=== PATIENT | female | born 1965 | race Caucasian/White ===

== ENCOUNTER 2023-06-21 11:31 | Observation (INO) ==
--- NOTE | 2023-06-21 11:38 | Emergency Department Note ---
Impression & Plan Acute cholecystitis, Chest pain, Gallstones, Compression fracture of thoracic vertebra ED Provider Note NAME: GILLES CARSON AGE: 57 SEX: F : 1965 ARRIVES VIA: Ambulance INFORMANT: Patient, EMS ED PROVIDER(S): Alistair Chauhan DO CHIEF COMPLAINT: Chest pain HPI: The patient is a 57-year-old female who presented to the emergency department for an evaluation of chest pain. The patient describes anterior chest pain as well as nausea. She states that the symptoms began earlier today. She was at her primary care physician's office she was evaluated by her family doctor. She was sent to the emergency department by ambulance because of chest pain. The patient states she was treated with aspirin. She was also treated with Zofran for nausea. She states her symptoms are somewhat improved at this time. ROS: See above HPI for pertinent positives & negatives. A total of 10 systems reviewed and were otherwise negative. PAST MEDICAL HISTORY: See Below PAST SURGICAL HISTORY: See Below FAMILY HISTORY: See Below SOCIAL HISTORY: See Below HOME MEDICATIONS: See Below ALLERGIES: See Below VITALS: See Below PHYSICAL EXAMINATION: GENERAL: Patient is awake alert in no acute distress patient is resting comfortably and showing no signs of anxiety EYES: The conjunctivae are clear. The pupils are round and reactive. EARS, NOSE, MOUTH AND THROAT: The nose is without any evidence of any deformity. NECK: The neck is nontender and supple. RESPIRATORY: Normal respiratory effort is noted there is no evidence of wheezing rhonchi or rales CARDIOVASCULAR: Regular rate and rhythm noted there no murmurs rubs or gallops normal S1 normal S2. GASTROINTESTINAL: The abdomen is soft. Abdomen is nontender. MUSCULOSKELETAL/EXTREMITIES: There is no evidence of gross deformity full range of motion is noted in the hips and shoulders. SKIN: There is no obvious evidence of any rash. There are no petechiae, pallor or cyanosis noted. NEUROLOGIC: Patient is awake alert and oriented x3 MEDICAL DECISION MAKING: The patient is a 57-year-old female who presented to the emergency department for an evaluation of chest pain. The patient described lower chest pain and upper abdominal pain. She did not have any specific guarding in the abdomen but did have some upper abdominal tenderness. Patient ultimately was found to have negative troponin x 2. EKG showed no acute ischemic changes but did have some T wave abnormalities. I discussed patient's laboratory and radiographic studies with her. CT of the chest was obtained as well as the abdomen pelvis. The CT of the chest did not show any signs of pulmonary embolism or thoracic aortic pathology. Abdomen did show signs of possible cholecystitis. For this reason ultrasound was obtained which did show some ductal dilatation as well as gallstones. I discussed the case with the on-call heat and frost insulator helper. They recommended that we discussed the case with Dee Dee who recommends an MRCP as well as admission for cholecystitis prior to transfer. [facility] Nursing notes reviewed. Prior medical records reviewed Vital Signs: reviewed and remarkable for elevated blood pressure. Differential diagnosis: Cardiac ischemia, aortic dissection, pulmonary embolism, pneumothorax, pneumonia, pericarditis, myocarditis, esophageal rupture, GERD, cholecystitis, pancreatitis, musculoskeletal, as well as other pathologies. ER treatment provided: See below Diagnostics interpreted by me: ECG: EKG was obtained in the emergency department. My interpretation is sinus bradycardia at 54 bpm. There was no ectopy. Nonspecific T wave abnormalities were noted. Cardiac Monitoring: An order was placed for continuous cardiac monitoring. The monitor shows a rate of 66 bpm with sinus rhythm. Laboratory studies: As stated above and show below. Imaging studies: See below. Radiographic imaging was reviewed by myself Consultation(s): I discussed this case with Dr. Ruffin who is on-call for gastroenterology. I discussed this case with Dr Henry with [facility] triage line I discussed this case with Dr. Piedra who is on for GI at [facility]. They recommended an MRCP prior to transfer. I discussed this case with Kassidy who is on-call for the [facility] hospitalist group. I discussed this case with Dr. Yusuf who is on-call for general surgery. Past Med/Surg History Medical History Crohn disease No pertinent family history Anxiety Surgical History No pertinent past surgical history Social History Smoking Status: Current every day smoker Preferred Language: Brazilian Feels Safe at Home: Yes Allergies Allergies Allergy/AdvReac Type Severity Reaction Status Date / Time No Known Allergies Allergy Unverified 06/21/23 17:04 Home Meds Home Medications Medication Instructions Recorded Confirmed acetaminophen 500 mg tablet 500 mg PO Q6H PRN Pain 06/21/23 06/21/23 albuterol sulfate 90 mcg/actuation 2 puff inhalation Q4H PRN Wheezing 06/21/23 06/21/23 aerosol inhaler cholecalciferol (vitamin D3) 25 50 mcg PO DAILY 06/21/23 06/21/23 mcg (1,000 unit) tablet (Vitamin D3) duloxetine 30 mg capsule,delayed 30 mg PO QAM 06/21/23 06/21/23 release infliximab 100 mg intravenous 100 mg IV UD 06/21/23 06/21/23 solution (Remicade) omega 5-ily-nxq-fish oil 1,000 mg 1 cap PO DAILY 06/21/23 06/21/23 (120 mg-180 mg) capsule (Fish Oil) ondansetron HCl 4 mg tablet 4 mg PO Q6H PRN Nausea And Vomiting 06/21/23 06/21/23 pantoprazole 40 mg tablet,delayed 40 mg PO QAM 06/21/23 06/21/23 release Results & Data (ED) Vital Signs Vital Signs - 24 hr 06/21/23 11:31 06/21/23 11:37 06/21/23 12:00 Temperature 36.9 C Temperature Source Oral Pulse Rate 64 64 60 Pulse Rate from SpO2 Sensor 60 Pulse Rhythm Regular Respiratory Rate 18 18 28 H Respiratory Effort / Characteristics Non-Labored Respiratory Depth Normal Respiratory Pattern Regular Blood Pressure 148/87 H Blood Pressure Mean 107 Pulse Oximetry 98 98 99 Oxygen Delivery Method Room Air Room Air Sepsis Recent Fever Within 48 Hours No Sepsis New/Unexplained Change in Mental Status N/A Sepsis Action Taken by Nursing No Action Required 06/21/23 12:26 06/21/23 13:00 06/21/23 13:36 Temperature Temperature Source Pulse Rate 64 68 69 Pulse Rate from SpO2 Sensor 71 72 Pulse Rhythm Respiratory Rate 21 15 Respiratory Effort / Characteristics Respiratory Depth Respiratory Pattern Blood Pressure 168/99 H Blood Pressure Mean 122 Pulse Oximetry 96 98 Oxygen Delivery Method Sepsis Recent Fever Within 48 Hours Sepsis New/Unexplained Change in Mental Status Sepsis Action Taken by Nursing 06/21/23 14:00 06/21/23 14:30 06/21/23 15:00 Temperature Temperature Source Pulse Rate 65 63 67 Pulse Rate from SpO2 Sensor 70 Pulse Rhythm Respiratory Rate 21 24 17 Respiratory Effort / Characteristics Respiratory Depth Respiratory Pattern Blood Pressure 170/93 H 170/96 H 170/87 H Blood Pressure Mean 118 120 114 Pulse Oximetry 98 Oxygen Delivery Method Sepsis Recent Fever Within 48 Hours Sepsis New/Unexplained Change in Mental Status Sepsis Action Taken by Nursing 06/21/23 17:30 Temperature Temperature Source Pulse Rate 66 Pulse Rate from SpO2 Sensor Pulse Rhythm Respiratory Rate 21 Respiratory Effort / Characteristics Respiratory Depth Respiratory Pattern Blood Pressure 169/90 H Blood Pressure Mean 116 Pulse Oximetry Oxygen Delivery Method Sepsis Recent Fever Within 48 Hours Sepsis New/Unexplained Change in Mental Status Sepsis Action Taken by [facility] Medications Current Medication List: was personally reviewed by me Laboratory Data Attestation: I reviewed the patient's lab results. 06/21/23 11:44 06/21/23 11:44 Lab Results 06/21/23 06/21/23 Range/Units 11:44 14:28 WBC 15.16 H (4.8-10.8) K/ul RBC 4.94 (4.20-5.40) M/uL Hgb 14.3 (12.0-16.0) g/dl Hct 43.8 (37.0-47.0) % MCV 88.7 (80.0-100.0) fL MCH 28.9 (25.0-34.0) pg MCHC 32.6 (32.0-36.0) g/dL RDW Std Deviation 56.0 H (36.4-46.3) fL RDW Coeff of Melzia 17.2 H (11.5-14.5) % Plt Count 253 (130-400) K/uL MPV 10.8 (9.4-12.4) fL Immature Gran % (Auto) 0.5 % Neut % (Auto) 78.5 % Lymph % (Auto) 14.1 % Mccone % (Auto) 5.5 % Eos % (Auto) 0.9 % Baso % (Auto) 0.5 % Neut # (Auto) 11.92 H (1.40-6.50) K/uL Lymph # (Auto) 2.13 (1.20-3.40) K/uL Mccone # (Auto) 0.83 H (0.11-0.59) K/uL Eos # (Auto) 0.13 (0.00-0.50) K/uL Baso # (Auto) 0.07 (0.00-0.20) K/uL Immature Gran # (Auto) 0.08 (0.01-0.20) K/uL PT 10.9 (9.0-12.0) Seconds INR 1.0 (0.9-1.1) APTT 25 (21-31) Seconds PTT Ratio 0.9 Sodium 142 (136-145) mmol/L Potassium 3.9 (3.5-5.1) mmol/L Chloride 107 (98-107) mmol/L Carbon Dioxide 28 (21-32) mmol/L Anion Gap 7 (3-11) BUN 10 (6-23) mg/dl Creatinine 0.57 L (0.6-1.2) mg/dl Est Cr Clr Drug Dosing 84.0 ml/min Est GFR ( Amer) 117.6 ml/min Est GFR (Non-Af Amer) 101.5 ml/min BUN/Creatinine Ratio 17.5 (10-20) Glucose 101 H (70-99(Fasting)) mg/dl Calcium 9.2 (8.6-10.3) mg/dl Total Bilirubin 1.6 H (0.2-1.0) mg/dl AST 105 H (13-39) U/L ALT 26 (7-52) U/L Alkaline Phosphatase 103 (34-104) U/L Troponin I High Sens 5.8 3.0 (0-14) pg/ml Total Protein 6.6 (6.0-8.3) gm/dl Albumin 3.8 (3.4-5.0) gm/dl Globulin 2.8 (2.5-4.0) gm/dl Albumin/Globulin Ratio 1.4 (0.9-2) Lipase 7 L (11-82) U/L Administered Medications Discontinued Medications Piperacillin Sod/Tazobactam Sod (Zosyn) 4.5 gm in 100 mls @ 200 mls/hr IV NOW ONE Stop: 06/21/23 16:31 Last Admin: 06/21/23 17:32 Dose: 200 mls/hr Documented By: ALBINA Ioversol (Optiray 320 125ml) 93 ml IV ONCE ONE Stop: 06/21/23 13:32 Last Admin: 06/21/23 13:33 Dose: 93 ml Documented By: MARITO Imaging Data Attestation: I personally reviewed and interpreted this imaging study as follows: My Impression: CT of the abdomen and pelvis was obtained in the emergency department. My interpretation is no free air or signs of bowel obstruction, final report below. CT of the chest was obtained in the emergency department. My interpretation was no free air or signs of bowel obstruction, final report below. Radiologist's Impression: Chest X-Ray 06/21/23 11:37 XR chest 1V portable CLINICAL HISTORY: Chest pain, nonspecific COMPARISON STUDY: No previous studies for comparison. FINDINGS: Lung volumes are normal. There is a hazy 3.3 cm right lower lung. There is no pneumothorax or pleural effusion. Skin folds project of the right chest. Opacity along the left heart border favors epicardial fat pad. Cardiac size is normal. Mediastinal contours are normal. There is no evidence for pulmonary edema. IMPRESSION: Subtle hazy 3.3 cm right lower lung opacity. This may be artifactual. However, a small focus of developing pneumonia could appear similar. Radiographic follow-up to ensure resolution is recommended. ACT 112: Negative or not required by law. Electronically signed by: Kurt Rodriguez M.D. 06/21/2023 12:25 PM Abdomen/Pelvis CT 06/21/23 13:01 CT angio chest PE protocol, CT abd pelvis IV con only CT DOSE: 591.94 mGy.cm HISTORY: 57 years-old Female with PE. Acute shortness of breath with chest and abdominal pain TECHNIQUE: Multiple CTA images of the chest were obtained after the intravenous administration of 93 ml Optiray. Coronal and sagittal MIPS were obtained from the axial data set and were submitted for review. CT abdomen and pelvis with IV contrast also obtained. All measurements were obtained according to NASCET criteria. A dose lowering technique was utilized adhering to the principles of ALARA. COMPARISON: None. FINDINGS: CTA: Heart normal in size. No pericardial effusion. Atherosclerosis of the aorta without aneurysm or dissection. Unremarkable pulmonary artery. No pulmonary emboli identified. CT CHEST: No thyroid nodule or pathologically enlarged lymph nodes. Calcified subcarinal lymph nodes are present. No pneumothorax, pleural effusion or overt pulmonary edema. Moderate pulmonary emphysema.r there are a few scattered low suspicion groundglass nodular foci at the lung apices measuring up to 4 mm. 7 mm ground glass nodule within the medial segment right middle lobe, image 97. Central airways are patent. Moderate circumferential wall thickening of the distal esophagus with adjacent inflammatory stranding. Unremarkable soft tissues. Demineralized appearance of the bones. Mild paravertebral edema surrounding the T11 and T12 vertebral bodies were there are [id number] compression deformities with retropulsion measuring up to 5 mm. No high-grade central canal stenosis. CT ABDOMEN AND PELVIS: No free air. Unremarkable spleen, and adrenal glands. Distended gallbladder with borderline wall thickening. Intrahepatic and extrahepatic biliary ductal dilation. The common bile duct measures 12 mm. The pancreatic duct measures 5 mm. No obstructing biliary or pancreatic lesion identified. Unremarkable liver. Patency of the hepatic and portal veins. There are a few scattered cysts of the kidneys. No hydronephrosis. Decompressed urinary bladder with wall thickening. Pelvic floor relaxation. Atherosclerosis of the aorta without aneurysm. No small bowel obstruction. Nonspecific circumferential wall thickening of the anal rectal junction. Areas of linear soft tissue thickening noted within the perirenal tissues suggestive of chronic perianal fistulas. No significant acute inflammatory changes or fluid collections. Mild perirectal inflammatory stranding. There is a partial distention within the sigmoid and ascending colon. Moderate colonic fecal retention. Noninflamed appendix. Mild generalized body wall edema. Degenerative changes of the spine, pelvis and hips. IMPRESSION: 1. Pulmonary emphysema without acute intrathoracic abnormality. No pulmonary emboli. 2. No bowel obstruction or pneumoperitoneum. 3. Nonspecific wall thickening of the rectum and anorectal junction should be correlated with colonoscopy. Differential considerations include proctitis versus a mucosal lesion. 4. Chronic appearing perianal fistulas. No abscess. 5. Distended gallbladder with borderline wall thickening. Correlation with ultrasound is needed. 6. Acute to subacute appearing T11 and T12 compression deformities with mild paravertebral edema and retropulsion. 7. Probable distal esophagitis. 8. Additional findings as above. ACT 112: Negative or not required by law. The above report was generated using voice recognition software. It may contain grammatical, syntax or spelling errors. Electronically signed by: Nnamdi Oakley M.D. 06/21/2023 2:25 PM Chest CTA 06/21/23 13:01 CT angio chest PE protocol, CT abd pelvis IV con only CT DOSE: 591.94 mGy.cm HISTORY: 57 years-old Female with PE. Acute shortness of breath with chest and abdominal pain TECHNIQUE: Multiple CTA images of the chest were obtained after the intravenous administration of 93 ml Optiray. Coronal and sagittal MIPS were obtained from the axial data set and were submitted for review. CT abdomen and pelvis with IV contrast also obtained. All measurements were obtained according to NASCET criteria. A dose lowering technique was utilized adhering to the principles of ALARA. COMPARISON: None. FINDINGS: CTA: Heart normal in size. No pericardial effusion. Atherosclerosis of the aorta without aneurysm or dissection. Unremarkable pulmonary artery. No pulmonary emboli identified. CT CHEST: No thyroid nodule or pathologically enlarged lymph nodes. Calcified subcarinal lymph nodes are present. No pneumothorax, pleural effusion or overt pulmonary edema. Moderate pulmonary emphysema.r there are a few scattered low suspicion groundglass nodular foci at the lung apices measuring up to 4 mm. 7 mm ground glass nodule within the medial segment right middle lobe, image 97. Central airways are patent. Moderate circumferential wall thickening of the distal esophagus with adjacent inflammatory stranding. Unremarkable soft tissues. Demineralized appearance of the bones. Mild paravertebral edema surrounding the T11 and T12 vertebral bodies were there are [id number] compression deformities with retropulsion measuring up to 5 mm. No high-grade central canal stenosis. CT ABDOMEN AND PELVIS: No free air. Unremarkable spleen, and adrenal glands. Distended gallbladder with borderline wall thickening. Intrahepatic and extrahepatic biliary ductal dilation. The common bile duct measures 12 mm. The pancreatic duct measures 5 mm. No obstructing biliary or pancreatic lesion identified. Unremarkable liver. Patency of the hepatic and portal veins. There are a few scattered cysts of the kidneys. No hydronephrosis. Decompressed urinary bladder with wall thickening. Pelvic floor relaxation. Atherosclerosis of the aorta without aneurysm. No small bowel obstruction. Nonspecific circumferential wall thickening of the anal rectal junction. Areas of linear soft tissue thickening noted within the perirenal tissues suggestive of chronic perianal fistulas. No significant acute inflammatory changes or fluid collections. Mild perirectal inflammatory stranding. There is a partial distention within the sigmoid and ascending colon. Moderate colonic fecal retention. Noninflamed appendix. Mild generalized body wall edema. Degenerative changes of the spine, pelvis and hips. IMPRESSION: 1. Pulmonary emphysema without acute intrathoracic abnormality. No pulmonary emboli. 2. No bowel obstruction or pneumoperitoneum. 3. Nonspecific wall thickening of the rectum and anorectal junction should be correlated with colonoscopy. Differential considerations include proctitis versus a mucosal lesion. 4. Chronic appearing perianal fistulas. No abscess. 5. Distended gallbladder with borderline wall thickening. Correlation with ultrasound is needed. 6. Acute to subacute appearing T11 and T12 compression deformities with mild paravertebral edema and retropulsion. 7. Probable distal esophagitis. 8. Additional findings as above. ACT 112: Negative or not required by law. The above report was generated using voice recognition software. It may contain grammatical, syntax or spelling errors. Electronically signed by: Nnamdi Oakley M.D. 06/21/2023 2:25 PM Gallbladder Ultrasound 06/21/23 14:40 ULTRASOUND RIGHT UPPER QUADRANT ABDOMEN CLINICAL HISTORY: Right upper quadrant abdominal pain. COMPARISON STUDY: Abdominal CT dated 06/21/2023. TECHNIQUE: Real-time, grayscale, and color flow sonography of the right upper quadrant of the abdomen was performed. Images are reviewed in the transverse and longitudinal planes. FINDINGS: Liver: The liver is normal in size and echotexture. There is mild central intrahepatic biliary ductal dilatation. The main portal vein is patent. Gallbladder: The gallbladder is distended and contains a 1 cm shadowing mobile gallstone. The gallbladder wall is mildly thickened measuring up to 3 mm. Trace pericholecystic fluid is seen. A sonographic Christianson's sign is reportedly absent. The common bile duct measures up to 0.6 cm in diameter. Pancreas: Visualized portions of the pancreatic head and body are normal in appearance. There is mild dilatation of pancreatic duct which measures up to 3 mm. Right kidney: Survey images of the right kidney demonstrate normal size and echotexture. There is no hydronephrosis. A subcentimeter cyst is incidentally noted. Ascites: There is trace perihepatic ascites. Bladder: The bladder is normal as imaged. Both ureteral jets were identified. IMPRESSION: 1. The gallbladder is distended and contains a calcified gallstone. There is also trace pericholecystic fluid. A sonographic Christianson's sign is reportedly absent. Findings are equivocal for acute cholecystitis which is not excluded. Clinical and laboratory correlation will be required. If there is strong clinical concern for acute cholecystitis a nuclear hepatobiliary scan could be considered. 2. There is mild intra and extrahepatic biliary ductal dilatation, as well as mild dilatation of the pancreatic duct. This is unchanged from today's CT scan. 3. Trace perihepatic ascites. ACT 112: Negative or not required by law. Electronically signed by: Ricardo Manriquez M.D. 06/21/2023 3:53 PM Discharge Plan Visit Data Chief Complaint: Chest Pain Stated Complaint: CHEST PRESSURE ED Provider: Alistair Chauhan Discharge Problem: Acute cholecystitis, Chest pain, Gallstones, Compression fracture of thoracic vertebra Patient Disposition: Being Evaluated by Hospitalist Forms Stand Alone [facility] Prescriptions: No Action ondansetron HCl 4 mg tablet 4 mg PO Q6H PRN (Reason: Nausea And Vomiting) acetaminophen [Tylenol Ex Str Rapid Release] 500 mg Tablet 500 mg PO Q6H PRN (Reason: Pain) pantoprazole 40 mg tablet,delayed release (DR/EC) 40 mg PO QAM infliximab [Remicade] 100 mg Recon Soln 100 mg IV UD Rx Instructions: Patient has done 2 of 3 doses then will go to once every 8 weeks albuterol sulfate 90 mcg/actuation HFA aerosol inhaler 2 puff INHALATION Q4H PRN (Reason: Wheezing) duloxetine 30 mg capsule,delayed release(DR/EC) 30 mg PO QAM cholecalciferol (vitamin D3) [Vitamin D3] 25 mcg (1,000 unit) Tablet 50 mcg PO DAILY omega 5-iwm-ave-fish oil [Fish Oil] 1,000 mg (120 mg-180 mg) Capsule 1 cap PO DAILY Referrals Referrals: PCP,NO [Physician] - Discharge Problem: Chest pain Qualifiers: Chest pain type: unspecified Qualified Code(s): R07.9 - Chest pain, unspecified Compression fracture of thoracic vertebra Qualifiers: Encounter type: initial encounter Thoracic vertebra fracture level: T11 Q ualified Code(s): S22.080A - Wedge compression fracture of T11-T12 vertebra, initial encounter for closed fracture
[2023-06-21 12:15] LABS: Basophils # (auto) 0.07 K/uL (0.00-0.20); Basophils % (auto) 0.5 %; Eosinophils # (auto) 0.13 K/uL (0.00-0.50); Eosinophils % (auto) 0.9 %; Hematocrit (blood only) 43.8 % (37.0-47.0); Hemoglobin 14.3 g/dl (12.0-16.0); Immature Granulocytes # (auto) 0.08 K/uL (0.01-0.20); Immature Granulocytes % (auto) 0.5 %; Lymphocytes # (auto) 2.13 K/uL (1.20-3.40); Lymphocytes % (auto) 14.1 %; Mean Corpuscular Hemoglobin 28.9 pg (25.0-34.0); Mean Corpuscular Hgb Conc 32.6 g/dL (32.0-36.0); Mean Corpuscular Volume 88.7 fL (80.0-100.0); Mean Platelet Volume 10.8 fL (9.4-12.4); Monocytes # (auto) 0.83 K/uL (0.11-0.59); Monocytes % (auto) 5.5 %; Neutrophils # (auto) 11.92 K/uL (1.40-6.50); Neutrophils % (auto) 78.5 %; Platelet Count 253 K/uL (130-400); RDW Coefficient of Variation 17.2 % (11.5-14.5); Red Blood Count 4.94 M/uL (4.20-5.40); White Blood Count 15.16 K/ul (4.8-10.8)
--- NOTE | 2023-06-21 12:26 | XRay Report ---
XR chest 1V portable CLINICAL HISTORY: Chest pain, nonspecific COMPARISON STUDY: No previous studies for comparison. FINDINGS: Lung volumes are normal. There is a hazy 3.3 cm right lower lung. There is no pneumothorax or pleural effusion. Skin folds project of the right chest. Opacity along the left heart border favor s epicardial fat pad. Cardiac size is normal. Mediastinal contours are normal. There is no evidence f or pulmonary edema. IMPRESSION: Subtle hazy 3.3 cm right lower lung opacity. This may be artifactual. However, a small focus of developing pneumonia could appear similar. Radiographic follow-up to ensure resolution is re commended. ACT 112: Negative or not required by law. Electronically signed by: Kurt Rodriguez M.D. 06/21/2023 12:25 PM
[2023-06-21 12:28] LABS: Albumin Globulin Ratio 1.4 (0.9-2); Albumin Level 3.8 gm/dl (3.4-5.0); BUN Creatinine Ratio 17.5 (10-20); Bilirubin,Total 1.6 mg/dl (0.2-1.0); Calcium 9.2 mg/dl (8.6-10.3); Est GFR (African American) 117.6 ml/min; Est GFR (Non-African American) 101.5 ml/min; Globulin 2.8 gm/dl (2.5-4.0); Potassium 3.9 mmol/L (3.5-5.1); Total Protein 6.6 gm/dl (6.0-8.3)
[2023-06-21 12:30] LABS: Troponin I High Sensitivity 5.8 pg/ml (0-14)
[2023-06-21 12:41] LABS: Partial Thromboplastin Ratio 0.9; Partial Thromboplastin Time 25 Seconds (21-31); Prothrombin Time 10.9 Seconds (9.0-12.0)
[2023-06-21] MEDS: OPTIRAY 320 125ml IV ONE (13:33)
--- NOTE | 2023-06-21 14:27 | CT Scan Report ---
CT angio chest PE protocol, CT abd pelvis IV con only CT DOSE: 591.94 mGy.cm HISTORY: 57 years-old Female with PE. Acute shortness of breath with chest and abdominal pain TECHNIQUE: Multiple CTA images of the chest were obtained after the intravenous administration of 93 ml Optiray. Coronal and sagittal MIPS were obtained from the axial data set and were submitted for r eview. CT abdomen and pelvis with IV contrast also obtained. All measurements were obtained accordin g to NASCET criteria. A dose lowering technique was utilized adhering to the principles of ALARA. COMPARISON: None. FINDINGS: CTA: Heart normal in size. No pericardial effusion. Atherosclerosis of the aorta without aneurysm or disse ction. Unremarkable pulmonary artery. No pulmonary emboli identified. CT CHEST: No thyroid nodule or pathologically enlarged lymph nodes. Calcified subcarinal lymph nodes are presen t. No pneumothorax, pleural effusion or overt pulmonary edema. Moderate pulmonary emphysema.r there a re a few scattered low suspicion groundglass nodular foci at the lung apices measuring up to 4 mm. 7 mm ground glass nodule within the medial segment right middle lobe, image 97. Central airways are pat ent. Moderate circumferential wall thickening of the distal esophagus with adjacent inflammatory stra nding. Unremarkable soft tissues. Demineralized appearance of the bones. Mild paravertebral edema tiffanie rounding the T11 and T12 vertebral bodies were there are [id number] compression deformities wit h retropulsion measuring up to 5 mm. No high-grade central canal stenosis. CT ABDOMEN AND PELVIS: No free air. Unremarkable spleen, and adrenal glands. Distended gallbladder wi th borderline wall thickening. Intrahepatic and extrahepatic biliary ductal dilation. The common bile duct measures 12 mm. The pancreatic duct measures 5 mm. No obstructing biliary or pancreatic lesion identified. Unremarkable liver. Patency of the hepatic and portal veins. There are a few scattered cysts of the kidneys. No hydronephrosis. Decompressed urinary bladder with wall thickening. Pelvic floor relaxation. Atherosclerosis of the aorta without aneurysm. No small bow el obstruction. Nonspecific circumferential wall thickening of the anal rectal junction. Areas of amy ear soft tissue thickening noted within the perirenal tissues suggestive of chronic perianal fistulas . No significant acute inflammatory changes or fluid collections. Mild perirectal inflammatory strand ing. There is a partial distention within the sigmoid and ascending colon. Moderate colonic fecal ret ention. Noninflamed appendix. Mild generalized body wall edema. Degenerative changes of the spine, pe lvis and hips. IMPRESSION: 1. Pulmonary emphysema without acute intrathoracic abnormality. No pulmonary emboli. 2. No bowel obstruction or pneumoperitoneum. 3. Nonspecific wall thickening of the rectum and anorectal junction should be correlated with colonos copy. Differential considerations include proctitis versus a mucosal lesion. 4. Chronic appearing perianal fistulas. No abscess. 5. Distended gallbladder with borderline wall thickening. Correlation with ultrasound is needed. 6. Acute to subacute appearing T11 and T12 compression deformities with mild paravertebral edema and retropulsion. 7. Probable distal esophagitis. 8. Additional findings as above. ACT 112: Negative or not required by law. The above report was generated using voice recognition software. It may contain grammatical, syntax o r spelling errors. Electronically signed by: Nnamdi Oakley M.D. 06/21/2023 2:25 PM
--- NOTE | 2023-06-21 15:56 | Ultrasound Report ---
ULTRASOUND RIGHT UPPER QUADRANT ABDOMEN CLINICAL HISTORY: Right upper quadrant abdominal pain. COMPARISON STUDY: Abdominal CT dated 06/21/2023. TECHNIQUE: Real-time, grayscale, and color flow sonography of the right upper quadrant of the abdomen was performed. Images are reviewed in the transverse and longitudinal planes. FINDINGS: Liver: The liver is normal in size and echotexture. There is mild central intrahepatic biliary ductal dilatation. The main portal vein is patent. Gallbladder: The gallbladder is distended and contains a 1 cm shadowing mobile gallstone. The gallbla dder wall is mildly thickened measuring up to 3 mm. Trace pericholecystic fluid is seen. A sonographi c Christianson's sign is reportedly absent. The common bile duct measures up to 0.6 cm in diameter. Pancreas: Visualized portions of the pancreatic head and body are normal in appearance. There is mild dilatation of pancreatic duct which measures up to 3 mm. Right kidney: Survey images of the right kidney demonstrate normal size and echotexture. There is no hydronephrosis. A subcentimeter cyst is incidentally noted. Ascites: There is trace perihepatic ascites. Bladder: The bladder is normal as imaged. Both ureteral jets were identified. IMPRESSION: 1. The gallbladder is distended and contains a calcified gallstone. There is also trace pericholecyst ic fluid. A sonographic Christianson's sign is reportedly absent. Findings are equivocal for acute cholecys titis which is not excluded. Clinical and laboratory correlation will be required. If there is strong clinical concern for acute cholecystitis a nuclear hepatobiliary scan could be considered. 2. There is mild intra and extrahepatic biliary ductal dilatation, as well as mild dilatation of the pancreatic duct. This is unchanged from today's CT scan. 3. Trace perihepatic ascites. ACT 112: Negative or not required by law. Electronically signed by: Ricardo Manriquez M.D. 06/21/2023 3:53 PM
[2023-06-21] MEDS: PIPERACILLIN/TAZOBACTAM 4.5 GM/100 ML BAG IV ONE (17:32)
--- NOTE | 2023-06-21 18:00 | History & Physical Report ---
Date of Service June 21, 2023 Assessment & Plan (1) Gallstones: (2) Acute cholecystitis: Plan: -Admit to [facility] with telemetry -GI and general surgery consulted -ER physician reports they have spoke to GI at [facility] and he did not feel that patient needed transfer to their facility at this time, recommended an MRCP which has been ordered, await results -AST 105, ALT 26, total bili 1.6, alk phos 103 -Reviewed gallbladder ultrasound showing 1 large calcified gallstone, as well as CT abdomen pelvis showing gallbladder wall thickening -LR at 80 mL an hour, n.p.o. 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 Bradycardia can also be an adverse effect from remicade and can be monitored throughout admission. -A.m. lipid panel and A1c -Possible that this chest pain is truly related to acute cholecystitis as above, Unlikely acute ACS (4) Crohn disease: Plan: - Recently started remicade about 2 weeks, has gotten 2 injections and has less blood in stool. (5) Tobacco use: Plan: - Cessation encouraged, hold on nicotine patch at this time (6) Compression fracture of thoracic vertebra: Plan: - Appears to be acute versus subacute on CT scan, T11, T12, pt is following with ortho as outpatient routinely, no need for consultation at this time - Pt uses tylenol at home for pain DVT ppx: teds, scds Lines: 1 PIV FEN/GI: NPO for now CODE: DNR/DNI Dispo: From home, likely to remain in the hospital x 1-2 days A total of 77 minutes were spent with greater than 50% of that time face to face with the patient, personally reviewing all current laboratories, imaging studies, past medication reconciliation, outpatient chart review, and discussion with specialists to collaborate care for the patient with attending. Please see attending documentation for corrections and/or additions. History of Present Illness Primary Care Provider: Sari Perkins MD This is a 57-year-old female with PMHx of Crohns disease, hx enteritis, MDD, B12 deficiency anemia, tobacco use, who presented to outpatient sports medicine however did not make it to the visit as she had suspected cardiorespiratory event with acute development of chest pain, was given full dose aspirin, EKG was shown sinus bradycardia as well as T wave depressions in V5 and V6 and therefore was sent via EMS to the hospital here. Pt here underwent testing, EKG was similar compared to outpatient, negative troponin x 2, CT abdomen pelvis was completed showing possible gallbladder wall thickening, known acute to subacute T11-T12 compression deformities, concern for probable distal esophagitis, nonspecific wall thickening of the rectum and anorectal junction concerning for proctitis. T. bili is mildly elevated at 1.6, AST 105, ALT 26, alk phos 102. Gallbladder ultrasound showed that the gallbladder is distended and contains a calcified gallstone, trace. Cholecystic fluid, negative Christianson sign, findings were equivocal for acute cholecystitis. ER had discussion with GI at [facility] which recommended an MRCP, no need for acute transfer to their facility at this time. He will reach out to general surgery. Our team has been asked to admit the patient. Pt arrived for ortho follow up for compression fractures. She states that as she presented to the office she all of a sudden fot chest pain, this was at 10:15 am, and then was rushed here. She states it feels like a squeezing, does not radiate, it lasted all day, states its a 7/10 pain/discomfort and still present. Denies nausea or vomiting. Pt has not eaten or drank anything since early this morning around breakfast, she has had minimal appetite due to her Crohn's disease, and states that it has been like that for a long time, only recently slightly improved since starting Remicade in the last 2 weeks. Last time she moved her bowel was 2 days ago, she has hx of constipation. Reports last colonoscopy was on 05/24/23 at [facility]. She reports seeing less blood in her stools since starting Remicade. Patient also states that she has had increased urinary frequency, today has attempted to go to the bathroom and urinate 10 times but only a little bit comes out, she reports having burning x 1. Remarks that she has had history of colovesicular fistula and frequent UTIs., Not currently on any antibiotics, was on Bactrim about 1 month ago for UTI. Social Hx: Currently smokes 0.5-1 ppd, started at age 13, 43 years. Denies alcohol use, illicit drug, marijuana. Allergies Allergy/AdvReac Type Severity Reaction Status Date / Time No Known Allergies Allergy Unverified 06/21/23 17:04 Home Medications Medication Instructions Recorded Confirmed Type acetaminophen 500 mg tablet 500 mg PO Q6H PRN Pain 06/21/23 06/21/23 History albuterol sulfate 90 mcg/actuation 2 puff inhalation Q4H PRN Wheezing 06/21/23 06/21/23 History aerosol inhaler cholecalciferol (vitamin D3) 25 50 mcg PO DAILY 06/21/23 06/21/23 History mcg (1,000 unit) tablet (Vitamin D3) duloxetine 30 mg capsule,delayed 30 mg PO QAM 06/21/23 06/21/23 History release infliximab 100 mg intravenous 100 mg IV UD 06/21/23 06/21/23 History solution (Remicade) omega 8-tsi-bps-fish oil 1,000 mg 1 cap PO DAILY 06/21/23 06/21/23 History (120 mg-180 mg) capsule (Fish Oil) ondansetron HCl 4 mg tablet 4 mg PO Q6H PRN Nausea And Vomiting 06/21/23 06/21/23 History pantoprazole 40 mg tablet,delayed 40 mg PO QAM 06/21/23 06/21/23 History release Past Med/Surg History Medical History (Updated 06/21/23 @ 18:27 by Nancy Navarro PA-C) Crohn disease No pertinent family history Anxiety Surgical History (Updated 06/21/23 @ 19:11 by Nancy Navarro PA-C) Hx of colonoscopy Hx of hysterectomy Family History (Updated 06/21/23 @ 18:25 by Nancy Navarro PA-C) Grandfather (Maternal) Stroke Grandfather (Paternal) Cancer brain cancer Grandmother (Maternal) Cancer stomach cancer Aunt Cancer breast cancer Other Diabetes Social History Smoking Status: Current every day smoker Preferred Language: Icelandic Feels Safe at Home: Yes Review of Systems Review of Systems: Constitutional: No fever, sweats or chills Eyes: No diplopia, no worsening or blurred vision ENT: normal hearing, no trouble swallowing Respiratory: No cough, sputum, dyspnea at rest or on exertion Cardiovascular: No chest pain, tightness or palpitations Abdomen: As per HPI : History of UTI, increased urinary frequency, dysuria as per HPI no blood or stool visible in urine Musculoskeletal: No joint pain, calf pain, swelling Neurologic: No weakness, numbness/tingling, or balance problems Psychiatric: No anxiety or depression Skin: No rash or itch Physical Exam Physical Exam: General: awake, alert, no apparent distress, thin white female, BMI 19.6 Head: Normocephalic, atraumatic ENT: PERRL, EOMI, no pharyngeal exudate, mucous membranes moist Chest: Clear to auscultation, on room air, no adventitious breath sounds Cardiac: Sinus bradycardia, no murmur, no JVD, normal peripheral pulses, good capillary refill Abdominal: NABS x 4 quadrants, soft, nondistended, nontender to palpation in the RUQ,, no rebound or guarding, negative Christianson sign Extremities: Normal inspection, no peripheral edema or erythema, calfs nontender to palpation Psych: Normal mood and affect Neuro: AAO x 3, strength intact bilaterally and rated 5/5, no motor deficits, speech is clear, no peripheral sensory deficits Results & Data Results & Data Vital Signs (Past 12 Hours) Vital Signs Temp Pulse Resp BP Pulse Ox O2 Del Method 06/21/23 17:30 66 21 169/90 H 06/21/23 15:00 67 17 170/87 H 06/21/23 14:30 63 24 170/96 H 06/21/23 14:00 65 21 170/93 H 98 06/21/23 13:36 69 15 168/99 H 98 06/21/23 13:00 68 21 96 06/21/23 12:26 64 06/21/23 12:00 60 28 H 99 06/21/23 11:37 64 18 98 Room Air 06/21/23 11:31 36.9 C 64 18 148/87 H 98 Room Air Laboratory Results 06/21/23 06/21/23 14:28 11:44 WBC 15.16 H RBC 4.94 Hgb 14.3 Hct 43.8 MCV 88.7 MCH 28.9 MCHC 32.6 RDW Std Deviation 56.0 H RDW Coeff of Meliza 17.2 H Plt Count 253 MPV 10.8 Immature Gran % (Auto) 0.5 Neut % (Auto) 78.5 Lymph % (Auto) 14.1 Berg[place] % (Auto) 5.5 Eos % (Auto) 0.9 Baso % (Auto) 0.5 Neut # (Auto) 11.92 H Lymph # (Auto) 2.13 [place] # (Auto) 0.83 H Eos # (Auto) 0.13 Baso # (Auto) 0.07 Immature Gran # (Auto) 0.08 PT 10.9 INR 1.0 APTT 25 PTT Ratio 0.9 Sodium 142 Potassium 3.9 Chloride 107 Carbon Dioxide 28 Anion Gap 7 BUN 10 Creatinine 0.57 L Est Cr Clr Drug Dosing 84.0 Est GFR ( Amer) 117.6 Est GFR (Non-Af Amer) 101.5 BUN/Creatinine Ratio 17.5 Glucose 101 H Calcium 9.2 Total Bilirubin 1.6 H AST 105 H ALT 26 Alkaline Phosphatase 103 Troponin I High Sens 3.0 5.8 Total Protein 6.6 Albumin 3.8 Globulin 2.8 Albumin/Globulin Ratio 1.4 Lipase 7 L Diagnostic Findings Chest X-Ray 06/21/23 11:37 XR chest 1V portable CLINICAL HISTORY: Chest pain, nonspecific COMPARISON STUDY: No previous studies for comparison. FINDINGS: Lung volumes are normal. There is a hazy 3.3 cm right lower lung. There is no pneumothorax or pleural effusion. Skin folds project of the right chest. Opacity along the left heart border favors epicardial fat pad. Cardiac size is normal. Mediastinal contours are normal. There is no evidence for pulmonary edema. IMPRESSION: Subtle hazy 3.3 cm right lower lung opacity. This may be artifactual. However, a small focus of developing pneumonia could appear similar. Radiographic follow-up to ensure resolution is recommended. ACT 112: Negative or not required by law. Electronically signed by: Kurt Rodriguez M.D. 06/21/2023 12:25 PM Abdomen/Pelvis CT 06/21/23 13:01 CT angio chest PE protocol, CT abd pelvis IV con only CT DOSE: 591.94 mGy.cm HISTORY: 57 years-old Female with PE. Acute shortness of breath with chest and abdominal pain TECHNIQUE: Multiple CTA images of the chest were obtained after the intravenous administration of 93 ml Optiray. Coronal and sagittal MIPS were obtained from the axial data set and were submitted for review. CT abdomen and pelvis with IV contrast also obtained. All measurements were obtained according to NASCET criteria. A dose lowering technique was utilized adhering to the principles of ALARA. COMPARISON: None. FINDINGS: CTA: Heart normal in size. No pericardial effusion. Atherosclerosis of the aorta without aneurysm or dissection. Unremarkable pulmonary artery. No pulmonary emboli identified. CT CHEST: No thyroid nodule or pathologically enlarged lymph nodes. Calcified subcarinal lymph nodes are present. No pneumothorax, pleural effusion or overt pulmonary edema. Moderate pulmonary emphysema.r there are a few scattered low suspicion groundglass nodular foci at the lung apices measuring up to 4 mm. 7 mm ground glass nodule within the medial segment right middle lobe, image 97. Central airways are patent. Moderate circumferential wall thickening of the distal esophagus with adjacent inflammatory stranding. Unremarkable soft tissues. Demineralized appearance of the bones. Mild paravertebral edema surrounding the T11 and T12 vertebral bodies were there are [id number] compression deformities with retropulsion measuring up to 5 mm. No high-grade central canal stenosis. CT ABDOMEN AND PELVIS: No free air. Unremarkable spleen, and adrenal glands. Distended gallbladder with borderline wall thickening. Intrahepatic and extrahepatic biliary ductal dilation. The common bile duct measures 12 mm. The pancreatic duct measures 5 mm. No obstructing biliary or pancreatic lesion identified. Unremarkable liver. Patency of the hepatic and portal veins. There are a few scattered cysts of the kidneys. No hydronephrosis. Decompressed urinary bladder with wall thickening. Pelvic floor relaxation. Atherosclerosis of the aorta without aneurysm. No small bowel obstruction. Nonspecific circumferential wall thickening of the anal rectal junction. Areas of linear soft tissue thickening noted within the perirenal tissues suggestive of chronic perianal fistulas. No significant acute inflammatory changes or fluid collections. Mild perirectal inflammatory stranding. There is a partial distention within the sigmoid and ascending colon. Moderate colonic fecal retention. Noninflamed appendix. Mild generalized body wall edema. Degenerative changes of the spine, pelvis and hips. IMPRESSION: 1. Pulmonary emphysema without acute intrathoracic abnormality. No pulmonary emboli. 2. No bowel obstruction or pneumoperitoneum. 3. Nonspecific wall thickening of the rectum and anorectal junction should be correlated with colonoscopy. Differential considerations include proctitis versus a mucosal lesion. 4. Chronic appearing perianal fistulas. No abscess. 5. Distended gallbladder with borderline wall thickening. Correlation with ultrasound is needed. 6. Acute to subacute appearing T11 and T12 compression deformities with mild paravertebral edema and retropulsion. 7. Probable distal esophagitis. 8. Additional findings as above. ACT 112: Negative or not required by law. The above report was generated using voice recognition software. It may contain grammatical, syntax or spelling errors. Electronically signed by: Nnamdi Oakley M.D. 06/21/2023 2:25 PM Chest CTA 06/21/23 13:01 CT angio chest PE protocol, CT abd pelvis IV con only CT DOSE: 591.94 mGy.cm HISTORY: 57 years-old Female with PE. Acute shortness of breath with chest and abdominal pain TECHNIQUE: Multiple CTA images of the chest were obtained after the intravenous administration of 93 ml Optiray. Coronal and sagittal MIPS were obtained from the axial data set and were submitted for review. CT abdomen and pelvis with IV contrast also obtained. All measurements were obtained according to NASCET criteria. A dose lowering technique was utilized adhering to the principles of ALARA. COMPARISON: None. FINDINGS: CTA: Heart normal in size. No pericardial effusion. Atherosclerosis of the aorta without aneurysm or dissection. Unremarkable pulmonary artery. No pulmonary emboli identified. CT CHEST: No thyroid nodule or pathologically enlarged lymph nodes. Calcified subcarinal lymph nodes are present. No pneumothorax, pleural effusion or overt pulmonary edema. Moderate pulmonary emphysema.r there are a few scattered low suspicion groundglass nodular foci at the lung apices measuring up to 4 mm. 7 mm ground glass nodule within the medial segment right middle lobe, image 97. Central airways are patent. Moderate circumferential wall thickening of the distal esophagus with adjacent inflammatory stranding. Unremarkable soft tissues. Demineralized appearance of the bones. Mild paravertebral edema surrounding the T11 and T12 vertebral bodies were there are [id number] compression deformities with retropulsion measuring up to 5 mm. No high-grade central canal stenosis. CT ABDOMEN AND PELVIS: No free air. Unremarkable spleen, and adrenal glands. Distended gallbladder with borderline wall thickening. Intrahepatic and extrahepatic biliary ductal dilation. The common bile duct measures 12 mm. The pancreatic duct measures 5 mm. No obstructing biliary or pancreatic lesion identified. Unremarkable liver. Patency of the hepatic and portal veins. There are a few scattered cysts of the kidneys. No hydronephrosis. Decompressed urinary bladder with wall thickening. Pelvic floor relaxation. Atherosclerosis of the aorta without aneurysm. No small bowel obstruction. Nonspecific circumferential wall thickening of the anal rectal junction. Areas of linear soft tissue thickening noted within the perirenal tissues suggestive of chronic perianal fistulas. No significant acute inflammatory changes or fluid collections. Mild perirectal inflammatory stranding. There is a partial distention within the sigmoid and ascending colon. Moderate colonic fecal retention. Noninflamed appendix. Mild generalized body wall edema. Degenerative changes of the spine, pelvis and hips. IMPRESSION: 1. Pulmonary emphysema without acute intrathoracic abnormality. No pulmonary emboli. 2. No bowel obstruction or pneumoperitoneum. 3. Nonspecific wall thickening of the rectum and anorectal junction should be correlated with colonoscopy. Differential considerations include proctitis versus a mucosal lesion. 4. Chronic appearing perianal fistulas. No abscess. 5. Distended gallbladder with borderline wall thickening. Correlation with ultrasound is needed. 6. Acute to subacute appearing T11 and T12 compression deformities with mild paravertebral edema and retropulsion. 7. Probable distal esophagitis. 8. Additional findings as above. ACT 112: Negative or not required by law. The above report was generated using voice recognition software. It may contain grammatical, syntax or spelling errors. Electronically signed by: Nnamdi Oakley M.D. 06/21/2023 2:25 PM Gallbladder Ultrasound 06/21/23 14:40 ULTRASOUND RIGHT UPPER QUADRANT ABDOMEN CLINICAL HISTORY: Right upper quadrant abdominal pain. COMPARISON STUDY: Abdominal CT dated 06/21/2023. TECHNIQUE: Real-time, grayscale, and color flow sonography of the right upper quadrant of the abdomen was performed. Images are reviewed in the transverse and longitudinal planes. FINDINGS: Liver: The liver is normal in size and echotexture. There is mild central intrahepatic biliary ductal dilatation. The main portal vein is patent. Gallbladder: The gallbladder is distended and contains a 1 cm shadowing mobile gallstone. The gallbladder wall is mildly thickened measuring up to 3 mm. Trace pericholecystic fluid is seen. A sonographic Christianson's sign is reportedly absent. The common bile duct measures up to 0.6 cm in diameter. Pancreas: Visualized portions of the pancreatic head and body are normal in appearance. There is mild dilatation of pancreatic duct which measures up to 3 mm. Right kidney: Survey images of the right kidney demonstrate normal size and echotexture. There is no hydronephrosis. A subcentimeter cyst is incidentally noted. Ascites: There is trace perihepatic ascites. Bladder: The bladder is normal as imaged. Both ureteral jets were identified. IMPRESSION: 1. The gallbladder is distended and contains a calcified gallstone. There is also trace pericholecystic fluid. A sonographic Christianson's sign is reportedly absent. Findings are equivocal for acute cholecystitis which is not excluded. Clinical and laboratory correlation will be required. If there is strong clinical concern for acute cholecystitis a nuclear hepatobiliary scan could be considered. 2. There is mild intra and extrahepatic biliary ductal dilatation, as well as mild dilatation of the pancreatic duct. This is unchanged from today's CT scan. 3. Trace perihepatic ascites. ACT 112: Negative or not required by law. Electronically signed by: Ricardo Manriquez M.D. 06/21/2023 3:53 PM ECG Additional Comments: 21-JUN-2023 11:38:04 [facility]-EDSTAT ROUTINE RETRIEVAL Sinus bradycardia with sinus arrhythmia Nonspecific T wave abnormality Abnormal ECG No previous ECGs available 25mm/s10mm/[id number] 243CID: 23Unconfirmed Vent. rate 54 BPM NV interval 156 ms QRS duration 84 ms QT/QTc 418/396 ms Code Status & VTE Plan Code Status DNR/DNI-discussed with the patient at bedside Supervising Physician Co-Signing Physician Notes Patient was seen and examined independently at bedside. Chart reviewed. Case discussed with Nancy IGLESIAS and agree with the documentation above. In summary, this is a 57 year old female who presented to the ED with acute onset CP and vomiting earlier today. Workup here showed possible acute cholecystitis. MRCP done, reports awaited. GI and surgery aware. Currently asymptomatic. On exam- General: Lying comfortably in bed, not in distress, on room air HEENT: EOMI, TRACY, MMM Chest: Clear breath sounds bilaterally, no wheezes or crackles CVS: Regular rate and rhythm, normal heart sounds, no murmur Abdomen: Soft, non tender, not distended, normal bowel sounds Neuro: Awake, alert, oriented, conversing well, non focal Extremities: No cyanosis, clubbing or edema Rest as per the note above. (3) Chest pain Chest pain type: unspecified Qualified Code(s): R07.9 - Chest pain, unspec ified (6) Compression fracture of thoracic vertebra Encounter type: initial encounter Thoracic vertebra fracture level: T11 Qualified Code(s): S22.080A - Wedge compression fracture of T11-T12 vertebra, initial encounter for closed fracture
[2023-06-21] MEDS ORDERED: MoRPHine SULFATE 2 MG/ML CARP IV PRN (18:44)
--- NOTE | 2023-06-21 20:44 | Magnetic Resonance Report ---
Exam(s): MRI MRCP EXAM: MR Abdomen Without Intravenous Contrast, MRCP Protocol CLINICAL HISTORY: Reason for exam: abd pain. TECHNIQUE: Multiplanar magnetic resonance images of the abdomen without intravenous contrast using MRCP protocol. Mild breathing motion artifact. COMPARISON: Abdominal ultrasound and CT abdomen pelvis from earlier the same day. FINDINGS: Bile ducts: No stones. No ductal dilation. Gallbladder: At least 1, may be 2 small gallstones. Gallbladder remains moderately distended. Stable mild pericholecystic fluid. Liver: Minimal intrahepatic ductal dilatation, stable. Pancreas: Stable, minimal ductal dilation. Spleen: Unremarkable. No splenomegaly. Adrenals: Unremarkable. No mass. Kidneys and ureters: Small cortical cysts bilaterally, stable. No hydronephrosis. Stomach and bowel: Unremarkable. No obstruction. IMPRESSION: 1. Cholelithiasis without choledocholithiasis, or CBD dilatation. 2. Moderate distended gallbladder, with trace pericholecystic fluid and minimal intrahepatic and pancreatic ductal dilatation, stable. 3. Findings are nonspecific, may be on the basis of stasis or other chronic gallbladder condition. Acute cholecystitis not entirely excluded based on imaging alone, and nuclear medicine hepatobiliary scan may be considered for further evaluation. 4. In addition, ERCP may be necessary, as occult ampullary neoplasm not excluded. Electronically signed by: Dorina Keller M.D. 06/21/23 20:44 PM
[2023-06-21] MEDS ORDERED: ACETAMINOPHEN 325 MG TAB PO PRN (20:58)
[2023-06-21] MEDS ORDERED: ONDANSETRON INJ 2 MG/ML 2 ML VIAL IV PRN (20:58)
[2023-06-21] MEDS: LACTATED RINGER'S 1,000 ML IV SCH (21:47)
--- NOTE | 2023-06-22 00:21 | Surgery Consultation ---
<Statement entered by Gary Yusuf DO - 06/22/23 11:42> From a surgical standpoint, the patient may be discharged home if she tolerates her low fat, no dairy diet this am. D/C on oral antibiotics, continue low fat, no dairy diet and follow up with me in the office next week. Date of Consultation June 22, 2023 Assessment & Plan (1) Gallstones: Patient has been admitted on the hospitalist service. From surgical perspective we recommend the following.: With all the available imaging performed on the patient's abdomen acute cholecystitis has not been definitively ascertained At the time of my exam the patient was completely pain-free Would recommend keeping patient n.p.o. for the present time Maintain IV fluid for hydration Provide analgesics and antiemetics Would recommend repeating LFTs to follow their trend The patient will be evaluated on 06/22/2023 by my attending physician Dr. Garcia and a decision will be made if patient will require cholecystectomy or further imaging such as a HIDA scan should be employed to definitively ascertain for cholecystitis The patient has been placed on antibiotics in form of Zosyn and will be reasonable to continue this. The admitting service has requested a GI consultation for further evaluation as well as the patient does note that the pain she was previously experiencing in her abdomen was similar to what she experiences with Crohn's exacerbations. Concerning the patient's chest pain, the admitting service did not feel that this was acute coronary syndrome and may be related to her underlying abdominal pain and possible cholecystitis Additional recommendations to be forthcoming based on her clinical course as it unfolds and how the patient appears upon reevaluation the morning of 06/22/2023 History of Present Illness Reason for Consultation: Evaluate for cholecystitis Attending Physician: Dom Rondon MD History of Present Illness This is a 57-year-old female who presented to the emergency department secondary to chest pain. The patient was in and out of an outpatient medical facility where they were concerned the patient was having a cardiac event and evaluation in the emergency department was recommended. Patient reported that she had some epigastric/substernal chest pain. In addition, the patient does report some abdominal pain. Concerning her abdominal pain she says that the pain is mainly located in the right lower quadrant of her abdomen. She denies any mitigating or modifying factors or radiation of the pain. She reports that she has a history of Crohn's and notes that the pain in her abdomen is similar to what she usually experiences with her Crohn's. She did have 1-2 bouts of emesis but denies any fevers, shakes, or chills. She denies any change in bowel habits. The patient does note that she has had prior abdominal surgeries in the form of a hysterectomy and tubal ligation. Since arrival to the hospital the patient has had labs and imaging which I independent reviewed. A chest x-ray showed a 3.3 right centimeter lung opacity with the inability to exclude a developing pneumonia. A CT scan of the chest did not show any evidence of pulmonary emboli. The patient did have a CT scan of the abdomen pelvis that showed a distended gallbladder with borderline gallbladder wall thickening. There is no evidence of bowel obstruction. A gallbladder ultrasound showed that patient had a distended gallbladder containing a calcified gallstone and trace pericholecystic fluid. The interpreting radiologist noted these findings were equivocal for cholecystitis. An MRCP was performed that showed cholelithiasis without choledocholithiasis or common bile duct dilatation. Her gallbladder was distended with trace pericholecystic fluid. Acute cholecystitis could not be excluded on this study. Labs included CBC her white blood cell count was elevated 15.1. Hemoglobin and hematocrit along with the platelet count were normal. Her coagulation studies were normal. Chemistry profile showed sodium and potassium were normal. Her BUN and creatinine were nonelevated. She did have elevated LFTs with a total bilirubin of 1.6 and a direct bilirubin of 0.7. Her AST was elevated 105. Her alkaline phosphatase and ALT were both normal. Her lipase was nonelevated. At the time of my interview the patient denied any abdominal pain and she was resting comfortably in bed. Allergies Allergy/AdvReac Type Severity Reaction Status Date / Time No Known Allergies Allergy Unverified 06/21/23 17:04 Home Medications Medication Instructions Recorded Confirmed Type acetaminophen 500 mg tablet 500 mg PO Q6H PRN Pain 06/21/23 06/21/23 History albuterol sulfate 90 mcg/actuation 2 puff inhalation Q4H PRN Wheezing 06/21/23 06/21/23 History aerosol inhaler cholecalciferol (vitamin D3) 25 50 mcg PO DAILY 06/21/23 06/21/23 History mcg (1,000 unit) tablet (Vitamin D3) duloxetine 30 mg capsule,delayed 30 mg PO QAM 06/21/23 06/21/23 History release infliximab 100 mg intravenous 100 mg IV UD 06/21/23 06/21/23 History solution (Remicade) omega 5-jlz-uyu-fish oil 1,000 mg 1 cap PO DAILY 06/21/23 06/21/23 History (120 mg-180 mg) capsule (Fish Oil) ondansetron HCl 4 mg tablet 4 mg PO Q6H PRN Nausea And Vomiting 06/21/23 06/21/23 History pantoprazole 40 mg tablet,delayed 40 mg PO QAM 06/21/23 06/21/23 History release Patient History Medical History Crohn disease No pertinent family history Anxiety Surgical History Hx of colonoscopy Hx of hysterectomy Family History Grandfather (Maternal) Stroke Grandfather (Paternal) Cancer brain cancer Grandmother (Maternal) Cancer stomach cancer Aunt Cancer breast cancer Other Diabetes Social History Smoking Status: Current every day smoker Tobacco Type: Cigarettes Cigarettes Per Day: 10; Do You Dip or Chew Tobacco: No; Hx Alcohol Use: No Hx Substance Use: No Preferred Language: Turkish Housing Quality Standard Inspector Required: No Beliefs That Will Affect Care: None Current Living Situation: Spouse Other Information That Helps Us Care for You: No Feels Safe at Home: Yes Safety Concerns: Feels Safe At This Time Review of Systems Constitutional: no fever and no chills Ear, Nose, Mouth, Throat: no hearing loss Respiratory: no cough and no dyspnea Cardiovascular: + chest pain Gastrointestinal: as per Subjective / HPI Genitourinary: no dysuria Musculoskeletal: no back pain Integumentary: no rash Neurologic: no localized weakness Physical Exam Constitutional: WD/WN, vitals as above Eyes: + anicteric sclerae ENMT: Ears: no hearing impairment and no external ear abnormality Mouth: no oropharynx abnormality Neck: trachea midline Respiratory: normal respiratory effort; no respiratory distress and no labored breathing Cardiovascular: Rate/Rhythm: regular rate and regular rhythm Gastrointestinal (Abdomen): Abdomen is soft and nondistended. At the time of my exam there is no pain with palpation. There is no rebound tenderness or guarding. Patient did have a midline incision extending from the umbilicus to just above the symphysis pubis that was well-healed. There is no pain noted in the right upper quadrant Musculoskeletal: No calf tenderness Skin: no jaundice Neurologic: moves all extremities Psychiatric: A+Ox3, euthymic affect Results & Data Vital Signs (Past 12 Hours) Vital Signs Temp Pulse Pulse Resp BP BP Pulse Ox 06/21/23 23:50 36.8 C 85 18 147/90 H 94 06/21/23 22:00 61 20 149/79 H 95 06/21/23 20:31 65 16 147/88 H 98 06/21/23 18:30 69 13 159/103 H 99 06/21/23 18:00 60 25 H 167/90 H 06/21/23 17:30 66 21 169/90 H 06/21/23 15:00 67 17 170/87 H 06/21/23 14:30 63 24 170/96 H 06/21/23 14:00 65 21 170/93 H 98 06/21/23 13:36 69 15 168/99 H 98 06/21/23 13:00 68 21 96 06/21/23 12:26 64 O2 Del Method 06/21/23 23:50 Room Air 06/21/23 22:00 Room Air 06/21/23 20:31 Room Air 06/21/23 18:30 06/21/23 18:00 06/21/23 17:30 06/21/23 15:00 06/21/23 14:30 06/21/23 14:00 06/21/23 13:36 06/21/23 13:00 06/21/23 12:26 PG Care Time/CCT Total # of Minutes Spent Total Time Spent with Patient: Total time spent is greater than 50% in coordination of care (as documented) at patient's floor/unit and/or counseling patient: Coding Level of Care Code 96035 IN/OBS CONSULT LVL 5,80M Diagnoses Gallstones K80.20
[2023-06-22] MEDS: PIPERACILLIN/TAZOBACTAM 4.5 GM in DEXTROSE 5% MINI-B 100 ML IV SCH (00:45)
[2023-06-22 00:57] LABS: Appearance Urine Clear (Clear); Bacteria Urine Automated Negative (Negative); Bilirubin Urine Negative (Negative); Blood Urine Negative (Negative); Cast Urine Automated 0 /lpf (0-5); Color Urine Yellow; Epithelial Cell Urine Auto >30 /lpf (0-5); Glucose Urine UA Negative (Negative); Ketones Urine Negative (Negative); Leukocyte Esterase Urine Trace (Negative); Nitrite Urine Negative (Negative); Protein Urine Negative (Negative); RBC Urine Automated 0-4 /hpf (0-4); Specific Gravity Urine 1.023 (1.000-1.030); Urobilinogen Urine Negative (Negative)
--- OUTSIDE RECORDS SUMMARY | 2023-06-22 03:35 | External Medical Summary | Summary of Care ---
Author Name Unknown Organization [facility] Address [address] [facility] [address] Phone [phone] Care Team Providers Care Camera Tuning Engineer Name Role Phone Sari Perkins MD Primary Care Provide r Reason for Visit * Reason Comments Medication Administration Encounter Details Date Type Department Care Team (Late st Contact Info) Description 06/13/2023 10:00 AM EDT Nurse Only Ancillary [address] [place] [address] [place], Nurse [address] [place] [address] Medication Administration Allergies Active Allergy Reactions Criticality Noted Date Comments Naproxen 06/26/2000 GI documented as of this encounter (statuses as of 06/13/2023) Medications Medication Sig Dispensed Refills Start Date End Date Status sulfaSALAzine 500 MG Oral Tablet (Azulfidine)Indicatio ns: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) TAKE TWO TABLETS BY MOUTH THREE TIMES DAILY 540 Tablet 2 05/17/2022 Active Vitamin D 50 MCG (1999) Oral Tablet Take 2,000 Units by mouth in the morning. 0 Active DULoxetine HCl 30 MG Oral Capsule Delayed Release Particles (Cymbalta)Indications :Moderate episode of recurrent major depressive disorder (HCC) Take 1 Capsule by mouth in the morning. Do not cut, crush or chew. 30 Capsule 5 12/29/2022 Active Pantoprazole Sodium 40 MG Oral Tablet Delayed Release (Protonix)Indications :Dysphagia, unspecified type Take 1 Tablet by mouth in the morning. 30 minutes before the first meal of the day. Do not crush, split or chew the tablet. 30 Tablet 5 01/09/2023 Active Fish Oil 300 MG Oral Capsule Take by mouth. 0 Active Ondansetron HCl 4 MG Oral Tablet (Zofran) Take 1 Tablet by mouth every 8 hours as needed for Nausea. 30 Tablet 1 05/08/2023 Active Excedrin Tension Headache 500-65 MG Oral Tablet (Acetaminophen-Caffei ne) Take by mouth as needed. 0 Active Hospital, Clinic, or Other Facility Administered Medication Ordered Dose Route Frequency Start Date End Date Status vitamin b-12 (Cyanocobalamin) inj 1,000 mcgIndications:Other vitamin B12 deficiency anemia 1000 mcg IM [id number] 09/25/2022 11/18/2023 Active documented as of this encounter (statuses as of 06/13/2023) Active Problems Problem Noted Date Diagnosed Date Moderate episode of recurrent major depressive d isorder 11/22/2022 Crohn's disease of small intestine with fistula 04/07/2016 Tobacco use disorder 03/31/2008 Family history of ischemic heart disease 009 ADVANCE DIRECTIVE INFORMATION 03/25/2005 Overview: No, Advance Directive brochure offered , patient declined. Regional enteritis B12 DEFIC ANEMIA NEC Generalized osteoarthritis of multiple sites Edentulous documented as of this encounter (statuses as of 06/13/2023) Resolved Problems Problem Noted Date Diagnosed Date Resolved Date Major depressive disorder, r ecurrent episode, moderate 12/22/2020 05/17/2022 documented as of this encounter (statuses as of 06/13/2023) Immunizations Name Administration Dates Next Due Hepatitis B, 20+ yrs 06/13/2023,05/15/2023 TDAP (age 11 and older)(Adacel) 01/30/2009 documented as of this encounter Social History Tobacco Use Types Packs/Day Years Used Date Smoking Tobacco: Every Day Cigarettes 0.5 33 Smokeless Tobacco: Never Comments:age 14 Alcohol Use Standard Drinks/Week Comments No 0 (1 standard drink = 0.6 oz pur e alcohol) PHQ-2 Answer Date Recorded PHQ Adult Total Score 17 10/24/2022 Sex and Gender Information Value Date Recorded Sex Assigned at Not on file Gender Identity Not on file Sexual Orientation Not on file Job Start Date Occupation Industry Not on file Not on file Not on file documented as of this encounter Plan of Treatment Upcoming Encounters Date Type Department Care Team (Late st Contact Info) Description 06/14/2023 8:45 AM EDT Hem/Onc Treatment [facility]emat[facility] [phone] Ca, Chair 2 Hem Onc [address] [place] [address] 06/21/2023 10:30 AM EDT Office Visit Orthopaedics [address] [phone] Toan Rivera MD [address] [place] [address] 06/21/2023 11:00 AM EDT Nurse Only Ancillary [address] [place] [address] [place], Nurse [address] [place] [address] 07/10/2023 10:30 AM EDT Office Visit Gastroenterology, [facility] [address] [place] [address] Jennifer Cleaning CRNP [address] [place] [address] 07/12/2023 9:00 AM EDT Hem/Onc Treatment Hematology/Oncology Treatment, [address] [place] [phone] Ca, Chair 3 Hem Onc [facility] [address] [place] [address] [place] [address] 08/08/2023 11:00 AM EDT Office Visit General Surgery, [facility] [address] [place] [address] Peg Johnson MD [address] [facility] [place] [address] 09/04/2023 10:30 AM EDT Imaging Radiology, [facility] [address] [facility] [place] [address] 10/03/2023 5:40 PM EDT Office Visit Family Medicine [address] [place] [phone] Sari Perkins MD [address] [place] [address] [place] [address] 11/13/2023 8:00 AM EDT Nurse Only Ancillary [address] [place] [address] [place], Nurse [address] [place] [address] Health Maintenance Due Date Last Done Comments COVID-19 Vaccine (#1) 12/17/1968 Pneumococcal Vaccine: Pediatrics (0 to 5 Years) and At-Risk Patients (6 to 64 Years) (1 of 2 - PCV) 12/17/1969 HIV Screening 12/17/1978 Zoster Vaccines (1 of 2) 12/17/1982 Cologuard 12/17/2008 Fecal Occult Blood Test 12/17/2008 Sigmoidoscopy 12/17/2008 DTaP,Tdap,and Td Vaccines (2 - Td or Tdap) 01/30/2019 01/30/2009 Depression, Most Recent Score >= 10 (will fire each visit until score < 10) 10/25/2022 10/24/2022 Influenza Vaccine (FLU shot) (#1) 2022 Hepatitis B (3 of 3 - 19+ 3-dose series) 11/13/2023 06/13/2023, 05/15/2023 Mammogram 06/11/2024 06/12/2023, 05/29/2023 Lipid Panel 05/03/2026 05/03/2021, 08/0 03/2016, 10/30/2013, Additional history exists Colonoscopy 05/23/2033 05/24/2023, 05/24/2023 Colorectal Cancer Screening 05/23/2033 GARDASIL-HPV IMMUNIZATION SERIES Aged Out No longer eligible based on patient's age to complete this topic MENINGOCOCCAL (MENACTRA/MENVEO) Aged Out No longer eligible based on patient's age to complete this topic documented as of this encounter Medical Devices Not on filedocumented as of this encounter Visit Diagnoses Diagnosis Need for hepatitis B vaccination- Primary Need for prophylactic vaccination and inoculation against viral hepatitis documented in this encounter Care Teams Camera Tuning Engineer Relationship Specialty Start Date End Date Sari Perkins MD [address] [place] [address] [place] [address] PCP - General Family Medicine 04/05/23 documented as of this encounter
--- OUTSIDE RECORDS SUMMARY | 2023-06-22 03:35 | External Medical Summary | Summary of Care ---
Author Name Unknown Organization [facility] Address [address] [place] [address] Phone [phone] Care Team Providers Care Pickers Material Handlers Name Role Phone Sari Perkins MD Primary Care Provide r Reason for Visit * Reason Onset Date Comments Test Results 05/23/2023 Encounter Details Date Type Department Care Team (Late st Contact Info) Description 05/23/2023 Telephone Orthopaedics [facility] [address] [place] [address] Toan Rivera MD [address] [place] [address] Test Results Allergies Active Allergy Reactions Criticality Noted Date Comments Naproxen 06/26/2000 GI documented as of this encounter (statuses as of 05/24/2023) Medications Medication Sig Dispensed Refills Start Date End Date Status sulfaSALAzine 500 MG Oral Tablet (Azulfidine)Indic ations: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 0 Suspended DULoxetine HCl 30 MG Oral Capsule Delayed Release Particles (Cymbalta)Indicat ions:Moderate episode of recurrent major depressive disorder (HCC) Take 1 Capsule by mouth in the morning. Do not cut, crush or chew. 30 Capsule 5 12/29/2022 Suspended Additional Information Pantoprazole Sodium 40 MG Oral Tablet Delayed Release (Protonix)Indicat ions:Dysphagia, unspecified type Take 1 Tablet by mouth in the morning. 30 minutes before the first meal of the day. Do not crush, split or chew the tablet. 30 Tablet 5 01/09/2023 Suspended Additional Information Fish Oil 300 MG Oral Capsule Take by mouth. 0 Suspende d Ondansetron HCl 4 MG Oral Tablet (Zofran) Take 1 Tablet by mouth every 8 hours as needed for Nausea. 30 Tablet 1 05/08/2023 Suspended Additional Information Excedrin Tension Headache 500-65 MG Oral Tablet (Acetaminophen-Ca ffeine) Take by mouth as needed. 0 Suspended Hospital, Clinic, or Other Facility Administered Medication Ordered Dose Route Frequency Start Date End Date Status vitamin b-12 (Cyanocobalamin) inj 1,000 mcgIndications:Other vitamin B12 deficiency anemia 1000 mcg IM [id number] 09/25/2022 11/18/2023 Active documented as of this encounter (statuses as of 05/24/2023) Active Problems Problem Noted Date Diagnosed Date [...] as of this encounter (statuses as of 05/24/2023) Resolved Problems Problem Noted Date Diagnosed Date Resolved Date Major depressive disorder, r ecurrent episode, moderate 12/22/2020 05/17/2022 documented as of this encounter (statuses as of 05/24/2023) Immunizations Name Administration Dates Next Due Hepatitis B, 20+ yrs 05/15/2023 TDAP (age 11 and older)(Adacel) 01/30/2009 documented [...] on file documented as of this encounter Miscellaneous Notes * Telephone Encounter - Tigist Ramirez MED ASSIST - 05/24/2023 9:56 AM EST Called and left message with patients mom Sindy, (on HIPAA), she states patient is currently getting and endoscopy done and for us to call her back later this afternoon * Telephone Encounter - Tigist Ramirez MED ASSIST - 05/23/2023 10:44 AM EST Called and left message for patient to return call. * Telephone Encounter - Tigist Ramirez MED ASSIST - 05/23/2023 10:44 AM EST ----- Message from Toan Rivera MD sent at 05/23/2023 10:32 AM EST ----- Please let patient know that vitamin-D returned to the level of 26 which is in the insufficient deficient range I recommend she take 5000 IU daily for least the next 8 weeks. We can discuss this in further detail at her follow-up visit ----- Message ----- From: Talia Aleman Automated Processing Sent: 05/23/2023 4:19 AM EST To: Toan Rivera MD documented in this encounter Plan of Treatment Upcoming Encounters Date Type Department Care Team (Late st Contact Info) Description 05/31/2023 8:45 AM EDT Hem/Onc Treatment Hematology/Oncology Treatment, [facility] [address] [place] [phone] Ca, Chair 9 Hem Onc [address] [place] [address] 06/13/2023 10:00 AM EDT Nurse Only Ancillary [address] [place] [address] [place], Nurse [address] [place] [address] 06/21/2023 10:30 AM EDT Office Visit Orthopaedics [address] [phone] Toan Rivera MD [address] [place] [address] 07/10/2023 10:30 AM EDT Office Visit Gastroenterology, [facility] [address] [place] [address] Jennifer Cleaning CRNP [address] [place] [address] 08/08/2023 11:00 AM EDT Office Visit General Surgery, [facility] [address] [place] [address] Peg Johnson MD [address] [place] [address] 09/04/2023 10:30 AM EDT Imaging Radiology, [address] [place] [address] 10/03/2023 5:40 PM EDT Office Visit Family Medicine [address] [phone] Sari Perkins MD [address] [place] [address] [place] [address] Scheduled Procedures Name Priority Associated Diagnoses Date/Ti me COLONOSCOPY FLEXIBLE PROXIMAL DIAGNOSTIC Crohn's disease without complication, unspecified gastrointestinal tract location (HCC) 05/24/2023 10:30 AM EST Health Maintenance Due Date Last Done Comments COVID-19 Vaccine (#1) 12/17/1968 Pneumococcal Vaccine: Pediatrics (0 to 5 Years) and At-Risk Patients (6 to 64 Years) (1 of 2 - PCV) 12/17/1969 HIV Screening 12/17/1978 Zoster Vaccines (1 of 2) 12/17/1982 Mammogram 2003 Cologuard 12/17/2008 Colonoscopy 12/17/2008 Colorectal Cancer Screening 12/17/2008 Fecal Occult Blood Test 12/17/2008 Sigmoidoscopy 12/17/2008 DTaP,Tdap,and Td Vaccines (2 - Td or Tdap) 01/30/2019 01/30/2009 Depression, Most Recent Score >= 10 (will fire each visit until score < 10) 10/25/2022 10/24/2022 Influenza Vaccine (FLU shot) (#1) 2022 Hepatitis B (2 of 3 - 19+ 3-dose series) 06/12/2023 05/15/2023 Lipid Panel 05/03/2026 05/03/2021, 08/0 03/2016, 10/30/2013, Additional history exists GARDASIL-HPV IMMUNIZATION SERIES Aged Out No longer eligible based on patient's age to complete this topic MENINGOCOCCAL (MENACTRA/MENVEO) Aged Out No longer eligible based on patient's age to complete this topic documented as of this encounter Medical Devices Not on filedocumented as of this encounter Care Teams Pickers Material Handlers Relationship Specialty Start Date End Date Sari Perkins MD [address] [place] [address] [place] [address] PCP - General Family Medicine 04/05/23 documented as of this encounter
--- OUTSIDE RECORDS SUMMARY | 2023-06-22 03:35 | External Medical Summary | Summary of Care ---
Author Name Unknown Organization [facility] Address [address] [place] [address] Phone [phone] Care Team Providers Care Pouncer Name Role Phone Sari Perkins MD Primary Care Provide r Reason for Visit * Reason Onset Date Comments Order Request 05/28/2023 Encounter Details Date Type Department Care Team (Late st Contact Info) Description 05/25/2023 Telephone Family [address] [phone] Sari Perkins MD [address] [place] [address] [place] [address] Order Request Allergies Active Allergy Reactions Criticality Noted Date Comments Naproxen 06/26/2000 GI documented as of this encounter (statuses as of 05/28/2023) Medications Medication Sig Dispensed Refills Start Date End Date Status sulfaSALAzine 500 MG Oral Tablet (Azulfidine)Indicatio ns: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) TAKE TWO TABLETS BY MOUTH THREE TIMES DAILY 540 Tablet 2 05/17/2022 Active Vitamin D 50 MCG (1999 UT) Oral [...] vitamin B12 deficiency anemia 1000 mcg IM [id number] 09/25/2022 11/18/2023 Active documented as of this encounter (statuses as of 05/28/2023) Active Problems Problem Noted Date Diagnosed Date [...] as of this encounter (statuses as of 05/28/2023) Resolved Problems Problem Noted Date Diagnosed Date Resolved Date Major depressive disorder, r ecurrent episode, moderate 12/22/2020 05/17/2022 documented as of this encounter (statuses as of 05/28/2023) Immunizations Name Administration Dates Next Due Hepatitis [...] encounter Miscellaneous Notes * Telephone Encounter - Rosalba Resendiz OSA - 05/28/2023 8:25 AM EDT Mamm scheduled, pt aware. * Telephone Encounter - Radha Hannah OSA - 05/28/2023 7:26 AM EDT Pt calling to check on order Pt having pain left breast ? Correct order Pt can be reached at [phone] * Telephone Encounter - Beatriz Gunn LPN - 05/25/2023 3:58 PM EST Mammogram order signed Please help patient schedule Last apt with ton on 05/15/2023 Nest apt with PCP on 10/03/2023 * Telephone Encounter - Jomar Martinez OSA - 05/25/2023 8:44 AM EST An order was requested for this patient. Name of Requesting Provider: Patient Order Requested: Mammogram Diagnosis/Reason for Request: Patient wants to get mammogram If order request is for Mammogram: Is the patient having any breast symptoms? Yes, sharp pain in left breast Is there a chance of ? No Has the patient had any breast problems in the past? No What location AND department does the patient wish to have their order completed at? [facility] Fax Number, if applicable: N/A If the caller is not a current patient, please advise the patient to call their current PCP to havethe order's prior to being seen in our office. The patient was informed that our providers would not order anything (medication, labs, etc.) prior to being seen. documented in this encounter Plan of Treatment Upcoming Encounters Date Type Department Care Team (Late st Contact Info) Description 05/29/2023 10:15 AM EDT Imaging Radiology [address] [place] [address] 05/31/2023 8:45 AM EDT Hem/Onc Treatment Hematology/Oncology Treatment, [address] [phone] Ca, Chair 9 Hem [address] [address] 06/13/2023 10:00 AM EDT Nurse Only Ancillary [address] [place] [address] [place], Nurse [address] [place] [address] 06/21/2023 10:30 AM EDT Office Visit Orthopaedics [address] [place] [phone] Toan Rivera MD [address] [place] [address] 07/10/2023 10:30 AM EDT Office Visit Gastroenterology, [facility] [address] [place] [address] Jennifer Cleaning CRNP [address] [place] [address] 08/08/2023 11:00 AM EDT Office Visit General Surgery, [facility] [address] [place] [address] [facility] [address] [facility] [address] 09/04/2023 10:30 AM EDT [place]iology, [address] [place] [address] 10/03/2023 5:40 PM EDT Office Visit [address] [place] [phone] Sari Perkins MD [address] [place] [address] [place] [address] Scheduled Orders Name Type Priority Associated Diagnoses Orde r Schedule MAMMOGRAM SCREENING BEN BILATERAL Medical Imaging Routine Encounter for screening mammogram for breast cancer Expected: 05/25/2023, Expires: 06/24/2024 Health Maintenance Due Date Last Done Comments COVID-19 Vaccine (#1) 12/17/1968 Pneumococcal Vaccine: Pediatrics (0 to 5 Years) and At-Risk Patients (6 to 64 Years) (1 of 2 - PCV) 12/17/1969 HIV Screening 12/17/1978 Zoster Vaccines (1 of 2) 12/17/1982 Mammogram 2003 Cologuard 12/17/2008 Fecal Occult Blood Test 12/17/2008 [...] as of this encounter Visit Diagnoses Diagnosis Encounter for screening mammogram for breast cancer- Primary documented in this encounter Care Teams Pouncer Relationship Specialty Start Date End Date Sari Perkins MD [address] [place] [address] [place] [address] PCP - General Family Medicine 04/05/23 documented as of this encounter
--- OUTSIDE RECORDS SUMMARY | 2023-06-22 03:35 | External Medical Summary | Summary of Care ---
Author Name Unknown Organization [facility] Address [address] [facility] [address] Phone [phone] Care Team Providers Care Liquefied Natural Gas Operator Name Role Phone Sari Perkins MD Primary Care Provide r Reason for Visit * Auth/Cert Specialty Diagnoses / Procedures Referred By Tyesha akbar Referred To Contact Diagnoses Crohn's disease without complication, unspecified gastrointestinal tract location (HCC) Crohn's disease without complication, unspecified gastrointestinal tract location (HCC) [K50.90] Procedures COLONOSCOPY, DIAGNOSTIC (RECTUM) COLONOSCOPY FLEXIBLE PROXIMAL DIAGNOSTIC Referral ID Status Reason Start Date Expiration Date Visits Re quested Visits Authorized [id number] Encounter Details Date Type Department Care Team (Latest Contact Info) Description 05/24/2023 9:43 AM EST - 05/24/2023 11:23 AM EST Hospital Encounter ENDO [facility], Endoscopy Room [facility] [address] [facility] [place] [phone] Kathleen Jaramillo MD [address] [place] [address] [place] [phone] Colonoscopy Discharge Disposition: Home - Self Care Allergies Active Allergy Reactions Criticality Noted Date Comments Naproxen 06/26/2000 GI documented as of this encounter (statuses as of 05/24/2023) Medications Medication Sig Dispensed Refills Start Date End Date Status sulfaSALAzine 500 MG Oral Tablet (Azulfidine)Indica tions: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 0 Active DULoxetine HCl 30 MG Oral Capsule Delayed Release Particles (Cymbalta)Indicati ons:Moderate episode of recurrent major depressive disorder (HCC) Take 1 Capsule by mouth in the morning. Do not cut, crush or chew. 30 Capsule 5 12/29/2022 Active Pantoprazole Sodium 40 MG Oral Tablet Delayed Release (Protonix)Indicati ons:Dysphagia, unspecified type Take 1 Tablet by mouth [...] Excedrin Tension Headache 500-65 MG Oral Tablet (Acetaminophen-Caf feine) Take by mouth as needed. 0 Active predniSONE 20 MG Oral Tablet (Deltasone)Indicat ions:Lower abdominal pain,Crohn's disease of small intestine with other complication (HCC) 2 tablets daily for 5 days then 1 tablet daily 15 Tablet 0 04/18/2023 05/15/2023 Discontinued (Medication List Clean Up) documented as of this encounter (statuses as [...] on file documented as of this encounter Last Filed Vital Signs Vital Sign Reading Time Taken Comments Blood Pressure 135/82 05/24/2023 10:51 AM EST Pulse 80 05/24/2023 10:51 AM EST Temperature 36.2 C (97.1 F) 05/24/2023 10:[address] Respiratory Rate 20 05/24/2023 10:51 AM EST Oxygen Saturation 94% 05/24/2023 10:51 AM EST Inhaled Oxygen Concentration - - Weight 49.9 kg (110 lb) 05/10/2023 9:43 AM EST Height 160 cm (5' 3") 05/10/2023 9:43 AM EST Body Mass Index 19.49 05/10/2023 9:43 AM EST documented in this encounter H&P Notes * Kathleen Jaramillo MD - 05/24/2023 10:23 AM EST Endoscopy Pre-Procedure Assessment Name: Vickie Mata Date: 05/24/2023 Time: 10:23 AM Procedure(s): Colonoscopy; with Indication(s) of evaluation and management of IBD Endoscopy Pre-Procedure Assessment: Prior to the procedure, the patient is identified. The patient's history, medications and allergieshave been reviewed. The patient is competent. The risks and benefits of the proposed procedure and the planned sedation have been discussed with the patient. All questions have been answered and informed consent for the procedure has been obtained. Prior to Admission medications Medication Sig Last Dose Discont. Excedrin Tension Headache 500-65 MG Oral Tablet (Acetaminophen-Caffeine) Take by mouth as needed. 05/23/2023 Fish Oil 300 MG Oral Capsule Take by mouth. Past Week Ondansetron HCl 4 MG Oral Tablet (Zofran) Take 1 Tablet by mouth every 8 hours as needed for Nausea. 05/24/2023 Pantoprazole Sodium 40 MG Oral Tablet Delayed Release (Protonix) Take 1 Tablet by mouth in the morning. 30 minutes before the first meal of the day. Do not crush, split or chew the tablet. 05/24/2023 Vitamin D 50 MCG (2000 UT) Oral Tablet Take 2,000 Units by mouth in the morning. Past Week sulfaSALAzine 500 MG Oral Tablet (Azulfidine) TAKE TWO TABLETS BY MOUTH THREE TIMES DAILY 05/23/2023 Sulfamethoxazole-Trimethoprim 800-160 MG Oral Tablet (Bactrim DS) Take 1 Tablet by mouth in the morning and 1 Tablet before bedtime. Do all this for 7 days. Until gone. Baclofen 20 MG Oral Tablet Take 1 Tablet by mouth in the morning and 1 Tablet at noon and 1 Tablet before bedtime. Do all this for 10 days. DULoxetine HCl 30 MG Oral Capsule Delayed Release Particles (Cymbalta) Take 1 Capsule by mouth in the morning. Do not cut, crush or chew. Not Taking Review of patient's allergies indicates: Allergen Reactions Naproxen GI Ht 1.6 m (5' 3") | Wt 49.9 kg (110 lb) | BMI 19.49 kg/m | BSA 1.49 m Physical Exam: Mental Status Examination: alert and oriented. Resp: normal CV: normal rate ASA Grade: II - A patient with severe systemic disease. Abdomen: soft slightly distended This patient has undergone a preprocedural evaluation. A determination has been made to proceed with the planned procedure under [facility] procedural guidelines and the CMS Non-Emergent, Elective Medical Services and Treatment Recommendations (published on 06-24-19). The community and hospital prevalence of COVID-19 has been discussed as well as this patient's specific risks associated with SARS-CoV-19 infection. Based upon the clinical acuity and patient-specific care considerations, this procedure is deemed a Tier III - Procedures at little or no risk for clinical deterioration (example - cosmetic). After reviewing the risks and benefits, the patient is deemed in satisfactory condition to undergo the procedure. The anesthesia plan is to use general anesthesia. 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 Unable to locate last colonoscopy report. Referring MD: Jennifer Cleaning NP Medicines: See the Anesthesia note for documentation of the administered medications Complications: No immediate complications. Procedure: Pre-Anesthesia Assessment: - Patient identification and proposed procedure were verified prior to the procedure by the physician, the nurse and the anesthesiologist. The procedure was verified in the pre-procedure area. - Prior to the procedure, a History and Physical was performed, and patient medications, allergies and sensitivities were reviewed. The patient's tolerance of previous anesthesia was reviewed. - The risks and benefits of the procedure and the sedation options and risks were discussed with the patient. All questions were answered and informed consent was obtained. - The medication list for this patient has been reviewed prior to the procedure and has been determined that the patient may proceed with the planned study. Any medication changes made as a result of the findings of this procedure have been discussed with the patient and/or jewelry sales representative at the time of discharge from the department. - After I obtained informed consent, the scope was passed under direct vision. All instruments were visually inspected immediately before and after removal from the patient to ensure they are fully intact. Throughout the procedure, the patient's blood pressure, pulse, and oxygen saturations were monitored continuously. The Colonoscope was introduced through the anus with the intention of advancing to the cecum. The scope was advanced to the sigmoid colon before the procedure was aborted. Medications were given. The colonoscopy was performed with difficulty due to poor endoscopic visualization. The quality of the bowel preparation was inadequate. Findings & Specimens: The examined colon appeared normal. A large amount of stool was found in the sigmoid and rectum, precluding visualization and further advancement of the colonoscope. Impression: - Preparation of the colon was inadequate. - The examined colon appeared normal. - Stool in the sigmoid colon and rectum. Recommendation: - Repeat colonoscopy - consider a 2 day prep prior to next colonoscopy. Kathleen Jaramillo MD 05/24/2023 10:35:50 AM This report has been signed electronically. documented in this encounter Nursing Notes * Hayde Adams RN - 05/24/2023 11:20 AM EST Pt escorted to the vehicle by PACU staff. Ambulates well. All discharge instructions discussed and paper copy of discharge information and procedure report given to her to take home with her. * Hayde Adams RN - 05/24/2023 10:51 AM EST Pt sitting upright, sipping dann jocelyn. O2 mask has been removed for several minutes and pt's O2 sats have remained in the high 90's. Dr. Jaramillo was in to visit pt and discussed her procedure with her. She was unable to complete the colonoscopy d/t presence of large amount of stool. Pt will have to perform a two day prep in the future. Message sent to the GI schedulers to call her to set up a future colonoscopy. Communicated this information to the pt and she is agreeable to having a repeat scope soon. * Hayde Adams RN - 05/24/2023 10:38 AM EST Received pt into PACU II, room 2 via stretcher from the ENDO procedure room s/p colonoscopy. VSS. Resting soundly on her left side with O2 mask on at 6L/min, resps easy and unlabored. IV fluids infusing to her right AC without issue. * Jarred Wade, DMITRI - 05/24/2023 10:33 AM EST See anesthesia record for medication administered during procedure. Jarred Wade RN Pre cleaning of scope at the bedside started by weld technician. Pt had very poor prep, procedure aborted, pt tolerated well. documented in this encounter Plan of Treatment Upcoming Encounters Date Type Department Care Team (Late st Contact Info) Description 05/31/2023 8:45 AM EDT Hem/Onc Treatment Hematology/Oncology Treatment, [address] [place] [phone] [place], Chair 9 Hem [address] [address] 06/13/2023 10:00 AM EDT Nurse Only Ancillary [address] [place] [address] [place], Nurse [address] [place] [address] 06/21/2023 10:30 AM EDT Office Visit Orthopaedics [address] [place] [phone] Toan Rivera MD [address] [address] 07/10/2023 10:30 AM EDT Office Visit Gastroenterology, [facility] [address] [address] Jennifer Cleaning CRNP [address] [place] [address] 08/08/2023 11:00 AM EDT Office Visit General Surgery, [facility] [address] [place] [address] Peg Johnson MD [address] [place] [address] 09/04/2023 10:30 AM EDT Imaging Radiology, [address] [place] [address] 10/03/2023 5:40 PM EDT Office Visit Family Medicine [address] [phone] Sari Perkins MD [address] [place] [address] [place] [address] Scheduled Procedures Name Priority Associated Diagnoses Date/Ti me COLONOSCOPY FLEXIBLE PROXIMAL DIAGNOSTIC Crohn's disease without complication, unspecified gastrointestinal tract location (HCC) 05/24/2023 10:26 AM EST Health Maintenance Due Date Last [...] 03/2016, 10/30/2013, Additional history exists Colonoscopy 05/23/2033 05/24/2023 Colorectal Cancer Screening 05/23/2033 GARDASIL-HPV IMMUNIZATION SERIES Aged Out No longer eligible based on patient's age to complete this topic MENINGOCOCCAL (MENACTRA/MENVEO) Aged Out No longer eligible based on patient's age to complete this topic documented as of this encounter Medical Devices Not on filedocumented as of this encounter Procedures Procedure Name Priority Date/Time Associated Diagnosis Comments COLONOSCOPY 05/24/2023 10:20 AM EST documented in this encounter Results * COLONOSCOPY (05/24/2023 10:20 AM EST) 05/24/2023 10:2 0 AM EST Narrative Procedure Note Jennifer Cleaning CRNP - 05/24/2023 10:20 AM EST [facility] Patient Name: Vickie Mata Procedure Date: 05/24/2023 10:20 AMMRN: [id number] Date of : 1965 Admit Type: Outpatient Note Status:Draft Date of : 1965 Admit Type: Outpatient Age: 57 Room: [facility] 2 Gender: Female 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 Unable to locatelast colonoscopy report. Referring MD: Jennifer Cleaning NP Medicines: See the Anesthesia note for documentation of theadministered medications Complications: No immediate complications. Procedure: Pre-Anesthesia Assessment: - Patient identification and proposed procedurewere verified prior to the procedure by the physician, the nurse and theanesthesiologist. The procedure was verified in the pre-procedure area. - Prior to the procedure, a History and Physicalwas performed, and patient medications, allergies and sensitivities werereviewed. The patient's tolerance of previous anesthesia was reviewed. - The risks and benefits of the procedure and thesedation options and risks were discussed with the patient. All questions wereanswered and informed consent was obtained. - The medication list for this patient has beenreviewed prior to the procedure and has been determined that the patient may proceed with the plannedstudy. Any medication changes made as a result of the findings of this procedure have beendiscussed with the patient and/or jewelry sales representative [facility] - After I obtained informed consent, the scope waspassed under direct vision. All instruments were visually inspected immediatelybefore and after removal from the patient to ensure they are fully intact. Throughout the procedure, the patient's bloodpressure, pulse, and oxygen saturations were monitored continuously. The Colonoscope wasintroduced through the anus with the intention of advancing to the cecum. The scope wasadvanced to the sigmoid colon before the procedure was aborted. Medications weregiven. The colonoscopy was performed with difficulty due to poor endoscopicvisualization. The quality of the bowel preparation was inadequate. Findings & Specimens: The examined colon appeared normal. A large amount of stool was found in the sigmoid and rectum,precluding visualization and further advancement of the colonoscope. Impression: - Preparation of the colon was inadequate. - The examined colon appeared normal. - Stool in the sigmoid colon and rectum. Recommendation: - Repeat colonoscopy - consider a 2 day prep priorto next colonoscopy. Kathleen Jaramillo MD 05/24/2023 10:35:50 AM This report has been signed electronically. Jennifer Romero Hermila ALLOCATION ANALYST GASTRO LOWER documented in this encounter Administered Medications Inactive Administered Medications - up to 3 most recent administrations Medication Order MAR Action Action Date Dose Rate Site isolyte-S pH 7.4 infusion Intravenous, Plasma-LYTE 148, isolyte-S, and isolyte-S pH 7.4 are considered equivalent - including for MAR barcode scanning., CONTINUOUS, Starting on Silvia 05/24/23 at 1030, Until Silvia 05/24/23 at 1530, Pre-Op Continue from Pre-Op 05/24/2023 10:26 AM EST 100 mL/hr New Bag 05/24/2023 10:05 AM EST 1,000 mL 100 mL/hr documented in this encounter Active and Recently Administered Medications Times are shown in EST. Continuous Medication Order 05/22/2023 05/23/2023 05/24/2023 isolyte-S pH 7.4 infusion Intravenous, Plasma-LYTE 148, isolyte-S, and isolyte-S pH 7.4 are considered equivalent - including for MAR barcode scanning., CONTINUOUS, Starting on Silvia 05/24/23 at 1030, Until Silvia 05/24/23 at 1530, Pre-Op 1005 (New Bag - Prov ider: Kim Villegas RN)1026 (Continue from Pre-Op - Provider: Jose Hollins CRNA)1033 (Anes Intra-Op Fluid - Provider: Jose Hollins CRNA) documented in this encounter Care Teams Liquefied Natural Gas Operator Relationship Specialty Start Date End Date Sari Perkins MD [address] [place] [address] [place] [address] PCP - General Family Medicine 04/05/23 documented as of this encounter
--- OUTSIDE RECORDS SUMMARY | 2023-06-22 03:35 | External Medical Summary | Summary of Care ---
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 AVSOLA, 10 MG Jennifer Cleaning CRNP [address] [place] [address] Anc Hem/Onc [address] [address] Referral ID Status Reason Start Date Expiration Date V isits Requested Visits Authorized [id number] Authorized 05/16/2023 06/14/2023 99 99 Encounter Details Date Type Department Care Team (Latest Contact Info) Description 06/14/2023 8:45 AM EDT Hem/Onc Treatment Hematology/Oncology Treatment, [address] [address] Ca, Chair 2 Hem Onc [address] [place] [address] 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)* Allergies Active Allergy Reactions Criticality Noted Date Comments Naproxen 06/26/2000 GI documented as of this encounter (statuses as of 06/14/2023) Medications Medication Sig Dispensed Refills Start Date [...] vitamin B12 deficiency anemia 1000 mcg IM [id number] 09/25/2022 11/18/2023 Active documented as of this encounter (statuses as of 06/14/2023) Active Problems Problem Noted Date Diagnosed Date [...] as of this encounter (statuses as of 06/14/2023) Resolved Problems Problem Noted Date Diagnosed Date Resolved Date Major depressive disorder, r ecurrent episode, moderate 12/22/2020 05/17/2022 documented as of this encounter (statuses as of 06/14/2023) Immunizations Name Administration Dates Next Due Hepatitis [...] Sign Reading Time Taken Comments Blood Pressure 143/82 06/14/2023 8:58 AM EDT Pulse 78 06/14/2023 8:58 AM EDT Temperature 36.4 C (97.6 F) 06/14/2023 8:58 AM ED T Respiratory Rate 16 06/14/2023 8:58 AM EDT Oxygen Saturation 97% 06/14/2023 8:58 AM EDT Inhaled Oxygen Concentration - - Weight - - Height - - Body Mass Index - - documented in this encounter Nursing Notes * Miroslava Mckee RN - 06/14/2023 12:37 PM EDT Goals: Patient will remain free from injury. Possible barriers to meeting goals: ambulating with IV pole Stability of the patient: Moderately stable - low risk of patient condition declining or worsening Summary regarding today's goals: Met: pt remained free of harm today Patient tolerated treatment well without any acute issues or problems. Patient left facility in stable condition and denied any further needs. * Miroslava Mckee RN - 06/14/2023 8:58 AM EDT Chair 9. IV inserted. Patient here for Avsola, feeling well, no issues or complaints a this time. Safety and Risk for Injury Patient will remain free from injury. Ensure appropriate safety devices are available. Provide and maintain safe environment. documented in this encounter Plan of Treatment Upcoming Encounters Date Type Department Care Team (Late st Contact Info) Description 06/21/2023 10:30 AM EDT Office Visit Orthopaedics [address] [place] [phone] Toan Rivera MD [address] [place] [address] 06/21/2023 11:00 AM EDT Nurse Only Ancillary [address] [place] [address] [place], Nurse [address] [place] [address] 07/10/2023 10:30 AM EDT Office Visit Gastroenterology, [facility] [address] [place] [address] Jennifer Cleaning CRNP [address] [address] 07/12/2023 9:00 AM EDT Hem/Onc Treatment Hematology/Oncology Treatment, [place] [address] [place] [address] Ca, Chair 3 Hem Onc Scenery [address] [place] [address] 08/08/2023 11:00 AM EDT Office Visit General Surgery, [facility] [address] [place] [address] Peg Gamino MD [address] [place] [address] 09/04/2023 10:30 AM EDT Imaging Radiology, [address] [place] [address] 10/03/2023 5:40 PM EDT Office Visit Family Medicine [address] [place] [phone] Sari Perkins MD [address] [place] [address] [place] [address] 11/13/2023 8:00 AM EDT Nurse Only Ancillary [address] [place] [address] [place], Nurse [address] [place] [address] Health Maintenance Due Date Last Done Comments [...] as of this encounter Visit Diagnoses Diagnosis 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 4 hours after initial dose. diphenhydrAMINE (Benadryl) cap 25 mg 25 mg, Oral, ONCE PRN Other, Fever/Chills, Starting on Sun06/14/23 at 0858, Until Sun06/15/23 at 0857, For 24 hours, 4 hours after initial dose. diphenhydrAMINE (Benadryl) inj 50 mg 50 mg, IV Push, ONCE PRN Other, Hypersensitivity Reaction, Starting on Sun06/14/23 at 0858, Until Sun06/15/23 at 0857, For 24 hours EPINEPHrine 1 MG/ML inj 0.3 mg 0.3 mg, Intramuscular, ONCE PRN Other, Hypersensitivity Reaction or Anaphylaxis, Starting on Sun06/14/23 at 0858, Until Sun06/15/23 at 0857, For 24 hours hEParin 100 UNIT/ML Lock Flush inj 500 Units 500 Units (5 mL), IV Lock, PRN Other, IV Flush, Starting on Sun06/14/23 at 0858, Until Sun06/15/23 at 0857, For 24 hours, Do not flush if lock, PICC, or central line not in place; IV infusing or unable to flush. Hydrocortisone Sod Suc (PF) (Solu-Cortef) inj 100 mg 100 mg, IV Push, ONCE PRN Other, Hypersensitivity Reaction, Starting on Sun06/14/23 at 0858, Until Sun06/15/23 at 0857, For 24 hours NSS infusion 500 mL, Intravenous, at 50 mL/hr, CONTINUOUS, Starting on Sun06/14/23 at 1000, Until Sun06/14/23 at 1959 Start Infusion 06/14/2023 9:07 AM EDT 500 mL 50 mL/hr oxygen GAS Inhalation, OXYGEN, First dose on Sun06/14/23 at 0930, Until Discontinued, Device/Managed by: Low Flow Device, Goal SPO2 (%): 91-95, Starting Device: Nasal Cannula, Initial Flow Rate (LPM): 2, Lowest Support: Nasal Cannula: Flow 0-6 LPM. Titrate up/down by 1 LPM., Higher Support: Non-Rebreather (NRB) Mask: Minimum of 10 LPM. Titrate to maintain bag inflation., Titration Interval: Q2 minutes and as needed., Notify Provider: For sudden DECREASE in resting SPO2 to less than 85% and when escalating delivery device., Wean patient off Oxygen when the oxygen saturation is greater than or equal to 93% sodium chloride 0.9 % flush central line 10 mL 10 mL, IV Push, PRN Other, IV Flush, Starting on Sun06/14/23 at 0858, Until Sun06/15/23 at 0857, For 24 hours, Do not flush if lock, PICC, or central line not in place; IV infusing or unable to flush. Inactive Administered Medications - up to 3 most recent administrations Medication Order MAR Action Action Date Dose Rate Site Acetaminophen (Tylenol) tab 650 mg 650 mg, Oral, ONCE, On Sun06/14/23 at 1000, For 1 dose, Maximum of 4 grams (4000 mg) per day. Given 06/14/2023 9:07 AM EDT 650 mg diphenhydrAMINE (Benadryl) cap 25 mg 25 mg, Oral, ONCE, On Silvia 06/14/23 at 1000, For 1 dose Given 06/14/2023 9:06 AM EDT 25 mg inFLIXimab-axxq (Avsola) 250 mg in NSS 250 mL 250 mg (rounded from 249.5 mg = 5 mg/kg 49.9 kg Treatment plan Recorded weight), IV Piggyback, Administer over 120 Minutes, MUST BE INFUSED THROUGH A 0.22 MICRON FILTER Recommended Infusion Rates: Start at 10 mL/hr x 15 minutes VTBI = 2.5 mL Then 20 mL/hr x 15 minutes VTBI = 5 mL Then 40 mL/hr x 15 minutes VTBI = 10 mL Then 80 mL/hr x 15 minutes VTBI = 20 mL Then 150 mL/hr x 30 minutes VTBI = 75 mL Then 250 mL/hr for the remainder of infusion if tolerated VTBI = remaining volume, ONCE, 1 dose, On Silvia 06/14/23 at 1030 Rate Change 06/14/2023 11:05 AM EDT 250 mL/hr Rate Change 06/14/2023 10:35 AM EDT 150 mL/hr Rate Change 06/14/2023 10:20 AM EDT 80 mL/hr documented in this encounter Care Teams Portable Trackman Relationship Specialty Start Date End Date Sari Perkins MD [address] [place] [address] [place] [address] PCP - General Family Medicine 04/05/23 documented as of this encounter
--- OUTSIDE RECORDS SUMMARY | 2023-06-22 03:35 | External Medical Summary | Summary of Care ---
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)* Allergies Active Allergy Reactions Criticality Noted Date Comments Naproxen 06/26/2000 GI documented as of this encounter (statuses as of 05/31/2023) Medications Medication Sig Dispensed Refills Start Date [...] vitamin B12 deficiency anemia 1000 mcg IM [id number] 09/25/2022 11/18/2023 Active documented as of this encounter (statuses as of 05/31/2023) Active Problems Problem Noted Date Diagnosed Date [...] as of this encounter (statuses as of 05/31/2023) Resolved Problems Problem Noted Date Diagnosed Date Resolved Date Major depressive disorder, r ecurrent episode, moderate 12/22/2020 05/17/2022 documented as of this encounter (statuses as of 05/31/2023) Immunizations Name Administration Dates Next Due Hepatitis [...] Sign Reading Time Taken Comments Blood Pressure 120/80 05/31/2023 10:40 AM EDT Pulse 73 05/31/2023 10:40 AM EDT Temperature 36.6 C (97.9 F) 05/31/2023 10:40 AM E DT Respiratory Rate 16 05/31/2023 10:40 AM EDT Oxygen Saturation 94% 05/31/2023 10:40 AM EDT Inhaled Oxygen Concentration - - Weight 49.5 kg (109 lb 3.2 oz) 05/31/2023 9:17 A M EDT Height - - Body Mass Index 19.34 05/10/2023 9:43 AM EST documented in this encounter Nursing Notes * Wander Mitchell RN - 05/31/2023 12:36 PM EDT Pt infusion completed. Pt denies any symptoms during her treatment and tolerated it well. Pt IV site removed with catheter tip intact. Pt ambulated from treatment room in stable condition. * Wander Mitchell RN - 05/31/2023 9:18 AM EDT Chair 7. IV inserted into LAC without issues. Pt denies any symptoms. Advised patient regarding medication, potential side effects, etc. Pt verbalized understanding. Fluids infusing per orders. Safety and Risk for Injury Patient will remain free from injury. Ensure appropriate safety devices are available. Provide and maintain safe environment. documented in this encounter Plan of Treatment Upcoming Encounters Date Type Department Care Team (Late st Contact Info) Description 06/13/2023 10:00 AM EDT Nurse Only Ancillary [address] [place] [address] [place], Nurse [address] [place] [address] 06/14/2023 8:45 AM EDT Hem/Onc Treatment Hematology/[address]cology [address] [phone] [place], Chair 2 Hem Onc [address] [place] [address] 06/21/2023 10:30 AM EDT Office [address]edics [address] [phone] Toan Rivera MD [address] [place] [address] 07/10/2023 10:30 AM EDT Office Visit Gastroenterology, [facility] [address] [address] Jennifer Cleaning CRNP [address] [place] [address] 07/12/2023 9:00 AM EDT Hem/Onc Treatment Hematology/[address]cology [address], [address] [phone] Ca, Chair 3 Hem Onc Scenery [address] [place] [address] 08/08/2023 11:00 AM EDT Office Visit General Surgery, [facility] [address] [place] [address] Peg Johnson MD [address] [place], [place] [id number] 09/04/2023 10:30 AM EDT Imaging Radiology, [facility] [address] [facility] [place] [address] 10/03/2023 5:40 PM EDT Office Visit Family Medicine [address] [phone] Sari Perkins MD [address] [place] [address] [place] [address] Health Maintenance Due Date Last Done Comments [...] 3 - 19+ 3-dose series) 06/12/2023 05/15/2023 Mammogram 05/28/2024 05/29/2023 Lipid Panel 05/03/2026 05/03/2021, 08/0 03/2016, [...] ONCE PRN Other, or Chills, Starting on Sun05/31/23 at 0915, Until Sun06/01/23 at 0914, For 24 hours, Maximum of 4 grams (4000 mg) per day. 4 hours after initial dose. diphenhydrAMINE (Benadryl) cap 25 mg 25 mg, Oral, ONCE PRN Other, Fever/Chills, Starting on Sun05/31/23 at 0915, Until Sun06/01/23 at 0914, For 24 hours, 4 hours after initial dose. diphenhydrAMINE (Benadryl) inj 50 mg 50 mg, IV Push, ONCE PRN Other, Hypersensitivity Reaction, Starting on Sun05/31/23 at 0915, Until Sun06/01/23 at 0914, For 24 hours EPINEPHrine 1 MG/ML inj 0.3 mg 0.3 mg, Intramuscular, ONCE PRN Other, Hypersensitivity Reaction or Anaphylaxis, Starting on Sun05/31/23 at 0915, Until Sun06/01/23 at 0914, For 24 hours hEParin 100 UNIT/ML Lock Flush inj 500 Units 500 Units (5 mL), IV Lock, PRN Other, IV Flush, Starting on Sun05/31/23 at 0915, Until Sun06/01/23 at 0914, For 24 hours, Do not flush if lock, PICC, or central line not in place; IV infusing or unable to flush. Hydrocortisone Sod Suc (PF) (Solu-Cortef) inj 100 mg 100 mg, IV Push, ONCE PRN Other, Hypersensitivity Reaction, Starting on Sun05/31/23 at 0915, Until Sun06/01/23 at 0914, For 24 hours NSS infusion 500 mL, Intravenous, at 50 mL/hr, CONTINUOUS, Starting on Sun05/31/23 at 1030, Until Sun05/31/23 at 2028 Start Infusion 05/31/2023 9:22 AM EDT 500 mL 50 mL/hr oxygen GAS Inhalation, OXYGEN, First dose on Sun05/31/23 at 1000, Until Discontinued, Device/Managed by: Low Flow Device, [...] Push, PRN Other, IV Flush, Starting on Sun05/31/23 at 0915, Until Sun06/01/23 at 0914, For 24 hours, Do not flush if lock, PICC, or central line not in place; IV infusing or unable to flush. Inactive Administered Medications - up to 3 most recent administrations Medication Order MAR Action Action Date Dose Rate Site Acetaminophen (Tylenol) tab 650 mg 650 mg, Oral, ONCE, On Sun05/31/23 at 1030, For 1 dose, Maximum of 4 grams (4000 mg) per day. Given 05/31/2023 9:23 AM EDT 650 mg diphenhydrAMINE (Benadryl) cap 25 mg 25 mg, Oral, ONCE, On Silvia 05/31/23 at 1030, For 1 dose Given 05/31/2023 9:22 AM EDT 25 mg inFLIXimab-axxq (Avsola) 250 [...] remaining volume, ONCE, 1 dose, On Silvia 05/31/23 at 1100 Rate Change 05/31/2023 11:12 AM EDT 250 mL/hr Rate Change 05/31/2023 10:42 AM EDT 150 mL/hr Rate Change 05/31/2023 10:27 AM EDT 80 mL/hr documented in this encounter Care Teams Crocodile Farmer Relationship Specialty Start Date End Date Sari Perkins MD [address] [place] [address] [place] [address] PCP - General Family Medicine 04/05/23 documented as of this encounter
--- OUTSIDE RECORDS SUMMARY | 2023-06-22 03:35 | External Medical Summary | Summary of Care ---
Author Name Unknown Organization [facility] Address [address] [place] [facility] [place] [address] Phone [phone] Care Team Providers Care Car Cooper Name Role Phone Sari Perkins MD Primary Care Provide r Reason for Visit * Reason Onset Date Comments Order Request 05/28/2023 Encounter Details Date Type Department Care Team (Late st Contact Info) Description 05/25/2023 Telephone Family [address] [phone] Sari Perkins MD [address] [place] [address] [place] [address] Order Request Allergies Active Allergy Reactions Criticality [...] vitamin B12 deficiency anemia 1000 mcg IM [id number] 09/25/2022 11/18/2023 Active documented as of this [...] Correct order Pt can be reached at [phone] * Telephone Encounter - Beatriz Gunn LPN [...] wish to have their order completed at? [facility] [place] Fax Number, if applicable: N/A If the [...] Description 05/29/2023 10:15 AM EDT Imaging Radiology [address] [place] [address] 05/31/2023 8:45 AM EDT Hem/Onc Treatment Hematology/Oncology Treatment, [address] [phone] Ca, Chair 9 Hem Onc [address] [address] 06/13/2023 10:00 AM EDT Nurse Only Ancillary [address] [place] [address] [place], Nurse [address] [place] [address] 06/21/2023 10:30 AM EDT Office Visit Orthopaedics [address] [place] [phone] Toan Rivera MD [address] [place] [address] 07/10/2023 10:30 AM EDT Office Visit Gastroenterology, [facility] [address] [place] [address] Jennifer Cleaning CRNP [address] [place] [address] 08/08/2023 11:00 AM EDT Office Visit General Surgery, [facility] [address] [place] [address] Peg Johnson MD [address] [facility] [address] 09/04/2023 10:30 AM EDT Imaging Radiology, [address] [place] [address] 10/03/2023 5:40 PM EDT Office Visit [address] [place] [phone] Sari Perkins MD [address] [place] [address] [place] [address] Scheduled Orders Name Type Priority Associated Diagnoses [...] Primary documented in this encounter Care Teams Car Cooper Relationship Specialty Start Date End Date Sari Perkins MD [address] [place] [address] [place] [address] PCP - General Family Medicine 04/05/23 documented as of this encounter
--- OUTSIDE RECORDS SUMMARY | 2023-06-22 03:35 | External Medical Summary | Summary of Care ---
Author Name Unknown Organization [facility] Address [address] [place] [address] Phone [phone] Care Team Providers Care Manager Support Name Role Phone Sari Perkins MD Primary Care Provide r Encounter Details Date Type Department Care Team (Late st Contact Info) Description 05/28/2023 Orders Only Outcomes Research Department [address] [place] [address] Minal Castellanos CHRA [employer] Other*[id number] Allergies Active Allergy Reactions Criticality Noted Date [...] vitamin B12 deficiency anemia 1000 mcg IM [id number] 09/25/2022 11/18/2023 Active documented as of this [...] 8:45 AM EDT Hem/Onc Treatment Hematology/Oncology Treatment, [place] [address] [place] [phone] [place], Chair 9 Hem Onc Scenery [address] [place] [address] 06/13/2023 10:00 AM EDT Nurse Only Ancillary [address] [place] [address] [place], Nurse [address] [place] [address] 06/21/2023 10:30 AM EDT Office Visit [address]opaedics [address] [place] [phone] Toan Rivera MD [address] [place] [address] 07/10/2023 10:30 AM EDT Office Visit Gastroenterology, [facility] [address] [place] [address] Jennifer Cleaning CRNP [address] [place] [address] 08/08/2023 11:00 AM EDT Office Visit General Surgery, [facility] [address] [place] [address] Peg Johnson MD [address] [facility] [id number] 09/04/2023 10:30 AM EDT Imaging Radiology, [address] [place] [address] 10/03/2023 5:40 PM EDT Office Visit Family Medicine [address] [place] [phone] Sari Perkins MD [address] [place] [address] [place] [address] Scheduled Orders Name Type Priority Associated Diagnoses Orde r Schedule MYCODE SUBSEQUENT ADULT Lab Routine [employer] Other*[id number] Every 6 Months for 2 Occurrences starting 05/28/2023 until 06/16/2024 Health Maintenance Due Date Last Done Comments [...] as of this encounter Visit Diagnoses Diagnosis [employer] Other*[id number] documented in this encounter Care Teams Manager Support Relationship Specialty Start Date End Date Sari Perkins MD [address] [place] [address] [place] [address] PCP - General Family Medicine 04/05/23 documented as of this encounter
--- OUTSIDE RECORDS SUMMARY | 2023-06-22 03:35 | External Medical Summary | Summary of Care ---
Author Name Unknown Organization [facility] Address [address] [facility] [address] Phone [phone] Care Team Providers Care Babbitter Name Role Phone Sari Perkins MD Primary Care Provide r Encounter Details Date Type Department Care Team (Late st Contact Info) Description 05/24/2023 Orders Only Gastroenterology, [facility] [address] [place] [address] Jennifer Cleaning CRNP [address] [place] [address] Allergies Active Allergy Reactions Criticality Noted Date Comments Naproxen 06/26/2000 GI documented as of this encounter (statuses as of 05/24/2023) Medications Medication Sig Dispensed Refills Start Date End Date Status sulfaSALAzine 500 MG Oral Tablet (Azulfidine)Indic ations: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) TAKE TWO TABLETS BY MOUTH THREE TIMES DAILY 540 Tablet 2 05/17/2022 Suspended Additional Information Vitamin D 50 MCG (1999) Oral Tablet [...] Take by mouth as needed. 0 Suspended documented as of this encounter (statuses as [...] 8:45 AM EDT Hem/Onc Treatment Hematology/Oncology Treatment, [place] [address] [facility] [phone] [place], Chair 9 Hem Onc Scenery [address] [place] [address] 06/13/2023 10:00 AM EDT Nurse Only Ancillary [address] [place] [address] [place], Nurse [address] [place] [address] 06/21/2023 10:30 AM EDT Office Visit Orthopaedics [address] [place] [phone] Toan Rivera MD [address] [place] [address] 07/10/2023 10:30 AM EDT Office Visit Gastroenterology, [facility] [address] [place] [address] Jennifer Cleaning CRNP [address] [place] [address] 08/08/2023 11:00 AM EDT Office Visit General Surgery, [facility] [address] [place] [address] Peg Johnson MD [address] [facility] [place] [id number] 09/04/2023 10:30 AM EDT Imaging Radiology, [address] [place] [address] 10/03/2023 5:40 PM EDT Office Visit Family Medicine [address] [place] [phone] Sari Perkins MD [address] [place] [address] [place] [address] Scheduled Procedures Name Priority Associated Diagnoses Date/Ti [...] filedocumented as of this encounter Care Teams Babbitter Relationship Specialty Start Date End Date Sari Perkins MD [address] [place] [address] [place] [address] PCP - General Family Medicine 04/05/23 documented as of this encounter
--- OUTSIDE RECORDS SUMMARY | 2023-06-22 03:35 | External Medical Summary | Summary of Care ---
Author Name Unknown Organization [facility] Address [address] [place] [address] Phone [phone] Care Team Providers Care Lead Pressman [employer] Name Role Phone Sari Perkins MD Primary Care Provide r Reason for Visit * Reason Onset Date Comments Test Results 05/31/2023 Encounter Details Date Type Department Care Team (Late st Contact Info) Description 05/31/2023 Telephone Family [address] [phone] Sari Perkins MD [address] [place] [address] [place] [address] Test Results Allergies Active Allergy Reactions Criticality [...] vitamin B12 deficiency anemia 1000 mcg IM [id number] 09/25/2022 11/18/2023 Active documented as of this [...] encounter Miscellaneous Notes * Telephone Encounter - Sari Perkins MD - 05/31/2023 1:29 PM EDT Called the pt - but left a message with pt's mother Need further imaging of the breast for better visualization therefore repeat scans were ordered documented in this encounter Plan of Treatment Upcoming Encounters Date Type Department Care Team (Late st Contact Info) Description 06/13/2023 10:00 AM EDT Nurse Only Ancillary [address] [place] [address] [place], Nurse [address] [place] [address] 06/14/2023 8:45 AM EDT Hem/Onc Treatment Hematology/Oncology [address] [phone] [place], Chair 2 Hem Onc [address] [address] 06/21/2023 10:30 AM EDT Office Visit Orthopaedics [address] [place] [phone] Toan iRvera MD [address] [place] [address] 07/10/2023 10:30 AM EDT Office Visit Gastroenterology, [facility] [address] [place] [address] Jennifer Cleaning CRNP [address] [place] [address] 07/12/2023 9:00 AM EDT Hem/Onc Treatment Hematology/Oncology Treatment, [place] [address] [place] [phone] [place], Chair 3 Hem Onc Scenery [address] [place] [address] 08/08/2023 11:00 AM EDT Office Visit General Surgery, [facility] [address] [facility] [place] [address] Peg Johnson MD [address] [place] [address] 09/04/2023 10:30 AM EDT Imaging Radiology, [facility] [address] [facility] [place] [address] 10/03/2023 5:40 PM EDT Office Visit Family Medicine [address] [phone] Sari Perkins MD [address] [place] [address] [place] [address] Health Maintenance Due Date Last Done Comments [...] filedocumented as of this encounter Care Teams Lead Pressman [employer] Relationship Specialty Start Date End Date Sari Perkins MD [address] [place] [address] [place] [address] PCP - General Family Medicine 04/05/23 documented as of this encounter
--- OUTSIDE RECORDS SUMMARY | 2023-06-22 03:36 | External Medical Summary ---
Author Name Unknown Address Unknown Organization K01:LAB[facility]ATORY [facility] [place] [address] [place] [address] Laboratory Report Ordering Provider Test Date Status SUDHA DOUGHERTY 05/22/2023 11:37:37 Final Observation Date Value Abnormality Reference (Units ) Status MYCODE SPECIMEN-SST 05/22/2023 11:37:37 Freezing of extracted DNA, whole blood and/or serum. Final Performing Location LABORATORY C - [address] [place] [address]
--- OUTSIDE RECORDS SUMMARY | 2023-06-22 03:36 | External Medical Summary ---
Author Name Unknown Address Unknown Organization K01:[facility] - [address] [place] [address] Laboratory Report Ordering Provider Test Date Status SUDHA DOUGHERTY 05/22/2023 11:37:37 Final Observation Date Value Abnormality Reference (Units ) Status MYCODE SPECIMEN-LAV 05/22/2023 11:37:37 Freezing of extracted DNA, whole blood and/or serum. Final Performing Location LABORATORY C - [address] [place] [address]
--- OUTSIDE RECORDS SUMMARY | 2023-06-22 03:36 | External Medical Summary ---
Author Name Unknown Address Unknown Organization K01:[facility] [place] [address] [place] [address] Laboratory Report Ordering Provider Test Date Status KRISTIAN OTERO 05/22/2023 11:37:37 Final Deficient: <20 ng/mL
Ins ufficient: 20-29 ng/mL
Recommended/Optimum:30-50 ng/mL

Vitamin D intoxication is rare. If suspicious of Vitamin D toxicity, evaluation of serum Calcium and PTH is recommended. Observation Date Value Abnormality Reference (Units ) Status 25-OH Vitamin D total 05/22/2023 11:37:37 26 >19 (ng/mL) Final Performing Location LABORATORY C - [address] [place] [address]
--- OUTSIDE RECORDS SUMMARY | 2023-06-22 03:36 | External Medical Summary | Summary of Care ---
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)* Allergies Active Allergy Reactions Criticality Noted Date Comments Naproxen 06/26/2000 GI documented as of this encounter (statuses as of 05/18/2023) Medications Medication Sig Dispensed Refills Start Date [...] vitamin B12 deficiency anemia 1000 mcg IM [id number] 09/25/2022 11/18/2023 Active documented as of this encounter (statuses as of 05/18/2023) Active Problems Problem Noted Date Diagnosed Date [...] as of this encounter (statuses as of 05/18/2023) Resolved Problems Problem Noted Date Diagnosed Date Resolved Date Major depressive disorder, r ecurrent episode, moderate 12/22/2020 05/17/2022 documented as of this encounter (statuses as of 05/18/2023) Immunizations Name Administration Dates Next Due Hepatitis [...] on file documented as of this encounter Progress Notes * David Taylor, [facility] - 05/18/2023 2:20 PM EST After connecting to the patient via telephone, the patient was identified by name and date of . Patient was then informed that this was a telephone call only visit. The patient agreed to participate. Visit Disposition: Routine follow-up Total call duration was 20 minutes. Gastroenterology Clinical Pharmacy Service: Medication Management Gastroenterology Provider: Jennifer Cleaning Date of next clinic appointment: 07/10/23 ASSESSMENT Disease Type: Autoimmune, Crohn's disease (CD) MTM Inflammatory Bowel Disease Management Treatment overview: Current medication: Infliximab (Remicade, Inflectra, Renflexis, Avsola) Initiation - 5mg/kg IV at weeks 0, 2, and 6, then every 8 weeks This medication is considered an anti-TNF drug, which means that it targets a specific protein in the body called tumor necrosis factor (TNF) that causes inflammation in the intestines. It is an infusion that lasts approximately 2 to 4 hours. During the infusion (less than 24 hours after the infusion) some patients experience a reaction, which can include fever, chest pain, heart palpitations, sweating, nausea, flushing, itching, changes in blood pressure, and difficulty breathing. A reaction can also occur after the infusion (24 hours to 14 days after infusion) as well. Symptoms may include muscle or joint aches, itching, rash, fever, and fatigue. It may take up to 12 weeks after starting t his medication to see an improvement in symptoms however, a more immediate response can be seen. This medication has Black Box warnings for an increased risk of serious infections (such as TB, invasive fungal infections and other infections caused by opportunistic pathogens) and on rare occasions, certain types of cancer, including lymphoma. The patient is aware to let their provider know about other medical conditions that they may have, if they are or planning to become , and any other medications (including ieis-hfq-elgzdng medications or alternative therapies) they may be taking. The patient was instructed to take the medication as directed. The patient was counseled on the importance of continuing to take their medication to prevent flares and not alter the amount of the medication or how frequently they take it, unless otherwise instructed by their provider. Routine lab monitoring may be required. The patient was encouraged to contact their provider if they experience any side effects or their symptoms worsen. Summary: Infliximab is approved. Medication education completed with patient. David Taylor RP Clinical Pharmacist, Gastroenterology documented in this encounter Plan of Treatment Upcoming Encounters Date Type Department Care Team (Latest Contact Info) Description 05/24/2023 10:30 AM EST Hospital Encounter ENDO OSSC, Endoscopy Room [facility] [address] [place] [phone] Kathleen Jaramillo MD [address] [place] [address] 05/24/2023 10:30 AM EST - 05/24/2023 11:00 AM EST Surgery ENDO OSSC, Endoscopy Room [facility] [address] [place] [phone] Kathleen Jaramillo MD [address] [place] [address] COLONOSCOPY FLEXIBLE PROXIMAL DIAGNOSTIC 06/13/2023 10:00 AM EDT Nurse Only Ancillary [address] [place] [address] [place], Nurse [address] [place] [address] 06/21/2023 10:30 AM EDT Office Visit Orthopaedics [address] [place] [phone] Toan Rivera MD [address] [place] [address] 07/10/2023 10:30 AM EDT Office Visit Gastroenterology, [facility] [place] [address] Jennifer Cleaning CRNP [facility] [place] [address] 08/08/2023 11:00 AM EDT Office Visit General Surgery, [facility] [address] [facility] [place] [address] Peg Johnson MD [address] [place] [address] 09/04/2023 10:30 AM EDT Imaging Radiology, [address] [place] [address] 10/03/2023 5:40 PM EDT Office Visit Family Medicine [address] [place] [address] Sari Perkins MD [address] [place] [address] [place] [address] Scheduled Procedures Name Priority Associated Diagnoses Date/Ti [...] (HCC)- 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
--- OUTSIDE RECORDS SUMMARY | 2023-06-22 03:36 | External Medical Summary ---
Author Name Unknown Address Unknown Organization K01:LABORATORY [facility] – [place] - [address] [place] [address] Laboratory Report Ordering Provider Test Date Status SUDHA DOUGHERTY 05/22/2023 11:37:37 Final Observation Date Value Abnormality Reference (Units ) Status MYCODE SPECIMEN-SST 05/22/2023 11:37:37 Freezing of extracted DNA, whole blood and/or serum. Final Performing Location LABORATORY C - [address] [place] [address]
--- OUTSIDE RECORDS SUMMARY | 2023-06-22 03:36 | External Medical Summary | Summary of Care ---
Author Name Unknown Organization [facility] Address [address] [facility] [place] [address] Phone [phone] Care Team Providers Care Domestic Housekeeper Name Role Phone Sari Perkins MD Primary Care Provide r Reason for Visit * Reason Onset Date Comments Pre Cert/Prior Auth 05/16/2023 Encounter Details Date Type Department Care Team (Late st Contact Info) Description 05/16/2023 Telephone Gastroenterology, [facility] [address] [place] [address] Jennifer Cleaning CRNP [address] [place] [address] Pre Cert/Prior Auth Allergies Active Allergy Reactions Criticality Noted Date Comments Naproxen 06/26/2000 GI documented as of this encounter (statuses as of 05/21/2023) Medications Medication Sig Dispensed Refills Start Date [...] vitamin B12 deficiency anemia 1000 mcg IM [id number] 09/25/2022 11/18/2023 Active documented as of this encounter (statuses as of 05/21/2023) Active Problems Problem Noted Date Diagnosed Date [...] as of this encounter (statuses as of 05/21/2023) Resolved Problems Problem Noted Date Diagnosed Date Resolved Date Major depressive disorder, r ecurrent episode, moderate 12/22/2020 05/17/2022 documented as of this encounter (statuses as of 05/21/2023) Immunizations Name Administration Dates Next Due Hepatitis [...] encounter Miscellaneous Notes * Telephone Encounter - Mary Lou Garland, MED ASSIST - 05/21/2023 8:50 AM EST Called and spoke to patient and she is scheduled for avsola for 05/31/23. * Telephone Encounter - Nafisa Oswald RN - 05/21/2023 7:49 AM EST Scheduling: please call patient to schedule 4 hour appt "avsola" (Jennifer Cleaning). Thanks! * Telephone Encounter - Cherry Taylor [facility] - 05/18/2023 2:25 PM EST Spoke with patient. [facility] nurses - may patient please be scheduled? Patient requests both home and cell phones be contacted when calling. Thank you! * Telephone Encounter - Cherry Taylor [facility] - 05/18/2023 1:46 PM EST Second message left. I also attempted to contact patient's cell but there was no answer and no voicemail set up. Cherry Taylor mehnaz Clinical Pharmacist, Gastroenterology 05/18/2023,1:46 PM * Telephone Encounter - Cherry Taylor [facility] - 05/17/2023 12:02 PM EST Patient is okay to proceed with the infliximab infusions from an authorization perspective. I attempted to contact patient to complete med education. No answer, left message to return call to clinic at earliest convenience. Cherry Taylor RPh Clinical Pharmacist, Gastroenterology 05/17/2023,12:03 PM * Telephone Encounter - Nafisa Oswald RN - 05/16/2023 3:58 PM EST [place] plan built and routed for signature. Waiting for auth. * Addendum Note - Cherry Taylor RPh - 05/16/2023 2:08 PM ESTAddended by: CHERRY TAYLOR on: 05/16/2023 02:08 PM Modules accepted: Orders * Telephone Encounter - Cherry Taylor RPh - 05/16/2023 1:59 PM EST Gastro Pre-Cert Request Specialty Medication: Yes. Medication/Disease State Information: Medication: Infliximab (Remicade, Inflectra, Renflexis, Avsola) Initiation - 5mg/kg IV at weeks 0, 2, and 6, then every 8 weeks Diagnosis (including ICD-10): Crohn's disease K50.90. Specialty medication - route to [id number]. Referral to pharmacist for: co-management. Office Information: Prescriber: Jennifer Cleaning Last office visit: 05/08/23 Additional information: Patient has been receiving sulfasalazine and has been taking prednisone daily per her PCP in the past Patient has a history of draining fistula Required Screening Information: Vaccination(s): Plan in place for CDC/ACIP vaccination guidelines using Health Maintenance Topics, Best Practice Alerts, and Anticipatory Management Reports within EHR TB Testing: Quantiferon Negative Hepatitis B Screenings: Hep B Panel Negative No active, severe, and/or uncontrolled infection * Telephone Encounter - Jennifer Cleaning CRNP - 05/16/2023 1:53 PM EST Pt w Crohn's disease, perianal fistula. She is currently on Sulfasalazine. Plan to switch her med to Infliximab 5mg/kg. I had discussed w pt risks vs benefits of this medication, dose, route of administration. TB quant gold negative. Not immune to hepatitis-B, she received 1st out of 3 vaccine in the series. Colonoscopy scheduled 05/24/2023 Pls obtain prior auth for this med and schedule infusions once approved (pt prefers / daysfor transportation reasons) JOSE Cedeno documented in this encounter Plan of Treatment Upcoming Encounters Date Type Department Care Team (Latest Contact Info) Description 05/24/2023 10:30 AM EST Hospital Encounter ENDO OSS[facility], Endoscopy Room [facility] [place] [phone] Kathleen Jaramillo MD [address] [place] [address] 05/24/2023 10:30 AM EST - 05/24/2023 11:00 AM EST Surgery ENDO [facility], Endoscopy Room [facility] [place] [phone] Kathleen Jaramillo MD [address] [place] [address] COLONOSCOPY FLEXIBLE PROXIMAL DIAGNOSTIC 05/31/2023 8:45 AM EDT Hem/Onc Treatment Hematology/Oncology Treatment, [place] [address] [place] [address] Ca, Chair 9 Hem Onc Scenery [address] [place] [address] 06/13/2023 10:00 AM EDT Nurse Only Ancillary [address] [place] [address] [place] Nurse [address] [place] [address] 06/21/2023 10:30 AM EDT Office Visit Orthopaedics [address] [phone] Toan Rivera MD [facility] [place] [address] 07/10/2023 10:30 AM EDT Office Visit Gastroenterology, [facility] [place] [address] Jennifer Cleaning CRNP [address] [facility] [place] [address] 08/08/2023 11:00 AM EDT Office Visit General Surgery, [facility] 132 [place] [address] Peg Johnson MD [address] [place] [address] 09/04/2023 10:30 AM EDT Imaging Radiology, [address] [place] [address] 10/03/2023 5:40 PM EDT Office Visit Family Medicine [address] [phone] Sari Perkins MD [address] [place] [address] [place] [address] Scheduled Procedures Name Priority Associated Diagnoses Date/Ti [...] series) 06/12/2023 05/15/2023 Lipid Panel 05/03/2026 05/03/2021, 08/03/2016, 10/30/2013, Additional history exists GARDASIL-HPV IMMUNIZATION SERIES [...] (HCC) documented in this encounter Care Teams Domestic Housekeeper Relationship Specialty Start Date End Date Sari Perkins MD [address] [place] [address] [place] [phone] PCP - General Family Medicine 04/05/23 documented as of this encounter
--- OUTSIDE RECORDS SUMMARY | 2023-06-22 03:36 | External Medical Summary | Summary of Care ---
Author Name Unknown Organization [facility] Address [address] [facility] [place] [address] Phone [phone] Care Team Providers Care Sales Planning Coordinator Name Role Phone Sari Perkins MD Primary Care Provide r Reason for Visit * Reason Onset Date Comments Pre Cert/Prior Auth 05/16/2023 Encounter Details Date Type Department Care Team (Late st Contact Info) Description 05/16/2023 Telephone Gastroenterology, [facility] [address] [place] [address] Jennifer Cleaning CRNP [address] [place] [address] Pre Cert/Prior Auth Allergies Active Allergy Reactions [...] vitamin B12 deficiency anemia 1000 mcg IM [id number] 09/25/2022 11/18/2023 Active documented as of this [...] encounter Miscellaneous Notes * Telephone Encounter - Cherry Taylor [facility] - 05/18/2023 1:46 PM EST Second message left. I also attempted to contact patient's cell but there was no answer and no voicemail set up. Cherry Taylor [facility] Clinical Pharmacist, Gastroenterology 05/18/2023,1:46 PM * Telephone Encounter - Cherry Taylor [facility] - 05/17/2023 12:02 PM EST Patient is okay to proceed with the infliximab infusions from an authorization perspective. I attempted to contact patient to complete med education. No answer, left message to return call to clinic at earliest convenience. Cherry Taylor mehnaz Clinical Pharmacist, Gastroenterology 05/17/2023,12:03 PM * Telephone Encounter - Nafisa Oswald RN - 05/16/2023 3:58 PM EST [place] plan built and routed for signature. Waiting for auth. * Addendum Note - Cherry Taylor [facility] - 05/16/2023 2:08 PM ESTAddended by: CHERRY TYALOR on: 05/16/2023 02:08 PM Modules accepted: Orders * Telephone Encounter - Cherry Taylor [facility] - 05/16/2023 1:59 PM EST Gastro Pre-Cert Request Specialty Medication: Yes. Medication/Disease State Information: Medication: Infliximab (Remicade, Inflectra, Renflexis, Avsola) Initiation - 5mg/kg IV at weeks 0, 2, and 6, then every 8 weeks Diagnosis (including ICD-10): Crohn's disease K50.90. Specialty medication - route to [id number]. Referral to pharmacist for: co-management. Office Information: [...] EST Hospital Encounter ENDO OSS[facility], Endoscopy Room [facility] 132 [facility] [place] [phone] Kathleen Jaramillo MD [address] [place] [address] 05/24/2023 10:30 AM EST - 05/24/2023 11:00 AM EST Surgery ENDO [facility], Endoscopy Room [facility] [address] [place] [phone] Kathleen Jaramillo MD [address] [place], [place] [address] [address] COLONOSCOPY FLEXIBLE PROXIMAL DIAGNOSTIC 06/13/2023 10:00 AM EDT Nurse Only Ancillary [address] [place] [address] [place], Nurse [address] [place] [address] 06/21/2023 10:30 AM EDT Office Visit Orthopaedics [address] [phone] Toan Rivera MD [address] [place] [address] 07/10/2023 10:30 AM EDT Office Visit Gastroenterology, [facility] [address] [place] [address] Jennifer Cleaning CRNP [address] [place] [address] 08/08/2023 11:00 AM EDT Office Visit General Surgery, [facility] [address] [place] [address] Peg Johnson MD [address] [facility] [place] [address] 09/04/2023 10:30 AM EDT Imaging Radiology, [address] [place] [address] 10/03/2023 5:40 PM EDT Office Visit Family Medicine [address] [place] [address] Sari Perkins MD [address] [place] [address] [place] [address] Scheduled Procedures Name Priority Associated Diagnoses Date/Ti [...] (HCC) documented in this encounter Care Teams Sales Planning Coordinator Relationship Specialty Start Date End Date Sari Perkins MD [address] [place] [address] [place] [address] PCP - General Family Medicine 04/05/23 documented as of this encounter
--- OUTSIDE RECORDS SUMMARY | 2023-06-22 03:36 | External Medical Summary | Summary of Care ---
Author Name Unknown Organization [facility] Address [address] [facility] [place] [address] Phone [phone] Care Team Providers Care Teacher Name Role Phone Sari Perkins MD Primary Care Provide r Reason for Visit * Reason Onset Date Comments Pre Cert/Prior Auth 05/16/2023 Encounter Details Date Type Department Care Team (Late st Contact Info) Description 05/16/2023 Telephone Gastroenterology, [facility] [address] [place] [address] Jennifer Cleaning CRNP [address] [place] [address] Pre Cert/Prior Auth Allergies Active Allergy Reactions [...] vitamin B12 deficiency anemia 1000 mcg IM [id number] 09/25/2022 11/18/2023 Active documented as of this [...] Notes * Telephone Encounter - Cherry Taylor [facility] - 05/18/2023 2:25 PM EST Spoke with patient. [facility] nurses - may patient please be scheduled? Patient requests both home and cell phones be contacted when calling. Thank you! * Telephone Encounter - Cherry Taylor [facility] - 05/18/2023 1:46 PM EST Second message left. I also attempted to contact patient's cell but there was no answer and no voicemail set up. Cherry Taylor [facility] Clinical Pharmacist, Gastroenterology 05/18/2023,1:46 PM * Telephone Encounter - Cherry Taylor [facility] - 05/17/2023 12:02 PM EST Patient is okay to proceed with the infliximab infusions from an authorization perspective. I attempted to contact patient to complete med education. No answer, left message to return call to clinic at earliest convenience. Cherry Taylor [facility] Clinical Pharmacist, Gastroenterology 05/17/2023,12:03 PM * Telephone Encounter - Nafisa Oswald RN - 05/16/2023 3:58 PM EST [place] plan built and routed for signature. Waiting for auth. * Addendum Note - Cherry Taylor [facility] - 05/16/2023 2:08 PM ESTAddended by: CHERRY TAYLOR on: 05/16/2023 02:08 PM Modules accepted: Orders * Telephone Encounter - Cherry Taylor [facility] - 05/16/2023 1:59 PM EST Gastro Pre-Cert Request Specialty Medication: Yes. Medication/Disease State Information: Medication: Infliximab (Remicade, Inflectra, Renflexis, Avsola) Initiation - 5mg/kg IV at weeks 0, 2, and 6, then every 8 weeks Diagnosis (including ICD-10): Crohn's disease K50.90. Specialty medication - route to [id number]. Referral to pharmacist for: co-management. Office Information: [...] and schedule infusions once approved (pt prefers /Th daysfor transportation reasons) JOSE Cedeno documented in this encounter Plan of Treatment Upcoming Encounters Date Type Department Care Team (Latest Contact Info) Description 05/24/2023 10:30 AM EST Hospital Encounter ENDO [facility], Endoscopy Room [facility] [address] [place] [phone] Kathleen Jaramillo MD [address] [place] [address] 05/24/2023 10:30 AM EST - 05/24/2023 11:00 AM EST Surgery ENDO [facility], Endoscopy Room [facility] [address] [place] [phone] Kathleen Jaramillo MD [address] [place] [address] COLONOSCOPY FLEXIBLE PROXIMAL DIAGNOSTIC 06/13/2023 10:00 AM EDT Nurse Only Ancillary [address] [place] [address] [place], Nurse [address] [place] [address] 06/21/2023 10:30 AM EDT Office Visit Orthopaedics [address] [place] [phone] Toan Rivera MD [address] [place] [address] 07/10/2023 10:30 AM EDT Office Visit Gastroenterology, [facility] [address] [place] [address] Jennifer Cleaning CRNP [address] [place] [address] 08/08/2023 11:00 AM EDT Office Visit General Surgery, [facility] [address] [place] [address] Peg Johnson MD [address] [place] [address] 09/04/2023 10:30 AM EDT Imaging Radiology, [address] [place] [address] 10/03/2023 5:40 PM EDT Office Visit Family Medicine [address] [place] [phone] Sari Perkins MD [address] [place] [address] [place] [address] Scheduled Procedures Name Priority Associated Diagnoses Date/Ti [...] (HCC) documented in this encounter Care Teams Teacher Relationship Specialty Start Date End Date Sari Perkins MD [address] [place] [address] [place] [address] PCP - General Family Medicine 04/05/23 documented as of this encounter
--- OUTSIDE RECORDS SUMMARY | 2023-06-22 03:36 | External Medical Summary | Summary of Care ---
Author Name Unknown Organization [facility] Address [address] [facility] [place] [address] Phone [phone] Care Team Providers Care Host And Hostess Name Role Phone Sari Perkins MD Primary Care Provide r Reason for Visit * Reason Onset Date Comments Pre Cert/Prior Auth 05/16/2023 Encounter Details Date Type Department Care Team (Late st Contact Info) Description 05/16/2023 Telephone Gastroenterology, [facility] [address] [place] [address] Jennifer Cleaning CRNP [address] [place] [address] Pre Cert/Prior Auth Allergies Active Allergy Reactions [...] vitamin B12 deficiency anemia 1000 mcg IM [id number] 09/25/2022 11/18/2023 Active documented as of this [...] encounter Miscellaneous Notes * Telephone Encounter - Nafisa Oswald RN - 05/21/2023 7:49 AM EST Scheduling: please call patient to schedule 4 hour appt "[email or web address]" (Jennifer Cleaning). Thanks! * Telephone Encounter - Cherry Taylor [facility] - 05/18/2023 2:25 PM EST Spoke with patient. [facility] nurses - may patient please be scheduled? Patient requests both home and cell phones be contacted when calling. Thank you! * Telephone Encounter - Cherry Taylor [facility] - 05/18/2023 1:46 PM EST Second message left. I also attempted to contact patient's cell but there was no answer and no voicemail set up. Cherry Taylor [facility] Clinical Pharmacist, Gastroenterology 05/18/2023,1:46 PM * Telephone Encounter - Cherry Taylor [facility] - 05/17/2023 12:02 PM EST Patient is okay to proceed with the infliximab infusions from an authorization perspective. I attempted to contact patient to complete med education. No answer, left message to return call to clinic at earliest convenience. Cherry Taylor [facility] Clinical Pharmacist, Gastroenterology 05/17/2023,12:03 PM * Telephone Encounter - Naifsa Oswald RN - 05/16/2023 3:58 PM EST [place] plan built and routed for signature. Waiting for auth. * Addendum Note - Cherry Taylor [facility] - 05/16/2023 2:08 PM ESTAddended by: CHERRY TAYLOR on: 05/16/2023 02:08 PM Modules accepted: Orders * Telephone Encounter - Cherry Taylor [facility] - 05/16/2023 1:59 PM EST Gastro Pre-Cert Request Specialty Medication: Yes. Medication/Disease State Information: Medication: Infliximab (Remicade, Inflectra, Renflexis, Avsola) Initiation - 5mg/kg IV at weeks 0, 2, and 6, then every 8 weeks Diagnosis (including ICD-10): Crohn's disease K50.90. Specialty medication - route to [id number]. Referral to pharmacist for: co-management. Office Information: [...] 05/24/2023 10:30 AM EST Hospital Encounter ENDO O[facility], Endoscopy Room [facility] [address] [place] [phone] Kathleen Jaramillo MD [address] [place] [address] 05/24/2023 10:30 AM EST - 05/24/2023 11:00 AM EST Surgery ENDO [facility], Endoscopy Room [facility] [address] [place] [phone] Kathleen Jaramillo MD [address] [place] [address] COLONOSCOPY FLEXIBLE PROXIMAL DIAGNOSTIC 06/13/2023 10:00 AM EDT Nurse Only Ancillary [address] [place] [address] [place], Nurse [address] [place] [address] 06/21/2023 10:30 AM EDT Office Visit Orthopaedics [address] [place] [phone] Toan Rivera MD [address] [place] [address] 07/10/2023 10:30 AM EDT Office Visit Gastroenterology, [facility] [address] [place] [address] Jennifer Cleaning CRNP [address] [place] [address] 08/08/2023 11:00 AM EDT Office Visit General Surgery, [facility] [address] [place] [address] Peg Johnson MD [address] [place] [address] 09/04/2023 10:30 AM EDT Imaging Radiology, [facility] [address] [place] [address] 10/03/2023 5:40 PM EDT Office Visit Family Medicine [address] [phone] Sari Perkins MD [address] [place] [address] [place] [address] Scheduled Procedures Name Priority Associated Diagnoses Date/Ti [...] (HCC) documented in this encounter Care Teams Host And Hostess Relationship Specialty Start Date End Date Sari Perkins MD [address] [place] [address] [place] [id number] PCP - General Family Medicine 04/05/23 documented as of this encounter
--- OUTSIDE RECORDS SUMMARY | 2023-06-22 03:36 | External Medical Summary | Summary of Care ---
Author Name Unknown Organization [facility] Address [address] [facility] [place] [address] Phone [phone] Care Team Providers Care Athletic Agent Name Role Phone Sari Perkins MD Primary Care Provide r Encounter Details Date Type Department Care Team (Late st Contact Info) Description 05/17/2023 Orders Only Gastroenterology [address] [place] [address] Jennifer Cleaning CRNP [address] [place] [address] Allergies Active Allergy Reactions Criticality Noted Date Comments Naproxen 06/26/2000 GI documented as of this encounter (statuses as of 05/17/2023) Medications Medication Sig Dispensed Refills Start Date [...] vitamin B12 deficiency anemia 1000 mcg IM [id number] 09/25/2022 11/18/2023 Active documented as of this encounter (statuses as of 05/17/2023) Active Problems Problem Noted Date Diagnosed Date [...] as of this encounter (statuses as of 05/17/2023) Resolved Problems Problem Noted Date Diagnosed Date Resolved Date Major depressive disorder, r ecurrent episode, moderate 12/22/2020 05/17/2022 documented as of this encounter (statuses as of 05/17/2023) Immunizations Name Administration Dates Next Due Hepatitis [...] Encounter ENDO [facility], Endoscopy Room [facility] [address] [place] [phone] Kathleen Jaramillo MD [address] [place] [address] 05/24/2023 10:30 AM EST - 05/24/2023 11:00 AM EST Surgery ENDO [facility], Endoscopy Room [facility] [address] [place] [phone] Kathleen Jaramillo MD [address] [place] [address] COLONOSCOPY FLEXIBLE PROXIMAL DIAGNOSTIC 06/13/2023 10:00 AM EDT Nurse Only Ancillary [address] [place] [address] [place], Nurse [address] [place] [address] 06/21/2023 10:30 AM EDT Office Visit [address]opaedics [address] [place] [phone] Toan Rivera MD [address] [place] [address] 07/10/2023 10:30 AM EDT Office Visit Gastroenterology, [facility] [address] [place] [address] Jennifer Cleaning CRNP [address] [address] 08/08/2023 11:00 AM EDT Office Visit General Surgery, [facility] [address] [place] [address] Peg [place] MD [address] [facility] [place] [phone] 09/04/2023 10:30 AM EDT Imaging Radiology, [facility] [address] [facility] [place] [address] 10/03/2023 5:40 PM EDT Office Visit Family Medicine [address] [phone] Sari Perkins MD [address] [place] [address] [place] [address] Scheduled Procedures Name Priority Associated Diagnoses Date/Ti [...] filedocumented as of this encounter Care Teams Athletic Agent Relationship Specialty Start Date End Date aSri Perkins MD [address] [place] [address] [place] [phone] PCP - General Family Medicine 04/05/23 documented as of this encounter
--- OUTSIDE RECORDS SUMMARY | 2023-06-22 03:36 | External Medical Summary | Summary of Care ---
Author Name Unknown Organization [facility] Address [address] [facility] [place] [address] Phone [phone] Care Team Providers Care Crisis Intervention Counselor Name Role Phone Sari Perkins MD Primary Care Provide r Reason for Visit * Reason Onset Date Comments Pre Cert/Prior Auth 05/16/2023 Encounter Details Date Type Department Care Team (Late st Contact Info) Description 05/16/2023 Telephone Gastroenterology, [facility] [address] [place] [address] Jennifer Cleaning CRNP [address] [place] [address] Pre Cert/Prior Auth Allergies Active Allergy Reactions [...] vitamin B12 deficiency anemia 1000 mcg IM [id number] 09/25/2022 11/18/2023 Active documented as of this [...] Notes * Telephone Encounter - Cherry Taylor [facility] - 05/18/2023 2:25 PM EST Spoke with patient. [facility] nurses - may patient please be scheduled? Patient requests both home and cell phones be contacted when calling. Thank you! * Telephone Encounter - Cherry Taylor [facility] - 05/18/2023 1:46 PM EST Second message left. I also attempted to contact patient's cell but there was no answer and no voicemail set up. Cherry Taylor [facility] Clinical Pharmacist, Gastroenterology 05/18/2023,1:46 PM * Telephone Encounter - Cherry Taylor [facility] - 05/17/2023 12:02 PM EST Patient is okay to proceed with the infliximab infusions from an authorization perspective. I attempted to contact patient to complete med education. No answer, left message to return call to clinic at earliest convenience. Cherry Taylor [facility] Clinical Pharmacist, Gastroenterology 05/17/2023,12:03 PM * Telephone Encounter - Nafisa Oswald RN - 05/16/2023 3:58 PM EST [place] plan built and routed for signature. Waiting for auth. * Addendum Note - Cherry Taylor [facility] - 05/16/2023 2:08 PM ESTAddended by: CHERRY TAYLOR on: 05/16/2023 02:08 PM Modules accepted: Orders * Telephone Encounter - Cherry Taylor [facility] - 05/16/2023 1:59 PM EST Gastro Pre-Cert Request Specialty Medication: Yes. Medication/Disease State Information: Medication: Infliximab (Remicade, Inflectra, Renflexis, Avsola) Initiation - 5mg/kg IV at weeks 0, 2, and 6, then every 8 weeks Diagnosis (including ICD-10): Crohn's disease K50.90. Specialty medication - route to [id number]. Referral to pharmacist for: co-management. Office Information: [...] Room [facility] [address] [place] [phone] Kathleen Jaramillo MD [address] [place] [address] 05/24/2023 10:30 AM EST - 05/24/2023 11:00 AM EST Surgery ENDO [facility], Endoscopy Room [facility] [address] [place] [phone] Kathleen Jaramillo MD [address] [place] [address] COLONOSCOPY FLEXIBLE PROXIMAL DIAGNOSTIC 06/13/2023 10:00 AM EDT Nurse Only Ancillary [address] [place] [address] [place], Nurse [address] [place] [address] 06/21/2023 10:30 AM EDT Office Visit Orthopaedics [address] [place] [phone] Toan Rivera MD [address] [place] [address] 07/10/2023 10:30 AM EDT Office Visit Gastroenterology, [facility] [address] [place] [address] Jennifer Cleaning CRNP [address] [place] [address] 08/08/2023 11:00 AM EDT Office Visit General Surgery, [facility] [address] [place] [address] Peg Johnson MD [address] [place] [address] 09/04/2023 10:30 AM EDT Imaging Radiology, [address] [place] [address] 10/03/2023 5:40 PM EDT Office Visit Family Medicine [address] [place] [phone] Sari Perkins MD [address] [place] [address] [place] [address] Scheduled Procedures Name Priority Associated Diagnoses Date/Ti [...] (HCC) documented in this encounter Care Teams Crisis Intervention Counselor Relationship Specialty Start Date End Date Sari Perkins MD [address] [place] [address] [place] [address] PCP - General Family Medicine 04/05/23 documented as of this encounter
--- OUTSIDE RECORDS SUMMARY | 2023-06-22 03:36 | External Medical Summary | Summary of Care ---
Author Name Unknown Organization [facility] Address [address] [facility] [address] Phone [phone] Care Team Providers Care Industrial Sales Representative Name Role Phone Sari Perkins MD Primary Care Provide r Reason for Visit * Reason Onset Date Comments Test Results 05/23/2023 Encounter Details Date Type Department Care Team (Late st Contact Info) Description 05/23/2023 Telephone Orthopaedics [facility] [address] [place] [address] Toan Rivera MD [address] [place] [address] Test Results Allergies Active Allergy Reactions Criticality Noted Date Comments Naproxen 06/26/2000 GI documented as of this encounter (statuses as of 05/23/2023) Medications Medication Sig Dispensed Refills Start Date [...] vitamin B12 deficiency anemia 1000 mcg IM [id number] 09/25/2022 11/18/2023 Active documented as of this encounter (statuses as of 05/23/2023) Active Problems Problem Noted Date Diagnosed Date [...] as of this encounter (statuses as of 05/23/2023) Resolved Problems Problem Noted Date Diagnosed Date Resolved Date Major depressive disorder, r ecurrent episode, moderate 12/22/2020 05/17/2022 documented as of this encounter (statuses as of 05/23/2023) Immunizations Name Administration Dates Next Due Hepatitis [...] ENDO [facility], Endoscopy Room [facility] [address] [place] [phone] Kathleen Jaramillo MD [address] [place] [address] 05/24/2023 10:30 AM EST - 05/24/2023 11:00 AM EST Surgery ENDO [facility], Endoscopy Room [facility] [address] [place] [phone] Kathleen Jaramillo MD [address] [place] [address] COLONOSCOPY FLEXIBLE PROXIMAL DIAGNOSTIC 05/31/2023 8:45 AM EDT Hem/Onc Treatment Hematology/Oncology Treatment, [place] [address] [place] [address] [place], Chair [address] [place] [address] 06/13/2023 10:00 AM EDT Nurse Only Ancillary [address] [place] [address] [place], Nurse [address] [place] [address] 06/21/2023 10:30 AM EDT Office Visit Orthopaedics [address] [phone] Toan Rivera MD [address] [facility] [address] 07/10/2023 10:30 AM EDT Office Visit Gastroenterology, [facility] [place] [address] Jennifer Cleaning CRNP [address] [facility] [place] [address] 08/08/2023 11:00 AM EDT Office Visit General Surgery, [facility] [place] [address] Peg Johnson MD [address] [place] [address] 09/04/2023 10:30 AM EDT Imaging Radiology, [address] [place] [address] 10/03/2023 5:40 PM EDT Office Visit Family Medicine [address] [phone] Sari Perkins MD [address] [place] [address] [place] [address] Scheduled Procedures Name Priority Associated Diagnoses Date/Ti [...] filedocumented as of this encounter Care Teams Industrial Sales Representative Relationship Specialty Start Date End Date Sari Perkins MD [address] [place] [address] [place] [address] PCP - General Family Medicine 04/05/23 documented as of this encounter
--- OUTSIDE RECORDS SUMMARY | 2023-06-22 03:36 | External Medical Summary | Summary of Care ---
Author Name Unknown Organization [facility] Address [address] [facility] [place] [address] Phone [phone] Care Team Providers Care Night Filler Name Role Phone Sari Perkins MD Primary Care Provide r Reason for Visit * Reason Onset Date Comments Pre Cert/Prior Auth 05/16/2023 Encounter Details Date Type Department Care Team (Late st Contact Info) Description 05/16/2023 Telephone Gastroenterology, [facility] [address] [place] [address] Jennifer Cleaning CRNP [address] [place] [address] Pre Cert/Prior Auth Allergies Active Allergy Reactions [...] vitamin B12 deficiency anemia 1000 mcg IM [id number] 09/25/2022 11/18/2023 Active documented as of this [...] Notes * Telephone Encounter - Cherry Taylor RPh - 05/17/2023 12:02 PM EST Patient is okay to proceed with the infliximab infusions from an authorization perspective. I attempted to contact patient to complete med education. No answer, left message to return call to clinic at earliest convenience. Cherry Taylor RPh Clinical Pharmacist, Gastroenterology 05/17/2023,12:03 PM * Telephone Encounter - Nafisa Oswald RN - 05/16/2023 3:58 PM EST [place] plan built and routed for signature. Waiting [...] disease K50.90. Specialty medication - route to [id number]. Referral to pharmacist for: co-management. Office Information: [...] EST Hospital Encounter ENDO [facility], Endoscopy Room [facility] [address] [place] [phone] Kathleen Jaramillo MD [address] [place] [address] 05/24/2023 10:30 AM EST - 05/24/2023 11:00 AM EST Surgery ENDO OSS, Endoscopy Room [facility] [address] [place] [phone] Kathleen Jaramillo MD [address] [place] [address] COLONOSCOPY FLEXIBLE PROXIMAL DIAGNOSTIC 06/13/2023 10:00 AM EDT Nurse Only Ancillary [address] [place] [address] [place], Nurse [address] [place] [address] 06/21/2023 10:30 AM EDT Office Visit Orthopaedics [address] [phone] Toan Rivera MD [address] [facility] [place] [address] 07/10/2023 10:30 AM EDT Office Visit Gastroenterology, [facility] [place] [address] Jennifer Cleaning CRNP [address] [place] [address] 08/08/2023 11:00 AM EDT Office Visit General Surgery, [facility] [address] [facility] [place] [address] Peg Johnson MD [address] [place] [address] 09/04/2023 10:30 AM EDT Imaging Radiology, [address] [place] [address] 10/03/2023 5:40 PM EDT Office Visit Family Medicine [address] [place] [phone] Sari Perkins MD [address] [place] [address] [place] [address] Scheduled Procedures Name Priority Associated Diagnoses Date/Ti [...] (HCC) documented in this encounter Care Teams Night Filler Relationship Specialty Start Date End Date Sari Perkins MD [address] [place] [address] [place] [address] PCP - General Family Medicine 04/05/23 documented as of this encounter
--- OUTSIDE RECORDS SUMMARY | 2023-06-22 03:36 | External Medical Summary | Summary of Care ---
Author Name Unknown Organization [facility] Address [address] [facility] [address] Phone [phone] Care Team Providers Care Hydraulic Barker Operator Name Role Phone Sari Perkins MD Primary Care Provide r Reason for Visit * Reason Comments Outpatient Testing Encounter Details Date Type Department Care Team (Late st Contact Info) Description 05/22/2023 12:00 PM EST Laboratory Laboratory [address] [place] [phone] [place] [address] [employer] Other*[id number]; Chronic thoracic spine pain; Sacral insufficiency fracture, initial encounter Allergies Active Allergy Reactions Criticality Noted Date Comments Naproxen 06/26/2000 GI documented as of this encounter (statuses as of 05/22/2023) Medications Medication Sig Dispensed Refills Start Date [...] vitamin B12 deficiency anemia 1000 mcg IM [id number] 09/25/2022 11/18/2023 Active documented as of this encounter (statuses as of 05/22/2023) Active Problems Problem Noted Date Diagnosed Date [...] as of this encounter (statuses as of 05/22/2023) Resolved Problems Problem Noted Date Diagnosed Date Resolved Date Major depressive disorder, r ecurrent episode, moderate 12/22/2020 05/17/2022 documented as of this encounter (statuses as of 05/22/2023) Immunizations Name Administration Dates Next Due Hepatitis [...] Room O[facility] [address] [place] [phone] Kathleen Jaramillo MD [address] [place] [address] 05/24/2023 10:30 AM EST - 05/24/2023 11:00 AM EST Surgery ENDO [facility], Endoscopy Room [facility] [address] [place] [phone] Kathleen Jaramillo MD [address] [place] [address] COLONOSCOPY FLEXIBLE PROXIMAL DIAGNOSTIC 05/31/2023 8:45 AM EDT Hem/Onc Treatment Hematology/Oncology Treatment, [address] [place] [phone] Ca, Chair 9 Hem Onc Scenery [address] [facility] [address] 06/13/2023 10:00 AM EDT Nurse Only Ancillary [address] [place] [address] [place], Nurse [address] [place] [address] 06/21/2023 10:30 AM EDT Office Visit Orthopaedics [address] [place] [phone] Toan Rivera MD [address] [place] [address] 07/10/2023 10:30 AM EDT Office Visit Gastroenterology, [facility] [address] [facility] [place] [address] Jennifer Cleaning CRNP [address] [place] [address] 08/08/2023 11:00 AM EDT Office Visit General Surgery, [facility] 132 [facility] [place] [address] Peg Johnson MD [address] [place] [address] 09/04/2023 10:30 AM EDT Imaging Radiology, [address] [place] [address] 10/03/2023 5:40 PM EDT Office Visit Family Medicine [address] [place] [address] Sari Perkins MD [address] [place] [address] [place] [address] Pending Results Name Type Priority Associated Diagnoses Date /Time MYCODE INITIAL ADULT Lab Routine [employer] Other*[id number] 05/22/2023 11:37 AM EST 25-HYDROXY VITAMIN D Lab Routine Chronic thoracic spine pain Sacral insufficiency fracture, initial encounter 05/22/2023 11:37 AM EST MYCODE INITIAL ADULT-PINK Lab Routine [employer] Other*[id number] 05/22/2023 11:37 AM EST MYCODE SST1 Lab Routine [employer] Other*[id number] 05/22/2023 11:37 AM EST MYCODE SST2 Lab Routine [employer] Other*[id number] 05/22/2023 11:37 AM EST Scheduled Procedures Name Priority Associated Diagnoses Date/Ti [...] this encounter Visit Diagnoses Diagnosis [employer] Other*[id number] Chronic thoracic spine pain Pain in thoracic spine Sacral insufficiency fracture, initial encounter Crohn's disease without complication, unspecified gastrointestinal tract location (HCC) documented in this encounter Care Teams Hydraulic Barker Operator Relationship Specialty Start Date End Date Sari Perkins MD [address] [place] [address] [place] [address] PCP - General Family Medicine 04/05/23 documented as of this encounter
--- OUTSIDE RECORDS SUMMARY | 2023-06-22 03:37 | External Medical Summary | Summary of Care ---
Author Name Unknown Organization [facility] Address [address] [facility] [place] [address] Phone [phone] Care Team Providers Care Jelly Filter Tender Name Role Phone Sari Perkins MD Primary Care Provide r Reason for Visit * Reason Onset Date Comments Test Results 05/14/2023 Encounter Details Date Type Department Care Team (Late st Contact Info) Description 05/14/2023 Telephone Gastroenterology, [facility] [address] [place] [address] Jennifer Cleaning CRNP [address] [place] [address] Test Results Allergies Active Allergy Reactions Criticality Noted Date Comments Naproxen 06/26/2000 GI documented as of this encounter (statuses as of 05/15/2023) Medications Medication Sig Dispensed Refills Start Date [...] 04/18/2023 05/15/2023 Discontinued (Medication List Clean Up) Hospital, Clinic, or Other Facility Administered Medication Ordered Dose Route Frequency Start Date End Date Status vitamin b-12 (Cyanocobalamin) inj 1,000 mcgIndications:Other vitamin B12 deficiency anemia 1000 mcg IM [id number] 09/25/2022 11/18/2023 Active documented as of this encounter (statuses as of 05/15/2023) Active Problems Problem Noted Date Diagnosed Date [...] as of this encounter (statuses as of 05/15/2023) Resolved Problems Problem Noted Date Diagnosed Date Resolved Date Major depressive disorder, r ecurrent episode, moderate 12/22/2020 05/17/2022 documented as of this encounter (statuses as of 05/15/2023) Immunizations Name Administration Dates Next Due Hepatitis [...] encounter Miscellaneous Notes * Telephone Encounter - Selina Garland RN - 05/15/2023 9:16 AM EST I spoke with Richelle Hernandez RN. Pt is with PCP today and is aware of her results. Had her first injection today. * Telephone Encounter - Bárbara Turk LPN - 05/14/2023 4:30 PM EST ----- Message from JOSE Pompa sent at 05/14/2023 1:13 PM EST ----- Pls inform pt that TB quant gold negative. No acute/chronic Hep B. She is not immune to Hep B, recommend starting vaccination series JOSE Cedeno documented in this encounter Plan of Treatment Upcoming Encounters Date Type Department Care Team (Latest Contact Info) Description 05/24/2023 10:30 AM EST Hospital Encounter ENDO [facility], Endoscopy Room [facility] [address] [place] [phone] Kathleen Jaramillo MD [address] [place] [address] 05/24/2023 10:30 AM EST - 05/24/2023 11:00 AM EST Surgery ENDO [facility], Endoscopy Room [facility] [address] [place] [phone] Kathleen Jaramillo MD [address] [place] [address] [place] [address] COLONOSCOPY FLEXIBLE PROXIMAL DIAGNOSTIC 06/21/2023 10:30 AM EDT Office Visit Orthopaedics [address] [phone] Toan Rivera MD [address] [place] [address] 07/10/2023 10:30 AM EDT Office Visit Gastroenterology, [facility] [address] [place] [address] Jennifer Cleaning CRNP [address] [place] [address] 08/08/2023 11:00 AM EDT Office Visit General Surgery, [facility] [place] [address] Peg Johnson MD [address] [place] [address] 10/03/2023 5:40 PM EDT Office Visit Family Medicine [address] [phone] Sari Perkins MD [address] [place] [address] [place] [address] Scheduled Procedures Name Priority Associated Diagnoses Date/Ti [...] series) 06/12/2023 05/15/2023 Lipid Panel 05/03/2026 05/03/2021, 0803/2016, 10/30/2013, Additional history exists GARDASIL-HPV IMMUNIZATION SERIES Aged Out No longer eligible based on patient's age to complete this topic MENINGOCOCCAL (MENACTRA/MENVEO) Aged Out No longer eligible based on patient's age to complete this topic documented as of this encounter Medical Devices Not on filedocumented as of this encounter Care Teams Jelly Filter Tender Relationship Specialty Start Date End Date Sari Perkins MD [address] [place] [address] [place] [phone] PCP - General Family Medicine 04/05/23 documented as of this encounter
--- OUTSIDE RECORDS SUMMARY | 2023-06-22 03:37 | External Medical Summary | Summary of Care ---
Author Name Unknown Organization [facility] Address [address] [facility] [address] Phone [phone] Care Team Providers Care Component Design Engineer Name Role Phone Sari Perkins MD Primary Care Provide r Reason for Visit * Reason Comments Re-Check Encounter Details Date Type Department Care Team (Late st Contact Info) Description 05/15/2023 9:00 AM EST Office Visit Family Medicine [address] [phone] Amalia Baca PA-C [address] [place] [address] [place] [address] Compression fracture of thoracic vertebra, unspecified thoracic vertebral level, initial encounter (HCC)*; Need for hepatitis B vaccination Allergies Active Allergy Reactions Criticality Noted Date [...] vitamin B12 deficiency anemia 1000 mcg IM [id number] 09/25/2022 11/18/2023 Active documented as of this [...] Sign Reading Time Taken Comments Blood Pressure 106/70 05/15/2023 9:09 AM EST Pulse 100 05/15/2023 9:09 AM EST Temperature 36.2 C (97.1 F) 05/15/2023 9:09 AM ES T Respiratory Rate 16 05/15/2023 9:09 AM EST Oxygen Saturation - - Inhaled Oxygen Concentration - - Weight 49.9 kg (110 lb) 05/15/2023 9:09 AM EST Height - - Body Mass Index 19.49 05/10/2023 9:43 AM EST documented in this encounter Progress Notes * Amalia Baca PA-C - 05/15/2023 9:12 AM EST Nursing Notes: Nicki Medina LPN 05/15/23 0911 Sign at exiting of workspace Dr. Rivera wanted her to be seen here to be seen here to discuss getting a bone density test. Problems with appetite. Discuss smoking Pt here today to discuss dexa scan. Pt does have compression fractures at thoracic spine. She saw ortho and they rec dexa scan. Pt doesn't have much of an appetite. She thinks it is due to her crohns being active and flaring up. Will discuss with GI at next appt. She does drink ensure. She also wants to quit smoking. She will try the patches. Review of patient's allergies indicates: Allergen Reactions Naproxen GI Current Outpatient Medications Medication Sig Dispense Refill sulfaSALAzine 500 MG Oral Tablet (Azulfidine) TAKE TWO TABLETS BY MOUTH THREE TIMES DAILY 540 Tablet 2 Vitamin D 50 MCG (2000 UT) Oral Tablet Take 2,000 Units by mouth in the morning. DULoxetine HCl 30 MG Oral Capsule Delayed Release Particles (Cymbalta) Take 1 Capsule by mouth in the morning. Do not cut, crush or chew. 30 Capsule 5 Pantoprazole Sodium 40 MG Oral Tablet Delayed Release (Protonix) Take 1 Tablet by mouth in the morning. 30 minutes before the first meal of the day. Do not crush, split or chew the tablet. 30 Tablet 5 Fish Oil 300 MG Oral Capsule Take by mouth. Ondansetron HCl 4 MG Oral Tablet (Zofran) Take 1 Tablet by mouth every 8 hours as needed for Nausea. 30 Tablet 1 Excedrin Tension Headache 500-65 MG Oral Tablet (Acetaminophen-Caffeine) Take by mouth as needed. Current Facility-Administered Medications Medication Dose Route Frequency Provider Last Rate Last Admin vitamin b-12 (Cyanocobalamin) inj 1,000 mcg 1,000 mcg Intramuscular Q12 Weeks Michael Oleary MD1,000 mcg at 03/29/23 1036 Past Medical History: Diagnosis Date 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) 04/07/2016 Edentulous Encounter for hepatitis C screening test for low risk patient 10/17/2016 negative Family history of ischemic heart disease Generalized osteoarthritis of multiple sites Major depressive disorder, recurrent episode, moderate (HCC) 12/22/2020 Other vitamin B12 deficiency anemia Regional enteritis (HCC) 14 years old crohns Tobacco use disorder Social History Socioeconomic History Marital status: Spouse name: Not on file Number of children: Not on file Years of education: Not on file Highest education level: Not on file Occupational History Not on file Tobacco Use Smoking status: Every Day Current packs/day: 0.50 Average packs/day: 0.5 packs/day for 33.0 years (16.5 ttl pk-yrs) Types: Cigarettes Smokeless tobacco: Never Tobacco comments: age 14 Substance and Sexual Activity Alcohol use: No Drug use: No Sexual activity: Yes Partners: Male Comment: hysterectomy Other Topics Concern Not on file Social History Narrative Not on file Social Determinants of Health Financial Resource Strain: Not on file Food Insecurity: Not on file Transportation Needs: Not on file Physical Activity: Not on file Stress: Not on file Social Connections: Not on file Intimate Partner Violence: Not on file Housing Stability: Not on file O:Blood pressure 106/70, pulse 100, temperature 36.2 C (97.1 F), temperature source Tympanic, resp. rate 16, weight 49.9 kg (110 lb). GENERAL: alert, healthy, and no distress A:Compression fracture of thoracic vertebra, unspecified thoracic vertebral level, initial encounter (HCC) (Primary) - DEXA SCAN/BONE MINERAL AXIAL Need for hepatitis B vaccination - HEP B VACCINE, 20+ YRS (3-DOSE) Will schedule dexa. Any questions/problems, please call. If anything changes, worsens, develops newsx, please call [facility]. Follow Up: Return if symptoms worsen or fail to improve. Amalia Baca PA-C documented in this encounter Nursing Notes * Nicki Medina LPN - 05/15/2023 9:[address] Rivera wanted her to be seen here to be seen here to discuss getting a bone density test. Problems with appetite. Discuss smoking documented in this encounter Plan of Treatment Upcoming Encounters Date Type Department Care Team (Latest Contact Info) Description 05/24/2023 10:30 AM EST Hospital Encounter ENDO [facility], Endoscopy Room [facility] 132 [facility] [place] [phone] Kathleen Jaramillo MD [address] [place] [address] 05/24/2023 10:30 AM EST - 05/24/2023 11:00 AM EST Surgery ENDO [facility], Endoscopy Room [facility] [address] [place] [phone] Kathleen Jaramillo MD [address] [place] [address] COLONOSCOPY FLEXIBLE PROXIMAL DIAGNOSTIC 06/13/2023 10:00 AM EDT Nurse Only Ancillary [address] [place] [address] Raymundo Nurse [address] [place] [address] 06/21/2023 10:30 AM EDT Office Visit Orthopaedics [address] [phone] Toan Rivera MD [address] [facility] [place] [address] 07/10/2023 10:30 AM EDT Office Visit Gastroenterology, [facility] 132 [facility] [place] [address] Jennifer Cleaning CRNP [address] [place] [address] 08/08/2023 11:00 AM EDT Office Visit General Surgery, [facility] 132 [facility] [place] [address] Peg Johnson MD [address] [place] [address] 09/04/2023 10:30 AM EDT Imaging Radiology, [address] [place] [address] 10/03/2023 5:40 PM EDT Office Visit Family Medicine [address] [phone] Sari Perkins MD [address] [place] [address] [place] [address] Scheduled Orders Name Type Priority Associated Diagnoses Orde r Schedule DEXA SCAN/BONE MINERAL AXIAL Medical Imaging Routine Compression fracture of thoracic vertebra, unspecified thoracic vertebral level, initial encounter (HCC) Ordered: 05/15/2023 Scheduled Procedures Name Priority Associated Diagnoses Date/Ti [...] as of this encounter Visit Diagnoses Diagnosis Compression fracture of thoracic vertebra, unspecified thoracic vertebral level, initial encounter (HCC)- Primary Need for hepatitis B vaccination Need for prophylactic vaccination and inoculation against viral hepatitis Crohn's disease without complication, unspecified gastrointestinal tract location (HCC) documented in this encounter Care Teams Component Design Engineer Relationship Specialty Start Date End Date Sari Perkins MD [address] [place] [address] [place] [address] PCP - General Family Medicine 04/05/23 documented as of this encounter
--- OUTSIDE RECORDS SUMMARY | 2023-06-22 03:37 | External Medical Summary | Summary of Care ---
Author Name Unknown Organization [facility] Address [address] [facility] [address] Phone [phone] Care Team Providers Care Director Of Litigation Name Role Phone Sari Perkins MD Primary Care Provide r Encounter Details Date Type Department Care Team (Late st Contact Info) Description 05/16/2023 Orders Only Hematology/Oncology Treatment, [place] [address] [place] [phone] Jennifer Cleaning CRNP [address] [facility] [address] Allergies Active Allergy Reactions Criticality Noted Date Comments Naproxen 06/26/2000 GI documented as of this encounter (statuses as of 05/16/2023) Medications Medication Sig Dispensed Refills Start Date [...] vitamin B12 deficiency anemia 1000 mcg IM [id number] 09/25/2022 11/18/2023 Active documented as of this encounter (statuses as of 05/16/2023) Active Problems Problem Noted Date Diagnosed Date [...] as of this encounter (statuses as of 05/16/2023) Resolved Problems Problem Noted Date Diagnosed Date Resolved Date Major depressive disorder, r ecurrent episode, moderate 12/22/2020 05/17/2022 documented as of this encounter (statuses as of 05/16/2023) Immunizations Name Administration Dates Next Due Hepatitis [...] Endoscopy Room [facility] [address] [place] [phone] Kathleen Jaramillo MD [address] [place] [address] 05/24/2023 10:30 AM EST - 05/24/2023 11:00 AM EST Surgery ENDO [facility], Endoscopy Room [facility] [address] [place] [phone] Kathleen Jaramillo MD [address] [place] [address] COLONOSCOPY FLEXIBLE PROXIMAL DIAGNOSTIC 06/13/2023 10:00 AM EDT Nurse Only Ancillary [address] [place] [address] [place], Nurse [address] [place] [address] 06/21/2023 10:30 AM EDT Office Visit [address]edics [address] [place] [phone] Toan Rivera MD [address] [place] [address] 07/10/2023 10:30 AM EDT Office Visit Gastroenterology, [facility] [address] [place] [address] Jennifer Cleaning CRNP [address] [address] 08/08/2023 11:00 AM EDT Office Visit General Surgery, [facility] [address] [place] [address] Peg Johnson MD [address] [facility] [place] [id number] 09/04/2023 10:30 AM EDT Imaging Radiology, [facility] [address] [facility] [place] [address] 10/03/2023 5:40 PM EDT Office Visit Family Medicine [address] [phone] Sari Perkins MD [address] [place] [address] [place] [address] Scheduled Procedures Name Priority Associated Diagnoses Date/Ti [...] filedocumented as of this encounter Care Teams Director Of Litigation Relationship Specialty Start Date End Date Sari Perkins MD [address] [place] [address] [place] [phone] PCP - General Family Medicine 04/05/23 documented as of this encounter
--- OUTSIDE RECORDS SUMMARY | 2023-06-22 03:37 | External Medical Summary | Summary of Care ---
Author Name Unknown Organization [facility] Address [address] [facility] [address] Phone [phone] Care Team Providers Care Bradley Linebacker Crewmember Name Role Phone Sari Perkins MD Primary Care Provide r Encounter Details Date Type Department Care Team (Late st Contact Info) Description 05/14/2023 Orders Only Family Medicine [address] [place] [phone] Sari Perkins MD [address] [place] [address] [place] [address] Allergies Active Allergy Reactions Criticality Noted Date Comments Naproxen 06/26/2000 GI documented as of this encounter (statuses as of 05/14/2023) Medications Medication Sig Dispensed Refills Start Date End Date Status sulfaSALAzine 500 MG Oral Tablet (Azulfidine)Indicat ions: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) TAKE TWO TABLETS BY MOUTH THREE TIMES DAILY 540 Tablet 2 05/17/2022 Active Vitamin D 50 MCG (1999 [place]) Oral Tablet Take 2,000 Units by mouth in the morning. 0 Active DULoxetine HCl 30 MG Oral Capsule Delayed Release Particles (Cymbalta)Indicatio ns:Moderate episode of recurrent major depressive disorder (HCC) Take 1 Capsule by mouth in the morning. Do not cut, crush or chew. 30 Capsule 5 12/29/2022 Active Additional Information Patient not taking.Reported on 04/18/2023 Pantoprazole Sodium 40 MG Oral Tablet Delayed Release (Protonix)Indicatio ns:Dysphagia, unspecified type Take 1 Tablet by mouth in the morning. 30 minutes before the first meal of the day. Do not crush, split or chew the tablet. 30 Tablet 5 01/09/2023 Active predniSONE 20 MG Oral Tablet (Deltasone)Indicati ons:Lower abdominal pain,Crohn's disease of small intestine with other complication (HCC) 2 tablets daily for 5 days then 1 tablet daily 15 Tablet 0 04/18/2023 Active Fish Oil 300 MG Oral Capsule Take by mouth. 0 Active Ondansetron HCl 4 MG Oral Tablet (Zofran) Take 1 Tablet by mouth every 8 hours as needed for Nausea. 30 Tablet 1 05/08/2023 Active Excedrin Tension Headache 500-65 MG Oral Tablet (Acetaminophen-Caff eine) Take by mouth as needed. 0 Active Hospital, Clinic, or Other Facility Administered Medication Ordered Dose Route Frequency Start Date End Date Status vitamin b-12 (Cyanocobalamin) inj 1,000 mcgIndications:Other vitamin B12 deficiency anemia 1000 mcg IM [id number] 09/25/2022 11/18/2023 Active documented as of this encounter (statuses as of 05/14/2023) Active Problems Problem Noted Date Diagnosed Date [...] as of this encounter (statuses as of 05/14/2023) Resolved Problems Problem Noted Date Diagnosed Date Resolved Date Major depressive disorder, r ecurrent episode, moderate 12/22/2020 05/17/2022 documented as of this encounter (statuses as of 05/14/2023) Immunizations Name Administration Dates Next Due TDAP (age 11 and older)(Adacel) 01/30/2009 documented [...] Department Care Team (Latest Contact Info) Description 05/15/2023 9:00 AM EST Office Visit Family Medicine [address] [phone] Amalia Baca PA-C [address] [place] [address] [place] [address] 05/24/2023 10:30 AM EST Hospital Encounter ENDO [facility], Endoscopy Room [facility] [place] [phone] Kathleen Jaramillo MD [address] [place] [address] 05/24/2023 10:30 AM EST - 05/24/2023 11:00 AM EST Surgery ENDO [facility], Endoscopy Room [facility] [address] [place] [phone] Kathleen Jaramillo MD [address] [place] [address] COLONOSCOPY FLEXIBLE PROXIMAL DIAGNOSTIC 06/21/2023 10:30 AM EDT Office Visit Orthopaedics [address] [phone] Toan Rivera MD [address] [place] [address] 07/10/2023 10:30 AM EDT Office Visit Gastroenterology, [facility] [address] [place] [address] Jennifer Cleaning CRNP [address] [place] [address] 08/08/2023 11:00 AM EDT Office Visit General Surgery, [facility] [address] [place] [address] Peg Johnson MD [address] [place] [address] 10/03/2023 5:40 PM EDT Office Visit Family Medicine [address] [place] [phone] Sari Perkins MD [address] [place] [address] [place] [address] Scheduled Procedures Name Priority Associated Diagnoses Date/Ti me COLONOSCOPY FLEXIBLE PROXIMAL DIAGNOSTIC Crohn's disease without complication, unspecified gastrointestinal tract location (HCC) 05/24/2023 10:30 AM EST Health Maintenance Due Date Last Done Comments COVID-19 Vaccine (#1) 12/17/1968 Pneumococcal Vaccine: Pediatrics (0 to 5 Years) and At-Risk Patients (6 to 64 Years) (1 of 2 - PCV) 12/17/1969 HIV Screening 12/17/1978 Hepatitis B (1 of 3 - 19+ 3-dose series) 12/17/1982 Zoster Vaccines (1 of 2) 12/17/1982 Mammogram 2003 Cologuard 12/17/2008 Colonoscopy 12/17/2008 Colorectal Cancer Screening 12/17/2008 Fecal Occult Blood Test 12/17/2008 Sigmoidoscopy 12/17/2008 DTaP,Tdap,and Td Vaccines (2 - Td or Tdap) 01/30/2019 01/30/2009 Depression, Most Recent Score >= 10 (will fire each visit until score < 10) 10/25/2022 10/24/2022 Influenza Vaccine (FLU shot) (#1) 2022 Lipid Panel 05/03/2026 05/03/2021, 08/0 03/2016, 10/30/2013, Additional history exists GARDASIL-HPV IMMUNIZATION SERIES Aged Out No longer eligible based on patient's age to complete this topic MENINGOCOCCAL (MENACTRA/MENVEO) Aged Out No longer eligible based on patient's age to complete this topic documented as of this encounter Medical Devices Not on filedocumented as of this encounter Procedures Procedure Name Priority Date/Time Associated Diagnosis Comments XR CHEST 2 VIEWS Routine 05/11/2023 documented in this encounter Results * XR CHEST 2 VIEWS (05/11/2023) Anatomical Region Laterality Modality Chest Other 05/11/2023 History Per Patient RADIOLOGY (RAD GENER AL) documented in this encounter Care Teams Bradley Linebacker Crewmember Relationship Specialty Start Date End Date Sari Perkins MD [address] [place] [address] [place] [phone] PCP - General Family Medicine 04/05/23 documented as of this encounter
--- OUTSIDE RECORDS SUMMARY | 2023-06-22 03:37 | External Medical Summary | Summary of Care ---
Author Name Unknown Organization [facility] Address [address] [facility] [place] [address] Phone [phone] Care Team Providers Care Deputy Sheriff Court Services Name Role Phone Sari Perkins MD Primary Care Provide r Reason for Visit * Reason Onset Date Comments Test Results Lab 05/14/2023 Encounter Details Date Type Department Care Team (Late st Contact Info) Description 05/14/2023 Telephone Gastroenterology, [facility] [address] [place] [address] Jennifer Cleaning CRNP [address] [place] [address] Test Results Lab Allergies Active Allergy Reactions Criticality Noted Date [...] vitamin B12 deficiency anemia 1000 mcg IM [id number] 09/25/2022 11/18/2023 Active documented as of this [...] 05/15/2023) Immunizations Name Administration Dates Next Due TDAP [...] encounter Miscellaneous Notes * Telephone Encounter - Jennifer Cleaning CRNP - 05/15/2023 9:47 AM EST Will call her to discuss TNF med options JOSE Cedeno * Telephone Encounter - Alexia Preciado RN - 05/14/2023 2:07 PM EST Pt notified of results. Sees PCP tomorrow will discuss Hep B vaccine. Asking if you know what medication you will be starting her on. * Telephone Encounter - Alexia Preciado RN - 05/14/2023 2:03 PM EST ----- Message from JOSE Pompa sent at 05/14/2023 1:13 PM EST ----- Pls inform pt that TB quant gold negative. No acute/chronic Hep B. She is not immune to Hep B, recommend starting vaccination series Jennifer Giacomo JOSE Cleaning documented in this encounter Plan of Treatment Upcoming Encounters Date Type Department Care Team (Latest Contact Info) Description 05/24/2023 10:30 AM EST Hospital Encounter ENDO [facility], Endoscopy Room [facility] [address] [place] [address] Kathleen Jaramillo MD [address] [place] [address] 05/24/2023 10:30 AM EST - 05/24/2023 11:00 AM EST Surgery ENDO [facility], Endoscopy Room [facility] [address] [place] [phone] Kathleen Jaramillo MD [address] [place] [address] [place] [id number] COLONOSCOPY FLEXIBLE PROXIMAL DIAGNOSTIC 06/13/2023 10:00 AM EDT Nurse Only Ancillary [address] [place] [address] [place], Nurse [address] [place] [address] 06/21/2023 10:30 AM EDT Office Visit Orthopaedics [address] [place] [phone] Toan Rivera MD 132 [facility] [place] [address] 07/10/2023 10:30 AM EDT Office Visit Gastroenterology, [facility] [place] [address] Jennifer Cleaning CRNP 132 [facility] [place] [address] 08/08/2023 11:00 AM EDT Office Visit General Surgery, [facility] [place] [address] Peg [facility] MD [facility] [address] [facility] [address] 09/04/2023 10:30 AM EDT [place], [address] [place] [address] 10/03/2023 5:40 PM EDT Office Visit Family Medicine [address] [place] [phone] Sari Perkins MD [address] [place] [address] [place] [address] Scheduled Procedures Name Priority Associated Diagnoses Date/Ti [...] filedocumented as of this encounter Care Teams Deputy Sheriff Court Services Relationship Specialty Start Date End Date Sari Perkins MD [address] [place] [address] [place] [address] PCP - General Family Medicine 04/05/23 documented as of this encounter
--- OUTSIDE RECORDS SUMMARY | 2023-06-22 03:37 | External Medical Summary | Summary of Care ---
Author Name Unknown Organization [facility] Address [address] [facility] [place] [address] Phone [phone] Care Team Providers Care Project Manager Retail Name Role Phone Sari Perkins MD Primary Care Provide r Reason for Visit * Reason Onset Date Comments Pre Cert/Prior Auth 05/16/2023 Encounter Details Date Type Department Care Team (Late st Contact Info) Description 05/16/2023 Telephone Gastroenterology, [facility] [address] [place] [address] Jennifer Cleaning CRNP [address] [place] [address] Pre Cert/Prior Auth Allergies Active Allergy Reactions [...] vitamin B12 deficiency anemia 1000 mcg IM [id number] 09/25/2022 11/18/2023 Active documented as of this [...] Oswald RN - 05/16/2023 3:58 PM EST [place] plan built and routed for signature. Waiting [...] disease K50.90. Specialty medication - route to [id number]. Referral to pharmacist for: co-management. Office Information: [...] 05/24/2023 10:30 AM EST Hospital Encounter ENDO [facility], Endoscopy Room [facility] [address] [place] [phone] Kathleen Jaramillo MD [address] [place] [address] 05/24/2023 10:30 AM EST - 05/24/2023 11:00 AM EST Surgery ENDO [facility], Endoscopy Room [facility] [address] [place] [phone] Kathleen Jaramillo MD [address] [employer] [place] [address] COLONOSCOPY FLEXIBLE PROXIMAL DIAGNOSTIC 06/13/2023 10:00 AM EDT Nurse Only Ancillary [address] [place] [address] [place], Nurse [address] [place] [address] 06/21/2023 10:30 AM EDT Office Visit Orthopaedics [address] [place] [phone] Toan Rivera MD 132 [place] [address] 07/10/2023 10:30 AM EDT Office Visit Gastroenterology, [facility] [address] [address] Jennifer Cleaning CRNP 132 [facility] [place] [address] 08/08/2023 11:00 AM EDT Office Visit General Surgery, [facility] [place] [address] Peg Johnson MD [address] [place] [address] 09/04/2023 10:30 AM EDT Imaging Radiology, [address] [place] [address] 10/03/2023 5:40 PM EDT Office Visit Family Medicine [address] [phone] Sari Perkins MD [address] [place] [address] [place] [address] Scheduled Procedures Name Priority Associated Diagnoses Date/Ti [...] (HCC) documented in this encounter Care Teams Project Manager Retail Relationship Specialty Start Date End Date Sari Perkins MD [address] [place] [address] [place] [address] PCP - General Family Medicine 04/05/23 documented as of this encounter
--- OUTSIDE RECORDS SUMMARY | 2023-06-22 03:37 | External Medical Summary | Summary of Care ---
Author Name Unknown Organization [facility] Address [address] [facility] [place] [address] Phone [phone] Care Team Providers Care Lead Sql Developer Name Role Phone Sari Perkins MD Primary Care Provide r Reason for Visit * Reason Onset Date Comments Pre Cert/Prior Auth 05/16/2023 Encounter Details Date Type Department Care Team (Late st Contact Info) Description 05/16/2023 Telephone Gastroenterology, [facility] [address] [place] [address] Jennifer Cleaning CRNP [address] [place] [address] Pre Cert/Prior Auth Allergies Active Allergy Reactions [...] vitamin B12 deficiency anemia 1000 mcg IM [id number] 09/25/2022 11/18/2023 Active documented as of this [...] as of this encounter Miscellaneous Notes * Addendum Note - Cherry Taylor [facility] - 05/16/2023 2:08 PM ESTAddended by: CHERRY TAYLOR on: 05/16/2023 02:08 PM Modules accepted: Orders * Telephone Encounter - Cherry Taylor [facility] - 05/16/2023 1:59 PM EST Gastro Pre-Cert Request Specialty Medication: Yes. Medication/Disease State Information: Medication: Infliximab (Remicade, Inflectra, Renflexis, Avsola) Initiation - 5mg/kg IV at weeks 0, 2, and 6, then every 8 weeks Diagnosis (including ICD-10): Crohn's disease K50.90. Specialty medication - route to [id number]. Referral to pharmacist for: co-management. Office Information: [...] Room [facility] [address] [place] [phone] Kathleen Jaramillo MD [address] [place] [id number] 05/24/2023 10:30 AM EST - 05/24/2023 11:00 AM EST Surgery ENDO [facility], Endoscopy Room [facility] [place] [phone] Kathleen Jaramillo MD [address] [place] [address] COLONOSCOPY FLEXIBLE PROXIMAL DIAGNOSTIC 06/13/2023 10:00 AM EDT Nurse Only Ancillary [address] [place] [address] [place], Nurse [address] [place] [address] 06/21/2023 10:30 AM EDT Office Visit Orthopaedics [address] [place] [phone] Toan Rivera MD [address] [place] [address] 07/10/2023 10:30 AM EDT Office Visit Gastroenterology, [facility] [address] [place] [address] Jennifer Cleaning CRNP [address] [place] [address] 08/08/2023 11:00 AM EDT Office Visit General Surgery, [facility] [address] [place] [address] Peg Johnson MD [address] [place] [address] 09/04/2023 10:30 AM EDT Imaging [place]iology, [address] [place] [address] 10/03/2023 5:40 PM EDT Office Visit Family Medicine [address] [phone] Sari Perkins MD [address] [place] [address] [place] [address] Scheduled Procedures Name Priority Associated Diagnoses Date/Ti [...] (HCC) documented in this encounter Care Teams Lead Sql Developer Relationship Specialty Start Date End Date Sari Perkins MD [address] [place] [address] [place] [address] PCP - General Family Medicine 04/05/23 documented as of this encounter
--- OUTSIDE RECORDS SUMMARY | 2023-06-22 03:37 | External Medical Summary | Summary of Care ---
Author Name Unknown Organization [facility] Address [address] [facility] [place] [address] Phone [phone] Care Team Providers Care Industrial Seamstress Name Role Phone Sari Perkins MD Primary Care Provide r Reason for Visit * Reason Onset Date Comments Pre Cert/Prior Auth 05/16/2023 Encounter Details Date Type Department Care Team (Late st Contact Info) Description 05/16/2023 Telephone Gastroenterology, [facility] [address] [place] [address] Jennifer Cleaning CRNP [address] [place] [address] Pre Cert/Prior Auth Allergies Active Allergy Reactions [...] vitamin B12 deficiency anemia 1000 mcg IM [id number] 09/25/2022 11/18/2023 Active documented as of this [...] Notes * Addendum Note - Cherry Taylor [facility] - 05/16/2023 2:08 PM ESTAddended by: CHERRY TAYLOR on: 05/16/2023 02:08 PM Modules accepted: Orders * Telephone Encounter - Cherry Taylor [facility] - 05/16/2023 1:59 PM EST Gastro Pre-Cert Request Specialty Medication: Yes. Medication/Disease State Information: Medication: Infliximab (Remicade, Inflectra, Renflexis, Avsola) Initiation - 5mg/kg IV at weeks 0, 2, and 6, then every 8 weeks Diagnosis (including ICD-10): Crohn's disease K50.90. Specialty medication - route to [id number]. Referral to pharmacist for: co-management. Office Information: [...] Room [facility] [address] [place] [phone] Kathleen Jaramillo MD [address] [place] [id number] 05/24/2023 10:30 AM EST - 05/24/2023 11:00 AM EST Surgery ENDO [facility], Endoscopy Room [facility] [place] [phone] Kathleen Jaramillo MD [address] [place] [address] COLONOSCOPY FLEXIBLE PROXIMAL DIAGNOSTIC 06/13/2023 10:00 AM EDT Nurse Only Ancillary [address] [place] [address] [place], Nurse [address] [place] [address] 06/21/2023 10:30 AM EDT Office Visit Orthopaedics [address] [place] [phone] Toan Rivera MD [address] [place] [address] 07/10/2023 10:30 AM EDT Office Visit Gastroenterology, [facility] [address] [place] [address] Jennifer Cleaning CRNP [address] [place] [address] 08/08/2023 11:00 AM EDT Office Visit General Surgery, [facility] [address] [place] [address] Peg Johnson MD [address] [place] [address] 09/04/2023 10:30 AM EDT Imaging Radiology, [address] [place] [address] 10/03/2023 5:40 PM EDT Office Visit Family Medicine [address] [phone] Sari Perkins MD [address] [place] [address] [place] [address] Scheduled Procedures Name Priority Associated Diagnoses Date/Ti [...] (HCC) documented in this encounter Care Teams Industrial Seamstress Relationship Specialty Start Date End Date Sari Perkins MD [address] [place] [address] [place] [address] PCP - General Family Medicine 04/05/23 documented as of this encounter
--- OUTSIDE RECORDS SUMMARY | 2023-06-22 03:37 | External Medical Summary | Summary of Care ---
Author Name Unknown Organization [facility] Address [address] [facility] [address] Phone [phone] Care Team Providers Care Curtain Drier Name Role Phone Sari Perkins MD Primary Care Provide r Encounter Details Date Type Department Care Team (Late st Contact Info) Description 05/11/2023 Result Scan Unspecified Department <No scans attached> Allergies Active Allergy Reactions Criticality Noted Date [...] vitamin B12 deficiency anemia 1000 mcg IM [id number] 09/25/2022 11/18/2023 Active documented as of this [...] 9:00 AM EST Office Visit Family Medicine [address] [phone] Amalia Baca PA-C [address] [place] [address] [place] [address] 05/24/2023 10:30 AM EST Hospital Encounter ENDO [facility], Endoscopy Room [facility] [address] [place] [phone] Kathleen Jaramillo MD [address] [place] [address] 05/24/2023 10:30 AM EST - 05/24/2023 11:00 AM EST Surgery ENDO [facility], Endoscopy Room [facility] [address] [place] [phone] Kathleen Jaramillo MD [address] [place] [address] COLONOSCOPY FLEXIBLE PROXIMAL DIAGNOSTIC 06/21/2023 10:30 AM EDT Office Visit Orthopaedics [address] [place] [phone] Toan Rivera MD [address] [place] [address] 07/10/2023 10:30 AM EDT Office Visit Gastroenterology, [facility] [address] [place] [address] Jennifer Cleaning CRNP [address] [place] [address] 08/08/2023 11:00 AM EDT Office Visit General Surgery, [facility] [address] [place] [place] [address] Peg Johnson MD [address] [facility] [place] [id number] 10/03/2023 5:40 PM EDT Office Visit Family Medicine [address] [place] [address] Sari Perkins MD [address] [place] [address] [place] [address] Scheduled Procedures Name Priority Associated Diagnoses Date/Ti [...] shot) (#1) 2022 Lipid Panel 05/03/2026 05/03/2021, 0803/2016, 10/30/2013, Additional history exists GARDASIL-HPV IMMUNIZATION SERIES Aged Out No longer eligible based on patient's age to complete this topic MENINGOCOCCAL (MENACTRA/MENVEO) Aged Out No longer eligible based on patient's age to complete this topic documented as of this encounter Medical Devices Not on filedocumented as of this encounter Procedures Procedure Name Priority Date/Time Associated Diagnosis Comments EKG SCANNED RESULT 05/11/2023 documented in this encounter Results * EKG SCANNED RESULT (05/11/2023) 05/11/2023 No Physician Data Unknown EKG documented in this encounter Care Teams Curtain Drier Relationship Specialty Start Date End Date Sari Perkins MD [address] [place] [address] [place] [address] PCP - General Family Medicine 04/05/23 documented as of this encounter
--- OUTSIDE RECORDS SUMMARY | 2023-06-22 03:37 | External Medical Summary | Summary of Care ---
Author Name Unknown Organization [facility] Address [address] [facility] [address] Phone [phone] Care Team Providers Care Terminal Gauger Name Role Phone Sari Perkins MD Primary Care Provide r Encounter Details Date Type Department Care Team (Late st Contact Info) Description 05/14/2023 Orders Only Family Medicine [address] [place] [phone] Sari Perkins MD [address] [place] [address] [place] [address] Allergies Active Allergy Reactions Criticality [...] vitamin B12 deficiency anemia 1000 mcg IM [id number] 09/25/2022 11/18/2023 Active documented as of this [...] 9:00 AM EST Office Visit Family Medicine [address] [phone] Amalia Baca PA-C [address] [place] [address] [place] [address] 05/24/2023 10:30 AM EST Hospital Encounter [facility], [facility] [place] [phone] Kathleen Jaramillo MD [address] [place] [address] 05/24/2023 10:30 AM EST - 05/24/2023 11:00 AM EST Surgery ENDO [facility], [facility] [address] [place] [phone] Kathleen Jaramillo MD [address] [place] [address] COLONOSCOPY FLEXIBLE PROXIMAL DIAGNOSTIC 06/21/2023 10:30 AM EDT Office Visit Orthopaedics [address] [phone] Toan Rivera MD [address] [place] [address] 07/10/2023 10:30 AM EDT Office Visit Gastroenterology, [facility] [address] [place] [address] Jennifer Cleaning CRNP [address] [place] [address] 08/08/2023 11:00 AM EDT Office Visit General Surgery, [facility] [address] [place] [address] Peg Johnson MD [address] [place] [address] 10/03/2023 5:40 PM EDT Office Visit Family Medicine [address] [place] [phone] Sari Perkins MD [address] [place] [address] [place] [address] Scheduled Procedures Name Priority Associated Diagnoses Date/Ti [...] Procedure Name Priority Date/Time Associated Diagnosis Comments OUTSIDE LAB-CORONAVIRUS (COVID-19) Routine 05/11/2023 documented in this encounter Results * OUTSIDE LAB-CORONAVIRUS (COVID-19) (05/11/2023) [id number] DE LAB NOT DETECTED NOT DETECTED OUTSIDE LAB (SEE SCANNED REPORT) 05/11/2023 History Per Patient LABORATORY OUTSIDE LAB (SEE SCANNED REPORT) documented in this encounter Care Teams Terminal Gauger Relationship Specialty Start Date End Date Sari Perkins MD [address] [place] [address] [place] [address] PCP - General Family Medicine 04/05/23 documented as of this encounter
--- OUTSIDE RECORDS SUMMARY | 2023-06-22 03:37 | External Medical Summary | Summary of Care ---
Author Name Unknown Organization [facility] Address [address] [facility] [place] [address] Phone [phone] Care Team Providers Care Bottle Gauger Name Role Phone Sari Perkins MD Primary Care Provide r Reason for Visit * Reason Onset Date Comments Pre Cert/Prior Auth 05/16/2023 Encounter Details Date Type Department Care Team (Late st Contact Info) Description 05/16/2023 Telephone Gastroenterology, [facility] [address] [place] [address] Jennifer Cleaning CRNP [address] [place] [address] Pre Cert/Prior Auth Allergies Active Allergy Reactions [...] vitamin B12 deficiency anemia 1000 mcg IM [id number] 09/25/2022 11/18/2023 Active documented as of this [...] Oswald RN - 05/16/2023 3:58 PM EST [place] plan built and routed for signature. Waiting [...] disease K50.90. Specialty medication - route to [id number]. Referral to pharmacist for: co-management. Office Information: [...] approved (pt prefers / daysfor transportation reasons) OJSE Cedeno documented in this encounter Plan of Treatment Upcoming Encounters Date Type Department Care Team (Latest Contact Info) Description 05/24/2023 10:30 AM EST Hospital Encounter ENDO [facility], Endoscopy Room [facility] [address] [place] [phone] Kathleen Jaramillo MD [address] [place] [address] 05/24/2023 10:30 AM EST - 05/24/2023 11:00 AM EST Surgery ENDO [facility], Endoscopy Room [facility] [address] [place] [phone] Kathleen Jaramillo MD [address] [place] [address] COLONOSCOPY FLEXIBLE PROXIMAL DIAGNOSTIC 06/13/2023 10:00 AM EDT Nurse Only Ancillary [address] [place] [address] [place], Nurse [address] [place] [address] 06/21/2023 10:30 AM EDT Office Visit Orthopaedics [address] [place] [phone] Toan Rivera MD [address] [place] [address] 07/10/2023 10:30 AM EDT Office Visit Gastroenterology, [facility] [address] [address] Jennifer Cleaning CRNP [address] [facility] [place] [address] 08/08/2023 11:00 AM EDT Office Visit General Surgery, [facility] [address] [facility] [place] [address] Peg Johnson MD [address] [place] [address] 09/04/2023 10:30 AM EDT Imaging Radiology, [address] [place] [address] 10/03/2023 5:40 PM EDT Office Visit Family Medicine [address] [phone] Sari Perkins MD [address] [place] [address] [place] [address] Scheduled Procedures Name Priority Associated Diagnoses Date/Ti [...] (HCC) documented in this encounter Care Teams Bottle Gauger Relationship Specialty Start Date End Date Sari Perkins MD [address] [place] [address] [place] [address] PCP - General Family Medicine 04/05/23 documented as of this encounter
--- OUTSIDE RECORDS SUMMARY | 2023-06-22 03:37 | External Medical Summary | Summary of Care ---
Author Name Unknown Organization [facility] Address [address] [facility] [place] [address] Phone [phone] Care Team Providers Care Integration Architect Name Role Phone Sari Perkins MD Primary Care Provide r Reason for Visit * Reason Onset Date Comments Test Results 05/14/2023 Encounter Details Date Type Department Care Team (Late st Contact Info) Description 05/14/2023 Telephone Gastroenterology, [facility] [address] [place] [address] Jennifer Cleaning CRNP [address] [place] [address] Test Results Allergies Active Allergy Reactions Criticality [...] vitamin B12 deficiency anemia 1000 mcg IM [id number] 09/25/2022 11/18/2023 Active documented as of this [...] encounter Miscellaneous Notes * Telephone Encounter - Bárbara Turk LPN [...] 9:00 AM EST Office Visit Family Medicine [address] [place] [phone] Amalia Baca PA-C [address] [place] [address] [place] [address] 05/24/2023 10:30 AM EST Hospital Encounter ENDO [facility], Endoscopy Room [facility] 132 [facility] [place] [phone] Kathleen Jaramillo MD [address] [place] [id number] 05/24/2023 10:30 AM EST - 05/24/2023 11:00 AM EST Surgery ENDO [facility], [facility] [place] [phone] Kathleen Jaramillo MD [address] [place] [address] COLONOSCOPY FLEXIBLE PROXIMAL DIAGNOSTIC 06/21/2023 10:30 AM EDT Office Visit Orthopaedics [address] [phone] Toan Rivera MD 132 [place] [address] 07/10/2023 10:30 AM EDT Office Visit Gastroenterology, [facility] 132 [place] [address] Jennifer Cleaning CRNP 132 [place] [address] 08/08/2023 11:00 AM EDT Office Visit General Surgery, [facility] [address] [place] [address] Peg Johnson MD [address] [place] [address] 10/03/2023 5:40 PM EDT Office Visit Family Medicine [address] [phone] Sari Perkins MD [address] [place] [address] [place] [address] Scheduled Procedures Name Priority Associated Diagnoses Date/Ti [...] filedocumented as of this encounter Care Teams Integration Architect Relationship Specialty Start Date End Date Sari Perkins MD [address] [place] [address] [place] [address] PCP - General Family Medicine 04/05/23 documented as of this encounter
--- OUTSIDE RECORDS SUMMARY | 2023-06-22 03:38 | External Medical Summary | Summary of Care ---
Author Name Unknown Organization [facility] Address [address] [facility] [address] Phone [phone] Care Team Providers Care Patroller Name Role Phone Sari Perkins MD Primary Care Provide r Reason for Visit * Reason Comments Re-Check Hx of crohn's diseas e Dr Johnson told her crohn's was active , having pain and loss of appetite and nausea Encounter Details Date Type Department Care Team (Latest Contact Info) Description 05/08/2023 2:00 PM EST Office Visit Gastroenterology, [facility] [address] [place] [address] Jennifer Cleaning CRNP [address] [place] [address] Crohn's disease with fistula, unspecified gastrointestinal tract location (HCC)* Allergies Active Allergy Reactions Criticality Noted Date Comments Naproxen 06/26/2000 GI documented as of this encounter (statuses as of 05/08/2023) Medications Medication Sig Dispensed Refills Start Date [...] for Nausea. 30 Tablet 1 05/08/2023 Active Hospital, Clinic, or Other Facility Administered Medication Ordered Dose Route Frequency Start Date End Date Status vitamin b-12 (Cyanocobalamin) inj 1,000 mcgIndications:Other vitamin B12 deficiency anemia 1000 mcg IM [id number] 09/25/2022 11/18/2023 Active documented as of this encounter (statuses as of 05/08/2023) Active Problems Problem Noted Date Diagnosed Date [...] as of this encounter (statuses as of 05/08/2023) Resolved Problems Problem Noted Date Diagnosed Date Resolved Date Major depressive disorder, r ecurrent episode, moderate 12/22/2020 05/17/2022 documented as of this encounter (statuses as of 05/08/2023) Immunizations Name Administration Dates Next Due TDAP [...] Sign Reading Time Taken Comments Blood Pressure 122/60 05/08/2023 2:16 PM EST Pulse 94 05/08/2023 2:16 PM EST Temperature 36.1 C (97 F) 05/08/2023 2:16 PM EST Respiratory Rate 20 05/08/2023 2:16 PM EST Oxygen Saturation 97% 05/08/2023 2:16 PM EST Inhaled Oxygen Concentration - - Weight 49.9 kg (110 lb) 05/08/2023 2:16 PM EST Height 160 cm (5' 3") 05/08/2023 2:16 PM EST Body Mass Index 19.49 05/08/2023 2:16 PM EST documented in this encounter Progress Notes * Jennifer Cleaning CRNP - 05/08/2023 1:54 PM EST DATE OF SERVICE: 05/08/23 REFERRING PHYSICIAN: Sari Perkins MD CC: Crohn's disease w fistula, dysphagia HPI: 05/08/23: Pt c/o nausea, poor PO intake. + lower abd cramping. Bowels move once weekly which is hernorm. Denies any rectal bleeding or rectal pain. Off steroids since last month and is taking Sulfasalazine 1g TID. 01/03/2023 : Vickie Mata is a 57 year old female, referred by Sari Perkins MD for management of Crohn's disease and dysphagia. She is somewhat of a poor historian. States that she started having rectal bleeding when she was a teenager and was diagnosed with Crohn's disease. Also found to have draining fistula near her rectum that needed surgical intervention in the past but is still present. She declined rectal exam today in clinic. She had been on sulfasalazine 1 g 3 timesa day and previously prednisone 40 mg daily since she was diagnosed with Crohn's disease. She is currently down to prednisone 5 mg daily, continued to have refills from PCP. Last colonoscopies were over 10 years ago. We do not have records. Currently she struggles with constipation, bowel movementsabout once a week. However every other day when she cleans rectum or wipes she noticed bright red blood. She has discomfort on her lower abdomen area especially when she palpates around it. No nauseaor vomiting. Regarding her dysphagia she states that she was having heartburn issues and since started on pantoprazole this has resolved along with her dysphagia. IBD Summary: - Onset of symptoms: Rectal bleeding - Date of diagnosis: When she was a teenager - Disease Location: Unsure ; ? Anorectal fistula - IBD surgical hx: None - 5-ASA used: Sulfasalazine 1g TID - Immune modulators used: None - TPMT level: Unknown - TNF used: None - Smoking status: Current smoker - Last PPD: Unknown - Hep B status: Unknown - DEXA scan: Unknown MRE 01/2023: 1. No active small bowel inflammation identified. 2. Study is not tailored for the evaluation of anal fistula, though there appears to be a left-sided perianal fistula. A dedicated MRI of the pelvis may be performed for better evaluation (anal fistula protocol). 3. Mild rectal wall thickening. Correlate with colonoscopy. 4. Nonspecific increased signal and enhancement in the left sacrum, adjacent to the SI joint. If a follow-up MRI pelvis is performed, recommend attention on this study. Otherwise CT of the bony pelvis may be considered. MRI pelvis 04/19/2023: Complex perianal transsphincteric fistulas. Three extend to the gluteal folds and 1 is blind ending in the right ischioanal fat with associated small collection 6 x 14 mm. Deformity of the sphincter may be due to chronic scarring. Diffuse abnormal wall thickening and mucosal hyperenhancing involving the rectum, in this setting suggesting active inflammatory bowel disease/Crohn's disease. Past Medical History: Diagnosis Date 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) 04/07/2016 [facility] Encounter for hepatitis C screening test for low risk patient 10/17/2016 negative Family history of ischemic heart disease Generalized osteoarthritis of multiple sites Major depressive disorder, recurrent episode, moderate (HCC) 12/22/2020 Other vitamin B12 deficiency anemia Regional enteritis (HCC) 14 years old crohns Tobacco use disorder Family History Problem Relation Age of Onset Other (ibs) Mother Hypertension Father Heart Disorder Grandmother (Maternal) Heart Disorder Grandfather (Maternal) Stroke Grandmother (Paternal) Cancer Grandfather (Paternal) brain Gastro-intestinal disorder Son ulcerative colitis Cancer Aunt (Unspecified) ? colon Past Surgical History: Procedure Laterality Date MRI HIP LEFT W CONTRAST 03/17/2023 Bilateral sacral ala insufficiency fractures, left greater than right. 2. Mild bilateral hip and sacroiliac osteoarthritis. TOTAL HYSTERECTOMY 03/19/1992 fibroid,pt unsure if she has ovaries Social History Tobacco Use Smoking status: Every Day Current packs/day: 0.50 Average packs/day: 0.5 packs/day for 33.0 years (16.5 ttl pk-yrs) Types: Cigarettes Smokeless tobacco: Never Tobacco comments: age 14 Substance Use Topics Alcohol use: No Drug use: No Review of patient's allergies indicates: Allergen Reactions [...] morning. Do not cut, crush or chew. (Patient not taking: Reported on 04/18/2023) 30 Capsule 5 Pantoprazole Sodium 40 MG Oral Tablet Delayed Release (Protonix) Take 1 Tablet by mouth in the morning. 30 minutes before the first meal of the day. Do not crush, split or chew the tablet. 30 Tablet 5 predniSONE 20 MG Oral Tablet (Deltasone) 2 tablets daily for 5 days then 1 tablet daily 15 Tablet 0 Current Facility-Administered Medications Medication Dose Route Frequency Provider Last Rate Last Admin vitamin b-12 (Cyanocobalamin) inj 1,000 mcg 1,000 mcg Intramuscular Q12 Weeks Mihcael Oleary MD1,000 mcg at 03/29/23 1036 REVIEW OF SYSTEMS: See HPI above; All other findings negative. EXAM: Filed Vitals: 05/08/23 1416 BP: 122/60 Pulse: 94 Resp: 20 Temp: 36.1 C (97 F) TempSrc: Tympanic SpO2: 97% Weight: 49.9 kg (110 lb) Height: 1.6 m (5' 3") GENERAL: Well developed and well nourished in no acute distress. SKIN: No rashes, ulcers, jaundice or spider angiomata. HEENT: Normocephalic, sclera clear. NECK: Supple, trachea midline, no JVD. LUNGS: Clear to auscultation bilaterally, no respiratory distress or accessory muscles used. HEART: Regular rate & rhythm, no murmurs and no gallops. ABDOMEN: Normal bowel sounds, soft and nontender, no masses or hepatosplenomegaly. EXTREMITIES: No palmar erythema, no ankle edema, no skin discoloration, no clubbing, no cyanosis. NEURO: No lateralizing findings. Sensory/Motor grossly normal. ASSESSMENT AND PLAN: Vickie Mata is a 57 year old female w Crohn's disease and perianal fistula. She had been on Sulfasalazine 1g TID and Prednisone 40mg since dx'd in her teenage years. Sheis off Prednisone now on Sulfasalazine 1g TID. Will likely escalate med therapy to TNF/biologic - Schedule colonoscopy - Check TB quant gold, Hep B serologies - Continue Sulfasalazine 1g TID for now. - Pantoprazole 40mg daily prn GERD symptoms - Advised to quit smoking - Vit D, B12 supplements. - Pt reports she has upcoming appt with Primary Care team to discuss DEXA scan test - F/U Colorectal Surgery 08/08/2023 I spent a total of 30 minutes on the date of service in review of patient's record, and previously obtained information in person and appropriate medical visit, discussion and education of plan, withpatient and/or caregiver, placing orders for tests/referral/procedures as medically necessary and documentation of pertinent clinical information in patient's medical records for their visit today. RETURN TO CLINIC: 2 months or sooner Gonzalez Dominguez [facility] Gastroenterology, [facility] documented in this encounter Nursing Notes * Ying Hernandez RN - 05/08/2023 2:14 PM EST Patient identified by full name and date of chief complaint stomach pain nausea, crohn's documented in this encounter Plan of Treatment Upcoming Encounters Date Type Department Care Team (Latest Contact Info) Description 05/15/2023 9:00 AM EST Office Visit Family Medicine [address] [phone] Amalia Baca PA-C [address] [place] [address] [place] [address] 05/24/2023 10:30 AM EST Hospital Encounter ENDO [facility], Endoscopy Room [facility] [address] [place] [phone] Kathleen Jaramillo MD [address] [place] [id number] 05/24/2023 10:30 AM EST - 05/24/2023 11:00 AM EST Surgery ENDO [facility], Endoscopy Room [facility] [address] [place] [phone] Kathleen Jaramillo MD [address] [place] [address] COLONOSCOPY FLEXIBLE PROXIMAL DIAGNOSTIC 06/21/2023 10:30 AM EDT Office Visit Orthopaedics [address] [phone] Toan Rivera MD [address] [place] [address] 07/10/2023 10:30 AM EDT Office Visit Gastroenterology, [facility] [address] [place] [address] Jennifer Cleaning CRNP [address] [place] [address] 08/08/2023 11:00 AM EDT Office Visit General Surgery, [facility] [address] [place] [address] Peg Johnson MD [address] [place] [address] 10/03/2023 5:40 PM EDT Office Visit [address] [place] [phone] Sari Perkins MD [address] [place] [address] [place] [address] Scheduled Orders Name Type Priority Associated Diagnoses Orde r Schedule QUANTIFERON TB GOLD PLUS Lab Routine Crohn's disease with fistula, unspecified gastrointestinal tract location (HCC) Expected: 05/08/2023, Expires: 05/08/2024 HEPATITIS B SURFACE ANTIBODY Lab Routine Crohn's disease with fistula, unspecified gastrointestinal tract location (HCC) Expected: 05/08/2023, Expires: 05/08/2024 HEPATITIS B CORE ANTIBODIES IGG AND IGM Lab Routine Crohn's disease with fistula, unspecified gastrointestinal tract location (HCC) Expected: 05/08/2023, Expires: 05/08/2024 HEPATITIS B SURFACE ANTIGEN Lab Routine Crohn's disease with fistula, unspecified gastrointestinal tract location (HCC) Expected: 05/08/2023, Expires: 05/08/2024 Scheduled Procedures Name Priority Associated Diagnoses Date/Ti [...] this encounter Visit Diagnoses Diagnosis Crohn's disease with fistula, unspecified gastrointestinal tract location (HCC)- Primary Crohn's disease without complication, unspecified gastrointestinal tract location (HCC) documented in this encounter Care Teams Patroller Relationship Specialty Start Date End Date Sari Perkins MD [address] [place] [address] [place] [phone] PCP - General Family Medicine 04/05/23 documented as of this encounter
--- OUTSIDE RECORDS SUMMARY | 2023-06-22 03:38 | External Medical Summary | Summary of Care ---
Author Name Unknown Organization [facility] Address [address] [facility] [place] [address] Phone [phone] Care Team Providers Care Compliance Engineer Products Name Role Phone Sari Perkins MD Primary Care Provide r Encounter Details Date Type Department Care Team (Late st Contact Info) Description 04/28/2023 Orders Only PATIENT PORTAL DO NOT DELETE THIS DEPT USED BY [place] [address] Allergies Active Allergy Reactions Criticality Noted Date Comments Naproxen 06/26/2000 GI documented as of this encounter (statuses as of 04/28/2023) Medications Medication Sig Dispensed Refills Start Date [...] tablet daily 15 Tablet 0 04/18/2023 Active Hospital, Clinic, or Other Facility Administered Medication Ordered Dose Route Frequency Start Date End Date Status vitamin b-12 (Cyanocobalamin) inj 1,000 mcgIndications:Other vitamin B12 deficiency anemia 1000 mcg IM [id number] 09/25/2022 11/18/2023 Active documented as of this encounter (statuses as of 04/28/2023) Active Problems Problem Noted Date Diagnosed Date [...] as of this encounter (statuses as of 04/28/2023) Resolved Problems Problem Noted Date Diagnosed Date Resolved Date Major depressive disorder, r ecurrent episode, moderate 12/22/2020 05/17/2022 documented as of this encounter (statuses as of 04/28/2023) Immunizations Name Administration Dates Next Due TDAP [...] 9:00 AM EST Office Visit Family Medicine [address] [phone] Amalia Baca PA-C [address] [place] [address] [place] [address] 06/19/2023 10:30 AM EDT Office Visit Gastroenterology, [facility] [address] [place] [address] Jennifer Cleaning CRNP [address] [place] [address] 06/21/2023 10:30 AM EDT Office Visit Orthopaedics [address] [phone] Toan Rivera MD [address] [place] [address] 08/08/2023 11:00 AM EDT Office Visit General Surgery, [facility] [address] [place] [address] Peg Johnson MD [address] [place] [address] 09/13/2023 9:30 AM EDT Hospital Encounter ENDO [facility], Endoscopy Room [facility] [address] [place] [phone] Jo-Ann Palacios MD [address] [place] [address] 09/13/2023 9:30 AM EDT - 09/13/2023 10:00 AM EDT Surgery ENDO [facility], Endoscopy Room [facility] [address] [place] [phone] Jo-Ann Palacios MD [address] [place] [address] COLONOSCOPY FLEXIBLE PROXIMAL DIAGNOSTIC 10/03/2023 5:40 PM EDT Office Visit Family Medicine [address] [place] [phone] Sari Perkins MD [address] [place] [address] [place] [address] Scheduled Procedures Name Priority Associated Diagnoses Date/Ti me COLONOSCOPY FLEXIBLE PROXIMAL DIAGNOSTIC Crohn's disease without complication, unspecified gastrointestinal tract location (HCC) 09/13/2023 9:30 AM EDT Health Maintenance Due Date Last Done Comments Hepatitis B (1 of 3 - 3-dose series) 1965 COVID-19 Vaccine (#1) 12/17/1968 Pneumococcal Vaccine: Pediatrics (0 to 5 Years) and At-Risk Patients (6 to 64 Years) (1 - PCV) 12/17/1969 HIV Screening 12/17/1978 Zoster [...] filedocumented as of this encounter Care Teams Compliance Engineer Products Relationship Specialty Start Date End Date aSri Perkins MD [address] [place] [address] [place] [address] PCP - General Family Medicine 04/05/23 documented as of this encounter
--- OUTSIDE RECORDS SUMMARY | 2023-06-22 03:38 | External Medical Summary ---
Author Name Unknown Address Unknown Organization : Laboratory Report Ordering Provider Test Date Status SEAN GAMBOA 05/08/2023 15:20:03 Final Observation Date Value Abnormality Reference (Units ) Status Mycobacterium tuberculosis stimulated gamma interferon [Interpretation] in Blood Qualitative 05/08/2023 15:20:03 NEGATIVE NEGATIVE Final Negative test result. M. tub erculosis complex
infection unlikely. Gamma interferon background [Units/volume] in Blood by Immunoassay 05/08/2023 15:20:03 0.08 (IU/mL) Final Mitogen stimulated gamma int erferon [Units/volume] corrected for background in Blood 05/08/2023 15:20:03 6.93 (IU/mL) Final Mycobacterium tuberculosis s timulated gamma interferon release by CD4+ T-cells [Units/volume] corrected for background in Blood 05/08/2023 15:20:03 0.02 (IU/mL) Final Mycobacterium tuberculosis s timulated gamma interferon release by CD4+ and CD8+ T-cells [Units/volume] corrected for background in Blood 05/08/2023 15:20:03 0.02 (IU/mL) Final The Nil tube value reflects the background interferon
gamma immune response of the patient's blood sample.
This value has been subtracted from the patient's
displayed TB and Mitogen results.
Lower than expected results with the Mitogen tube
prevent false-negative Quantiferon readings by detect-
ing a patient with a potential immune suppressive
condition and/or suboptimal pre-analytical specimen
handling.
The TB1 Antigen tube is coated with the M.
tuberculosis-specific antigens designed to elicit
responses from TB antigen primed CD4+ helper
T-lymphocytes.
The TB2 Antigen tube is coated with the M.
tuberculosis-specific antigens designed to elicit
responses from TB antigen primed CD4+ helper and CD8+
cytotoxic T-lymphocytes.
For additional information, please refer to
http://education.ELERTS.Appstarter/faq/AOW250
(This link is being provided for information/
educational purposes only.)

Test Performed at:
[facility]
[address] [facility]
[place] [address]
Wander Garnica M.D., Ph.D.,Director of Laboratories Performing Location
--- OUTSIDE RECORDS SUMMARY | 2023-06-22 03:38 | External Medical Summary | Summary of Care ---
Author Name Unknown Organization [facility] [address] [facility] [address] Phone [phone] Care Team Providers Care Computer Hardware Engineer Name Role Phone Sari Perkins MD Primary Care Provide r Reason for Visit * Reason Comments Outpatient Testing Encounter Details Date Type Department Care Team (Latest Contact Info) Description 05/08/2023 2:50 PM EST Laboratory Laboratory, [facility] [address] [facility] [place] [phone] [facility] [address] [place] [address] Crohn's disease with fistula, unspecified gastrointestinal tract location (HCC) Allergies Active Allergy Reactions Criticality Noted Date [...] vitamin B12 deficiency anemia 1000 mcg IM [id number] 09/25/2022 11/18/2023 Active documented as of this [...] 9:00 AM EST Office Visit Family Medicine [address] [place] [address] Amalia Baca PA-C [address] [place] [address] [place] [address] 05/24/2023 10:30 AM EST Hospital Encounter ENDO [facility], Endoscopy Room [facility] 132 [facility] [place] [phone] Kathleen Jaramillo MD [address] [place] [address] 05/24/2023 10:30 AM EST - 05/24/2023 11:00 AM EST Surgery ENDO OSS, Endoscopy Room [facility] [address] [place] [phone] Kathleen Jaramillo MD [address] [place] [address] COLONOSCOPY FLEXIBLE PROXIMAL DIAGNOSTIC 06/21/2023 10:30 AM EDT Office Visit Orthopaedics [address] [place] [phone] Toan Rivera MD [address] [place] [address] 07/10/2023 10:30 AM EDT Office Visit Gastroenterology, [facility] [address] [place] [address] Jennifer Cleaning CRNP [address] [place] [address] 08/08/2023 11:00 AM EDT Office Visit General Surgery, [facility] [address] [place] [address] Peg Johnson MD [address] [place] [address] 10/03/2023 5:40 PM EDT Office Visit Family Medicine [address] [place] [phone] Sari Perkins MD [address] [place] [address] [place] [address] Pending Results Name Type Priority Associated Diagnoses Date /Time QUANTIFERON TB GOLD PLUS Lab Routine Crohn's disease with fistula, unspecified gastrointestinal tract location (HCC) 05/08/2023 3:20 PM EST HEPATITIS B SURFACE ANTIBODY Lab Routine Crohn's disease with fistula, unspecified gastrointestinal tract location (HCC) 05/08/2023 3:20 PM EST HEPATITIS B CORE ANTIBODIES IGG AND IGM Lab Routine Crohn's disease with fistula, unspecified gastrointestinal tract location (HCC) 05/08/2023 3:20 PM EST HEPATITIS B SURFACE ANTIGEN Lab Routine Crohn's disease with fistula, unspecified gastrointestinal tract location (HCC) 05/08/2023 3:20 PM EST Scheduled Procedures Name Priority Associated Diagnoses Date/Ti vt COLONOSCOPY FLEXIBLE PROXIMAL DIAGNOSTIC Crohn's disease without [...] with fistula, unspecified gastrointestinal tract location (HCC) Crohn's disease without complication, unspecified gastrointestinal tract location (HCC) documented in this encounter Care Teams Computer Hardware Engineer Relationship Specialty Start Date End Date Sari Perkins MD [address] [place] [address] [place] [phone] PCP - General Family Medicine 04/05/23 documented as of this encounter
--- OUTSIDE RECORDS SUMMARY | 2023-06-22 03:38 | External Medical Summary | Summary of Care ---
Author Name Unknown Organization [facility] Address [address] [facility] [place] [address] Phone [phone] Care Team Providers Care Cardiac Nurse Specialist Name Role Phone Sari Perkins MD Primary Care Provide r Encounter Details Date Type Department Care Team (Late st Contact Info) Description 04/14/2023 Result Scan Unspecified Department <No scans attached> Allergies Active Allergy Reactions Criticality Noted Date Comments Naproxen 06/26/2000 GI documented as of this encounter (statuses as of 04/16/2023) Medications Medication Sig Dispensed Refills Start Date [...] the tablet. 30 Tablet 5 01/09/2023 Active Dextromethorphan-gu aiFENesin 10-100 MG/5ML Oral Liquid (Robitussin DM)Indications:Manju l URI Take 5 mL by mouth every 4 hours as needed for Cough. 120 mL 5 03/13/2023 Active Additional Information Patient not taking.Reported on 03/23/2023 Hospital, Clinic, or Other Facility Administered Medication Ordered Dose Route Frequency Start Date End Date Status vitamin b-12 (Cyanocobalamin) inj 1,000 mcgIndications:Other vitamin B12 deficiency anemia 1000 mcg IM [id number] 09/25/2022 11/18/2023 Active documented as of this encounter (statuses as of 04/16/2023) Active Problems Problem Noted Date Diagnosed Date [...] as of this encounter (statuses as of 04/16/2023) Resolved Problems Problem Noted Date Diagnosed Date Resolved Date Major depressive disorder, r ecurrent episode, moderate 12/22/2020 05/17/2022 documented as of this encounter (statuses as of 04/16/2023) Immunizations Name Administration Dates Next Due TDAP [...] Department Care Team (Latest Contact Info) Description 04/19/2023 12:30 PM EST Telemedicine Orthopaedics [address] [phone] Toan Rivera MD [address] [place] [address] 04/19/2023 3:00 PM EST Imaging Radiology [address] [place] [address] 05/11/2023 10:45 AM EST Hospital Encounter ENDO OSS, Endoscopy Room [facility] [address] [place] [phone] Elly Rosas DO [address] [place] [address] 05/11/2023 10:45 AM EST - 05/11/2023 11:15 AM EST Surgery ENDO OSS, Endoscopy Room [facility] [address] [place] [phone] Elly Rosas DO [address] [place] [address] COLONOSCOPY FLEXIBLE PROXIMAL DIAGNOSTIC 06/19/2023 10:30 AM EDT Office Visit Gastroenterology, [facility] [address] [place] [address] Jennifer Cleaning CRNP [address] [place] [address] 08/08/2023 11:00 AM EDT Office Visit General Surgery, [facility] [address] [place] [address] Peg Johnson MD [address] [facility] [place] [address] 10/03/2023 5:40 PM EDT Office Visit Family Medicine [address] [phone] Sari Perkins MD [address] [place] [address] [place] [address] Scheduled Procedures Name Priority Associated Diagnoses Date/Ti me COLONOSCOPY FLEXIBLE PROXIMAL DIAGNOSTIC Crohn's disease without complication, unspecified gastrointestinal tract location (HCC) 05/11/2023 10:45 AM EST Health Maintenance Due Date Last [...] Date/Time Associated Diagnosis Comments EKG SCANNED RESULT 04/14/2023 RADIOLOGY SCANNED RESULT 04/14/2023 documented in this encounter Results * RADIOLOGY SCANNED RESULT (04/14/2023) 04/14/2023 No Physician Data Unknown DIAGNOSTIC RAD IOLOGY SERVICES * EKG SCANNED RESULT (04/14/2023) 04/14/2023 No Physician Data Unknown EKG documented in this encounter Care Teams Cardiac Nurse Specialist Relationship Specialty Start Date End Date Sari Perkins MD [address] [place] [address] [place] [address] PCP - General Family Medicine 04/05/23 documented as of this encounter
--- OUTSIDE RECORDS SUMMARY | 2023-06-22 03:38 | External Medical Summary ---
Author Name Unknown Address Unknown Organization K01:[facility] [address] [place] [address] Laboratory Report Ordering Provider Test Date Status BETINA GAMBOAHON 05/08/2023 15:20:03 Final Observation Date Value Abnormality Reference (Units ) Status Hepatitis B virus core Ab [Presence] in Serum 05/08/2023 15:20:03 Negative Negative Final Performing Location [facility] - [address] [place] [address]
--- OUTSIDE RECORDS SUMMARY | 2023-06-22 03:38 | External Medical Summary | Summary of Care ---
Author Name Unknown Organization [facility] Address [address] [place] [address] Phone [phone] Care Team Providers Care Cmm Technician Name Role Phone Sari Perkins MD Primary Care Provide r Encounter Details Date Type Department Care Team (Latest Contact Info) Description 04/14/2023 8:30 AM EST - 04/14/2023 11:59 PM [facility] Hospital Encounter Radiology Film File [address] [place] [address] Discharge Disposition: Home - Self Care Allergies Active Allergy Reactions Criticality Noted Date Comments Naproxen 06/26/2000 GI documented as of this encounter (statuses as of 04/20/2023) Medications Medication Sig Dispensed Refills Start Date [...] the tablet. 30 Tablet 5 01/09/2023 Active Hospital, Clinic, or Other Facility Administered Medication Ordered Dose Route Frequency Start Date End Date Status vitamin b-12 (Cyanocobalamin) inj 1,000 mcgIndications:Other vitamin B12 deficiency anemia 1000 mcg IM [id number] 09/25/2022 11/18/2023 Active documented as of this encounter (statuses as of 04/20/2023) Active Problems Problem Noted Date Diagnosed Date [...] as of this encounter (statuses as of 04/20/2023) Resolved Problems Problem Noted Date Diagnosed Date Resolved Date Major depressive disorder, r ecurrent episode, moderate 12/22/2020 05/17/2022 documented as of this encounter (statuses as of 04/20/2023) Immunizations Name Administration Dates Next Due TDAP [...] Department Care Team (Latest Contact Info) Description 04/26/2023 12:30 PM EST Office Visit Orthopaedics [address] [phone] Toan Rivera MD [address] [place] [address] 06/19/2023 10:30 AM EDT Office Visit Gastroenterology, [facility] [address] [place] [address] Jennifer Cleaning CRNP [address] [place] [address] 08/08/2023 11:00 AM EDT Office Visit General Surgery, [facility] [address] [place] [address] Peg Johnson MD [address] [place] [address] 09/13/2023 9:30 AM EDT Hospital Encounter ENDO [facility], Endoscopy Room [facility] [address] [place] [phone] Jo-Ann Palacios MD [address] [place] [address] 09/13/2023 9:30 AM EDT - 09/13/2023 10:00 AM EDT Surgery ENDO [facility], Endoscopy Room [facility] [address] [place] [phone] Jo-Ann Palacios MD [address] [place] [address] COLONOSCOPY FLEXIBLE PROXIMAL DIAGNOSTIC 10/03/2023 5:40 PM EDT Office Visit [address] [place] [phone] Sari Perkins MD [address] [place] [address] [place] [address] Scheduled Procedures Name Priority Associated Diagnoses Date/Ti [...] shot) (#1) 2022 Lipid Panel 05/03/2026 05/03/2021, 08/03/2016, 10/30/2013, Additional history exists GARDASIL-HPV IMMUNIZATION SERIES Aged Out No longer eligible based on patient's age to complete this topic MENINGOCOCCAL (MENACTRA/MENVEO) Aged Out No longer eligible based on patient's age to complete this topic documented as of this encounter Medical Devices Not on filedocumented as of this encounter Procedures Procedure Name Priority Date/Time Associated Diagnosis Comments RADIOLOGY EXAM - CT (IMAGES ONLY, NO REPORT) Routine 04/14/2023 8:30 AM EST documented in this encounter Results * RADIOLOGY EXAM - CT (IMAGES ONLY, NO REPORT) (04/14/2023 8:30 AM EST) 04/14/2023 8:26 AM EST Narrative Scheduling, Silent - 04/19/2023 3:41 PM EST This is an imaging study not interpreted or resulted by a [facility] or [facility] contracted radiologist. Peg Johnson MD RAD CT documented in this encounter Care Teams Cmm Technician Relationship Specialty Start Date End Date Sari Perkins MD [address] [place] [address] [place] [phone] PCP - General Family Medicine 04/05/23 documented as of this encounter
--- OUTSIDE RECORDS SUMMARY | 2023-06-22 03:38 | External Medical Summary | Summary of Care ---
Author Name Unknown Organization [facility] Address [address] [place] [address] Phone [phone] Care Team Providers Care Refinery Operator Helper Crude Unit Name Role Phone Sari Perkins MD Primary Care Provide r Encounter Details Date Type Department Care Team (Late st Contact Info) Description 04/14/2023 Orders Only General Surgery, [facility] [address] [place], [place] [phone] Peg Johnson MD [address] [place] [address] Allergies Active Allergy Reactions Criticality Noted Date Comments Naproxen 06/26/2000 GI documented as of this encounter (statuses as of 04/19/2023) Medications Medication Sig Dispensed Refills Start Date [...] vitamin B12 deficiency anemia 1000 mcg IM [id number] 09/25/2022 11/18/2023 Active documented as of this encounter (statuses as of 04/19/2023) Active Problems Problem Noted Date Diagnosed Date [...] as of this encounter (statuses as of 04/19/2023) Resolved Problems Problem Noted Date Diagnosed Date Resolved Date Major depressive disorder, r ecurrent episode, moderate 12/22/2020 05/17/2022 documented as of this encounter (statuses as of 04/19/2023) Immunizations Name Administration Dates Next Due TDAP [...] 04/26/2023 12:30 PM EST Office Visit Orthopaedics [address] [phone] Toan Rivera MD [address] [place] [address] 06/19/2023 10:30 AM EDT Office Visit Gastroenterology, [facility] [address] [place] [address] Jennifer Cleaning CRNP [address] [place] [address] 08/08/2023 11:00 AM EDT Office Visit General Surgery, [facility] [address] [place] [address] Peg Johnson MD [address] [place], [place] [phone] 09/13/2023 9:30 AM EDT Hospital Encounter ENDO OSS, Endoscopy Room [facility] [address] [place] [phone] Jo-Ann Palacios MD [address] [place] [address] 09/13/2023 9:30 AM EDT - 09/13/2023 10:00 AM EDT Surgery ENDO [facility], Endoscopy Room [facility] [address] [place] [phone] Jo-Ann Palacios MD [address] [place] [address] COLONOSCOPY FLEXIBLE PROXIMAL DIAGNOSTIC 10/03/2023 5:40 PM EDT Office Visit Family Medicine [address] [place] [phone] Sari ePrkins MD [address] [place] [address] [place] [address] Scheduled Procedures Name Priority Associated Diagnoses Date/Ti [...] interpreted or resulted by a [facility] or [facility] contracted radiologist. Peg Johnson MD RAD CT documented in this encounter Care Teams Refinery Operator Helper Crude Unit Relationship Specialty Start Date End Date Sari Perkins MD [address] [place] [address] [place] [address] PCP - General Family Medicine 04/05/23 documented as of this encounter
--- OUTSIDE RECORDS SUMMARY | 2023-06-22 03:38 | External Medical Summary | Summary of Care ---
Author Name Unknown Organization [facility] [address] [facility] [address] Phone [phone] Care Team Providers Care Crusher Setter Name Role Phone Sari Perkins MD Primary Care Provide r Reason for Visit * Reason Comments Pain Encounter Details Date Type Department Care Team (Late st Contact Info) Description 04/19/2023 12:30 PM EST Telemedicine Orthopaedics [address] [phone] Toan Rivera MD [address] [place] [address] Hip pain, bilateral* Allergies Active Allergy Reactions Criticality Noted Date [...] tablet daily 15 Tablet 0 04/18/2023 Active Sulfamethoxazole-Tr imethoprim 800-160 MG Oral Tablet (Bactrim DS)Indications:Urin lilliam tract infection without hematuria, site unspecified Take 1 Tablet by mouth in the morning and 1 Tablet before bedtime. Do all this for 7 days. Until gone. 14 Tablet 0 04/18/2023 04/25/2023 Active Hospital, Clinic, or Other Facility Administered Medication Ordered Dose Route Frequency Start Date End Date Status vitamin b-12 (Cyanocobalamin) inj 1,000 mcgIndications:Other vitamin B12 deficiency anemia 1000 mcg IM [id number] 09/25/2022 11/18/2023 Active documented as of this [...] as of this encounter Progress Notes * Toan Rivera MD - 04/19/2023 12:30 PM EST Vickie Mata [id number] Vickie Mata is a 57 year old female who presents for consultation for bilateral hip injury/pain to [facility]. I saw her initially for this on 04/05/2023 Telephone visit done today rather than in office visit. Vickie Mata is here unaccompanied Quality: reviewed and agree with Nursing Notes for HPI elements History: History on 04/05/2023 - referred by Amalia Baca PA-C, for ongoing hip pain. Pt states left hip more painful than right.Pain on outer hip. Denies numbness or tingling. MRI left hip done , xr L spine done 03/23/23. No red flag symptoms such as radicular pain, lower extremityweakness, bowel or bladder symptoms including incontinence, saddle anesthesia Since that visit: Reports that unfortunately she has had setbacks regarding her pain. She is reporting pain in her back but also being treated for flare of her Crohn's as well as a UTI. ROS: ROS per HPI otherwise non-contributory Past Medical History: Diagnosis Date Crohn's disease [...] ulcerative colitis Cancer Aunt (Unspecified) ? colon Social History Socioeconomic History Marital status: Spouse name: Not on file Number of children: Not on file Years of education: Not on file Highest education level: Not on file Occupational History Not on file Tobacco Use Smoking status: Every Day Packs/day: 0.50 Years: 33.00 Additional pack years: 0.00 Total pack years: 16.50 Types: Cigarettes Smokeless tobacco: Never Tobacco comments: [...] on file Housing Stability: Not on file Radiology (I have personally reviewed the following films): 03/23/2023: Lumbar spine x-ray series Bones/joints: There are chronic appearing compression deformities of T11 and T12. There is moderate multilevel degenerative change of the lumbar spine with loss of intervertebral disc space and osteophyte formation as well as facet arthropathy. Soft tissues: Unremarkable. Other findings: Prevertebral and paravertebral soft tissues appear unremarkable. IMPRESSION: 1. There are chronic appearing compression deformities of T11 and T12. 2. Multilevel moderate degenerative change. 03/17/2023: MRI of the left hip without contrast Bones and Joints: Nondisplaced, vertically-oriented insufficiency fracture of the left sacral ala (limited to zone 1 -- lateral to the sacral foramina). There is also a small insufficiency fracture of the right sacral ala toward its inferior aspect. Mild bilateral hip and sacroiliac osteoarthritis.No bone lesion. No bone marrow signal abnormality in the visualized portion of the left proximal femur (noting the apparent cortical thickening described on the comparison radiographs). Labrum: No definite labral tear. Muscles and Tendons: Regional musculature is normal in bulk and signal intensity. Visualized tendons are intact. Neurovascular structures: Unremarkable. Other: Status post hysterectomy. IMPRESSION 1. Bilateral sacral ala insufficiency fractures, left greater than right. 2. Mild bilateral hip and sacroiliac osteoarthritis. 02/13/2023: Three-view x-ray of the left hip including AP pelvis IMPRESSION Asymmetric cortical thickening of the medial aspect of the left proximal femoral diaphysis. Cannot exclude a stress reaction or developing stress fracture. MRI may be considered for further evaluation, as clinically warranted. Assessment and Plan: 1) left greater than right hip pain Although I suspect the majority of her pain at this time is potentially related to greater trochanteric pain syndrome her imaging studies show the following findings of note: From her hip MRI: Bilateral sacral ala insufficiency fractures, left greater than right. From her lumbar spine x-rays: chronic appearing compression deformities of T11 and T12. Patient's symptoms are currently minimal. I recommend she avoid unnecessary significant weight-bearing activities to follow-up with myself in 1-2 weeks. In the interim my plan was to discuss her findings with Dr. Clemens (Orthopaedic Surgery - Spine) to see if consultation with him would be needed orif he recommend any other imaging/treatments Also consider whether patient may benefit from a DEXA scan. I was able to discuss this with him through our staff message in system. Patient will need to reachback out to her PCP's office to discuss evaluation for osteoporosis including potential DEXA scan and vitamin-D. Depending on her pain in relation to T11 or T12 nothing needs done if she was pain-free which she was at the time of initial evaluation. However that may changed. Depending on evaluation when she returns to the office would potentially need to obtain MRI of the lumbar spine Regarding her sacral insufficiency fractures protected weight-bearing for period of 8-10 weeks and rechecking x-rays was to be the plan. However given her increase in symptoms she may end up needing a CT or MRI as well Note as noted above patient is reporting increased pain in her back but it is difficult to located over the phone. She has also been treated for a significant flare in her Crohn's as well As a UTI. Recommended she be scheduled in the office for re-evaluation next week Depending on pain location may need to repeat radiographs of the lumbar spine and or three-view of the pelvis including AP pelvis, inlet and outlet views. May also end up needing to obtain MRIs afterthat evaluation After connecting to the patient via telephone, the patient was identified by name and date of . Patient was then informed that this was a telephone call only visit. The patient agreed to participate. Visit Disposition: Routine follow-up Total call duration was 11 minutes. Toan Rivera MD Primary Care Sports Medicine Orthopaedics [address] [phone] documented in this encounter Plan of Treatment Upcoming Encounters Date Type Department Care Team (Latest Contact Info) Description 04/19/2023 3:00 PM EST Imaging Radiology [address] [place] [address] Crohn's disease of large intestine with fistula (HCC) 04/26/2023 12:30 PM EST Office Visit Orthopaedics [address] [phone] Toan Rivera MD [address] [place] [address] 06/19/2023 10:30 AM EDT Office Visit Gastroenterology, [facility] [address] [place] [address] Jennifer Cleaning CRNP [address] [place] [address] 08/08/2023 11:00 AM EDT Office Visit General Surgery, [facility] [address] [place] [address] Peg Johnson MD [address] [place], [place] [id number] 09/13/2023 9:30 AM EDT Hospital Encounter [facility]O [facility], Endoscopy Room [facility] [address] [place] [phone] Jo-Ann Palacios MD [address] [place] [address] 09/13/2023 9:30 AM EDT - 09/13/2023 10:00 AM EDT Surgery ENDO [facility], Endoscopy Room [facility] [address] [place] [phone] Jo-Ann Palaicos MD [address] [place] [address] COLONOSCOPY FLEXIBLE PROXIMAL DIAGNOSTIC 10/03/2023 5:40 PM EDT Office Visit Family [address] [place] [phone] Sari Perkins MD [address] [place] [address] [place] [address] Scheduled Procedures Name Priority Associated Diagnoses Date/Ti [...] encounter Visit Diagnoses Diagnosis Crohn's disease of large intestine with fistula (HCC) Regional enteritis of large intestine Hip pain, bilateral- Primary Pain in joint, pelvic region and thigh Crohn's disease without complication, unspecified gastrointestinal tract location (HCC) documented in this encounter Care Teams Crusher Setter Relationship Specialty Start Date End Date Sari Perkins MD [address] [place] [address] [place] [address] PCP - General Family Medicine 04/05/23 documented as of this encounter
--- OUTSIDE RECORDS SUMMARY | 2023-06-22 03:38 | External Medical Summary ---
Author Name Unknown Address Unknown Organization K01:[facility] - [address] [place] [address] Laboratory Report Ordering Provider Test Date Status COOPERSEAN 05/08/2023 15:20:03 Final Observation Date Value Abnormality Reference (Units ) Status Hep B surface Ag 05/08/2023 15:20:03 Negative Neg ative Final Performing Location [facility] - [address] [place] [address]
--- OUTSIDE RECORDS SUMMARY | 2023-06-22 03:38 | External Medical Summary | Summary of Care ---
Author Name Unknown Organization [facility] Address [address] [place] [address] Phone [phone] Care Team Providers Care Survey Research Associate Name Role Phone Michael Oleary MD Primary Care Provider Reason for Referral * Precert (Within 10 days (routine)) - Authorized Specialty Diagnoses / Procedures Referred By Tyesha akbar Referred To Contact Radiology Diagnoses Crohn's disease of large intestine with fistula (HCC) Procedures MRI PELVIS W WO CONTRAST Peg Johnson MD [address] [place] [address] Referral ID Status Reason Start Date Expiration Date V isits Requested Visits Authorized [id number] Authorized Precert 04/04/2023 06/03/[id number] Reason for Visit * Reason Comments NEW PATIENT Perianal fistula * Evaluate & Treat - Unlimited Visits (Within 30 days (routine)) - Pending Review Specialty Diagnoses / Procedures Referred By Tyesha akbar Referred To Contact Colon and Rectal Surgery / General Surgery Diagnoses Perianal fistula Jennifer Cleaning CRNP [address] [place] [address] Referral ID Status Reason Start Date Expiration Date Visits Requested Visits Authorized [id number] Pending Review Specialty Services Required 3 [phone] Encounter Details Date Type Department Care Team (Late st Contact Info) Description 03/21/2023 12:30 PM EST Office Visit General Surgery, [facility] [address] [place] [address] Peg Johnson MD [address] [facility] [place] [address] Crohn's disease of large intestine with fistula (HCC)*; Perianal fistula [K60.3] Allergies Active Allergy Reactions Criticality Noted Date Comments Naproxen 06/26/2000 GI documented as of this encounter (statuses as of 04/17/2023) Medications Medication Sig Dispensed Refills Start Date End Date Status sulfaSALAzine 500 MG Oral Tablet (Azulfidine)Vivienne cations: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) TAKE TWO TABLETS BY MOUTH THREE TIMES DAILY 540 Tablet 2 05/17/2022 Active Vitamin D 50 MCG (1999 UT) Oral Tablet Take 2,000 Units by mouth in the morning. 0 Active DULoxetine HCl 30 MG Oral Capsule Delayed Release Particles (Cymbalta)Indica tions:Moderate episode of recurrent major depressive disorder (HCC) Take 1 Capsule by mouth in the morning. Do not cut, crush or chew. 30 Capsule 5 12/29/2022 Active Pantoprazole Sodium 40 MG Oral Tablet Delayed Release (Protonix)Indica tions:Dysphagia, unspecified type Take 1 Tablet by mouth in the morning. 30 minutes before the first meal of the day. Do not crush, split or chew the tablet. 30 Tablet 5 01/09/2023 Active Dextromethorphan -guaiFENesin 10-100 MG/5ML Oral Liquid (Robitussin DM)Indications:V iral URI Take 5 mL by mouth every 4 hours as needed for Cough. 120 mL 5 03/13/2023 Active Additional Information Patient not taking.Reported on 03/23/2023 predniSONE 20 MG Oral Tablet (Deltasone)Indic ations:Viral URI,Chronic bilateral low back pain without sciatica two pills daily with food for 5 days, then one daily with food 15 Tablet 0 03/13/2023 4 Discontinued Baclofen 20 MG Oral TabletIndication s:Chronic bilateral low back pain without sciatica Take 1 Tablet by mouth in the morning and 1 Tablet at noon and 1 Tablet before bedtime. Do all this for 10 days. 30 Tablet 0 03/13/2023 Hospital, Clinic, or Other Facility Administered Medication Ordered Dose Route Frequency Start Date End Date Status vitamin b-12 (Cyanocobalamin) inj 1,000 mcgIndications:Other vitamin B12 deficiency anemia 1000 mcg IM [id number] 09/25/2022 11/18/2023 Active documented as of this encounter (statuses as of 04/17/2023) Active Problems Problem Noted Date Diagnosed Date [...] as of this encounter (statuses as of 04/17/2023) Resolved Problems Problem Noted Date Diagnosed Date Resolved Date Major depressive disorder, r ecurrent episode, moderate 12/22/2020 05/17/2022 documented as of this encounter (statuses as of 04/17/2023) Immunizations Name Administration Dates Next Due TDAP (age 11 and older)(Adacel) 01/30/2009 documented as of this encounter Social History Tobacco Use Types Packs/Day Years Used Date Smoking Tobacco: Every Day Cigarettes 0.5 33 Smokeless Tobacco: Never Tobacco Cessation:Ready to Q uit: Not Asked; Counseling Given: Not Answered Comments:age 14 Alcohol Use Standard Drinks/Week Comments [...] Sign Reading Time Taken Comments Blood Pressure 124/71 03/21/2023 11:43 AM EST Pulse 104 03/21/2023 11:43 AM EST Temperature 36.4 C (97.5 F) 03/21/2023 11:[address] Respiratory Rate - - Oxygen Saturation - - Inhaled Oxygen Concentration - - Weight 49.9 kg (110 lb 1.6 oz) 03/21/2023 11:43 AM EST Height - - Body Mass Index 19.82 01/10/2023 11:02 AM EDT documented in this encounter Progress Notes * Peg Johnson MD - 03/21/2023 11:49 AM EST COLORECTAL SURGERY [facility] Vickie Mata [id number] 03/21/2023 HPI: Vickie Mata is a 57 year old female referred by KINGA Pompa who presentsin clinic for anal fistula. The patient was diagnosed with Crohn's disease as a teenager after developing rectal bleeding. She has been on sulfasalazine to treat this and has been on high dose steroids although she is currently down to 5mg daily. She was evaluated by gastroenterology in 12/2022 andwas complaining of a perirectal fistula. She has reportedly has had a fistula for 13 years. Her last colonoscopy was over 10 years ago and she is scheduled for a repeat colonoscopy 05/11/23. She underwent MR enterography in 01/2023 which showed no active small bowel disease but did show evidence rectal thickening and concern for a left sided fistula. Past Medical History: Diagnosis Date 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) 04/07/2016 Edentulous Encounter for hepatitis C screening test for low risk patient 10/17/2016 negative Family history of ischemic heart disease Generalized osteoarthritis of multiple sites Major depressive disorder, recurrent episode, moderate (HCC) 12/22/2020 Other vitamin B12 deficiency anemia Regional enteritis (HCC) 14 years old crohns Tobacco use disorder Past Surgical History: Procedure Laterality Date MRI HIP LEFT W CONTRAST 03/17/2023 Bilateral sacral ala insufficiency fractures, left greater than right. 2. Mild bilateral hip and sacroiliac osteoarthritis. TOTAL HYSTERECTOMY 03/19/1992 fibroid,pt unsure if she has ovaries Current Outpatient Medications Medication Sig Dispense Refill sulfaSALAzine 500 MG Oral Tablet (Azulfidine) TAKE TWO TABLETS BY MOUTH THREE TIMES DAILY 540 Tablet 2 Vitamin D 50 MCG (1999 UT) Oral [...] 5 predniSONE 20 MG Oral Tablet (Deltasone) two pills daily with food for 5 days, then one daily with food 15 Tablet 0 Baclofen 20 MG Oral Tablet Take 1 Tablet by mouth in the morning and 1 Tablet at noon and 1 Tablet before bedtime. Do all this for 10 days. 30 Tablet 0 Dextromethorphan-guaiFENesin 10-100 MG/5ML Oral Liquid (Robitussin DM) Take 5 mL by mouth every 4 hours as needed for Cough. 120 mL 5 Current Facility-Administered Medications Medication Dose Route Frequency Provider Last Rate Last Admin vitamin b-12 (Cyanocobalamin) inj 1,000 mcg 1,000 mcg Intramuscular Q12 Weeks Michael Oleary MD1,000 mcg at 12/27/22 0941 Review of patient's allergies indicates: Allergen Reactions Naproxen GI Family History Problem Relation Age of Onset [...] on file Housing Stability: Not on file Review of Systems: A comprehensive review of systems is negative unless otherwise noted in the HPI. Physical Examination: BP 124/71 | Pulse 104 | Temp 36.4 C (97.5 F) | Wt 49.9 kg (110 lb 1.6 oz) | BMI 19.82 kg/m | BSA 1.48 m General:alert and oriented x 3 HEENT: PERRLA Heart: rrr Lungs: bilaterally clear to auscultation Abdomen:Soft, non distended, non tender Extremities: no CCE Anal: External appearance - Scaring from perianal crohn's disease with left sided fistula opening Internal - CAYLA no gross blood or mass, mild stenosis for perianal crohn's disease Anoscopy - Mucosal inflammation Skin: no skin changes Musculoskeletal: FROM Labs: N/A Radiology: MRI 02/09/23: IMPRESSION 1. No active small bowel inflammation identified. [...] of the bony pelvis may be considered. Assessment: 57 year old female with severe perianal crohn's disease with fistula and mild anal stenosis. Plan: -Recommend colonoscopy as scheduled -I had a lengthy discussion with the patient regarding her perianal disease and recommend further evaluation with colonoscopy as well as medical management of her crohn's disease. I would also recommend getting a repeat MRI to full assess the extent of her perianal crohn's disease (ordered). The patient has been reluctant to undergo colonoscopy secondary to a poor experience in the past but she will proceed. RTC following colonoscopy, GI evaluation and repeat MRI. Peg Johnson MD General Surgery, [address] [address] documented in this encounter Nursing Notes * Genevieve Nance LPN - 03/21/2023 11:46 AM EST Chief Complaint Patient presents with NEW PATIENT Perianal fistula This has been going on for 13 years. Patient has crohns disease. Patient had an MRI and they found a fistula. documented in this encounter Plan of Treatment Upcoming Encounters Date Type Department Care Team (Latest Contact Info) Description 04/18/2023 11:00 AM EST Office [address] [phone] Amalia Baca PA-C [address] [place] [address] [place] [address] 04/19/2023 12:30 PM EST Telemedicine Orthopaedics [address] [place] [phone] Toan Rivera MD [address] [place] [address] 04/19/2023 3:00 PM EST [facility] [address] [facility] [place] [address] 06/19/2023 10:30 AM EDT Office Visit Gastroenterology, [facility] [address] [facility] [place] [address] Jennifer Cleaning CRNP [address] [place] [address] 08/08/2023 11:00 AM EDT Office Visit General Surgery, [facility] [address] [facility] [place] [address] Peg Johnson MD [address] [facility] [place] [id number] 09/13/2023 9:30 AM EDT Hospital Encounter ENDO [facility], Endoscopy Room [facility] [address] [place] [phone] Jo-Ann Palacios MD [address] [place] [address] 09/13/2023 9:30 AM EDT - 09/13/2023 10:00 AM EDT Surgery ENDO [facility], Endoscopy Room [facility] [address] [place] [phone] Jo-Ann Palacios MD [address] [place] [address] COLONOSCOPY FLEXIBLE PROXIMAL DIAGNOSTIC 10/03/2023 5:40 PM EDT Office Visit Family Medicine [address] [place] [phone] Sari Perkins MD [address] [place] [address] [place] [address] Scheduled Orders Name Type Priority Associated Diagnoses Orde r Schedule MRI PELVIS W WO CONTRAST Medical Imaging Routine Crohn's disease of large intestine with fistula (HCC) Expected: 03/28/2023, Expires: 04/21/2024 Scheduled Procedures Name Priority Associated Diagnoses Date/Ti [...] Crohn's disease of large intestine with fistula (HCC)- Primary Regional enteritis of large intestine Perianal fistula [K60.3] Anal fistula Crohn's disease without complication, unspecified gastrointestinal tract location (HCC) documented in this encounter Care Teams Survey Research Associate Relationship Specialty Start Date End Date Michael Oleary MD [address] [place] [address] [place] [id number] PCP - General Family Medicine 10/30/13 04/04/23 documented as of this encounter"
--- OUTSIDE RECORDS SUMMARY | 2023-06-22 03:38 | External Medical Summary | Summary of Care ---
Author Name Unknown Organization [facility] Address [address] [place] [address] Phone [phone] Care Team Providers Care Order Processing Manager Name Role Phone Sari Perkins MD Primary Care Provide r Reason for Referral * Evaluate & Treat - Unlimited Visits (Within 10 days (routine)) - Pending Review Specialty Diagnoses / Procedures Referred By Tyesha akbar Referred To Contact Physical Therapy / Physical Medicine And Rehab Diagnoses Chronic thoracic spine pain Sacral insufficiency fracture, initial encounter Closed fracture of eleventh thoracic vertebra, unspecified fracture morphology, initial encounter ([facility]) Closed fracture of twelfth thoracic vertebra, unspecified fracture morphology, initial encounter ([facility]) Physical deconditioning Toan Rivera MD [address] [place] [address] Referral ID Status Reason Start Date Expiration Date Visits Requested Visits Authorized [id number] Pending Review Specialty Services Required 04/26/[phone] Question Answer Referral Priority Within 10 days (routine) Where should this appointment be scheduled? 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 lifting at home Xray showed kyphosis, spondylosis and remote T11 and T12 compression fractures Reason for Visit * Reason Comments Follow Up back Encounter Details Date Type Department Care Team (Latest Contact Info) Description 04/26/2023 12:30 PM EST Office Visit Orthopaedics [address] [place] [address] Toan Rivera MD [address] [place] [address] Chronic thoracic spine pain*; Sacral insufficiency fracture, initial encounter; Closed fracture of eleventh thoracic vertebra, unspecified fracture morphology, initial encounter (HCC); Closed fracture of twelfth thoracic vertebra, unspecified fracture morphology, initial encounter (HCC); Physical deconditioning Allergies Active Allergy Reactions Criticality Noted Date Comments Naproxen 06/26/2000 GI documented as of this encounter (statuses as of 04/27/2023) Medications Medication Sig Dispensed Refills Start Date [...] vitamin B12 deficiency anemia 1000 mcg IM [id number] 09/25/2022 11/18/2023 Active documented as of this encounter (statuses as of 04/27/2023) Active Problems Problem Noted Date Diagnosed Date [...] as of this encounter (statuses as of 04/27/2023) Resolved Problems Problem Noted Date Diagnosed Date Resolved Date Major depressive disorder, r ecurrent episode, moderate 12/22/2020 05/17/2022 documented as of this encounter (statuses as of 04/27/2023) Immunizations Name Administration Dates Next Due TDAP [...] Progress Notes * Toan Rivera MD - 04/26/2023 12:30 PM EST Vickie Mata [id number] Vickie J Deyaniradanieeitan is a 57 year old female who presents for consultation for bilateral hip injury/pain to [facility]. I saw her initially for this on 04/05/2023 Most recent visit 04/19/2023 was a telephone encounter Vickie Mata is here unaccompanied Quality: reviewed [...] or bladder symptoms including incontinence, saddle anesthesia Additional history on 04/19/2023: Reports that unfortunately she has had setbacks regarding her pain. She is reporting pain in her back but also being treated for flare of her Crohn's as well as a UTI. Since that visit: On presentation today the primary site of her pain is the midthoracic spine, which she notes it intermittent history of but has been more significant past 1- 2 months. Previous imaging has noted chronic appearing fractures of T11 and T12. There has been no increase in pain in that location. Has intermittent mild pain in that region. Has mild pain in the region of her SI joints but that has not progressed since her previous visit. ROS: ROS per HPI otherwise non-contributory Past [...] on file Housing Stability: Not on file Physical Exam Constitutional: generally well-nourished and in no acute distress Psychiatric: Mood and Affect normal Eyes: EOMI Respiratory: normal respiratory effort with regular rate and rhythm Patient is tender to palpate in the axial mid thoracic spine, no significant tenderness at the siteof her known T11 and T12 fractures. There is mild tenderness Radiology (I have personally reviewed the following films): 04/26/2023: Two-view x-ray of the thoracic spine (AP and lateral) Kyphosis, chronic appearing compression fractures at T11-T12, spondylolysis throughout - per my interpretation. Awaiting formal radiology interpretation. 03/23/2023: Lumbar spine x-ray series Bones/joints: There [...] 1) left greater than right hip pain At her initial visit I suspected the majority of her pain was related to greater trochanteric pain syndrome. However her imaging studies show the following findings of note: From her hip MRI: Bilateral sacral ala insufficiency fractures, left greater than right. From her lumbar spine x-rays: chronic appearing compression deformities of T11 and T12. Patient's symptoms in her lower thoracic as well as sacral region remain minimal. Following her initial visit I discussed her fractures with Dr. Clemens (Orthopaedic Surgery - Spine. Patient will need to reach back out to her PCP's office to discuss [...] needing a CT or MRI as well Upon telephone follow-up to discuss those recommendations the patient was reporting increased symptoms. However as noted above she is also to found to have issues with colitis as well as UTI and is receiving treatment for that. Regarding musculoskeletal pain on presentation today was greatest in the midthoracic region. Radiographs did not show any fractures they are in her fractures at T11-T12 remain stable Offered Pain Management consultation for her thoracic spine pain also offered physical therapy she notes sometimes the pain is aggravated by lifting she has to do. Physical therapy referral placed although she is uncertain if she is going to attend. Regarding her fractures as noted above I have sent a staff message to her PCP ( Dr. Gregorio PAULSON)was referring provider Amalia Baca PA-C that I recommend she return for evaluation for vitamin-D deficiency as well as potential osteoporosis/osteopenia. Patient was scheduled for that visit for 05/15/2023 She will also f/uwith me in 8-10 weeks, primarily to f/u on sacral ala fractures will need 3 view xray of the pelvis (ap, inlet, outlet) will also be f/u on thoracic spine pain Toan Rivera MD Primary Care Sports Medicine Orthopaedics [address] [phone] documented in this encounter Nursing Notes * Anabel Spring RN - 04/26/2023 12:48 PM EST Pt presents today for f/u back pain. Pain today 06/26.pain middle to lower back.Denies numbness or tingling. No recent injury. Pt states Old injury fell off horse and was drug a distance in .Two yrs ago a water tank fell on pt as she helped carry it out of house. Anabel Spring RN documented in this encounter Plan of Treatment Upcoming Encounters Date Type Department Care Team (Latest Contact Info) Description 05/15/2023 9:00 AM EST Office Visit Family Medicine [address] [phone] Amalia Baca PA-C [address] [place] [address] [place] [address] 06/19/2023 10:30 AM EDT Office Visit Gastroenterology, [facility] [address] [place] [address] Jennifer Cleaning CRNP [address] [place] [address] 06/21/2023 10:30 AM EDT Office Visit Orthopaedics [address] [phone] Toan Rivera MD [address] [place] [address] 08/08/2023 11:00 AM EDT Office Visit General Surgery, [facility] [address] [place] [address] Peg Johnson MD [address] [place] [address] 09/13/2023 9:30 AM EDT Hospital Encounter ENDO [facility], Endoscopy Room [facility] [address] [place] [phone] Jo-Ann Palacios MD [address] [place] [address] 09/13/2023 9:30 AM EDT - 09/13/2023 10:00 AM EDT Surgery ENDO [facility], Endoscopy Room [facility] [address] [place] [phone] Jo-Ann Palacios MD [address] [place] [address] COLONOSCOPY FLEXIBLE PROXIMAL DIAGNOSTIC 10/03/2023 5:40 PM EDT Office Visit Family [address] [place] [phone] Sari Perkins MD [address] [place] [address] [place] [address] Pending Results Name Type Priority Associated Diagnoses Date /Time XR T SPINE AP AND LATERAL Medical Imaging Routine Chronic thoracic spine pain 04/26/2023 1:40 PM EST Scheduled Orders Name Type Priority Associated Diagnoses Orde r Schedule 25-HYDROXY VITAMIN D Lab Routine Chronic thoracic spine pain Sacral insufficiency fracture, initial encounter Expected: 04/26/2023, Expires: 04/26/2024 Scheduled Procedures Name Priority Associated Diagnoses Date/Ti me COLONOSCOPY FLEXIBLE PROXIMAL DIAGNOSTIC Crohn's disease without complication, unspecified gastrointestinal tract location (HCC) 09/13/2023 9:30 AM EDT Scheduled Referrals Name Type Priority Associated Diagnoses Orde r Schedule PHYSICAL THERAPY REFERRAL OP Referral Within 10 days (routine) Chronic thoracic spine pain Sacral insufficiency fracture, initial encounter Closed fracture of eleventh thoracic vertebra, unspecified fracture morphology, initial encounter (HCC) Closed fracture of twelfth thoracic vertebra, unspecified fracture morphology, initial encounter (HCC) Physical deconditioning Ordered: 04/26/2023 Health Maintenance Due Date Last Done Comments [...] as of this encounter Visit Diagnoses Diagnosis Chronic thoracic spine pain- Primary Pain in thoracic spine Sacral insufficiency fracture, initial encounter Closed fracture of eleventh thoracic vertebra, unspecified fracture morphology, initial encounter (HCC) Closed fracture of twelfth thoracic vertebra, unspecified fracture morphology, initial encounter (HCC) Physical deconditioning Debility, unspecified Crohn's disease without complication, unspecified gastrointestinal tract location (HCC) documented in this encounter Care Teams Order Processing Manager Relationship Specialty Start Date End Date Sari Perkins MD [address] [place] [address] [place] [phone] PCP - General Family Medicine 04/05/23 documented as of this encounter
--- OUTSIDE RECORDS SUMMARY | 2023-06-22 03:38 | External Medical Summary | Summary of Care ---
Author Name Unknown Organization [facility] Address [address] [facility] [place] [address] Phone [phone] Care Team Providers Care Chamber Magistrate Name Role Phone Sari Perkins MD Primary Care Provide r Reason for Visit * Reason Comments NEW PATIENT Bilateral hip * Evaluate & Treat - Unlimited Visits (Within 10 days (routine)) - Pending Review Specialty Diagnoses / Procedures Referred By Tyesha akbar Referred To Contact Orthopaedic Surgery / Orthopedics Diagnoses Trochanteric bursitis of left hip Amalia Baca PA-C [address] [place] [address] [place] [id number] Referral ID Status Reason Start Date Expiration Date Visits Requested Visits Authorized [id number] Pending Review Specialty Services Required 03/23/[phone] Encounter Details Date Type Department Care Team (Late st Contact Info) Description 04/05/2023 11:00 AM EST Office Visit Orthopaedics [address] [place] [address] Toan Rivera MD [address] [place] [address] Hip pain, bilateral* Allergies Active Allergy Reactions Criticality Noted Date Comments Naproxen 06/26/2000 GI documented as of this encounter (statuses as of 04/06/2023) Medications Medication Sig Dispensed Refills Start Date [...] vitamin B12 deficiency anemia 1000 mcg IM [id number] 09/25/2022 11/18/2023 Active documented as of this encounter (statuses as of 04/06/2023) Active Problems Problem Noted Date Diagnosed Date [...] as of this encounter (statuses as of 04/06/2023) Resolved Problems Problem Noted Date Diagnosed Date Resolved Date Major depressive disorder, r ecurrent episode, moderate 12/22/2020 05/17/2022 documented as of this encounter (statuses as of 04/06/2023) Immunizations Name Administration Dates Next Due TDAP [...] of this encounter Progress Notes * Toan iRvera MD - 04/05/2023 11:00 AM EST Vickie Safia Esperanza [id number] Vickie Puckettcollinwes is a 57 year old female who presents for consultation for bilateral hip injury/pain to [facility] Orthopaedics and Sports Medicine. Consult requestedby Amalia Baca PA-C. Vickie Mata is here unaccompanied Quality: reviewed and agree with Nursing Notes for HPI elements History: History - referred by Amalia Baca PA-C, for ongoing hip pain. Pt states left hip more painful than right.Pain on outer hip. Denies numbness or tingling. MRI left hip done , xr L spine done 03/23/23. No red flag symptoms such as radicular pain, lower extremityweakness, bowel or bladder symptoms including incontinence, saddle anesthesia ROS: ROS per HPI otherwise non-contributory Past [...] Stability: Not on file Physical Exam Constitutional: Generally well-nourished and in no acute distress Psychiatric: Mood and Affect normal Eyes: EOMI Respiratory: Normal respiratory effort with regular rate and rhythm Cardiovascular: No edema in the affected extremity (s) Hip and Pelvis Exam Gait: Limp: Positive Antalgic: Positive Scars / Previous Surgery or Trauma: None Alignment: Normal Palpation: Mild Tender palpate bilateral greater trochanters Hernia: No ROM: Flexion (normal 120-130): L - 120, R - 120 Extension (normal 10 to 20): L - 20, R - 20 Internal at 90 (normal 45): L - 45, R - 45 External at 90 (normal 50): L - 50, R - 50 No significant pain with range of motion of the hips Strength: 5/5 with hip flexion and abduction Lumbar Spine Tests: Mild tenderness in the sacral region/SI joints Radiology (I have personally reviewed the following [...] inferior aspect. Mild bilateral hip and sacroiliac osteoarthritis. No bone lesion. No bone marrow signal abnormality [...] patient may benefit from a DEXA scan. Toan Rivera MD Primary Care Sports Medicine Orthopaedics [address] [phone] documented in this encounter Nursing Notes * Anabel Spring RN - 04/05/2023 11:39 AM EST Pt referred by Amalia Baca PA-C, for ongoing hip pain. Pt states left hip more painful than right. Pain on outer hip. Denies numbness or tingling. MRI left hip done , xr L spine done 03/23/23. Anabel Spring RN documented in this encounter Plan of Treatment Upcoming Encounters Date Type Department Care Team (Latest Contact Info) Description 04/19/2023 12:30 PM EST Telemedicine Orthopaedics [address] [phone] Toan Rivera MD [address] [place] [address] 04/19/2023 3:00 PM EST Imaging Radiology [address] [place] [address] 05/11/2023 10:45 AM EST Hospital Encounter ENDO OSSC, Endoscopy Room [facility] [address] [place] [phone] Elly Rosas DO [address] [place] [address] 05/11/2023 10:45 AM EST - 05/11/2023 11:15 AM EST Surgery ENDO OSSC, Endoscopy Room [facility] [address] [place] [phone] Elly Rosas DO [address] [place] [address] COLONOSCOPY FLEXIBLE PROXIMAL DIAGNOSTIC 06/19/2023 10:30 AM EDT Office Visit Gastroenterology, [facility] [address] [place] [address] Jennifer Cleaning CRNP [address] [place] [address] 08/08/2023 11:00 AM EDT Office Visit General Surgery, [facility] [address] [place] [address] Peg Johnson MD [address] [place] [address] 10/03/2023 5:40 PM EDT Office Visit Family Medicine [address] [place] [phone] Sari Perkins MD [address] [place] [address] [place] [address] Scheduled Procedures Name Priority Associated Diagnoses Date/Ti me COLONOSCOPY FLEXIBLE PROXIMAL DIAGNOSTIC Crohn's disease without complication, unspecified gastrointestinal tract location (HCC) 05/11/2023 10:45 AM EST Scheduled Referrals Name Type Priority Associated Diagnoses Order Schedule ORTHOPAEDICS REFERRAL OP Referral Within 10 days (routine) Trochanteric bursitis of left hip Ordered: 03/23/2023 Health Maintenance Due Date Last Done Comments [...] shot) (#1) 2022 Lipid Panel 05/03/2026 05/03/2021, 03/2016, 10/30/2013, Additional history exists GARDASIL-HPV IMMUNIZATION SERIES Aged Out No longer eligible based on patient's age to complete this topic MENINGOCOCCAL (MENACTRA/MENVEO) Aged Out No longer eligible based on patient's age to complete this topic documented as of this encounter Medical Devices Not on filedocumented as of this encounter Visit Diagnoses Diagnosis Hip pain, bilateral- Primary Pain in joint, pelvic region and thigh Crohn's disease without complication, unspecified gastrointestinal tract location (HCC) documented in this encounter Care Teams Chamber Magistrate Relationship Specialty Start Date End Date Sari Perkins MD [address] [place] [address] [place] [address] PCP - General Family Medicine 04/05/23 documented as of this encounter
--- OUTSIDE RECORDS SUMMARY | 2023-06-22 03:38 | External Medical Summary ---
Author Name Unknown Address Unknown Organization K01:[facility] [address] [place] [address] Laboratory Report Ordering Provider Test Date Status SEAN GAMBOA 05/08/2023 15:20:03 Final Observation Date Value Abnormality Reference (Units) Status Hepatitis B virus surface Ab [Units/volume] in Serum or Plasma by Immunoassay 05/08/2023 15:20:03 <3.5 (mIU/mL) Final Hepatitis B virus surface Ab [Presence] in Serum by Immunoassay 05/08/2023 15:20:03 Negative Final HEPATITIS B SURFACE ANTIBODY, INTERPRETATION 05/08/2023 15:20:03 NOT immune to Hepatitis B Virus Final POSITIVE: >=11.5 mIU/mL
INDETERMINATE: 8.5-<11.5 mIU/mL
NEGATIVE: <8.5 mIU/mL Performing Location [facility] [address] [place] [address]
--- OUTSIDE RECORDS SUMMARY | 2023-06-22 03:38 | External Medical Summary | Summary of Care ---
Author Name Unknown Organization [facility] [address] [facility] [address] Phone [phone] Care Team Providers Care Product Architect Name Role Phone Sari Perkins MD Primary Care Provide r Encounter Details Date Type Department Care Team (Late st Contact Info) Description 04/17/2023 Orders Only Family Medicine [address] [place] [phone] Sari Perkins MD [address] [place] [address] [place] [address] Allergies Active Allergy Reactions Criticality [...] vitamin B12 deficiency anemia 1000 mcg IM [id number] 09/25/2022 11/18/2023 Active documented as of this [...] Description 04/19/2023 12:30 PM EST Telemedicine Orthopaedics [address] [phone] Toan Rivera MD [address] [place] [address] 04/19/2023 3:00 PM EST [facility] [address] [place] [address] 06/19/2023 10:30 AM EDT Office Visit Gastroenterology, [facility] [address] [place] [address] Jennifer Cleaning CRNP [address] [place] [address] 08/08/2023 11:00 AM EDT Office Visit General Surgery, [facility] [address] [place] [address] Peg Johnson MD [address] [place] [address] 09/13/2023 9:30 AM EDT Hospital Encounter ENDO OSSC, Endoscopy Room [facility] [address] [place] [phone] Jo-Ann Palacios MD [address] [place] [address] 09/13/2023 9:30 AM EDT - 09/13/2023 10:00 AM EDT Surgery ENDO OSSC, Endoscopy Room [facility] [address] [place] [phone] Jo-Ann Palacios MD [address] [place] [address] COLONOSCOPY FLEXIBLE PROXIMAL DIAGNOSTIC 10/03/2023 5:40 PM EDT Office Visit Family Medicine [address] [place] [phone] Sari Perkins MD [address] [place] [address] [place] [address] Scheduled Procedures Name Priority Associated Diagnoses Date/Ti [...] Procedure Name Priority Date/Time Associated Diagnosis Comments CHEMISTRY-OUTSIDE Routine 04/14/2023 documented in this encounter Results * (ABNORMAL) CHEMISTRY-OUTSIDE (04/14/2023) Not all results display below - see scan for full detail OUTSIDE LAB (SEE SCANNED REPORT) Comment:SCAN INCLUDES - CBCD , LACTIC ACID, TROPONIN I, UA, URINE CULTURE, PT INR, PTT, CMP, LIPASE, MAGNESIUM, PHOSPHORUS CREATININE-OUTSI DE LAB 0.70 0.55 - 1.02 MG/DL OUTSIDE LAB (SEE SCANNED REPORT) EGFR-OUTSIDE LAB >90 >=60 ML/MIN O UTSIDE LAB (SEE SCANNED REPORT) POTASSIUM-OUTSID E LAB 3.6 3.5 - 5.1 MMOL/L OUTSIDE LAB (SEE SCANNED REPORT) GLUCOSE-OUTSIDE LAB 113(A) 70 - 110 MG/DL OUTSIDE LAB (SEE SCANNED REPORT) HOURS FASTING OUTSID E LAB (SEE SCANNED REPORT) TRIGLYCERIDES-OU TSIDE LAB OUTSIDE LAB (SEE SCANNED REPORT) CHOLESTEROL-OUTS SHANEL LAB OUTSIDE LAB (SEE SCANNED REPORT) HDL-OUTSIDE LAB OUTS SHANEL LAB (SEE SCANNED REPORT) CHOL/HDL RATIO-OUTSIDE LAB OUTSIDE LAB (SEE SCANNED REPORT) LDL (CALCULATED)-OUT SIDE LAB OUTSIDE LAB (SEE SCANNED REPORT) LDL (DIRECT MEASURE)-OUTSIDE LAB OUTSIDE LAB (SEE SCANNED REPORT) HEMOGLOBIN, [id number] LAB OUTSIDE LAB (SEE SCANNED REPORT) PHOSPHORUS-OUTSI DE LAB 3.3 2.5 - 4.9 MG/DL OUTSIDE LAB (SEE SCANNED REPORT) PTH-OUTSIDE LAB OUTS SHANEL LAB (SEE SCANNED REPORT) MICROALBUMIN RATIO-OUTSIDE LAB OUTSIDE LAB (SEE SCANNED REPORT) PROTEIN, UA-OUTSIDE LAB NEGATIVE NEGATIVE OUTSIDE LAB (SEE SCANNED REPORT) HEMOGLOBIN-OUTSI DE LAB 14.8 12.0 - 16.0 GM/DL OUTSIDE LAB (SEE SCANNED REPORT) 04/14/2023 History Per Patient LABORATORY OUTSIDE LAB (SEE SCANNED REPORT) documented in this encounter Care Teams Product Architect Relationship Specialty Start Date End Date Sari Perkins MD [address] [place] [address] [place] [phone] PCP - General Family Medicine 04/05/23 documented as of this encounter
--- OUTSIDE RECORDS SUMMARY | 2023-06-22 03:38 | External Medical Summary | Summary of Care ---
Author Name Unknown Organization [facility] Address [address] [facility] [place] [address] Phone [phone] Care Team Providers Care Behavioral Health Worker Name Role Phone Sari Perkins MD Primary Care Provide r Reason for Visit * Reason Onset Date Comments Precert Pending 01/30/2023 Peer to peer nee ded Encounter Details Date Type Department Care Team (Late st Contact Info) Description 01/30/2023 Telephone Gastroenterology, [facility] [address] [place] [address] Dakota Balderas MD [address] [place] [address] Precert Pending (Peer to peer needed) Allergies Active Allergy Reactions Criticality Noted Date Comments Naproxen 06/26/2000 GI documented as of this encounter (statuses as of 05/01/2023) Medications Medication Sig Dispensed Refills Start Date [...] tablet. 30 Tablet 5 01/09/2023 Active predniSONE 5 MG Oral Tablet (Deltasone)Indica tions:Crohn's disease of small intestine with other complication (HCC) TAKE ONE TABLET BY MOUTH EVERY DAY and may take a second tablet if needed 40 Tablet 5 11/22/2022 03/01/20 23 Discontinued Hospital, Clinic, or Other Facility Administered Medication Ordered Dose Route Frequency Start Date End Date Status vitamin b-12 (Cyanocobalamin) inj 1,000 mcgIndications:Other vitamin B12 deficiency anemia 1000 mcg IM [id number] 09/25/2022 11/18/2023 Active documented as of this encounter (statuses as of 05/01/2023) Active Problems Problem Noted Date Diagnosed Date [...] as of this encounter (statuses as of 05/01/2023) Resolved Problems Problem Noted Date Diagnosed Date Resolved Date Major depressive disorder, r ecurrent episode, moderate 12/22/2020 05/17/2022 documented as of this encounter (statuses as of 05/01/2023) Immunizations Name Administration Dates Next Due TDAP [...] Telephone Encounter - Bárbara Turk LPN - 02/02/2023 3:47 PM EST Pt scheduled on 02/09/2023 at 9:15 and and 10 am at [facility]. * Telephone Encounter - Jennifer Cleaning CRNP - 01/30/2023 12:16 PM EST Called and completed peer to peer (Dr. Xie). Awaiting auth for MRI pelvis to approved before approval # is generated. Nurses - can you pls follow up tomorrow? MRI abd approved. Valid 01/22/2023 to 03/26/2023. Approval # [id number]. JOSE Cedeno * Telephone Encounter - Dahiana Ojeda OSA - 01/30/2023 11:32 AM EST Vickie Mata if scheduled 02/09/23 for Mri Abd & Mri Pelvis - the mri Pelvis is pending additional clinical information that I am unable to provide. Please call [phone] and refer to tracking # [id number] so authorization can be obtained. Thank you, Dahiana Olson Lynette documented in this encounter Plan of Treatment Upcoming Encounters Date Type Department Care Team (Latest Contact Info) Description 05/08/2023 2:00 PM EST Office Visit [facility]enterology, [facility] [place] [address] Jennifer Cleaning CRNP [address] [place] [address] 05/15/2023 9:00 AM EST Office Visit Family Medicine [address] [phone] Amalia Baca PA-C [address] [place] [address] [place] [address] 06/21/2023 10:30 AM EDT Office Visit Orthopaedics [address] [phone] Toan Rivera MD [address] [place] [address] 08/08/2023 11:00 AM EDT Office Visit General Surgery, [facility] [address] [place] [address] Peg Johnson MD [address] [place] [address] 09/13/2023 9:30 AM EDT Hospital Encounter ENDO OSSC, Endoscopy Room [facility] [address] [place] [phone] Jo-Ann Palacios MD [address] [place] [address] 09/13/2023 9:30 AM EDT - 09/13/2023 10:00 AM EDT Surgery ENDO OSS[facility], Endoscopy Room [facility] [address] [place] [phone] Jo-Ann Palacios MD [address] [place] [address] COLONOSCOPY FLEXIBLE PROXIMAL DIAGNOSTIC 10/03/2023 5:40 PM EDT Office Visit Family Medicine [address] [place] [address] Sari Perkins MD [address] [place] [address] [place] [address] Scheduled Procedures Name Priority Associated Diagnoses Date/Ti [...] filedocumented as of this encounter Care Teams Behavioral Health Worker Relationship Specialty Start Date End Date Sari Perkins MD [address] [place] [address] [place] [address] PCP - General Family Medicine 04/05/23 documented as of this encounter
--- OUTSIDE RECORDS SUMMARY | 2023-06-22 03:38 | External Medical Summary | Summary of Care ---
Author Name Unknown Organization [facility] [address] [facility] [address] Phone [phone] Care Team Providers Care Leather Seasoner Name Role Phone Sari Perkins MD Primary Care Provide r Encounter Details Date Type Department Care Team (Late st Contact Info) Description 04/18/2023 Orders Only Family Medicine [address] [place] [phone] Sari Perkins MD [address] [place] [address] [place] [address] Allergies Active Allergy Reactions Criticality Noted Date Comments Naproxen 06/26/2000 GI documented as of this encounter (statuses as of 04/18/2023) Medications Medication Sig Dispensed Refills Start Date [...] Dextromethorphan-gu aiFENesin 10-100 MG/5ML Oral Liquid (Robitussin DM)Indications:Amnju l URI Take 5 mL by mouth every 4 hours as needed for Cough. 120 mL 5 03/13/2023 Active Additional Information Patient not taking.Reported on 03/23/2023 Hospital, Clinic, or Other Facility Administered Medication Ordered Dose Route Frequency Start Date End Date Status vitamin b-12 (Cyanocobalamin) inj 1,000 mcgIndications:Other vitamin B12 deficiency anemia 1000 mcg IM [id number] 09/25/2022 11/18/2023 Active documented as of this encounter (statuses as of 04/18/2023) Active Problems Problem Noted Date Diagnosed Date [...] as of this encounter (statuses as of 04/18/2023) Resolved Problems Problem Noted Date Diagnosed Date Resolved Date Major depressive disorder, r ecurrent episode, moderate 12/22/2020 05/17/2022 documented as of this encounter (statuses as of 04/18/2023) Immunizations Name Administration Dates Next Due TDAP [...] 11:00 AM EST Office Visit Family Medicine [address] [place] [address] Amalia Baca PA-C [address] [place] [address] [place] [address] 04/19/2023 12:30 PM EST Telemedicine Orthopaedics [address] [place] [phone] Toan Rivera MD [address] [place] [address] 04/19/2023 3:00 PM EST Imaging Radiology [address] [facility] [place] [address] 06/19/2023 10:30 AM EDT Office Visit Gastroenterology, [facility] [address] [place] [address] Jennifer Cleaning CRNP [address] [place] [address] 08/08/2023 11:00 AM EDT Office Visit General Surgery, [facility] [address] [place] [address] Peg Johnson MD [address] [facility] [place] [address] 09/13/2023 9:30 AM EDT Hospital Encounter ENDO [facility], Endoscopy Room [facility] [address] [place] [phone] Jo-Ann Palacios MD [address] [place] [address] 09/13/2023 9:30 AM EDT - 09/13/2023 10:00 AM EDT Surgery ENDO [facility], Endoscopy Room [facility] [address] [place] [phone] Jo-Ann Palacios MD [address] [place] [address] COLONOSCOPY FLEXIBLE PROXIMAL DIAGNOSTIC 10/03/2023 5:40 PM EDT Office Visit Family Medicine [address] [place] [phone] Sari Perkins MD [address] [place] [address] [place] [address] Scheduled Procedures Name Priority Associated Diagnoses Date/Ti [...] Priority Date/Time Associated Diagnosis Comments XR CHEST 1 VIEW Routine 04/14/2023 documented in this encounter Results * XR CHEST 1 VIEW (04/14/2023) Anatomical Region Laterality Modality Chest Other 04/14/2023 History Per Patient RADIOLOGY (RAD GENER AL) documented in this encounter Care Teams Leather Seasoner Relationship Specialty Start Date End Date Sari Perkins MD [address] [place] [address] [place] [address] PCP - General Family Medicine 04/05/23 documented as of this encounter
--- OUTSIDE RECORDS SUMMARY | 2023-06-22 03:38 | External Medical Summary | Summary of Care ---
Author Name Unknown Organization [facility] [address] [facility] [address] Phone [phone] Care Team Providers Care Cord Maker Name Role Phone Sari Perkins MD Primary Care Provide r Reason for Visit * Reason Comments Acute Encounter Details Date Type Department Care Team (Late st Contact Info) Description 04/18/2023 11:00 AM EST Office Visit Family Medicine [address] [address] Amalia Baca PA-C [address] [place] [address] [place] [address] Lower abdominal pain*; Crohn's disease of small intestine with other complication (HCC); Urinary tract infection without hematuria, site unspecified Allergies Active Allergy Reactions Criticality Noted Date [...] 01/09/2023 Active predniSONE 20 MG Oral Tablet (Deltasone)Indica tions:Lower abdominal pain,Crohn's disease of small intestine with other complication (HCC) 2 tablets daily for 5 days then 1 tablet daily 15 Tablet 0 04/18/2023 Active Sulfamethoxazole- Trimethoprim 800-160 MG Oral Tablet (Bactrim DS)Indications:Ur inary tract infection without hematuria, site unspecified Take 1 Tablet by mouth in the morning and 1 Tablet before bedtime. Do all this for 7 days. Until gone. 14 Tablet 0 04/18/2023 04/25/19 24 Active Dextromethorphan- guaiFENesin 10-100 MG/5ML Oral Liquid (Robitussin DM)Indications:Vi ral URI Take 5 mL by mouth every 4 hours as needed for Cough. 120 mL 5 03/13/2023 04/18/19 24 Discontinued Hospital, Clinic, or Other Facility Administered Medication Ordered Dose Route Frequency Start Date End Date Status vitamin b-12 (Cyanocobalamin) inj 1,000 mcgIndications:Other vitamin B12 deficiency anemia 1000 mcg IM [id number] 09/25/2022 11/18/2023 Active documented as of this [...] Sign Reading Time Taken Comments Blood Pressure 104/70 04/18/2023 10:57 AM EST Pulse 97 04/18/2023 10:57 AM EST Temperature 36 C (96.8 F) 04/18/2023 10: 57 AM EST Respiratory Rate - - Oxygen Saturation 96% 04/18/2023 10: 57 AM EST Inhaled Oxygen Concentration - - Weight 52.1 kg (114 lb 12.8 oz) 024 10:57 AM EST Height - - Body Mass Index 20.66 01/10/2023 11:02 AM EDT documented in this encounter Progress Notes * Amalia Baca PA-C - 04/18/2023 10:57 AM EST Nursing Notes: Jacque Harrison CMA 04/18/23 1055 Sign at exiting of workspace She is here for her stomach. After she takes a few bites of food her stomach is killing her. She doesn't have nausea but she has bad cramping. She thinks it is an ulcer, her crohn's disease or her back. This has been going on for a couple weeks. Pt here today with abdominal pain after eating for the past couple weeks. Pt does have crohns. Pt denies fever, chills, nausea. She did go to [place] for this. Labs were ok. Urine showed infectionand CT of abdomen/pelvis showed colitis. She was given macrobid and metronidazole. She stopped themboth because they made her sick. She thinks it was the macrobid but she didn't restart the metro. Pt still with pain. It is lower abdomen. Pt denies diarrhea, constipation, blood in stool, black stool, mucus in stool, chest pain, SOB, urinary sx, heartburn, belching, bloating, upper abdominal pain. Review of patient's allergies indicates: Allergen Reactions Naproxen GI Current Outpatient Medications Medication Sig Dispense Refill sulfaSALAzine 500 MG Oral Tablet (Azulfidine) TAKE TWO TABLETS BY MOUTH THREE TIMES DAILY 540 Tablet 2 Vitamin D 50 MCG (2000 UT) Oral Tablet Take 2,000 Units by mouth in the morning. Pantoprazole Sodium 40 MG Oral Tablet Delayed Release (Protonix) Take 1 Tablet by mouth in the morning. 30 minutes before the first meal of the day. Do not crush, split or chew the tablet. 30 Tablet 5 DULoxetine HCl 30 MG Oral Capsule Delayed Release Particles (Cymbalta) Take 1 Capsule by mouth in the morning. Do not cut, crush or chew. (Patient not taking: Reported on 04/18/2023) 30 Capsule 5 Current Facility-Administered Medications Medication Dose Route [...] Housing Stability: Not on file O:Blood pressure 104/70, pulse 97, temperature 36 C (96.8 F), weight 52.1 kg (114 lb 12.8 oz), SpO2 96%. GENERAL: alert, healthy, and no distress HEART: regular rate & rhythm, no murmur, and no gallops LUNGS: chest symmetric with normal AP diameter, no chest deformities noted, no chest wall tenderness, lungs clear to auscultation ABDOMEN: abdomen soft, normal bowel sounds, and no masses or organomegaly. Mild lower abdominal tenderness A:Lower abdominal pain (Primary) - predniSONE 20 MG Oral Tablet (Deltasone); 2 tablets daily for 5 days then 1 tablet daily Crohn's disease of small intestine with other complication (HCC) - predniSONE 20 MG Oral Tablet (Deltasone); 2 tablets daily for 5 days then 1 tablet daily Urinary tract infection without hematuria, site unspecified - Sulfamethoxazole-Trimethoprim 800-160 MG Oral Tablet (Bactrim DS); Take 1 Tablet by mouth in the morning and 1 Tablet before bedtime. Do all this for 7 days. Until gone. Start back on metronidazole. Start prednisone. Bactrim for the UTI. Any questions/problems, please call. If anything changes, worsens, develops new sx, please call [facility]. Follow Up: Return if symptoms worsen or fail to improve. Amalia Baca PA-C documented in this encounter Nursing Notes * Jacque Harrison CMA - 04/18/2023 10:53 AM EST She is here for her stomach. After she takes a few bites of food her stomach is killing her. She doesn't have nausea but she has bad cramping. She thinks it is an ulcer, her crohn's disease or her back. This has been going on for a couple weeks. documented in this encounter Plan of Treatment Upcoming Encounters Date Type Department Care Team (Latest Contact Info) Description 04/19/2023 12:30 PM EST Telemedicine Orthopaedics [address] [phone] Toan Rivera MD [address] [place] [address] 04/19/2023 3:00 PM EST [facility] [address] [place] [address] 06/19/2023 10:30 AM EDT Office Visit Gastroenterology, [facility] [address] [place] [address] Jennifer Cleaning CRNP [address] [place] [address] 08/08/2023 11:00 AM EDT Office Visit General Surgery, [facility] [address] [place] [address] Peg Johnson MD [address] [place] [address] 09/13/2023 9:30 AM EDT Hospital Encounter ENDO [facility], Endoscopy Room [facility] [address] [place] [phone] Jo-Ann Palacios MD [address] [place] [address] 09/13/2023 9:30 AM EDT - 09/13/2023 10:00 AM EDT Surgery ENDO [facility], Endoscopy Room [facility] [address] [place] [phone] Jo-Ann Palacios MD [address] [place] [address] COLONOSCOPY FLEXIBLE PROXIMAL DIAGNOSTIC 10/03/2023 5:40 PM EDT Office Visit Family Medicine [address] [place] [phone] Sari Perkins MD [address] [place] [address] [place] [address] Scheduled Procedures Name Priority Associated Diagnoses Date/Ti [...] as of this encounter Visit Diagnoses Diagnosis Lower abdominal pain- Primary Abdominal pain, other specified site Crohn's disease of small intestine with other complication (HCC) Urinary tract infection without hematuria, site unspecified Crohn's disease without complication, unspecified gastrointestinal tract location (HCC) documented in this encounter Care Teams Cord Maker Relationship Specialty Start Date End Date Sari Perkins MD [address] [place] [address] [place] [phone] PCP - General Family Medicine 04/05/23 documented as of this encounter
--- OUTSIDE RECORDS SUMMARY | 2023-06-22 03:39 | External Medical Summary | Summary of Care ---
Author Name Unknown Organization [facility] Address [address] [facility] [address] Phone [phone] Care Team Providers Care Paper Testing Supervisor Name Role Phone Michael Oleary MD Primary Care Provider Reason for Visit * Reason Comments eRx-Medication Refill Encounter Details Date Type Department Care Team (Late st Contact Info) Description 03/26/2023 Refill Family Medicine [address] [phone] Jennifer Vallejo MD [address] [place] [address] [place] [address] Crohn's disease of small intestine with other complication (HCC) Allergies Active Allergy Reactions Criticality Noted Date Comments Naproxen 06/26/2000 GI documented as of this encounter (statuses as of 03/27/2023) Medications Medication Sig Dispensed Refills Start Date [...] vitamin B12 deficiency anemia 1000 mcg IM [id number] 09/25/2022 11/18/2023 Active documented as of this encounter (statuses as of 03/27/2023) Active Problems Problem Noted Date Diagnosed Date [...] as of this encounter (statuses as of 03/27/2023) Resolved Problems Problem Noted Date Diagnosed Date Resolved Date Major depressive disorder, r ecurrent episode, moderate 12/22/2020 05/17/2022 documented as of this encounter (statuses as of 03/27/2023) Immunizations Name Administration Dates Next Due TDAP [...] encounter Miscellaneous Notes * Telephone Encounter - Jarred Mishra [facility] - 03/27/2023 1:39 PM EST Refused Prescriptions: Disp Refills predniSONE 5 MG Oral Tablet (Deltasone) 40 Tab*0 Sig: take 1 tablet every day and may take a second tablet if needed.[facility]used [facility]: [facility]: Course of treatment complete documented in this encounter Plan of Treatment Upcoming Encounters Date Type Department Care Team (Latest Contact Info) Description 03/29/2023 11:20 AM EST Nurse Only Ancillary [address] [place] [address] [place], Nurse [address] [place] [address] 04/05/2023 11:00 AM EST Office [address]edics [address] [place] [phone] Toan Rivera MD [address] [place] [address] 04/19/2023 3:00 PM EST Imaging Radiology [address] [place] [address] 05/11/2023 10:45 AM EST Hospital Encounter ENDO [facility], Endoscopy Room [facility] [address] [place] [phone] Elly Rosas DO [address] [place] [address] 05/11/2023 10:45 AM EST - 05/11/2023 11:15 AM EST Surgery ENDO [facility], Endoscopy Room [facility] [address] [place] [phone] Elly Rosas DO [address] [place] [address] COLONOSCOPY FLEXIBLE PROXIMAL DIAGNOSTIC 06/19/2023 10:30 AM EDT Office Visit Gastroenterology, [facility] [address] [place] [address] Jennifer Cleaning CRNP [address] [place] [address] 08/08/2023 11:00 AM EDT Office Visit General Surgery, [facility] [address] [place] [address] Peg Johnson MD [address] [place], [place] [phone] 10/03/2023 5:40 PM EDT Office Visit Family Medicine [address] [place] [phone] Sari Perkins MD [address] [place] [address] [place] [address] Scheduled Procedures Name Priority Associated Diagnoses Date/Ti [...] Diagnosis Crohn's disease of small intestine with other complication (HCC) Crohn's disease without complication, unspecified gastrointestinal tract location (HCC) documented in this encounter Care Teams Paper Testing Supervisor Relationship Specialty Start Date End Date Michael Oleary MD [address] [place] [address] [place] [phone] PCP - General Family Medicine 10/30/13 documented as of this encounter
--- OUTSIDE RECORDS SUMMARY | 2023-06-22 03:39 | External Medical Summary | Summary of Care ---
Author Name Unknown Organization [facility] Address [address] [place] [facility] [place] [address] Phone [phone] Care Team Providers Care Well Logging Mud Analysis Captain Name Role Phone Michael Oleary MD Primary Care Provider [phone] Encounter Details Date Type Department Care Team (Late st Contact Info) Description 03/15/2023 Result Scan Unspecified Department <No scans attached> Allergies Active Allergy Reactions Criticality Noted Date Comments Naproxen 06/26/2000 GI documented as of this encounter (statuses as of 03/15/2023) Medications Medication Sig Dispensed Refills Start Date End Date Status sulfaSALAzine 500 MG Oral Tablet (Azulfidine)Indicati ons: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 0 Active DULoxetine HCl 30 MG Oral Capsule Delayed Release Particles (Cymbalta)Indication s:Moderate episode of recurrent major depressive disorder (HCC) Take 1 Capsule by mouth in the morning. Do not cut, crush or chew. 30 Capsule 5 12/29/2022 Active Pantoprazole Sodium 40 MG Oral Tablet Delayed Release (Protonix)Indication s:Dysphagia, unspecified type Take 1 Tablet by mouth in the morning. 30 minutes before the first meal of the day. Do not crush, split or chew the tablet. 30 Tablet 5 01/09/2023 Active predniSONE 20 MG Oral Tablet (Deltasone)Indicatio ns:Viral URI,Chronic bilateral low back pain without sciatica two pills daily with food for 5 days, then one daily with food 15 Tablet 0 03/13/2023 03/23/2023 Active Baclofen 20 MG Oral TabletIndications:Ch ronic bilateral low back pain without sciatica Take 1 Tablet by mouth in the morning and 1 Tablet at noon and 1 Tablet before bedtime. Do all this for 10 days. 30 Tablet 0 03/13/2023 03/23/2023 Active Dextromethorphan-gua iFENesin 10-100 MG/5ML Oral Liquid (Robitussin DM)Indications:Viral URI Take 5 mL by mouth every 4 hours as needed for Cough. 120 mL 5 03/13/2023 Active Hospital, Clinic, or Other Facility Administered Medication Ordered Dose Route Frequency Start Date End Date Status vitamin b-12 (Cyanocobalamin) inj 1,000 mcgIndications:Other vitamin B12 deficiency anemia 1000 mcg IM [id number] 09/25/2022 11/18/2023 Active documented as of this encounter (statuses as of 03/15/2023) Active Problems Problem Noted Date Diagnosed Date [...] as of this encounter (statuses as of 03/15/2023) Resolved Problems Problem Noted Date Diagnosed Date Resolved Date Major depressive disorder, r ecurrent episode, moderate 12/22/2020 05/17/2022 documented as of this encounter (statuses as of 03/15/2023) Immunizations Name Administration Dates Next Due TDAP [...] Department Care Team (Latest Contact Info) Description 03/17/2023 4:00 PM EST Imaging Radiology [facility]st [facility] [address] [place] [address] 03/21/2023 12:30 PM EST Office Visit General Surgery, [facility] [address] [place] [address] Peg [facility] [address] [facility] [address] 03/29/2023 11:20 AM EST Nurse Only Ancillary [address] [place] [address] [place], Nurse [address] [place] [address] 05/11/2023 10:45 AM EST Hospital Encounter ENDO [facility], Endoscopy Room [facility] 132 [place] [phone] Elly Rosas DO [address] [place] [address] 05/11/2023 10:45 AM EST - 05/11/2023 11:15 AM EST Surgery ENDO [facility], Endoscopy Room [facility] [address] [place] [phone] Elly Rosas DO [address] [place] [address] COLONOSCOPY FLEXIBLE PROXIMAL DIAGNOSTIC Scheduled Procedures Name Priority Associated Diagnoses Date/Ti [...] Date/Time Associated Diagnosis Comments EKG SCANNED RESULT 03/15/2023 documented in this encounter Results * EKG SCANNED RESULT (03/15/2023) 03/15/2023 No Physician Data Unknown EKG documented in this encounter Care Teams Well Logging Mud Analysis Captain Relationship Specialty Start Date End Date Michael Oleary MD [address] [place] [address] [place] [address] PCP - General Family Medicine 10/30/13 documented as of this encounter
--- OUTSIDE RECORDS SUMMARY | 2023-06-22 03:39 | External Medical Summary | Summary of Care ---
Author Name Unknown Organization [facility] Address [address] [place] [address] Phone [phone] Care Team Providers Care Implant Polisher Name Role Phone Michael Oleary MD Primary Care Provider + [phone] Encounter Details Date Type Department Care Team (Late st Contact Info) Description 03/15/2023 Orders Only Family Medicine [address] [phone] Michael Oleary MD [address] [place] [address] [place] [phone] Allergies Active Allergy Reactions Criticality Noted Date [...] vitamin B12 deficiency anemia 1000 mcg IM [id number] 09/25/2022 11/18/2023 Active documented as of this [...] Description 03/17/2023 4:00 PM EST Imaging Radiology [facility]st [facility] 132 [facility] [place] [address] 03/21/2023 12:30 PM EST Office Visit General Surgery, [facility] [address] [place] [address] Peg Johnson MD [address] [place] [address] 03/29/2023 11:20 AM EST Nurse Only Ancillary [address] [place] [address] [place], Nurse [address] [place] [address] 05/11/2023 10:45 AM EST Hospital Encounter ENDO [facility], Endoscopy Room [facility] [address] [place] [phone] Elly Rosas DO [address] [place] [address] 05/11/2023 10:45 AM EST - 05/11/2023 11:15 AM EST Surgery ENDO [facility], Endoscopy Room [facility] [address] [place] [phone] Elly Rosas DO [address] [place] [address] COLONOSCOPY FLEXIBLE PROXIMAL DIAGNOSTIC Scheduled Procedures Name [...] Priority Date/Time Associated Diagnosis Comments CHEMISTRY-OUTSIDE Routine 03/15/2023 documented in this encounter Results * CHEMISTRY-OUTSIDE (03/15/2023) Not all results display below - see scan for full detail LAB OUTSIDE LAB (SEE SCANNED REPORT) Comment:[facility] D CREATININE-OUTSID E LAB OUTSIDE LAB (SEE SCANNED REPORT) EGFR-OUTSIDE LAB OUT SIDE LAB (SEE SCANNED REPORT) POTASSIUM-OUTSIDE LAB OUTSIDE LAB (SEE SCANNED REPORT) GLUCOSE-OUTSIDE LAB OUTSIDE LAB (SEE SCANNED REPORT) HOURS FASTING OUTSID E LAB (SEE SCANNED REPORT) TRIGLYCERIDES-OUT SIDE LAB OUTSIDE LAB (SEE SCANNED REPORT) CHOLESTEROL-OUTSI DE LAB OUTSIDE LAB (SEE SCANNED REPORT) HDL-OUTSIDE LAB OUTS [facility] LAB (SEE SCANNED REPORT) CHOL/HDL RATIO-OUTSIDE LAB OUTSIDE LA B (SEE SCANNED REPORT) LDL (CALCULATED)-OUTS [facility] LAB OUTSIDE LAB (SEE SCANNED REPORT) LDL (DIRECT MEASURE)-OUTSIDE LAB OUTSIDE LAB (SEE SCANNED REPORT) HEMOGLOBIN, B3C-FRCRZVA LAB OUTSIDE LAB (SEE SCANNED REPORT) PHOSPHORUS-OUTSID E LAB OUTSIDE LAB (SEE SCANNED REPORT) PTH-OUTSIDE LAB OUTS [facility] LAB (SEE SCANNED REPORT) MICROALBUMIN RATIO-OUTSIDE LAB OUTSIDE LA B (SEE SCANNED REPORT) PROTEIN, UA-OUTSIDE LAB OUTSIDE LAB (SEE SCANNED REPORT) HEMOGLOBIN-OUTSID E LAB 14.2 12 - 16 G/DL OUTSIDE LAB (SEE SCANNED REPORT) 03/15/2023 Jeremias Pike MD LABORATORY OUTSIDE LAB (SEE SCANNED REPORT) documented in this encounter Care Teams Implant Polisher Relationship Specialty Start Date End Date Michael Oleary MD [address] [place] [address] [place] [address] PCP - General Family Medicine 10/30/13 documented as of this encounter
--- OUTSIDE RECORDS SUMMARY | 2023-06-22 03:39 | External Medical Summary | Summary of Care ---
Author Name Unknown Organization [facility] Address [address] [place] [address] Phone [phone] Care Team Providers Care Pigment Presser Name Role Phone Michael Oleary MD Primary Care Provider + [phone] Encounter Details Date Type Department Care Team (Late st Contact Info) Description 03/15/2023 Orders Only Family Medicine [address] [phone] Michael Oleary MD [address] [place] [address] [place] [phone] Allergies Active Allergy Reactions Criticality Noted Date [...] vitamin B12 deficiency anemia 1000 mcg IM [id number] 09/25/2022 11/18/2023 Active documented as of this [...] Description 03/17/2023 4:00 PM EST Imaging Radiology [facility] 1st [facility] 132 [facility] [place] [address] 03/21/2023 12:30 PM EST Office Visit General Surgery, [facility] [address] [place] [address] Peg Johnson MD [address] [place], [place] [id number] 03/29/2023 11:20 AM EST Nurse Only Ancillary [address] [place] [address] [place], Nurse [address] [place] [address] 05/11/2023 10:45 AM EST Hospital Encounter ENDO [facility], Endoscopy Room [facility] [address] [place] [phone] Elly Rosas DO [address] [place] [address] 05/11/2023 10:45 AM EST - 05/11/2023 11:15 AM EST Surgery ENDO [facility], Endoscopy Room [facility] [address] [place] [phone] Elly Rosas DO [address] [place] [address] COLONOSCOPY FLEXIBLE PROXIMAL DIAGNOSTIC Pending Results Name Type Priority Associated Diagnoses Date /Time XR CHEST 1 VIEW Medical Imaging Routine 02/17 Scheduled Procedures Name Priority Associated Diagnoses Date/Ti [...] filedocumented as of this encounter Care Teams Pigment Presser Relationship Specialty Start Date End Date Michael Oleary MD [address] [place] [address] [place] [address] PCP - General Family Medicine 10/30/13 documented as of this encounter
--- OUTSIDE RECORDS SUMMARY | 2023-06-22 03:39 | External Medical Summary | Summary of Care ---
Author Name Unknown Organization [facility] Address [address] [place] [facility] [address] Phone [phone] Care Team Providers Care Fraud Investigator Name Role Phone Michael Oleary MD Primary Care Provider [phone] Reason for Visit * Reason Comments Acute Encounter Details Date Type Department Care Team (Late st Contact Info) Description 03/13/2023 1:20 PM EST Office Visit Family Medicine [address] [phone] Michael Oleary MD [address] [place], [place] [address] [address] Chronic bilateral low back pain without sciatica*; Viral URI Allergies Active Allergy Reactions Criticality Noted Date Comments Naproxen 06/26/2000 GI documented as of this encounter (statuses as of 03/13/2023) Medications Medication Sig Dispensed Refills Start Date [...] 01/09/2023 Active predniSONE 20 MG Oral Tablet (Deltasone)Indicat ions:Viral URI,Chronic bilateral low back pain without sciatica two pills daily with food for 5 days, then one daily with food 15 Tablet 0 03/13/2023 03/23/2023 Active Baclofen 20 MG Oral TabletIndications: Chronic bilateral low back pain without sciatica Take 1 Tablet by mouth in the morning and 1 Tablet at noon and 1 Tablet before bedtime. Do all this for 10 days. 30 Tablet 0 03/13/2023 03/23/2023 Active Dextromethorphan-g uaiFENesin 10-100 MG/5ML Oral Liquid (Robitussin DM)Indications:Vir al URI Take 5 mL by mouth every 4 hours as needed for Cough. 120 mL 5 03/13/2023 Active predniSONE 20 MG Oral Tablet (Deltasone)Indicat ions:Trochanteric bursitis of left hip Take 2 Tablets by mouth in the morning for 5 days. 10 Tablet 0 02/13/2023 02/18/2023 Discontinued (End of Procedure) Hospital, Clinic, or Other Facility Administered Medication Ordered Dose Route Frequency Start Date End Date Status vitamin b-12 (Cyanocobalamin) inj 1,000 mcgIndications:Other vitamin B12 deficiency anemia 1000 mcg IM [id number] 09/25/2022 11/18/2023 Active documented as of this encounter (statuses as of 03/13/2023) Active Problems Problem Noted Date Diagnosed Date [...] as of this encounter (statuses as of 03/13/2023) Resolved Problems Problem Noted Date Diagnosed Date Resolved Date Major depressive disorder, r ecurrent episode, moderate 12/22/2020 05/17/2022 documented as of this encounter (statuses as of 03/13/2023) Immunizations Name Administration Dates Next Due TDAP [...] Sign Reading Time Taken Comments Blood Pressure 108/66 03/13/2023 1:00 PM EST Pulse 108 03/13/2023 1:00 PM EST Temperature 36.2 C (97.1 F) 03/13/2023 1:00 PM ES T Respiratory Rate 16 03/13/2023 1:00 PM EST Oxygen Saturation 96% 03/13/2023 1:00 PM EST Inhaled Oxygen Concentration - - Weight 52.4 kg (115 lb 7 oz) 03/13/2023 1:00 PM EST Height - - Body Mass Index 20.78 01/10/2023 11:02 AM EDT documented in this encounter Progress Notes * Michael Oleary MD - 03/13/2023 12:55 PM EST Vickie has had low back pain for a while, going back two years from lifting. In the winter, she has to move around 40 pound pellet bags. So this is making it worse. She can't sleep flat at night. And for 2 days started with nasal congestion and a bit of a cough, no fever. Denies nausea, vomiting, or diarrhea. Health Maintenance addressed. Refuses Past Medical History: Diagnosis Date Crohn's disease [...] disorder Past Surgical History: Procedure Laterality Date TOTAL HYSTERECTOMY 1992 fibroid,pt unsure if she has ovaries Review of patient's allergies indicates: Allergen Reactions Naproxen GI Social History Socioeconomic History Marital status: Spouse [...] on file Housing Stability: Not on file Current Outpatient Medications Medication Sig Dispense Refill [...] or chew the tablet. 30 Tablet 5 Current Facility-Administered Medications Medication Dose Route Frequency Provider Last Rate Last Admin vitamin b-12 (Cyanocobalamin) inj 1,000 mcg 1,000 mcg Intramuscular Q12 Weeks Michael Oleary MD1,000 mcg at 12/27/22 0941 Immunization History Administered Date(s) Administered TDAP (age 11 and older)(Adacel) 01/30/2009 O: . Blood pressure 108/66, pulse 108, temperature 36.2 C (97.1 F), temperature source Tympanic, resp. rate 16, weight 52.4 kg (115 lb 7 oz), SpO2 96%. Wax partially occludes the canals .She has no teeth and no pharyngeal inflammation or post nasal drip. The palate is free of lesions and the uvula is normal. Neck is supple without adenopathy or thyromegaly. Chest is symmetrical and moves normally. The lungs are clear without wheezes, rales, rhonchi or rubs, and the heart is regular without murmurs or gallops, or ectopy. PMI not displaced. She has bilateral low back tenderness A: Chronic bilateral low back pain without sciatica (Primary) - predniSONE 20 MG Oral Tablet (Deltasone); two pills daily with food for 5 days, then one daily with food - Baclofen 20 MG Oral Tablet; Take 1 Tablet by mouth in the morning and 1 Tablet at noon and 1 Tablet before bedtime. Do all this for 10 days. Viral URI - predniSONE 20 MG Oral Tablet (Deltasone); two pills daily with food for 5 days, then one daily with food - Dextromethorphan-guaiFENesin 10-100 MG/5ML Oral Liquid (Robitussin DM); Take 5 mL by mouth every 4 hours as needed for Cough. documented in this encounter Nursing Notes * Nicki Medina LPN - 03/13/2023 12:57 PM EST Back pain for 2 weeks, mid back. Has to sleep sitting up. Has to parts picker 40 pounds of pellets for her wood burner. Coughing and nasal stuffiness. Had a headache, but it went away. Started around Sunday. documented in this encounter Plan of Treatment Upcoming Encounters Date Type Department Care Team (Latest Contact Info) Description 03/17/2023 4:00 PM EST Imaging Radiology [facility], [address] [place] [address] 03/21/2023 12:30 PM EST Office Visit General Surgery, [address] [place] [address] Peg Johnson MD [address] [facility], [place] [id number] 03/29/2023 11:20 AM EST Nurse Only Ancillary [address] [place] [address] [place], Nurse [address] [place] [address] 05/11/2023 10:45 AM EST Hospital Encounter ENDO OSS, Endoscopy Room [facility] [address] [place] [phone] Elly Rosas DO [address] [place] [address] 05/11/2023 10:45 AM EST - 05/11/2023 11:15 AM EST Surgery ENDO [facility], Endoscopy Room [facility] [address] [place] [phone] Elly Rosas DO [address] [place] [address] COLONOSCOPY FLEXIBLE PROXIMAL DIAGNOSTIC Scheduled Procedures Name [...] of this encounter Visit Diagnoses Diagnosis Chronic bilateral low back pain without sciatica- Primary Viral URI Acute upper respiratory infections of unspecified site Crohn's disease without complication, unspecified gastrointestinal tract location (HCC) documented in this encounter Care Teams Fraud Investigator Relationship Specialty Start Date End Date Michael Oleary MD [address] [place] [address] [place] [id number] PCP - General Family Medicine 10/30/13 documented as of this encounter
--- OUTSIDE RECORDS SUMMARY | 2023-06-22 03:39 | External Medical Summary | Summary of Care ---
Author Name Unknown Organization [facility] Address [address] [facility] [place] [address] Phone [phone] Care Team Providers Care Fryer Operator Name Role Phone Michael Oleary MD Primary Care Provider [phone] Encounter Details Date Type Department Care Team (Late st Contact Info) Description 03/29/2023 11:20 AM EST Nurse Only Ancillary [address] [place] [address] [place], Nurse [address] [place] [address] Arrived Allergies Active Allergy Reactions Criticality Noted Date Comments Naproxen 06/26/2000 GI documented as of this encounter (statuses as of 03/29/2023) Medications Medication Sig Dispensed Refills Start Date [...] vitamin B12 deficiency anemia 1000 mcg IM [id number] 09/25/2022 11/18/2023 Active documented as of this encounter (statuses as of 03/29/2023) Active Problems Problem Noted Date Diagnosed Date [...] as of this encounter (statuses as of 03/29/2023) Resolved Problems Problem Noted Date Diagnosed Date Resolved Date Major depressive disorder, r ecurrent episode, moderate 12/22/2020 05/17/2022 documented as of this encounter (statuses as of 03/29/2023) Immunizations Name Administration Dates Next Due TDAP [...] Department Care Team (Latest Contact Info) Description 04/05/2023 11:00 AM EST Office Visit Orthopaedics [address] [phone] Toan Rivera MD [address] [place] [address] 04/19/2023 3:00 PM EST Imaging Radiology [address] [place] [address] 05/11/2023 10:45 AM EST Hospital Encounter ENDO [facility], Endoscopy Room [facility] [address] [place] [phone] Elly Rosas DO [address] [place] [address] 05/11/2023 10:45 AM EST - 05/11/2023 11:15 AM EST Surgery ENDO [facility], Endoscopy Room [facility] [address] [place] [phone] Elly Rosas DO [address] [place] [address] COLONOSCOPY FLEXIBLE PROXIMAL DIAGNOSTIC 06/19/2023 10:30 AM EDT Office Visit Gastroenterology, [facility] [address] [place] [address] eJnnifer Cleaning CRNP [address] [place] [address] 08/08/2023 11:00 AM EDT Office Visit General Surgery, [facility] [address] [place] [address] [facility] [address] [facility] [address] 10/03/2023 5:40 PM EDT Office Visit Family Medicine [address] [place] [phone] Sari Perkins MD [address] [place] [address] [place] [address] Scheduled Procedures Name Priority Associated Diagnoses Date/Ti [...] as of this encounter Visit Diagnoses Diagnosis B12 deficiency- Primary Other B-complex deficiencies Crohn's disease without complication, unspecified gastrointestinal tract location (HCC) documented in this encounter Administered Medications Active Administered Medications - up to 3 most recent administrations Medication Order MAR Action Action Date Dose Rate Site vitamin b-12 (Cyanocobalamin) inj 1,000 mcg 1,000 mcg, Intramuscular, [id number], First dose on Sun09/25/22 at 0000, Last dose on Sun08/27/23 at 0000, For 5 doses Given 03/29/2023 10:36 AM EST 1,000 mcg Deltoid Right Upper Given 12/27/2022 9:41 AM EDT 1,000 mcg De ltoid Right Upper Given 09/26/2022 10:37 AM EDT 1,000 mcg D eltoid Left Upper documented in this encounter Care Teams Fryer Operator Relationship Specialty Start Date End Date Michael Oleary MD [address] [place] [address] [place] [address] PCP - General Family Medicine 10/30/13 documented as of this encounter
--- OUTSIDE RECORDS SUMMARY | 2023-06-22 03:39 | External Medical Summary | Summary of Care ---
Author Name Unknown Organization [facility] Address [address] [facility] [place] [address] Phone [phone] Care Team Providers Care Ui Engineer Name Role Phone Michael Oleary MD Primary Care Provider [phone] Reason for Referral * Evaluate & Treat - Unlimited Visits (Within 10 days (routine)) - Pending Review Specialty Diagnoses / Procedures Referred By Tyesha akbar Referred To Contact Orthopaedic Surgery / Orthopedics Diagnoses Trochanteric bursitis of left hip Amalia Baca PA-C [address] [place] [address] [place] [id number] Referral ID Status Reason Start Date Expiration Date Visits Requested Visits Authorized [id number] Pending Review Specialty Services Required 03/23/[phone] Question Answer Referral Priority Within 10 days (routine) Where should this appointment be scheduled? [facility] What body part is the patient being seen for? Hip What condition is the patient being seen for? Sprain/Strain/Tear/Other Comments Ongoing bilateral hip pain Reason for Visit * Reason Comments Acute Encounter Details Date Type Department Care Team (Late st Contact Info) Description 03/23/2023 2:20 PM EST Office Visit Family Medicine [facility] [place] [place] [phone] Amalia Baca PA-C [address] [place] [address] [place] [address] Chronic midline low back pain without sciatica*; Trochanteric bursitis of left hip Allergies Active Allergy Reactions Criticality Noted Date Comments Naproxen 06/26/2000 GI documented as of this encounter (statuses as of 03/23/2023) Medications Medication Sig Dispensed Refills Start Date [...] the tablet. 30 Tablet 5 01/09/2023 Active Baclofen 20 MG Oral TabletIndication s:Chronic bilateral low back pain without sciatica Take 1 Tablet by mouth in the morning and 1 Tablet at noon and 1 Tablet before bedtime. Do all this for 10 days. 30 Tablet 0 03/13/2023 4 Active Dextromethorphan -guaiFENesin 10-100 MG/5ML Oral Liquid [...] food 15 Tablet 0 03/13/2023 4 Discontinued Hospital, Clinic, or Other Facility Administered Medication Ordered Dose Route Frequency Start Date End Date Status vitamin b-12 (Cyanocobalamin) inj 1,000 mcgIndications:Other vitamin B12 deficiency anemia 1000 mcg IM [id number] 09/25/2022 11/18/2023 Active documented as of this encounter (statuses as of 03/23/2023) Active Problems Problem Noted Date Diagnosed Date [...] as of this encounter (statuses as of 03/23/2023) Resolved Problems Problem Noted Date Diagnosed Date Resolved Date Major depressive disorder, r ecurrent episode, moderate 12/22/2020 05/17/2022 documented as of this encounter (statuses as of 03/23/2023) Immunizations Name Administration Dates Next Due TDAP [...] Sign Reading Time Taken Comments Blood Pressure 126/74 03/23/2023 1:46 PM EST Pulse 86 03/23/2023 1:46 PM EST Temperature 35.8 C (96.5 F) 03/23/2023 1:46 PM ES T Respiratory Rate - - Oxygen Saturation 97% 03/23/2023 1:46 PM EST Inhaled Oxygen Concentration - - Weight 50.3 kg (111 lb) 03/23/2023 1:46 PM EST Height - - Body Mass Index 19.98 01/10/2023 11:02 AM EDT documented in this encounter Progress Notes * Amalia Baca PA-C - 03/23/2023 1:46 PM EST Nursing Notes: Beatriz Gunn LPN 03/23/23 1344 Signed Chief Complaint Patient presents with Acute Seen 03/13/23 for back pain and was treated with Prednisone and Baclofen She completed Prednisone and Baclofen TID and did not Help She has to sleep sitting up at kitchen table. Unable to get up out of bed if lies down. Wants to talk about Left Hip MRI done on 03/17/2023 The patient has been properly identified by confirmation of name and date of . Pt here today with lower back pain. She has had this for years but getting worse. Pt denies recent injury. She was seen for this last week and given prednisone and baclofen. This didn't help, at all.Pt denies pain into legs. No weakness into legs. No numbness/tingling. Pt has pain with movements. Pt also with ongoing bilateral hip pain. MRI shows bilateral insufficiency fractures - left worse than right. Review of patient's allergies indicates: Allergen Reactions Naproxen GI Current Outpatient Medications Medication Sig Dispense Refill sulfaSALAzine 500 MG Oral Tablet (Azulfidine) TAKE TWO TABLETS BY MOUTH THREE TIMES DAILY 540 Tablet 2 DULoxetine HCl 30 MG Oral Capsule Delayed [...] or chew the tablet. 30 Tablet 5 Baclofen 20 MG Oral Tablet Take 1 Tablet by mouth in the morning and 1 Tablet at noon and 1 Tablet before bedtime. Do all this for 10 days. 30 Tablet 0 Vitamin D 50 MCG (1999 UT) Oral Tablet Take 2,000 Units by mouth in the morning. Dextromethorphan-guaiFENesin 10-100 MG/5ML Oral Liquid (Robitussin DM) Take 5 mL by mouth every 4 hours as needed for Cough. (Patient not taking: Reported on 03/23/2023) 120 mL 5 Current Facility-Administered Medications Medication Dose Route Frequency Provider Last Rate Last Admin vitamin b-12 (Cyanocobalamin) inj 1,000 mcg 1,000 mcg Intramuscular Q12 Weeks Michael Oleary MD1,000 mcg at 12/27/22 0941 Past Medical History: Diagnosis Date Crohn's disease [...] Housing Stability: Not on file O:Blood pressure 126/74, pulse 86, temperature 35.8 C (96.5 F), temperature source Tympanic, weight 50.3 kg (111 lb), SpO2 97%. GENERAL: alert, healthy, and no distress BACK: no edema, no erythema, no ecchymosis. No pain with palpation. Pain with ROM at waist. A:Chronic midline low back pain without sciatica (Primary) - XR L SPINE COMPLETE Trochanteric bursitis of left hip - ORTHOPAEDICS REFERRAL OP Will xray lumbar spine. Will refer to ortho for hips. Doesn't want to try PT for her back, at this time. Any questions/problems, please call. If anything changes, worsens, develops new sx, please call [facility]. Heat/ice, ROM exercises. Muscle rubs. Follow Up: Return if symptoms worsen or fail to improve. Amalia Baca PA-C documented in this encounter Nursing Notes * Beatriz Gunn LPN - 03/23/2023 1:40 PM EST Chief Complaint Patient presents with Acute Seen 03/13/23 for back pain and was treated with Prednisone and Baclofen She completed Prednisone and Baclofen TID and did not Help She has to sleep sitting up at kitchen table. Unable to get up out of bed if lies down. Wants to talk about Left Hip MRI done on 03/17/2023 The patient has been properly identified by confirmation of name and date of . documented in this encounter Plan of Treatment Upcoming Encounters Date Type Department Care Team (Latest Contact Info) Description 03/29/2023 11:20 AM EST Nurse Only Ancillary [address] [place] [address] [place], Nurse [address] [place] [address] 04/19/2023 3:00 PM EST Imaging Radiology [facility] 1st [facility] [address] [place] [address] 05/11/2023 10:45 AM EST Hospital Encounter ENDO OSS, Endoscopy Room [facility] [address] [place] [phone] Elly Rosas DO [address] [place] [address] 05/11/2023 10:45 AM EST - 05/11/2023 11:15 AM EST Surgery ENDO [facility], Endoscopy Room [facility] [address] [place] [phone] Elly Rosas DO [address] [place] [address] COLONOSCOPY FLEXIBLE PROXIMAL DIAGNOSTIC 06/19/2023 10:30 AM EDT Office Visit Gastroenterology, [facility] 132 [facility] [place] [address] Jennifer Cleaning CRNP 132 [facility] [place] [address] 08/08/2023 11:00 AM EDT Office Visit General Surgery, [facility] 132 [facility] [place] [address] Peg Johnson MD [address] [place] [address] Pending Results Name Type Priority Associated Diagnoses Date /Time XR L SPINE COMPLETE Medical Imaging Routine Chronic midline low back pain without sciatica 03/23/2023 2:03 PM EST Scheduled Procedures Name Priority Associated [...] of this encounter Visit Diagnoses Diagnosis Chronic midline low back pain without sciatica- Primary Trochanteric bursitis of left hip Enthesopathy of hip region Crohn's disease without complication, unspecified gastrointestinal tract location (HCC) documented in this encounter Care Teams Ui Engineer Relationship Specialty Start Date End Date Michael Oleary MD [address] [place] [address] [place] [address] PCP - General Family Medicine 10/30/13 documented as of this encounter
--- OUTSIDE RECORDS SUMMARY | 2023-06-22 03:39 | External Medical Summary | Summary of Care ---
Author Name Unknown Organization [facility] Address [address] [place] [address] Phone [phone] Care Team Providers Care Instructor Flying Name Role Phone Michael Oleary MD Primary Care Provider + [phone] Encounter Details Date Type Department Care Team (Late st Contact Info) Description 03/15/2023 Orders Only Family Medicine [address] [phone] Michael Oleary MD [address] [place] [address] [place] [id number] Allergies Active Allergy Reactions Criticality Noted Date [...] vitamin B12 deficiency anemia 1000 mcg IM [id number] 09/25/2022 11/18/2023 Active documented as of this [...] Description 03/17/2023 4:00 PM EST Imaging Radiology [facility] 1st [facility] 132 [facility] [place] [address] 03/21/2023 12:30 PM EST Office Visit General Surgery, [facility] [address] [place] [address] Peg Johnson MD [address] [place] [address] 03/29/2023 11:20 AM EST Nurse Only Ancillary [address] [place] [address] [place], Nurse [address] [place] [address] 05/11/2023 10:45 AM EST Hospital Encounter ENDO [facility], Endoscopy Room [facility] [address] [place] [phone] Elly Rosas DO [address] [place] [address] 05/11/2023 10:45 AM EST - 05/11/2023 11:15 AM EST Surgery ENDO [facility], Endoscopy Room [facility] [address] [place] [phone] Elly Rosas DO [address] [place] [address] COLONOSCOPY FLEXIBLE PROXIMAL DIAGNOSTIC Scheduled Procedures Name [...] Associated Diagnosis Comments OUTSIDE LAB-CORONAVIRUS (COVID-19) Routine 03/15/2023 CHEMISTRY-OUTSIDE Routine 03/15/2023 documented in this encounter Results * OUTSIDE LAB-CORONAVIRUS (COVID-19) (03/15/2023) [id number] DE LAB NOT DETECTED NOT DETECTED OUTSIDE LAB (SEE SCANNED REPORT) 03/15/2023 Jeremias Pike MD LABORATORY OUTSIDE LAB (SEE SCANNED REPORT) * (ABNORMAL) CHEMISTRY-OUTSIDE (03/15/2023) Not all results display below - see scan for full detail OUTSIDE LAB (SEE SCANNED REPORT) Comment:[facility] ED-GFR ,CMP,PRO BNP,TROP I HS CREATININE-OUTSID E LAB 0.79 0.55 - 1.02 MG/DL OUTSIDE LAB (SEE SCANNED REPORT) EGFR-OUTSIDE LAB 86 60 ML/MIN OUT SIDE LAB (SEE SCANNED REPORT) POTASSIUM-OUTSIDE LAB 3.4(A) 3.5 - 5.1 NNIK OUTSIDE LAB (SEE SCANNED REPORT) GLUCOSE-OUTSIDE LAB 149(A) 70 - 110 MG/DL OUTSIDE LAB (SEE [...] LAB OUTSIDE LAB (SEE SCANNED REPORT) HEMOGLOBIN, [id number] LAB OUTSIDE LAB (SEE SCANNED REPORT) PHOSPHORUS-OUTSID E LAB OUTSIDE LAB (SEE SCANNED REPORT) PTH-OUTSIDE LAB OUTS SHANEL LAB (SEE SCANNED REPORT) MICROALBUMIN RATIO-OUTSIDE LAB OUTSIDE LA B (SEE SCANNED REPORT) PROTEIN, UA-OUTSIDE LAB OUTSIDE LAB (SEE SCANNED REPORT) HEMOGLOBIN-OUTSID E LAB OUTSIDE LAB (SEE SCANNED REPORT) 03/15/2023 Jeremias Pike MD LABORATORY OUTSIDE LAB (SEE SCANNED REPORT) documented in this encounter Care Teams Instructor Flying Relationship Specialty Start Date End Date Michael Oleary MD [address] [place] [address] [place] [phone] PCP - General Family Medicine 10/30/13 documented as of this encounter
--- OUTSIDE RECORDS SUMMARY | 2023-06-22 03:40 | External Medical Summary | Summary of Care ---
Author Name Unknown Organization [facility] Address [address] [place] [place] [address] Phone [phone] Care Team Providers Care Chalker Soles Name Role Phone Michael Oleary MD Primary Care Provider + [phone] Reason for Visit * Reason Onset Date Comments Test Results 02/13/2023 Encounter Details Date Type Department Care Team (Late st Contact Info) Description 02/13/2023 Telephone Gastroenterology, [facility] [address] [place] [address] Jennifer Cleaning CRNP [address] [place] [address] Test Results Allergies Active Allergy Reactions Criticality Noted Date Comments Naproxen 06/26/2000 GI documented as of this encounter (statuses as of 03/08/2023) Medications Medication Sig Dispensed Refills Start Date [...] vitamin B12 deficiency anemia 1000 mcg IM [id number] 09/25/2022 11/18/2023 Active documented as of this encounter (statuses as of 03/08/2023) Active Problems Problem Noted Date Diagnosed Date [...] as of this encounter (statuses as of 03/08/2023) Resolved Problems Problem Noted Date Diagnosed Date Resolved Date Major depressive disorder, r ecurrent episode, moderate 12/22/2020 05/17/2022 documented as of this encounter (statuses as of 03/08/2023) Immunizations Name Administration Dates Next Due TDAP [...] encounter Miscellaneous Notes * Telephone Encounter - Li Fetnon RN - 02/13/2023 3:31 PM EST Patient notified. Verbalizes understanding. * Telephone Encounter - Li Fenton RN - 02/13/2023 3:20 PM EST ----- Message from JOSE Pompa sent at 02/13/2023 2:22 PM EST ----- Patient did not answer phone call, left message for her to call us back. Nurses: Please inform patient that her MR enterography showed no signs of small bowel Crohn's disease. 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 I will refer her to Colorectal surgery for evaluationand possible surgical treatment. She also has nonspecific increased signal and enhancement in the left sacrum adjacent to her SI joint. Radiologist recommend a follow-up MR are pelvis versus CT of the bony pelvis. I will CC her PCP to follow up. JOSE Conn documented in this encounter Plan of Treatment Upcoming Encounters Date Type Department Care Team (Latest Contact Info) Description 03/17/2023 4:00 PM EST Imaging Radiology [facility] [address] [facility] [place] [address] 03/21/2023 12:30 PM EST Office Visit General Surgery, [facility] [address] [facility] [place] [address] Peg Johnson MD [address] [place] [address] 03/29/2023 11:20 AM EST Nurse Only Ancillary [address] [place] [address] Raymundo, Nurse [address] [place] [address] 05/11/2023 10:45 AM EST Hospital Encounter [facility] [place] [phone] Elly Rosas DO [address] [place] [address] 05/11/2023 10:45 AM EST - 05/11/2023 11:15 AM EST Surgery ENDO [facility], Endoscopy Room [facility] [address] [place] [phone] [place] Elly Linder, DO [address] [place] [address] COLONOSCOPY FLEXIBLE PROXIMAL DIAGNOSTIC Scheduled Procedures Name [...] filedocumented as of this encounter Care Teams Chalker Soles Relationship Specialty Start Date End Date Michael Oleary MD [address] [place] [address] [place] [address] PCP - General Family Medicine 10/30/13 documented as of this encounter
--- OUTSIDE RECORDS SUMMARY | 2023-06-22 03:40 | External Medical Summary | Summary of Care ---
Author Name Unknown Organization [facility] Address [address] [place] [address] Phone [phone] Care Team Providers Care Traffic Controller Cable Name Role Phone Michael Oleary MD Primary Care Provider + [phone] Reason for Visit * Reason Onset Date Comments Test Results 02/11/2023 Unexpected or In determinate Result Encounter Details Date Type Department Care Team (Late st Contact Info) Description 02/11/2023 Telephone Laboratory, [facility] [address] [place] [address] Jennifer Cleaning CRNP [address] [facility] [address] Test Results (Unexpected or Indeterminate ... 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) TAKE TWO TABLETS BY MOUTH THREE TIMES DAILY 540 Tablet 2 05/17/2022 Active predniSONE 5 MG Oral Tablet (Deltasone)Indicati ons:Crohn's disease of small intestine with other complication (HCC) TAKE ONE TABLET BY MOUTH EVERY DAY and may take a second tablet if needed 40 Tablet 5 11/22/2022 Active Additional Information Patient not taking.Reported on 01/09/2023 Vitamin D 50 MCG (2000 UT) Oral [...] vitamin B12 deficiency anemia 1000 mcg IM [id number] 09/25/2022 11/18/2023 Active documented as of this encounter (statuses as of 02/11/2023) Active Problems Problem Noted Date Diagnosed Date [...] as of this encounter (statuses as of 02/11/2023) Resolved Problems Problem Noted Date Diagnosed Date Resolved Date Major depressive disorder, r ecurrent episode, moderate 12/22/2020 05/17/2022 documented as of this encounter (statuses as of 02/11/2023) Immunizations Name Administration Dates Next Due TDAP [...] encounter Miscellaneous Notes * Telephone Encounter - Mimi Orantes OSA - 02/11/2023 5:45 PM EST Mark- The radiologist discovered an unexpected or indeterminate finding on Vickie Mata ([id number]) and asks that you review the following report. Study Type: MRI PELVIS W WO CONTRAST Date of Study: 02/09/2023 IMPRESSION 1. No active small bowel inflammation [...] of the bony pelvis may be considered. Please respond to this encounter to acknowledge receipt of this message and take responsibility to ensure this report is reviewed. Thank you, MAU Garzon Client Service Rep [facility] documented in this encounter Plan of Treatment Upcoming Encounters Date Type Department Care Team (Latest Contact Info) Description 02/20/2023 9:25 AM EST Office Visit Urogynecology [facility] [address] [place] [address] Juan Ramos MD [address] [place] [address] Nurse Conchis Horn [address] [place] [address] 03/29/2023 11:20 AM EST Nurse Only Ancillary [address] [place] [address] [place], Nurse [address] [place] [address] 05/11/2023 10:45 AM EST Hospital Encounter ENDO [facility], Endoscopy Room [facility] [address] [place] [phone] Elly Rosas, DO [address] [place] [address] 05/11/2023 10:45 AM EST - 05/11/2023 11:15 AM EST Surgery ENDO [facility], Endoscopy Room [facility] [address] [place] [phone] Elly Rosas, DO [address] [place] [address] COLONOSCOPY FLEXIBLE PROXIMAL DIAGNOSTIC Scheduled Procedures Name [...] filedocumented as of this encounter Care Teams Traffic Controller Cable Relationship Specialty Start Date End Date Michael Oleary MD [address] [place] [address] [place] [phone] PCP - General Family Medicine 10/30/13 documented as of this encounter
--- OUTSIDE RECORDS SUMMARY | 2023-06-22 03:40 | External Medical Summary | Summary of Care ---
Author Name Unknown Organization [facility] Address [address] [place] [facility] [address] Phone [phone] Care Team Providers Care Palaeontologist Name Role Phone Michael Oleary MD Primary Care Provider + [phone] Reason for Visit * Reason Comments Acute Pt c/o left hip pain , concerned that it's related to crohn's disease. 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 10 Tablet 0 02/13/2023 02/18/2023 Active Hospital, Clinic, or Other Facility Administered Medication Ordered Dose Route Frequency Start Date End Date Status vitamin b-12 (Cyanocobalamin) inj 1,000 mcgIndications:Other vitamin B12 deficiency anemia 1000 mcg IM [id number] 09/25/2022 11/18/2023 Active documented as of this encounter (statuses as of 02/13/2023) Active Problems Problem Noted Date Diagnosed Date [...] as of this encounter (statuses as of 02/13/2023) Resolved Problems Problem Noted Date Diagnosed Date Resolved Date Major depressive disorder, r ecurrent episode, moderate 12/22/2020 05/17/2022 documented as of this encounter (statuses as of 02/13/2023) Immunizations Name Administration Dates Next Due TDAP [...] Sign Reading Time Taken Comments Blood Pressure 110/73 02/13/2023 2:05 PM EST Pulse 118 02/13/2023 2:05 PM EST Temperature 36.6 C (97.9 F) 02/13/2023 2:05 PM ES T Respiratory Rate - - Oxygen Saturation 94% 02/13/2023 2:05 PM EST Inhaled Oxygen Concentration - - Weight 53.1 kg (117 lb 1.6 oz) 02/13/2023 2:05 P M EST Height - - Body Mass Index 21.08 01/10/2023 11:02 AM EDT documented in this encounter Progress Notes * Amalia Baca PA-C - 02/13/2023 2:08 PM EST Chief Complaint Patient presents with Acute Pt c/o left hip pain, concerned that it's related to crohn's disease. Pt here today with left lateral hip pain for the past couple weeks. No injury. Pt states that she only has pain with walking, laying on that side. Pt took a few extra prednisone and this did help butshe only did this for 2 days. Pt denies swelling, redness, bruising. No pain into groin. No pain into distal leg. No numbness/tingling/weakness in leg. Review of patient's allergies indicates: Allergen Reactions Naproxen GI Current Outpatient Medications Medication Sig Dispense Refill sulfaSALAzine 500 MG Oral Tablet (Azulfidine) TAKE TWO TABLETS BY MOUTH THREE TIMES DAILY 540 Tablet 2 predniSONE 5 MG Oral Tablet (Deltasone) TAKE ONE TABLET BY MOUTH EVERY DAY and may take a second tablet if needed 40 Tablet 5 Vitamin D 50 MCG (2000 UT) Oral [...] Housing Stability: Not on file O:Blood pressure 110/73, pulse 118, temperature 36.6 C (97.9 F), weight 53.1 kg (117 lb 1.6 oz), SpO2 94%. GENERAL: alert, healthy, and no distress EXTREMITIES: left lateral hip - no edema, no erythema, no ecchymosis. Pain with palpation over greater trochanter. No pain with ROM at hip. A:Trochanteric bursitis of left hip (Primary) - predniSONE 20 MG Oral Tablet (Deltasone); Take 2 Tablets by mouth in the morning for 5 days. - XR HIP UNILAT 2-3 VIEWS INCLUDING AP PELVIS Start prednisone. Will xray hip. Any questions/problems, please call. If anything changes, worsens,develops new sx, please call [facility]. Follow Up: Return if symptoms worsen or fail to improve. Amalia Baca PA-C documented in this encounter Plan of Treatment Upcoming Encounters Date Type Department Care Team (Latest Contact Info) Description 02/20/2023 9:25 AM EST Office Visit Urogynecology [facility] [address] [place] [address] Juan Ramos MD [address] [place] [address] Nurse Conchis Horn [address] [place] [address] 03/29/2023 11:20 AM EST Nurse Only Ancillary [address] [place] [address] [place], Nurse [address] [place] [address] 05/11/2023 10:45 AM EST Hospital Encounter ENDO [facility], Endoscopy Room [facility] [address] [place] [phone] Elly Rosas DO [address] [place] [address] 05/11/2023 10:45 AM EST - 05/11/2023 11:15 AM EST Surgery ENDO [facility], Endoscopy Room [facility] [address] [place] [phone] Elly Rosas DO [address] [place] [address] COLONOSCOPY FLEXIBLE PROXIMAL DIAGNOSTIC Pending Results Name Type Priority Associated Diagnoses Date /Time XR HIP UNILAT 2-3 VIEWS INCLUDING AP PELVIS Medical Imaging Routine Trochanteric bursitis of left hip 02/13/2023 2:29 PM EST Scheduled Procedures Name Priority Associated [...] as of this encounter Visit Diagnoses Diagnosis Trochanteric bursitis of left hip- Primary Enthesopathy of hip region Crohn's disease without complication, unspecified gastrointestinal tract location (HCC) documented in this encounter Care Teams Palaeontologist Relationship Specialty Start Date End Date Michael Oleary MD [address] [place] [address] [place] [phone] PCP - General Family Medicine 10/30/13 documented as of this encounter
--- OUTSIDE RECORDS SUMMARY | 2023-06-22 03:40 | External Medical Summary | Summary of Care ---
Author Name Unknown Organization [facility] Address [address] [facility] [place] [address] Phone [phone] Care Team Providers Care Pre K Lead Teacher Name Role Phone Michael Oleary MD Primary Care Provider + [phone] Reason for Referral * Evaluate & Treat - Unlimited Visits (Within 30 days (routine)) - Pending Review Specialty Diagnoses / Procedures Referred By Tyesha akbar Referred To Contact Colon and Rectal Surgery / General Surgery Diagnoses Perianal fistula Jennifer Cleaning CRNP [address] [place] [address] Referral ID Status Reason Start Date Expiration Date Visits Requested Visits Authorized [id number] Pending Review Specialty Services Required [phone] Question Answer Referral Priority Within 30 days (routine) Where should this appointment be scheduled? [facility] What condition is the patient being seen for? Hemorrhoids/Anal Abcess/Fistulas/Fissures/Skin Tags/Hematochezia Encounter Details Date Type Department Care Team (Late st Contact Info) Description 02/13/2023 Orders Only Gastroenterology, [facility] [address] [place] [address] Jennifer Cleaning CRNP [address] [place] [address] Perianal fistula* Allergies Active Allergy Reactions Criticality Noted Date [...] 5 11/22/2022 Active Vitamin D 50 MCG (2000 UT) [...] vitamin B12 deficiency anemia 1000 mcg IM [id number] 09/25/2022 11/18/2023 Active documented as of this [...] Urogynecology [facility] [address] [place] [address] Juan Ramos MD [address] [place] [address] Nurse Conchis Horn [address] [place] [address] 03/29/2023 11:20 AM EST Nurse Only Ancillary [address] [place] [address] [place], Nurse [address] [place] [address] 05/11/2023 10:45 AM EST Hospital Encounter ENDO [facility], Endoscopy Room [facility] [address] [place] [phone] Elly Rosas DO [address] [place] [address] 05/11/2023 10:45 AM EST - 05/11/2023 11:15 AM EST Surgery ENDO [facility], Endoscopy Room [facility] [address] [place] [phone] [place] Elly Linder, [address] [place] [address] COLONOSCOPY FLEXIBLE PROXIMAL DIAGNOSTIC Scheduled Procedures Name Priority Associated Diagnoses Date/Ti me COLONOSCOPY FLEXIBLE PROXIMAL DIAGNOSTIC Crohn's disease without complication, unspecified gastrointestinal tract location (HCC) 05/11/2023 10:45 AM EST Scheduled Referrals Name Type Priority Associated Diagnoses Orde r Schedule COLORECTAL SURGERY REFERRAL OP Referral Within 30 days (routine) Perianal fistula Ordered: 02/13/2023 Health Maintenance Due Date Last Done Comments [...] as of this encounter Visit Diagnoses Diagnosis Perianal fistula- Primary Anal fistula Crohn's disease without complication, unspecified gastrointestinal tract location (HCC) documented in this encounter Care Teams Pre K Lead Teacher Relationship Specialty Start Date End Date Michael Oleary MD [address] [place] [address] [place] [address] PCP - General Family Medicine 10/30/13 documented as of this encounter
--- OUTSIDE RECORDS SUMMARY | 2023-06-22 03:40 | External Medical Summary | Summary of Care ---
Author Name Unknown Organization [facility] Address [address] [place] [address] Phone [phone] Care Team Providers Care Java Manager Name Role Phone Michael Oleary MD Primary Care Provider + [phone] Reason for Referral * Evaluate & Treat - Unlimited Visits (Within 3 days (urgent)) - Pending Review Specialty Diagnoses / Procedures Referred By Tyesha akbar Referred To Contact Psychology Diagnoses Moderate episode of recurrent major depressive disorder (HCC) Michael Oleary MD [address] [place] [address] [place] [address] Referral ID Status Reason Start Date Expiration Date Visits Requested Visits Authorized [id number] Pending Review Specialty Services Required 3 [phone] Question Answer Referral Priority Within 3 days (urgent) Where should this appointment be scheduled? [facility] Is this referral for medication management? No Referral To [facility] Reason for Referral: Depression/Anxiety/Bipolar Specific Condition? Depression Comments Gets anxiety attacks too Reason for Visit * Reason Comments Emergency Department Follow-Up Encounter Details Date Type Department Care Team (Late st Contact Info) Description 01/09/2023 2:00 PM EDT Office Visit Family Medicine [address] [place] [phone] Michael Oleary MD [address] [place] [address] [place] [address] Moderate episode of recurrent major depressive disorder (HCC)*; Dysphagia, unspecified type Allergies Active Allergy Reactions Criticality Noted Date Comments Naproxen 06/26/2000 GI documented as of this encounter (statuses as of 01/09/2023) Medications Medication Sig Dispensed Refills Start Date End Date Status sulfaSALAzine 500 MG Oral Tablet (Azulfidine)Indica tions: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 30 Tablet 5 01/09/2023 Active Pantoprazole Sodium 40 MG Oral Tablet Delayed Release (Protonix)Indicati ons:Dysphagia, unspecified type Take 1 Tablet by mouth in the morning. 30 minutes before the first meal of the day. Do not crush, split or chew the tablet. 30 Tablet 5 10/09/2022 3 Discontinue d(Refill) Sulfamethoxazole-T rimethoprim 800-160 MG Oral Tablet (Bactrim DS)Indications:Dys uria Take 1 Tablet by mouth in the morning and 1 Tablet before bedtime. Do all this for 7 days. Until gone. 14 Tablet 0 01/03/2023 3 Discontinue d(Medicatio n List Clean Up) Hospital, Clinic, or Other Facility Administered Medication Ordered Dose Route Frequency Start Date End Date Status vitamin b-12 (Cyanocobalamin) inj 1,000 mcgIndications:Other vitamin B12 deficiency anemia 1000 mcg IM [id number] 09/25/2022 11/18/2023 Active documented as of this encounter (statuses as of 01/09/2023) Active Problems Problem Noted Date Diagnosed Date [...] as of this encounter (statuses as of 01/09/2023) Resolved Problems Problem Noted Date Diagnosed Date Resolved Date Major depressive disorder, r ecurrent episode, moderate 12/22/2020 05/17/2022 documented as of this encounter (statuses as of 01/09/2023) Immunizations Name Administration Dates Next Due TDAP [...] Sign Reading Time Taken Comments Blood Pressure 112/60 01/09/2023 2:04 PM EDT Pulse 94 01/09/2023 2:04 PM EDT Temperature 36.2 C (97.1 F) 01/09/2023 2:04 PM ED T Respiratory Rate 16 01/09/2023 2:04 PM EDT Oxygen Saturation - - Inhaled Oxygen Concentration - - Weight 54 kg (119 lb 1 oz) 01/09/2023 2:04 PM ED T Height - - Body Mass Index 21.6 01/03/2023 8:44 AM EDT documented in this encounter Progress Notes * Michael Oleary MD - 01/09/2023 2:18 PM EDT Vickie had a shaky spell, anxiety attack and they also found a UTI as part of the problem. We had recently bumped the Cymbalta up to 30 mg. She gets really stressed over her and will leave her phone at the house and go take a walk to settle down. She needs a psych referral. Also she is seeing Dr Ramos tomorrow for her bladder. She is just about done her antibiotic Past Medical History: Diagnosis Date Crohn's disease [...] chew the tablet. 30 Tablet 5 predniSONE 5 MG Oral Tablet (Deltasone) TAKE ONE TABLET BY MOUTH EVERY DAY and may take a second tablet if needed (Patient not taking: Reported on 01/09/2023) 40 Tablet 5 Current Facility-Administered Medications Medication Dose Route Frequency Provider Last Rate Last Admin vitamin b-12 (Cyanocobalamin) inj 1,000 mcg 1,000 mcg Intramuscular Q12 Weeks Michael Oleary MD 1,000 mcg at 12/27/22 0941 O: Blood pressure 112/60, pulse 94, temperature 36.2 C (97.1 F), temperature source Tympanic, resp. rate 16, weight 54 kg (119 lb 1 oz). General appearance: well developed, well nourished and in no acute distress. Neck is supple without adenopathy or thyromegaly. Chest is symmetrical and moves normally. The lungs are clear without wheezes, rales, rhonchi or rubs, and the heart is regular without murmurs or gallops, or ectopy. PMI not displaced. A: Moderate episode of recurrent major depressive disorder (HCC) (Primary) - ADULT/PEDS PSYCHOLOGY REFERRAL OP Dysphagia, unspecified type - Pantoprazole Sodium 40 MG Oral Tablet Delayed Release (Protonix); Take 1 Tablet by mouth in the morning. 30 minutes before the first meal of the day. Do not crush, split or chew the tablet. Continue other meds as before. Follow Up: Return if symptoms worsen or fail to improve. documented in this encounter Nursing Notes * Nicki Medina LPN - 01/09/2023 1:57 PM EDT [facility] ER follow up Pt was to follow up with psychiatrist, but hasn't heard anything. documented in this encounter Plan of Treatment Upcoming Encounters Date Type Department Care Team (Latest Contact Info) Description 01/10/2023 11:25 AM EDT Office Visit Urogynecology [facility] [address] [place] [address] Juan Ramos MD [address] [place] [address] Nurse Conchis Horn Sierra [address] [place] [address] 02/09/2023 9:15 AM EST Imaging Radiology [facility] 1st [facility], [place] [address] [place] [address] 02/09/2023 10:00 AM EST Imaging Radiology [address], [place] [address] [place] [address] 05/11/2023 10:45 AM EST Hospital Encounter ENDO [facility], Endoscopy Room [facility] [address] [place] [phone] Elly Rosas DO [address] [place] [address] 05/11/2023 10:45 AM EST - 05/11/2023 11:15 AM EST Surgery ENDO [facility], Endoscopy Room [facility] [address] [place] [phone] Elly Rosas DO [address] [place] [address] COLONOSCOPY FLEXIBLE PROXIMAL DIAGNOSTIC Scheduled Procedures Name Priority Associated Diagnoses Date/Ti il COLONOSCOPY FLEXIBLE PROXIMAL DIAGNOSTIC Crohn's disease without complication, unspecified gastrointestinal tract location (HCC) 05/11/2023 10:45 AM EST Scheduled Referrals Name Type Priority Associated Diagnoses Orde r Schedule ADULT/PEDS PSYCHOLOGY REFERRAL OP Referral Within 3 days (urgent) Moderate episode of recurrent major depressive disorder (HCC) Ordered: 01/09/2023 Health Maintenance Due Date Last Done Comments [...] as of this encounter Visit Diagnoses Diagnosis Moderate episode of recurrent major depressive disorder (HCC)- Primary Dysphagia, unspecified type Crohn's disease without complication, unspecified gastrointestinal tract location (HCC) documented in this encounter Care Teams Java Manager Relationship Specialty Start Date End Date Michael Oleary MD [address] [place] [address] [place] [address] PCP - General Family Medicine 10/30/13 documented as of this encounter
--- OUTSIDE RECORDS SUMMARY | 2023-06-22 03:40 | External Medical Summary | Summary of Care ---
Author Name Unknown Organization [facility] Address [address] [place] [address] Phone [phone] Care Team Providers Care Early Childhood Services Coordinator Name Role Phone Michael Oleary MD Primary Care Provider + [phone] Reason for Visit * Reason Onset Date Comments Test Results 02/19/2023 Encounter Details Date Type Department Care Team (Late st Contact Info) Description 02/19/2023 Telephone Family [address] [phone] Amalia Baca PA-C [address] [place] [address] [place] [id number] Test Results Allergies Active Allergy Reactions Criticality Noted Date Comments Naproxen 06/26/2000 GI documented as of this encounter (statuses as of 02/20/2023) Medications Medication Sig Dispensed Refills Start Date End Date Status sulfaSALAzine 500 MG Oral Tablet (Azulfidine)Indicatio ns: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) TAKE TWO TABLETS BY MOUTH THREE TIMES DAILY 540 Tablet 2 05/17/2022 Active predniSONE 5 MG Oral Tablet (Deltasone)Indication s:Crohn's disease of small intestine with other complication [...] vitamin B12 deficiency anemia 1000 mcg IM [id number] 09/25/2022 11/18/2023 Active documented as of this encounter (statuses as of 02/20/2023) Active Problems Problem Noted Date Diagnosed Date [...] as of this encounter (statuses as of 02/20/2023) Resolved Problems Problem Noted Date Diagnosed Date Resolved Date Major depressive disorder, r ecurrent episode, moderate 12/22/2020 05/17/2022 documented as of this encounter (statuses as of 02/20/2023) Immunizations Name Administration Dates Next Due TDAP [...] encounter Miscellaneous Notes * Telephone Encounter - Jacque Juarez LPN - 02/20/2023 8:31 AM EST Patient aware and verbalized understanding, will comply. Patient had already scheduled an appt for 03/02 with Amalia because she wants to go over all the results -MRI abdomen, pelvis, and this XRAY. Opening for a return appt tomorrow, rescheduled to 02/21 at 3pm. Patient will discuss and have Amalia put the MRI in at that time. AV [place]. * Telephone Encounter - Nicki Medina LPN - 02/20/2023 8:16 AM EST Lm for pt to call back. * Telephone Encounter - Amalia Baca PA-C - 02/19/2023 11:15 AM EST Please call pt. The xray shows possible stress fracture in the hip. Will need to get MRI for further evaluation. Does she want to do this? documented in this encounter Plan of Treatment Upcoming Encounters Date Type Department Care Team (Latest Contact Info) Description 02/21/2023 3:00 PM EST Office Visit Family [address] [phone] Amalia Baca PA-C [address] [place] [address] [place] [address] 03/21/2023 12:30 PM EST Office Visit General Surgery, [facility] [place] [address] Peg Johnson MD [address] [place] [address] 03/29/2023 11:20 AM EST Nurse Only Ancillary [address] [place] [address] [place], Nurse [address] [place] [address] 05/11/2023 10:45 AM EST Hospital Encounter ENDO [facility], Endoscopy Room [facility] [address] [place] [phone] Elly Rosas, [address] [place] [address] 05/11/2023 10:45 AM EST - 05/11/2023 11:15 AM EST Surgery ENDO [facility], Endoscopy Room [facility] [address] [place] [phone] Elly Rosas DO [address] [place] [address] COLONOSCOPY FLEXIBLE PROXIMAL DIAGNOSTIC Scheduled Procedures Name [...] filedocumented as of this encounter Care Teams Early Childhood Services Coordinator Relationship Specialty Start Date End Date Michael Oleary MD [address] [place] [address] [place] [address] PCP - General Family Medicine 10/30/13 documented as of this encounter
--- OUTSIDE RECORDS SUMMARY | 2023-06-22 03:40 | External Medical Summary | Summary of Care ---
Author Name Unknown Organization [facility] Address [address] [facility] [address] Phone [phone] Care Team Providers Care Pilot Plant Operator Name Role Phone Michael Oleary MD Primary Care Provider [phone] Reason for Visit * Reason Onset Date Comments Appointment 02/05/2023 Encounter Details Date Type Department Care Team (Late st Contact Info) Description 02/05/2023 Telephone Radiology [facility] 1st [facility] [place] [address] [facility] [place] [address] Siri Arredondo TECH Appointment Allergies Active Allergy Reactions Criticality Noted Date Comments Naproxen 06/26/2000 GI documented as of this encounter (statuses as of 02/05/2023) Medications Medication Sig Dispensed Refills Start Date [...] vitamin B12 deficiency anemia 1000 mcg IM [id number] 09/25/2022 11/18/2023 Active documented as of this encounter (statuses as of 02/05/2023) Active Problems Problem Noted Date Diagnosed Date [...] as of this encounter (statuses as of 02/05/2023) Resolved Problems Problem Noted Date Diagnosed Date Resolved Date Major depressive disorder, r ecurrent episode, moderate 12/22/2020 05/17/2022 documented as of this encounter (statuses as of 02/05/2023) Immunizations Name Administration Dates Next Due TDAP [...] Department Care Team (Latest Contact Info) Description 02/09/2023 9:15 AM EST Imaging Radiology [address] [place] [address] 02/09/2023 10:00 AM EST Imaging Radiology [address] [place] [address] 02/20/2023 9:25 AM EST Office Visit Urogynecology [facility] [address] [place] [address] Juan Ramos MD [address] [place] [address] [place] Nurse Conchis Sierra [address] [place], [place] [address] 03/29/2023 11:20 AM EST Nurse Only Ancillary [address] [place] [address] [place], Nurse [address] [place] [address] 05/11/2023 10:45 AM EST Hospital Encounter ENDO [facility], Endoscopy Room [facility] [address] [place] [phone] Elly Rosas DO [address] [place] [address] 05/11/2023 10:45 AM EST - 05/11/2023 11:15 AM EST Surgery ENDO [facility], Endoscopy Room [facility] [address] [place] [phone] Elly Rosas DO [address] [place] [address] COLONOSCOPY FLEXIBLE PROXIMAL DIAGNOSTIC Scheduled Procedures Name [...] filedocumented as of this encounter Care Teams Pilot Plant Operator Relationship Specialty Start Date End Date Michael Oleary MD [address] [place] [address] [place] [phone] PCP - General Family Medicine 10/30/13 documented as of this encounter
--- OUTSIDE RECORDS SUMMARY | 2023-06-22 03:40 | External Medical Summary | Summary of Care ---
Author Name Unknown Organization [facility] Address [address] [place] [place] [place] [address] Phone [phone] Care Team Providers Care Systems Programmer Name Role Phone Michael Oleary MD Primary Care Provider + [phone] Reason for Visit * Reason Comments Acute Encounter Details Date Type Department Care Team (Late st Contact Info) Description 03/01/2023 11:00 AM EST Office Visit Family Medicine [address] [phone] Amalia Baca PA-C [address] [place] [address] [place] [address] Rib pain on right side* Allergies Active Allergy Reactions Criticality Noted Date Comments Naproxen 06/26/2000 GI documented as of this encounter (statuses as of 03/01/2023) Medications Medication Sig Dispensed Refills Start Date [...] 01/09/2023 Active predniSONE 5 MG Oral Tablet (Deltasone)Indicat ions:Crohn's disease of small intestine with other complication (HCC) TAKE ONE TABLET BY MOUTH EVERY DAY and may take a second tablet if needed 40 Tablet 5 11/22/2022 3 Discontinued Hospital, Clinic, or Other Facility Administered Medication Ordered Dose Route Frequency Start Date End Date Status vitamin b-12 (Cyanocobalamin) inj 1,000 mcgIndications:Other vitamin B12 deficiency anemia 1000 mcg IM [id number] 09/25/2022 11/18/2023 Active documented as of this encounter (statuses as of 03/01/2023) Active Problems Problem Noted Date Diagnosed Date [...] as of this encounter (statuses as of 03/01/2023) Resolved Problems Problem Noted Date Diagnosed Date Resolved Date Major depressive disorder, r ecurrent episode, moderate 12/22/2020 05/17/2022 documented as of this encounter (statuses as of 03/01/2023) Immunizations Name Administration Dates Next Due TDAP [...] Sign Reading Time Taken Comments Blood Pressure 116/72 03/01/2023 10:45 AM EST Pulse 88 03/01/2023 10:45 AM EST Temperature 36.1 C (97 F) 03/01/2023 10:45 AM EST Respiratory Rate - - Oxygen Saturation 98% 03/01/2023 10:45 AM EST Inhaled Oxygen Concentration - - Weight 52.6 kg (116 lb) 03/01/2023 10:45 AM EST Height - - Body Mass Index 20.88 01/10/2023 11:02 AM EDT documented in this encounter Progress Notes * Amalia Baca PA-C - 03/01/2023 10:52 AM EST Nursing Notes: Matilde Raygoza LPN 03/01/23 1046 Sign at exiting of workspace Pain in right ribs- cracked rib maybe? Pain in left hip- cracked. Pt here today with pain in right ribs. Pt states that it started about 3 days ago. No injury or doing anything out of the ordinary. No swelling, redness, or bruising. Pt has pain with deep breath andcoughing. Pt did have a cough but this has cleared. Pt denies SOB, fever, chills. Review of patient's allergies indicates: Allergen Reactions [...] Housing Stability: Not on file O:Blood pressure 116/72, pulse 88, temperature 36.1 C (97 F), temperature source Tympanic, weight 52.6 kg (116 lb), SpO2 98%. GENERAL: alert, healthy, and no distress HEART: regular rate & rhythm, no murmur, and no gallops LUNGS: chest symmetric with normal AP diameter, no chest deformities noted, no chest wall tenderness, lungs clear to auscultation CHEST: pain with palpation at right sided lower ribs. No edema, no erythema, no ecchymosis. A:Rib pain on right side (Primary) - XR RIBS UNILATERAL W/PA CHEST MINIMUM 3 VIEWS Will xray ribs. Try aleve. Ice/heat. Any questions/problems, please call. If anything changes, worsens, develops new sx, please call [facility]. Follow Up: Return if symptoms worsen or fail to improve. Amalia Baca PA-C documented in this encounter Nursing Notes * Matilde Raygoza LPN - 03/01/2023 10:45 AM EST Pain in right ribs- cracked rib maybe? Pain in left hip- cracked. documented in this encounter Plan of Treatment Upcoming Encounters Date Type Department Care Team (Latest Contact Info) Description 03/17/2023 4:00 PM EST Imaging Radiology [facility] 1st [facility] [place] [address] 03/21/2023 12:30 PM EST Office Visit General Surgery, [facility] [address] [facility] [place] [address] Peg Johnson MD [address] [place] [address] 03/29/2023 11:20 AM EST Nurse Only Ancillary [address] [place] [address] [place], Nurse [address] [place] [address] 05/11/2023 10:45 AM EST Hospital Encounter ENDO [facility], Endoscopy Room [facility] [address] [place] [phone] Elly Rosas DO [address] [place] [address] 05/11/2023 10:45 AM EST - 05/11/2023 11:15 AM EST Surgery ENDO [facility], Endoscopy Room [facility] [address] [place] [phone] Elly Rosas DO [address] [place] [address] COLONOSCOPY FLEXIBLE PROXIMAL DIAGNOSTIC Pending Results Name Type Priority Associated Diagnoses Date /Time XR RIBS UNILATERAL W/PA CHEST MINIMUM 3 VIEWS Medical Imaging Routine Rib pain on right side 03/01/2023 11:10 AM EST Scheduled Procedures Name Priority Associated [...] as of this encounter Visit Diagnoses Diagnosis Rib pain on right side- Primary Chest pain, unspecified Crohn's disease without complication, unspecified gastrointestinal tract location (HCC) documented in this encounter Care Teams Systems Programmer Relationship Specialty Start Date End Date Michael Oleary MD [address] [place] [address] [place] [phone] PCP - General Family Medicine 10/30/13 documented as of this encounter
--- OUTSIDE RECORDS SUMMARY | 2023-06-22 03:40 | External Medical Summary | Summary of Care ---
Author Name Unknown Organization [facility] Address [address] [place] [facility] [place] [address] Phone [phone] Care Team Providers Care Editor Newspaper Name Role Phone Michael Oleary MD Primary Care Provider + [phone] Reason for Referral * Precert (Within 10 days (routine)) - Pending Review Specialty Diagnoses / Procedures Referred By Contac t Referred To Contact Radiology Diagnoses Trochanteric bursitis of left hip Procedures MRI HIP LEFT WO CONTRAST Amalia Baca PA-C [address] [place] [address] [place] [address] Referral ID Status Reason Start Date Expiration Date V isits Requested Visits Authorized [id number] Pending Review 02/28/2023 999 999 Reason for Visit * Reason Comments Acute Discuss xray results from 02/14/23 Left Hip Encounter Details Date Type Department Care Team (Late st Contact Info) Description 02/21/2023 3:00 PM EST Office Visit Family Medicine [address] [place] [phone] Amalia Baca PA-C [address] [place] [address] [place] [address] Trochanteric bursitis of left hip* Allergies Active Allergy Reactions Criticality Noted Date Comments Naproxen 06/26/2000 GI documented as of this encounter (statuses as of 02/21/2023) Medications Medication Sig Dispensed Refills Start Date [...] Active Additional Information Patient not taking.Reported on 02/21/2023 Vitamin D 50 MCG (2000 UT) Oral [...] vitamin B12 deficiency anemia 1000 mcg IM [id number] 09/25/2022 11/18/2023 Active documented as of this encounter (statuses as of 02/21/2023) Active Problems Problem Noted Date Diagnosed Date [...] as of this encounter (statuses as of 02/21/2023) Resolved Problems Problem Noted Date Diagnosed Date Resolved Date Major depressive disorder, r ecurrent episode, moderate 12/22/2020 05/17/2022 documented as of this encounter (statuses as of 02/21/2023) Immunizations Name Administration Dates Next Due TDAP [...] Reading Time Taken Comments Blood Pressure 112/60 02/21/2023 2:49 PM EST Pulse 89 02/21/2023 2:49 PM EST Temperature 36.6 C (97.9 F) 02/21/2023 2:49 PM ES T Respiratory Rate - - Oxygen Saturation 97% 02/21/2023 2:49 PM EST Inhaled Oxygen Concentration - - Weight 54.3 kg (119 lb 9.6 oz) 02/21/2023 2:49 P M EST Height - - Body Mass Index 21.53 01/10/2023 11:02 AM EDT documented in this encounter Progress Notes * Amalia Baca PA-C - 02/21/2023 3:06 PM EST Nursing Notes: Beatriz Gunn LPN 02/21/23 1450 Signed Chief Complaint Patient presents with Acute Discuss xray results from 02/14/23 Left Hip Xray showed hair line fx and recommended MRI The patient has been properly identified by confirmation of name and date of . Pt here today to discuss xray. Needs MRI still with left hip pain. Review of patient's allergies indicates: Allergen [...] if needed (Patient not taking: Reported on 02/21/2023) 40 Tablet 5 Current Facility-Administered Medications Medication [...] Housing Stability: Not on file O:Blood pressure 112/60, pulse 89, temperature 36.6 C (97.9 F), temperature source Tympanic, weight 54.3 kg (119 lb 9.6 oz), SpO2 97%. GENERAL: alert, healthy, and no distress A:Trochanteric bursitis of left hip (Primary) - MRI HIP LEFT WO CONTRAST; Future; Expected date: 02/28/2023 Order in for MRI. Any questions/problems, please call. If anything changes, worsens, develops new sx, please call [facility]. Follow Up: Return if symptoms worsen or fail to improve. Amalia Baca PA-C documented in this encounter Nursing Notes * Beatriz Gunn LPN - 02/21/2023 2:30 PM EST Chief Complaint Patient presents with Acute Discuss xray results from 02/14/23 Left Hip Xray showed hair line fx and recommended MRI The patient has been properly identified by confirmation of name and date of . documented in this encounter Plan of Treatment Upcoming Encounters Date Type Department Care Team (Latest Contact Info) Description 03/17/2023 4:00 PM EST Imaging Radiology [facility] [address] [facility] [place] [address] 03/21/2023 12:30 PM EST Office Visit General Surgery, [facility] [address] [facility] [place] [place] [address] Peg Johnson MD [address] [place] [address] 03/29/2023 11:20 AM EST Nurse Only Ancillary [address] [place] [address] [place], Nurse [address] [place] [address] 05/11/2023 10:45 AM EST Hospital Encounter ENDO [facility], Endoscopy Room [facility] [address] [facility] [place] [phone] Elly Rosas DO [address] [facility] [place] [address] 05/11/2023 10:45 AM EST - 05/11/2023 11:15 AM EST Surgery ENDO [facility], Endoscopy Room [facility] [address] [place] [phone] Elly Rosase, [address] [place] [address] COLONOSCOPY FLEXIBLE PROXIMAL DIAGNOSTIC Scheduled Orders Name Type Priority Associated Diagnoses Orde r Schedule MRI HIP LEFT WO CONTRAST Medical Imaging Routine Trochanteric bursitis of left hip Expected: 02/28/2023, Expires: 03/24/2024 Scheduled Procedures Name Priority Associated Diagnoses Date/Ti [...] (HCC) documented in this encounter Care Teams Editor Newspaper Relationship Specialty Start Date End Date Michael Oleary MD [address] [place] [address] [place] [phone] PCP - General Family Medicine 10/30/13 documented as of this encounter
--- OUTSIDE RECORDS SUMMARY | 2023-06-22 03:40 | External Medical Summary | Summary of Care ---
Author Name Unknown Organization [facility] Address [address] [facility] [address] Phone [phone] Care Team Providers Care Manager Culture Name Role Phone Michael Oleary MD Primary Care Provider + [phone] Reason for Referral * Evaluate & Treat - Unlimited Visits (Within 30 days (routine)) - Pending Review Specialty Diagnoses / Procedures Referred By Tyesha akbar Referred To Contact Colon and Rectal Surgery / General Surgery Diagnoses Perianal fistula Jennifer Cleaning CRNP [address] [employer] [place] [address] Referral ID Status Reason Start Date Expiration Date Visits Requested Visits Authorized [id number] Pending Review Specialty Services Required 3 [phone] Question Answer Referral Priority Within 30 days (routine) Where should this appointment be scheduled? [facility] What condition is the patient being seen for? Hemorrhoids/Anal Abcess/Fistulas/Fissures/Skin Tags/Hematochezia Encounter Details Date Type Department Care Team (Late st Contact Info) Description 02/13/2023 Orders Only Gastroenterology, [facility] [address] [place] [address] Jennifer Cleaning CRNP [address] [place] [address] Perianal fistula* Allergies Active Allergy Reactions Criticality [...] vitamin B12 deficiency anemia 1000 mcg IM [id number] 09/25/2022 11/18/2023 Active documented as of this [...] Urogynecology Margaret Horn [address] [place] [address] Juan Ramos MD [address] [place] [address] Nurse Conchis Horn [address] [place] [address] 03/29/2023 11:20 AM EST Nurse Only Ancillary [address] [place] [address] [place], Nurse [address] [place] [address] 05/11/2023 10:45 AM EST Hospital Encounter ENDO [facility], Endoscopy Room [facility] [address] [place] [phone] Elly Rosas DO [address] [place] [address] 05/11/2023 10:45 AM EST - 05/11/2023 11:15 AM EST Surgery ENDO [facility], Endoscopy Room [facility] [address] [place] [phone] [place] Elly Linder, [address] [place] [address] COLONOSCOPY FLEXIBLE PROXIMAL DIAGNOSTIC Scheduled Procedures Name [...] (HCC) documented in this encounter Care Teams Manager Culture Relationship Specialty Start Date End Date Michael Oleary MD [address] [place] [address] [place] [address] PCP - General Family Medicine 10/30/13 documented as of this encounter
--- OUTSIDE RECORDS SUMMARY | 2023-06-22 03:40 | External Medical Summary | Summary of Care ---
Author Name Unknown Organization [facility] Address [address] [place] [facility] [place] [address] Phone [phone] Care Team Providers Care Camp Housekeeper Name Role Phone Michael Oleary MD Primary Care Provider + [phone] Reason for Visit * Reason Comments Consultation * Evaluate & Treat - Unlimited Visits (Within 10 days (routine)) - Authorized Specialty Diagnoses / Procedures Referred By Contac t Referred To Contact Obstetrics/Gynecology / Gynecology Obstetrics Diagnoses Rectovaginal fistula Amalia Baca PA-C [address] [place] [address] [place] [address] Referral ID Status Reason Start Date Expiration Date Visits Requested Visits Authorized [id number] Authorized Specialty Services Required 01/05/2024 999 999 Encounter Details Date Type Department Care Team (Latest Contact Info) Description 01/10/2023 11:25 AM EDT Office Visit Urogynecology Margaret Horn [address] [place] [address] Juan Ramos MD [address] [place] [address] Nurse Conchis Horn [address] [place] [address] Crohn's disease with complication, unspecified gastrointestinal tract location (HCC)* Allergies Active Allergy Reactions Criticality Noted Date Comments Naproxen 06/26/2000 GI documented as of this encounter (statuses as of 01/10/2023) Medications Medication Sig Dispensed Refills Start Date [...] vitamin B12 deficiency anemia 1000 mcg IM [id number] 09/25/2022 11/18/2023 Active documented as of this encounter (statuses as of 01/10/2023) Active Problems Problem Noted Date Diagnosed Date [...] as of this encounter (statuses as of 01/10/2023) Resolved Problems Problem Noted Date Diagnosed Date Resolved Date Major depressive disorder, r ecurrent episode, moderate 12/22/2020 05/17/2022 documented as of this encounter (statuses as of 01/10/2023) Immunizations Name Administration Dates Next Due TDAP (age 11 and older)(Adacel) 01/30/2009 documented as of this encounter Social History Tobacco Use Types Packs/Day Years Used Date Smoking Tobacco: Every Day Cigarettes 0.5 33 Smokeless Tobacco: Never Tobacco Cessation:Ready to Q uit: No; Counseling Given: No Comments:age 14 Alcohol Use Standard Drinks/Week Comments [...] Sign Reading Time Taken Comments Blood Pressure 112/74 01/10/2023 11:02 AM EDT Pulse - - Temperature - - Respiratory Rate - - Oxygen Saturation - - Inhaled Oxygen Concentration - - Weight 54.1 kg (119 lb 3.2 oz) 01/10/2023 11:02 AM EDT Height 158.8 cm (5' 2.5") 01/10/2023 11:02 AM ED T Body Mass Index 21.45 01/10/2023 11:02 AM EDT documented in this encounter Progress Notes * Juan Ramos MD - 01/10/2023 10:59 AM EDT Vickie Mata is a 57 year old female P 1 here for evaluation of UTI. Referred by Amalia Baca PA-C. Vickie Mata reports having a UTI on 01/03/23. At the time, she denied dysuria, frequency, urgency, nocturia. She finished the course of antibiotics. She denies having dysuria, frequency, urgency, or nocturia today as well. The urine culture from 01/03/23 shows no growth. She has concern regarding some smearing of stool on her tissue paper when she wipes after emptying her bladder. She denies vaginal discharge, or alejandro stool coming out the vagina. Denies incontinenceof stool into her underwear. Denies incontinence of flatus or flatus into the vagina. Patient was recently seen by gastroenterology last week where she complained of rectal bleeding. Patient declined a rectal exam. MRI of the pelvis was ordered along with colonoscopy to rule out ano rectal fistula. Results are pending. Urinary: Leakage: no Has leakage no Wears pads: no She denies a sense of incomplete bladder emptying. Prior/current treatment include: none UTI: Denies having UTI in the past, before last week Voiding detail: Daytime frequency: every 5 hours Urgency no Nocturia:no Hesitancy no Straining no Hematuria no Postvoid dribbling no Postvoid urgency no Manual reduction no Prolapse: She denies a palpable bulge. GI: Bowel habits: constipation, bowel movement 1-2 times a week She denies fecal incontinence. Prior/ current treatments include: Crohn's disease therapy Gynecologic history: No prior gynecologic history. 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 B12 DEFIC ANEMIA NEC D51.8 ADVANCE DIRECTIVE INFORMATION Generalized osteoarthritis of multiple sites M15.9 Tobacco use disorder F17.200 Family history of ischemic heart disease Z82.49 Edentulous K08.109 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) K50.013 Moderate episode of recurrent major depressive disorder (HCC) F33.1 Past Medical History: Diagnosis Date 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) 04/07/2016 Edentulous Encounter for hepatitis C screening test for low risk patient 10/17/2016 negative Family history of ischemic heart disease Generalized osteoarthritis of multiple sites Major depressive disorder, recurrent episode, moderate (HCC) 12/22/2020 Other vitamin B12 deficiency anemia Regional enteritis (HCC) 14 years old crohns Tobacco use disorder Patient sees Michael Oleary MD as her primary care provider. Surgical History: Past Surgical History: Procedure Laterality Date TOTAL HYSTERECTOMY 1992 fibroid,pt unsure if she has ovaries OB History 2 Para 1 Term AB 1 Living 1 SAB 1 IAB Ectopic Multiple Live Births Vaginal deliveries: 1 C/S: 0 Allergies: Review of patient's allergies indicates: Allergen Reactions Naproxen GI Active Medications: Current Outpatient Medications Medication Sig Dispense Refill [...] Oleary MD 1,000 mcg at 12/27/22 0941 Social History: Social History Socioeconomic History Marital status: Tobacco Use Smoking status: Every Day Packs/day: 0.50 Years: 33.00 Additional pack years: 0.00 Total pack years: 16.50 Types: Cigarettes Smokeless tobacco: Never Tobacco comments: age 14 Substance and Sexual Activity Alcohol use: No Drug use: No Sexual activity: Yes Partners: Male Comment: hysterectomy Family History: Family History Problem Relation Age of Onset Other (ibs) Mother Hypertension Father Heart Disorder Grandmother (Maternal) Heart Disorder Grandfather (Maternal) Stroke Grandmother (Paternal) Cancer Grandfather (Paternal) brain Gastro-intestinal disorder Son ulcerative colitis Cancer Aunt (Unspecified) ? colon CONSTITUTIONAL ROS: No change in weight, No weakness and No fatigue NECK ROS: No lumps or masses, PULMONARY ROS: No recent change in breathing CARDIOVASCULAR ROS: No chest pain, No shortness of breath and No dyspnea on exertion BREAST ROS: denies GASTROINTESTINAL ROS: No abdominal pain,as per HPI GENITO-URINARY FEMALE ROS: As per HPI MSK/EXTREMITIES ROS: denies back pain SKIN/INTEGUMENTARY ROS: No rash and No itching NEUROLOGICAL ROS: Normal balance No weakness PSYCHIATRIC ROS: history of depression and anxiety Patient declined pelvic exam. She did not feel comfortable having an exam. The following data points/ labs were reviewed: Results for orders placed or performed in visit on 01/03/23 URINALYSIS, REFLEX TO MICROSCOPIC Result Value Ref Range Color, Urine Yellow Colorless, Light Yellow, Yellow, Dark Yellow Clarity, Urine Clear Clear Glucose, Urine Negative Negative mg/dL Bilirubin, Urine Negative Negative Ketone, Urine Negative Negative mg/dL Specific [place], Urine 1.020 1.003 - 1.030 Blood, Urine Trace (A) Negative pH, Urine 6.0 5.0 - 7.5 Units Protein, Urine Negative Negative mg/dL Urobilinogen, Urine Normal Normal mg/dL Nitrite, Urine Negative Negative Esterase, Urine Moderate (A) Negative RBC, Urine 10-19 (A) 0 - 2 /HPF WBC, Urine 6-9 (A) 0 - 2 /HPF Bacteria, Urine 26-50 (A) 0 - 25 /HPF Calcium Oxalate Crystal, Urine 20-29 (A) None /HPF Impression: This is a 57 year old with: Crohn's disease. I explained that since she denies having dysuria, urgency or frequency on December and sinceher urine culture was negative from that date, she did not have a urinary tract infection. Since she declined a pelvic exam today, I was not able to make an assessment. However, she does nothave classic symptoms of a rectovaginal or colovaginal fistula as she denies vagina discharge or alejandro stool from the vagina or flatus into the vagina. More likely, she may have ano-rectal fistula that is causing some bleeding and also contaminating the urine analysis and microscopic exam. Will await pelvic MRI and colonoscopy as ordered by gastroenterology. Juan Ramos MD 01/10/2023 10:59 AM I spent a total of 45 minutes on the date of service in preparation, delivery, and documentation ofthe care provided to Vickie Mata excluding any time spent in the performance of separatelybilled services. documented in this encounter Nursing Notes * CLYDE Kurtz - 01/10/2023 10:55 AM EDT Patient presents with stool leakage into vagina. documented in this encounter Plan of Treatment Upcoming Encounters Date Type Department Care Team (Latest Contact Info) Description 02/09/2023 9:15 AM EST Imaging Radiology [address] [place] [address] 02/09/2023 10:00 AM EST Imaging Radiology [address] [place] [address] 02/20/2023 9:25 AM EST Office Visit Urogynecology [facility] [address] [place] [address] Juan Ramos MD [address] [place] [address] Nurse Conchis Horn [place] [address] [place] [address] 05/11/2023 10:45 AM EST Hospital Encounter ENDO OSS, Endoscopy Room [facility] [address] [place] [phone] Elly Rosas DO [address] [place] [address] 05/11/2023 10:45 AM EST - 05/11/2023 11:15 AM EST Surgery ENDO [facility], Endoscopy Room [facility] [address] [place] [phone] Elly Rosas DO [address] [place] [address] COLONOSCOPY FLEXIBLE PROXIMAL DIAGNOSTIC Scheduled Procedures Name Priority Associated Diagnoses Date/Ti or COLONOSCOPY FLEXIBLE PROXIMAL DIAGNOSTIC Crohn's disease without [...] encounter Visit Diagnoses Diagnosis Crohn's disease with complication, unspecified gastrointestinal tract location (HCC)- Primary Crohn's disease without complication, unspecified gastrointestinal tract location (HCC) documented in this encounter Care Teams Camp Housekeeper Relationship Specialty Start Date End Date Michael Oleary MD [address] [place] [address] [place] [phone] PCP - General Family Medicine 10/30/13 documented as of this encounter
--- OUTSIDE RECORDS SUMMARY | 2023-06-22 03:40 | External Medical Summary | Summary of Care ---
Author Name Unknown Organization [facility] Address [address] [facility] [address] Phone [phone] Care Team Providers Care Wire Winding Machine Operator Name Role Phone Michael Oleary MD Primary Care Provider + [phone] Reason for Visit * Reason Comments eRx-Medication Refill Encounter Details Date Type Department Care Team (Late st Contact Info) Description 02/01/2023 Refill Family Medicine [address] [place] [phone] Amalia Baca PA-C [address] [place] [address] [place] [address] Dysuria Allergies Active Allergy Reactions Criticality Noted Date [...] vitamin B12 deficiency anemia 1000 mcg IM [id number] 09/25/2022 11/18/2023 Active documented as of this [...] encounter Miscellaneous Notes * Telephone Encounter - Johanna Hernandez RN - 02/05/2023 3:40 PM ESTRefused Prescriptions: Disp Refills Sulfamethoxazole-Trimethoprim 800-160 MG O*14 Tab*0 Sig: TAKE ONE TABLET BY MOUTH IN THE MORNING AND before bedtime until goneRefused By: JOHANNA HERNANDEZ MReason for Refusal: Appt. Required, please call patient * Telephone Encounter - Jacque Harrison CMA - 02/05/2023 11:29 AM EST I called and the phone was busy this time. There was also a voicemail so I left a message to call [phone]. Was refill request a mistake? Is she still having symptoms? * Telephone Encounter - Judy, [facility] - 02/03/2023 5:59 PM EST Pending Prescriptions: Disp Refills Sulfamethoxazole-Trimethoprim 800-160 MG O*14 Tab*0 Sig: TAKE ONE TABLET BY MOUTH IN THE MORNING AND before bedtime until gone * Telephone Encounter - Jacque Harrison CMA - 02/02/2023 9:33 AM EST I tried to call her and ask if she needed this and why but the phone was busy. No voicemail. * Telephone Encounter - Fermín Choudhury - 02/01/2023 7:04 PM ESTPending Prescriptions: Disp Refills Sulfamethoxazole-Trimethoprim 800-160 MG O*14 Tab*0 Sig: TAKE ONE TABLET BY MOUTH IN THE MORNING AND before bedtime until gone documented in this encounter Plan of Treatment Upcoming Encounters Date Type Department Care Team (Latest Contact Info) Description 02/09/2023 9:15 AM EST Imaging Radiology [address] [facility] [address] 02/09/2023 10:00 AM EST Imaging Radiology [address] [facility] [place] [address] 02/20/2023 9:25 AM EST Office [facility] [place] [address] Juan Ramos [facility] [place] [address] Nurse Conchis Horn [address] [place] [address] 03/29/2023 11:20 AM EST Nurse Only Ancillary [address] [place] [address] [place], Nurse [address] [place] [address] 05/11/2023 10:45 AM EST Hospital Encounter ENDO [facility], Endoscopy Room [facility] [address] [place] [address] Elly Rosas, [address] [place] [address] 05/11/2023 10:45 AM EST - 05/11/2023 11:15 AM EST Surgery ENDO [facility], Endoscopy Room [facility] [address] [place] [phone] Elly Rosas, [address] [place] [address] COLONOSCOPY FLEXIBLE PROXIMAL DIAGNOSTIC Scheduled Procedures Name [...] as of this encounter Visit Diagnoses Diagnosis Dysuria Crohn's disease without complication, unspecified gastrointestinal tract location (HCC) documented in this encounter Care Teams Wire Winding Machine Operator Relationship Specialty Start Date End Date Michael Oleary MD [address] [place] [address] [place] [address] PCP - General Family Medicine 10/30/13 documented as of this encounter
--- OUTSIDE RECORDS SUMMARY | 2023-06-22 03:40 | External Medical Summary | Summary of Care ---
Author Name Unknown Organization [facility] Address [address] [place] [address] Phone [phone] Care Team Providers Care Poultry Farm Supervisor Name Role Phone Michael Oleary MD Primary Care Provider + [phone] Reason for Visit * Reason Comments Consultation * Evaluate & Treat - Unlimited Visits (Within 10 days (routine)) - Authorized Specialty Diagnoses / Procedures Referred By Contac t Referred To Contact Obstetrics/Gynecology / Gynecology Obstetrics Diagnoses Rectovaginal fistula Amalia Baca PA-C [address] [place] [address] [place] [address] Referral ID Status Reason Start Date Expiration Date Visits Requested Visits Authorized [id number] Authorized Specialty Services Required 01/05/2024 999 [id number] Encounter Details Date Type Department Care Team (Latest Contact Info) Description 01/10/2023 11:25 AM EDT Office Visit Urogynecology Margaret Horn [address] [place] [address] Juan Ramos MD [address] [place] [address] Nurse Conchis Horn [address] [place] [address] Crohn's disease with complication, unspecified gastrointestinal tract [...] vitamin B12 deficiency anemia 1000 mcg IM [id number] 09/25/2022 11/18/2023 Active documented as of this [...] denies vaginal discharge, or alejandro stool coming of the vagina. Denies incontinence of stool into her underwear. Patient was recently seen by gastroenterology last [...] Negative Ketone, Urine Negative Negative mg/dL Specific [place], Urine 1.020 1.003 - 1.030 Blood, Urine [...] or colovaginal fistula as she denies vagina discharge. Morelikely, she may have ano-rectal fistula that is [...] Description 02/09/2023 9:15 AM EST Imaging Radiology [address], [address] [place] [address] 02/09/2023 10:00 AM EST Imaging Radiology [facility] 1st Floor, [place] [address] [place] [address] 02/20/2023 9:25 AM EST Office Visit Urogynecology [facility] [address] [place] [address] Juan Ramos MD [address] [place] [address] Nurse Conchis Horn [facility] [address] [place] [address] 05/11/2023 10:45 AM EST Hospital Encounter ENDO [facility], Endoscopy Room [facility] [address] [place] [phone] Elly Rosas DO [address] [place] [address] 05/11/2023 10:45 AM EST - 05/11/2023 11:15 AM EST Surgery ENDO [facility], Endoscopy Room [facility] [address] [place] [id number] Elly Rosas DO [address] [place] [address] COLONOSCOPY FLEXIBLE PROXIMAL DIAGNOSTIC Scheduled Procedures Name Priority Associated Diagnoses Date/Ti ut COLONOSCOPY FLEXIBLE PROXIMAL DIAGNOSTIC Crohn's disease without [...] (HCC) documented in this encounter Care Teams Poultry Farm Supervisor Relationship Specialty Start Date End Date Michael Oleary MD [address] [place] [address] [place] [id number] PCP - General Family Medicine 10/30/13 documented as of this encounter
--- OUTSIDE RECORDS SUMMARY | 2023-06-22 03:40 | External Medical Summary | Summary of Care ---
Author Name Unknown Organization [facility] Address [address] [place] [address] Phone [phone] Care Team Providers Care Wound Care Nurse Name Role Phone Michael Oleary MD Primary Care Provider + [phone] Reason for Visit * Reason Onset Date Comments Test Results 02/11/2023 Unexpected or In determinate Result Encounter Details Date Type Department Care Team (Late st Contact Info) Description 02/11/2023 Telephone Laboratory, [place] [address] [place] [address] Jennifer Cleaning CRNP [address] [facility] [address] Test Results (Unexpected or Indeterminate ... Allergies Active Allergy Reactions Criticality Noted Date Comments Naproxen 06/26/2000 GI documented as of this encounter (statuses as of 02/12/2023) Medications Medication Sig Dispensed Refills Start Date [...] vitamin B12 deficiency anemia 1000 mcg IM [id number] 09/25/2022 11/18/2023 Active documented as of this encounter (statuses as of 02/12/2023) Active Problems Problem Noted Date Diagnosed Date [...] as of this encounter (statuses as of 02/12/2023) Resolved Problems Problem Noted Date Diagnosed Date Resolved Date Major depressive disorder, r ecurrent episode, moderate 12/22/2020 05/17/2022 documented as of this encounter (statuses as of 02/12/2023) Immunizations Name Administration Dates Next Due TDAP [...] Telephone Encounter - Jennifer Cleaning CRNP - 02/12/2023 8:41 AM EST Noted Jennifer Gooden JOSE Cleaning * Telephone Encounter - Mimi Orantes OSA - 02/11/2023 5:45 PM EST Hello- The radiologist discovered an unexpected or indeterminate finding on Vickie Safia Mata ([id number]) and asks that you review the following [...] reviewed. Thank you, MAU Garzon Client Service [facility] documented in this encounter Plan of Treatment Upcoming Encounters Date Type Department Care Team (Latest Contact Info) Description 02/20/2023 9:25 AM EST Office Visit Urogynecology Margaret Horn [address] [place] [address] Juan Ramos MD [address] [place] [address] Nurse Conchis Horn [address] [place] [address] 03/29/2023 11:20 AM EST Nurse Only Ancillary [address] [place] [address] [place], Nurse [address] [place] [address] 05/11/2023 10:45 AM EST Hospital Encounter ENDO [facility], Endoscopy Room [facility] [address] [place] [phone] Elly Rosas, [address] [place] [address] 05/11/2023 10:45 AM EST - 05/11/2023 11:15 AM EST Surgery ENDO [facility], Endoscopy Room [facility] [address] [place] [phone] Elly Rosas DO [address] [place] [address] COLONOSCOPY FLEXIBLE PROXIMAL DIAGNOSTIC Scheduled Procedures Name [...] filedocumented as of this encounter Care Teams Wound Care Nurse Relationship Specialty Start Date End Date Michael Oleary MD [address] [place] [address] [place] [address] PCP - General Family Medicine 10/30/13 documented as of this encounter
--- OUTSIDE RECORDS SUMMARY | 2023-06-22 03:40 | External Medical Summary | Summary of Care ---
Author Name Unknown Organization [facility] Address [address] [place] [address] Phone [phone] Care Team Providers Care Tree Care Foreman Name Role Phone Michael Oleary MD Primary Care Provider + [phone] Reason for Referral * Precert (Within 10 days (routine)) - Pending Review Specialty Diagnoses / Procedures Referred By Contac t Referred To Contact Radiology Diagnoses Crohn's disease without complication, unspecified gastrointestinal tract location (HCC) Procedures MRI ABDOMEN W WO CONTRAST MRI PELVIS W WO CONTRAST Jennifer Estrada CRNP [address] [place] [address] Referral ID Status Reason Start Date Expiration Date V isits Requested Visits Authorized [id number] Pending Review 01/03/2023 999 999 * Precert (Within 10 days (routine)) - Pending Review Specialty Diagnoses / Procedures Referred By Contac t Referred To Contact Radiology Diagnoses Crohn's disease without complication, unspecified gastrointestinal tract location (HCC) Procedures MRI PELVIS W WO CONTRAST MRI ABDOMEN W WO CONTRAST Jennifer Estrada CRNP [address] [place] [address] Referral ID Status Reason Start Date Expiration Date V isits Requested Visits Authorized [id number] Pending Review 01/03/2023 999 999 Reason for Visit * Reason Comments 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, 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, 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 * Evaluate & Treat - Unlimited Visits (Within 10 days (routine)) - Pending Review Specialty Diagnoses / Procedures Referred By Tyesha t Referred To Contact Gastroenterology Diagnoses Dysphagia, unspecified type 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) Sari Perkins MD [address] [place] [address] [place] [address] Referral ID Status Reason Start Date Expiration Date Visits Requested Visits Authorized [id number] Pending Review Specialty Services Required 10/09/2022 999 999 Encounter Details Date Type Department Care Team Description 01/03/2023 Office Visit Gastroenterology, [facility] [address] [place] [phone] Jennifer Estrada CRNP [address] [place] [address] Crohn's disease without complication, unspecified gastrointestinal tract location (HCC)*; Chronic constipation Allergies Active Allergy Reactions Severity Noted Date Comments Naproxen 06/26/2000 GI documented as of this encounter (statuses as of 01/03/2023) Medications Medication Sig Dispensed Refills Start Date End Date Status sulfaSALAzine 500 MG Oral Tablet (Azulfidine)Indica tions: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) TAKE TWO TABLETS BY MOUTH THREE TIMES DAILY 540 Tablet 2 05/17/2022 Active Pantoprazole Sodium 40 MG Oral Tablet Delayed Release (Protonix)Indicati ons:Dysphagia, unspecified type Take 1 Tablet by mouth in the morning. 30 minutes before the first meal of the day. Do not crush, split or chew the tablet. 30 Tablet 5 10/09/2022 Active predniSONE 5 MG Oral Tablet (Deltasone)Indicat [...] or chew. 30 Capsule 5 12/29/2022 Active Famotidine 10 MG Oral Tablet (Pepcid AC)Indications:[employer] Supervisor hn's disease of small intestine with fistula (HCC) Take 1 Tablet by mouth in the morning and 1 Tablet before bedtime. For heartburn. 60 Tablet 5 11/22/2022 01/03/2023 Discontinued (Patient preference/d iscontinuati on) Hospital, Clinic, or Other Facility Administered Medication Ordered Dose Route Frequency Start Date End Date Status vitamin b-12 (Cyanocobalamin) inj 1,000 mcgIndications:Other vitamin B12 deficiency anemia 1000 mcg IM [id number] 09/25/2022 11/18/2023 Active documented as of this encounter (statuses as of 01/03/2023) Active Problems Problem Noted Date Moderate episode of recurrent major depr essive disorder 11/22/2022 Crohn's disease of small intestine with fistula 04/07/2016 Tobacco use disorder 03/31/2008 Family history of ischemic heart disease 03/31/2008 ADVANCE DIRECTIVE INFORMATION 03/25/2005 Overview: No, Advance Directive brochure offered , patient declined. Regional enteritis B12 DEFIC ANEMIA NEC Generalized osteoarthritis of multiple s ites Edentulous documented as of this encounter (statuses as of 01/03/2023) Resolved Problems Problem Noted Date Resolved Date Major depressive disorder, recurrent episode, mo derate 12/22/2020 05/17/2022 documented as of this encounter (statuses as of 01/03/2023) Immunizations Name Administration Dates Next Due TDAP [...] drink = 0.6 oz pur e alcohol) Sex Assigned at Date Recorded Not on file Job Start Date Occupation Industry Not on file Not on file Not on file documented as of this encounter Last Filed Vital Signs Vital Sign Reading Time Taken Comments Blood Pressure 131/72 01/03/2023 8:44 AM EDT Pulse 111 01/03/2023 8:44 AM EDT Temperature 36.7 C (98 F) 01/03/2023 8:44 AM EDT Respiratory Rate - - Oxygen Saturation 96% 01/03/2023 8:44 AM EDT Inhaled Oxygen Concentration - - Weight 54.9 kg (121 lb) 01/03/2023 8:44 AM EDT Height 158.1 cm (5' 2.25") 01/03/2023 8:44 AM ED T Body Mass Index 21.95 01/03/2023 8:44 AM EDT documented in this encounter Progress Notes * JOSE Pompa - 01/03/2023 8:56 AM EDT DATE OF SERVICE: 01/03/2023 REFERRING PHYSICIAN: Sari Perkins MD CC: Crohn's disease w fistula, dysphagia HPI: Vickie Mata is a 57 year [...] had been on sulfasalazine 1 g 3 times a day and previously prednisone 40 mg daily since she was diagnosed with Crohn's disease. She is currently down to prednisone 5 mg daily, continued to have refills from PCP. Last colonoscopies were over 10 years ago. We do not have records. Currently she struggles with constipation, bowel movements about once a week. However every other day when she cleans rectum or wipes she noticed bright red blood. She has discomfort on her lower abdomen area especially when she palpates around it. No nausea or vomiting. Regarding her dysphagia she states that she was having heartburn issues and since started on p antoprazole this has resolved along with her dysphagia. [...] B status: Unknown - DEXA scan: Unknown Past Medical History: Diagnosis Date Crohn's disease [...] of Onset Other (ibs) Mother Hypertension Father Stroke Grandmother (Paternal) Cancer Grandfather (Paternal) brain Heart Disorder Grandfather (Maternal) Heart Disorder Grandmother (Maternal) Cancer Aunt (Unspecified) colon Gastro-intestinal disorder Son ulcerative colitis Past Surgical History: Procedure Laterality Date TOTAL HYSTERECTOMY 1992 fibroid,pt unsure if she has ovaries Social History Tobacco Use Smoking status: Every Day Packs/day: 0.50 Years: 33.00 Pack years: 16.50 Types: Cigarettes Smokeless tobacco: Never Tobacco comments: age 14 Substance Use Topics Alcohol use: No Drug use: No Review of patient's allergies indicates: Allergen Reactions Naproxen GI Current Outpatient Medications Medication Sig Dispense Refill sulfaSALAzine 500 MG Oral Tablet (Azulfidine) TAKE TWO TABLETS BY MOUTH THREE TIMES DAILY 540 Tablet 2 Pantoprazole Sodium 40 MG Oral Tablet Delayed Release (Protonix) Take 1 Tablet by mouth in the morning. 30 minutes before the first meal of the day. Do not crush, split or chew the tablet. 30 Tablet 5 predniSONE 5 MG Oral Tablet (Deltasone) TAKE ONE TABLET BY MOUTH EVERY DAY and may take a second tablet if needed 40 Tablet 5 Famotidine 10 MG Oral Tablet (Pepcid AC) Take 1 Tablet by mouth in the morning and 1 Tablet before bedtime. For heartburn. 60 Tablet 5 Vitamin D 50 MCG (2000 UT) Oral Tablet Take 2,000 Units by mouth in the morning. DULoxetine HCl 30 MG Oral Capsule Delayed Release Particles (Cymbalta) Take 1 Capsule by mouth in the morning. Do not cut, crush or chew. 30 Capsule 5 Current Facility-Administered Medications Medication Dose Route Frequency Provider Last Rate Last Admin vitamin b-12 (Cyanocobalamin) inj 1,000 mcg 1,000 mcg Intramuscular Q12 Weeks Michael Oleary MD 1,000 mcg at 12/27/22 0941 REVIEW OF SYSTEMS: See HPI above; All other findings negative. EXAM: Filed Vitals: 01/03/23 0844 BP: 131/72 Pulse: 111 Temp: 36.7 C (98 F) SpO2: 96% Weight: 54.9 kg (121 lb) Height: 1.581 m (5' 2.25") GENERAL: Well developed and well nourished in no acute distress. SKIN: No rashes, ulcers, jaundice or spider angiomata. HEENT: Normocephalic, sclera clear. NECK: Supple, no lymphadenopathy, no masses or thyroid enlargement. LUNGS: Clear to auscultation bilaterally, no respiratory [...] year old female w Crohn's disease and ? Anorectalfistula (she declined rectum exam today). She had been on Sulfasalazine 1g TID and Prednisone 40mg since dx'd in her teenage years. She is now down to Prednisone 5mg daily. She has BRBPR when she cleans rectum but no BM but once a week. - STOP prednisone, may continue Sulfasalazine 1g TID for now. - May use Miralax 1 capful daily for constipation, continue fiber supplements. Increase water intake. - Schedule MRE to r/o small bowel Crohn's and fistula - Schedule repeat Colonoscopy - Defer EGD at this time given she no longer has dysphagia after starting Pantoprazole. Continue Pantoprazole 40mg daily - Advised to quit smoking - Vit D, B12 supplements. - Labs: Erythrocyte sedimentation rate (esr) Crp (inflammatory marker) 25-hydroxy vitamin d Folic acid - Will need order DEXA scan at next visit given chronic steroid use. I spent a total of 45 minutes on the date of service in review of patient's record, and previously obtained information in person and appropriate medical visit, discussion and education of plan, withpatient and/or caregiver, placing orders for tests/referral/procedures as medically necessary and documentation of pertinent clinical information in patient's medical records for their visit today. RETURN TO CLINIC: 3 months or sooner Gonzalez Dominguez [facility] Gastroenterology, [facility] documented in this encounter Nursing Notes * Bárbara Turk LPN - 01/03/2023 8:45 AM EDT Patient identified by name and date of . 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 Pt has SOB( states she is a smoker), lightheadedness occasionally, denies dizziness, denies fevers,but gets chills " all the time" documented in this encounter Miscellaneous Notes * Addendum Note - JOSE Pompa - 01/03/2023 9:54 AM EDTAddended by: JENNIFER ESTRADA on: 01/03/2023 09:54 AM Modules accepted: Level of Service documented in this encounter Plan of Treatment Upcoming Encounters Date Type Specialty Care Team Description 02/09/2023 Imaging Radiology 02/09/2023 Imaging Radiology 05/11/2023 Hospital Encounter Endoscopy Elly Rosas DO [address] [place] [address] 05/11/2023 Surgery Endoscopy Elly Rosas, DO [address] [place] [address] COLONOSCOPY FLEXIBLE PROXIMAL DIAGNOSTIC Pending Results Name Type Priority Associated Diagnoses Date /Time ERYTHROCYTE SEDIMENTATION RATE (ESR) Lab Routine Crohn's disease without complication, unspecified gastrointestinal tract location (HCC) 01/03/2023 9:36 AM EDT CRP (INFLAMMATORY MARKER) Lab Routine Crohn's disease without complication, unspecified gastrointestinal tract location (HCC) 01/03/2023 9:36 AM EDT 25-HYDROXY VITAMIN D Lab Routine Crohn's disease without complication, unspecified gastrointestinal tract location (HCC) 01/03/2023 9:36 AM EDT FOLIC ACID Lab Routine Crohn's disease without complication, unspecified gastrointestinal tract location (HCC) 01/03/2023 9:36 AM EDT Scheduled Orders Name Type Priority Associated Diagnoses Orde r Schedule COLONOSCOPY, DIAGNOSTIC (RECTUM) Procedures Routine Crohn's disease without complication, unspecified gastrointestinal tract location (HCC) Ordered: 01/03/2023 MRI PELVIS W WO CONTRAST Medical Imaging Routine Crohn's disease without complication, unspecified gastrointestinal tract location (HCC) Ordered: 01/03/2023 MRI ABDOMEN W WO CONTRAST Medical Imaging Routine Crohn's disease without complication, unspecified gastrointestinal tract location (HCC) Ordered: 01/03/2023 Scheduled Procedures Name Priority Associated Diagnoses Date/Ti [...] this encounter Visit Diagnoses Diagnosis Crohn's disease without complication, unspecified gastrointestinal tract location (HCC)- Primary Chronic constipation Unspecified constipation Crohn's disease without complication, unspecified gastrointestinal tract location (HCC) documented in this encounter Care Teams Tree Care Foreman Relationship Specialty Start Date End Date Michael Oleary MD [address] [place] [address] [place] [address] PCP - General Family Medicine 10/30/13 documented as of this encounter
--- OUTSIDE RECORDS SUMMARY | 2023-06-22 03:40 | External Medical Summary | Summary of Care ---
Author Name Unknown Organization [facility] Address [address] [place] [place] [address] Phone [phone] Care Team Providers Care Pocketed Spring Machine Operator Name Role Phone Michael Oleary MD Primary Care Provider + [phone] Reason for Referral * Evaluate & Treat - Unlimited Visits (Within 10 days (routine)) - Authorized Specialty Diagnoses / Procedures Referred By Contjesus t Referred To Contact Obstetrics/Gynecology / Gynecology Obstetrics Diagnoses Rectovaginal fistula Amalia Baca PA-C [address] [place] [address] [place] [address] Referral ID Status Reason Start Date Expiration Date Visits Requested Visits Authorized [id number] Authorized Specialty Services Required 3 01/05/2024 999 999 Question Answer Referral Priority Within 10 days (routine) Where should this appointment be scheduled? [facility] What condition is the patient being seen for? Other Comments Possible rectovaginal fistula Encounter Details Date Type Department Care Team (Late st Contact Info) Description 01/03/2023 Telephone Family Medicine [facility] [address] [place] [phone] Amalia Baca PA-C [address] [place] [address] [place] [address] Allergies Active Allergy Reactions Criticality Noted Date Comments Naproxen 06/26/2000 GI documented as of this encounter (statuses as of 02/01/2023) Medications Medication Sig Dispensed Refills Start Date [...] vitamin B12 deficiency anemia 1000 mcg IM [id number] 09/25/2022 11/18/2023 Active documented as of this encounter (statuses as of 02/01/2023) Active Problems Problem Noted Date Diagnosed Date [...] as of this encounter (statuses as of 02/01/2023) Resolved Problems Problem Noted Date Diagnosed Date Resolved Date Major depressive disorder, r ecurrent episode, moderate 12/22/2020 05/17/2022 documented as of this encounter (statuses as of 02/01/2023) Immunizations Name Administration Dates Next Due TDAP [...] encounter Miscellaneous Notes * Telephone Encounter - Kerri De Souza OSA - 01/04/2023 10:23 AM EDT Apt scheduled; pt aware * Telephone Encounter - Danielle Espinosa LPN - 01/04/2023 10:04 AM EDT Schedule with uro/train gate attendant. * Telephone Encounter - Rosalba Resendiz OSA - 01/04/2023 9:59 AM EDT Vickie needs an appt with OUTDOOR STUDIES DIRECTOR for; Rectovaginal fistula [N82.3] - Primary Comments Possible rectovaginal fistula I could not find any appts until next year * Telephone Encounter - Jacque Harrison CMA - 01/04/2023 9:18 AM EDT I called and let her know.She knows to expect a call. * Telephone Encounter - Amalia Baca PA-C - 01/04/2023 8:41 AM EDT Needs to see OUTDOOR STUDIES DIRECTOR. Ref placed. * Telephone Encounter - Jacque Harrison CMA - 01/04/2023 8:27 AM EDT I called the patient and told her. She will get the antibiotic and start it. She asked how you get bacteria in you urine and I explained its not that uncommon for women to get UTIs because of the close proximity of the urethra to rectum and wiping etc. She them proceeded to tell me when she has bowel movements that feces will sometimes come out her vaginal opening. I told her I would relay the information to Amalia for advice but she would need see for this by her or another provider. Schedule with you or refer elsewhere? Please advise? * Telephone Encounter - Amalia Baca PA-C - 01/03/2023 2:33 PM EDT Please call pt. Her urine shows bacteria. Still waiting on culture but will get started on abx in the meantime. documented in this encounter Plan of Treatment Upcoming Encounters Date Type Department Care Team (Latest Contact Info) Description 02/09/2023 9:15 AM EST Imaging Radiology [address], [address] [place] [address] 02/09/2023 10:00 AM EST [facility], [place] [address] [place] [address] 02/20/2023 9:25 AM EST [facility] [address] [place] [address] Juan Ramos MD [address] [place] [address] [place], Nurse Balderrama [place] [address] [place] [address] 03/29/2023 11:20 AM EST Nurse Only Ancillary [address] [place] [address] [place], Nurse [address] [place] [address] 05/11/2023 10:45 AM EST Hospital Encounter ENDO [facility], Endoscopy Room [facility] [address] [place] [phone] Elly Rosas DO [address] [place] [address] 05/11/2023 10:45 AM EST - 05/11/2023 11:15 AM EST Surgery ENDO [facility], Endoscopy Room [facility] [address] [place] [phone] Elly Rosas DO [address] [place] [address] COLONOSCOPY FLEXIBLE PROXIMAL DIAGNOSTIC Scheduled Procedures Name Priority Associated Diagnoses Date/Ti ms COLONOSCOPY FLEXIBLE PROXIMAL DIAGNOSTIC Crohn's disease without complication, unspecified gastrointestinal tract location (HCC) 05/11/2023 10:45 AM EST Scheduled Referrals Name Type Priority Associated Diagnoses Orde r Schedule OUTDOOR STUDIES DIRECTOR REFERRAL OP Referral Within 10 days (routine) Rectovaginal fistula Ordered: 01/04/2023 Health Maintenance Due Date Last Done Comments [...] as of this encounter Visit Diagnoses Diagnosis Rectovaginal fistula- Primary Digestive-genital tract fistula, female Dysuria Crohn's disease without complication, unspecified gastrointestinal tract location (HCC) documented in this encounter Care Teams Pocketed Spring Machine Operator Relationship Specialty Start Date End Date Michael Oleary MD [address] [place] [address] [place] [address] PCP - General Family Medicine 10/30/13 documented as of this encounter
--- OUTSIDE RECORDS SUMMARY | 2023-06-22 03:41 | External Medical Summary | Summary of Care ---
Author Name Unknown Organization [facility] Address [address] [facility] [address] Phone [phone] Care Team Providers Care Associate Director Financial Aid Name Role Phone Michael Oleary MD Primary Care Provider + [phone] Encounter Details Date Type Department Care Team Description 12/27/2022 Nurse Only Ancillary [address] [place] [address] [place], Nurse [address] [place] [address] Allergies Active Allergy Reactions Severity Noted Date Comments Naproxen 06/26/2000 GI documented as of this encounter (statuses as of 12/27/2022) Medications Medication Sig Dispensed Refills Start Date [...] 10/09/2022 Active predniSONE 5 MG Oral Tablet (Deltasone)Indication s:Crohn's disease of small intestine with other complication (HCC) TAKE ONE TABLET BY MOUTH EVERY DAY and may take a second tablet if needed 40 Tablet 5 11/22/2022 Active Famotidine 10 MG Oral Tablet (Pepcid AC)Indications:Crohn' s disease of small intestine with fistula (HCC) Take 1 Tablet by mouth in the morning and 1 Tablet before bedtime. For heartburn. 60 Tablet 5 11/22/2022 Active DULoxetine HCl 20 MG Oral Capsule Delayed Release Particles (duloxetine)Indicatio ns:Moderate episode of recurrent major depressive disorder (HCC) Take 1 Capsule by mouth in the morning. Do not cut, crush or chew. 30 Capsule 5 11/27/2022 Active Vitamin D 50 MCG (2000 UT) Oral Tablet Take 2,000 Units by mouth in the morning. 0 Active Hospital, Clinic, or Other Facility Administered Medication Ordered Dose Route Frequency Start Date End Date Status vitamin b-12 (Cyanocobalamin) inj 1,000 mcgIndications:Other vitamin B12 deficiency anemia 1000 mcg IM [id number] 09/25/2022 11/18/2023 Active documented as of this encounter (statuses as of 12/27/2022) Active Problems Problem Noted Date Moderate episode [...] as of this encounter (statuses as of 12/27/2022) Resolved Problems Problem Noted Date Resolved Date Major depressive disorder, recurrent episode, mo derate 12/22/2020 05/17/2022 documented as of this encounter (statuses as of 12/27/2022) Immunizations Name Administration Dates Next Due TDAP [...] Encounters Date Type Specialty Care Team Description 12/29/2022 Office Visit Family Medicine Amalia Baca PA-C [address] [place] [address] [place] [address] 01/01/2023 Office Visit Family Medicine Michael Oleary MD [address] [place] [address] [place] [address] 01/03/2023 Office Visit Gastroenterology Jennifer Cleaning CRNP [address] [place] [address] Health Maintenance Due Date Last Done Comments [...] Not on filedocumented as of this encounter Administered Medications Active Administered Medications - up to 3 most recent administrations Medication Order MAR Action Action Date Dose Rate Site vitamin b-12 (Cyanocobalamin) inj 1,000 mcg 1,000 mcg, Intramuscular, [id number], First dose on Sun09/25/22 at 0000, Last dose on Sun08/27/23 at 0000, For 5 doses Given 12/27/2022 9:41 AM EDT 1,000 mcg Deltoid Right Upper Given 09/26/2022 10:37 AM EDT 1,000 mcg D eltoid Left Upper documented in this encounter Care Teams Associate Director Financial Aid Relationship Specialty Start Date End Date Michael Oleary MD [address] [place] [address] [place] [address] PCP - General Family Medicine 10/30/13 documented as of this encounter
--- OUTSIDE RECORDS SUMMARY | 2023-06-22 03:41 | External Medical Summary ---
Author Name Unknown Address Unknown Organization [id number][place] [facility] [place] [address] [place] [address] Laboratory Report Ordering Provider Test Date Status SEAN GAMBOA 01/03/2023 09:36:39 Final Observation Date Value Abnormality Reference (Units ) Status Erythrocyte sedimentation rate by Photometric method 01/03/2023 09:36:39 30 Above high normal <30 (mm/hour) Final Performing Location [place] [facility] [place] [address] [place] [address]
--- OUTSIDE RECORDS SUMMARY | 2023-06-22 03:41 | External Medical Summary ---
Author Name Unknown Address Unknown Organization [id number]:LAB[facility] [place] - [address] [place] [address] Laboratory Report Ordering Provider Test Date Status DENICE NGUYỄN 01/03/2023 09:39:58 Final Observation Date Value Abnormality Reference (Units) Status Bacteria identified in Specimen by Culture 01/03/2023 09:39:58 No significant growth Final Test: Culture, Urine, Quanti tative
Specimen Source: Urine, Clean Catch
Specimen Type: Urine
Specimen Date: 01/03/2023 9:39 AM
Result Date: 01/04/2023 10:42 AM
Result Status: Final result
Resulting Lab: [facility] [place]
[address]
[place] [address]

CULTURE

No significant growth

null Performing Location LAB[facility] [place] - [address] [facility] [address]
--- OUTSIDE RECORDS SUMMARY | 2023-06-22 03:41 | External Medical Summary | Summary of Care ---
Author Name Unknown Organization [facility] Address [address] [place] [address] Phone [phone] Care Team Providers Care Computer Applications Engineer Name Role Phone Michael Oleary MD Primary Care Provider + [phone] Reason for Referral * Precert (Within 10 days (routine)) - Pending Review Specialty Diagnoses / Procedures Referred By Contac t Referred To Contact Radiology Diagnoses Crohn's disease without complication, unspecified gastrointestinal tract location (HCC) Procedures MRI ABDOMEN W WO CONTRAST MRI PELVIS W WO CONTRAST Jennifer Estrada CRNP [address] [place] [address] Referral ID Status Reason Start Date Expiration Date V isits Requested Visits Authorized [id number] Pending Review 01/03/2023 999 999 * Precert (Within 10 days (routine)) - Pending Review Specialty Diagnoses / Procedures Referred By Contac t Referred To Contact Radiology Diagnoses Crohn's disease without complication, unspecified gastrointestinal tract location (HCC) Procedures MRI PELVIS W WO CONTRAST MRI ABDOMEN W WO CONTRAST Jennifer Estrada CRNP [address] [place] [address] Referral ID Status Reason Start Date Expiration Date V isits Requested Visits Authorized [id number] Pending Review 01/03/2023 999 999 Reason for Visit * Reason Comments 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, 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, 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 * Evaluate & Treat - Unlimited Visits (Within 10 days (routine)) - Pending Review Specialty Diagnoses / Procedures Referred By Tyesha t Referred To Contact Gastroenterology Diagnoses Dysphagia, unspecified type 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) Sari Perkins MD [address] [place] [address] [place] [address] Referral ID Status Reason Start Date Expiration Date Visits Requested Visits Authorized [id number] Pending Review Specialty Services Required 10/09/2022 999 999 Encounter Details Date Type Department Care Team Description 01/03/2023 Office Visit Gastroenterology, [facility] [address] [place] [address] Jennifer Estrada CRNP [address] [place] [address] Crohn's disease without complication, unspecified gastrointestinal tract [...] Active Famotidine 10 MG Oral Tablet (Pepcid AC)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 For heartburn. 60 Tablet 5 11/22/2022 01/03/2023 Discontinued (Patient preference/d iscontinuati on) Hospital, Clinic, or Other Facility Administered Medication Ordered Dose Route Frequency Start Date End Date Status vitamin b-12 (Cyanocobalamin) inj 1,000 mcgIndications:Other vitamin B12 deficiency anemia 1000 mcg IM [id number] 09/25/2022 11/18/2023 Active documented as of this [...] CLINIC: 3 months or sooner [facility], [place] documented in this encounter Nursing Notes * Bárbara Turk LPN - 01/03/2023 8:45 AM EDT Patient identified by name and date of . 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 Symptoms: abdominal pain and [...] Encounters Date Type Specialty Care Team Description 01/03/2023 Laboratory Laboratory Melisa Horn [address] [facility] [place] [address] Arrived 02/09/2023 Imaging Radiology 02/09/2023 Imaging Radiology 05/11/2023 Hospital Encounter Endoscopy Elly Rosas, [address] [place] [address] 05/11/2023 Surgery Endoscopy Elly Rosas, [address] [place] [address] COLONOSCOPY FLEXIBLE PROXIMAL DIAGNOSTIC Pending Results Name [...] documented in this encounter Care Teams Computer Applications Engineer Relationship Specialty Start Date End Date Michael Oleary MD [address] [place] [address] [place] [address] PCP - General Family Medicine 10/30/13 documented as of this encounter
--- OUTSIDE RECORDS SUMMARY | 2023-06-22 03:41 | External Medical Summary | Summary of Care ---
Author Name Unknown Organization [facility] [address] [facility] [address] Phone [phone] Care Team Providers Care Scowman Name Role Phone Michael Oleary MD Primary Care Provider + [phone] Reason for Visit * Reason Comments Outpatient Testing Encounter Details Date Type Department Care Team Description 12/29/2022 Laboratory Laboratory [address] [place] [phone] [place] [address] Spontaneous ecchymoses Allergies Active Allergy Reactions Severity Noted Date Comments Naproxen 06/26/2000 GI documented as of this encounter (statuses as of 12/29/2022) Medications Medication Sig Dispensed Refills Start Date [...] For heartburn. 60 Tablet 5 11/22/2022 Active Vitamin D 50 MCG (2000 UT) Oral Tablet Take 2,000 Units by mouth in the morning. 0 Active DULoxetine HCl 30 MG Oral Capsule Delayed Release Particles (Cymbalta)Indications :Moderate episode of recurrent major depressive disorder (HCC) Take 1 Capsule by mouth in the morning. Do not cut, crush or chew. 30 Capsule 5 12/29/2022 Active Hospital, Clinic, or Other Facility Administered Medication Ordered Dose Route Frequency Start Date End Date Status vitamin b-12 (Cyanocobalamin) inj 1,000 mcgIndications:Other vitamin B12 deficiency anemia 1000 mcg IM [id number] 09/25/2022 11/18/2023 Active documented as of this encounter (statuses as of 12/29/2022) Active Problems Problem Noted Date Moderate episode [...] as of this encounter (statuses as of 12/29/2022) Resolved Problems Problem Noted Date Resolved Date Major depressive disorder, recurrent episode, mo derate 12/22/2020 05/17/2022 documented as of this encounter (statuses as of 12/29/2022) Immunizations Name Administration Dates Next Due TDAP [...] Date Type Specialty Care Team Description 01/03/2023 Office Visit Gastroenterology Jennifer Cleaning CRNP [address] [place] [address] Pending Results Name Type Priority Associated Diagnoses Date /Time CBC WITH WBC DIFFERENTIAL AND ANEMIA REFLEX WORKUP Lab Routine Spontaneous ecchymoses 12/29/2022 9:27 AM EDT COMPREHENSIVE METABOLIC PANEL Lab Routine Spontaneous ecchymoses 12/29/2022 9:27 AM EDT ANEMIA CBC Lab Routine Spontaneous ecchymoses 12/29/2022 9:27 AM EDT DIFFERENTIAL, AUTOMATED Lab Routine Spontaneous ecchymoses 12/29/2022 9:27 AM EDT ANEMIA REFLEX CHEMISTRY HOLD Lab Routine Spontaneous ecchymoses 12/29/2022 9:27 AM EDT Health Maintenance Due Date Last [...] as of this encounter Visit Diagnoses Diagnosis Spontaneous ecchymoses documented in this encounter Care Teams Scowman Relationship Specialty Start Date End Date Michael Oleary MD [address] [place] [address] [place] [address] PCP - General Family Medicine 10/30/13 documented as of this encounter
--- OUTSIDE RECORDS SUMMARY | 2023-06-22 03:41 | External Medical Summary ---
Author Name Unknown Address Unknown Organization K01:LAB[facility]ORY [facility] [place] - [address] [place] [address] Laboratory Report Ordering Provider Test Date Status DENICE NGUYỄN 12/29/2022 09:27:15 Final Observation Date Value Abnormality Reference (Units ) Status WBC, Total 12/29/2022 09:27:15 16.70 Above high normal 4 .00-10.80 (K/uL) Final RBC 12/29/2022 09:27:15 4.82 3.85-5.15 (M/uL) Final Hemoglobin 12/29/2022 09:27:15 13.9 12.0-15.3 (g/dL) Final Anemia reflex testing trigge rs on a HGB < 12.0 for Females and HGB < 13.0 for Males in accordance with the WHO Anemia Guidelines
Anemia reflex testing triggers on a HGB < 12.0 for Females and HGB < 13.0 for Males in accordance with the WHO Anemia Guidelines HCT 12/29/2022 09:27:15 45.8 Above hi gh normal 36.0-45.2 (%) Final MCV 12/29/2022 09:27:15 95.0 81.5-97.5 (fL) Final MCH 12/29/2022 09:27:15 28.8 27.0-34.0 (pg) Final MCHC 12/29/2022 09:27:15 30.3 32.0-36.0 (g/dL) Final RDW 12/29/2022 09:27:15 17.4 11.5-15.5 (%) Final Platelets 12/29/2022 09:27:15 283 140-400 (K /uL) Final MPV 12/29/2022 09:27:15 10.8 6.6-11.1 ( fL) Final Nucleated erythrocytes/100 leukocytes [Ratio] in Blood by Automated count 12/29/2022 09:27:15 0 <=0 (/100 WBCs) Final Performing Location LABORATORY [facility] [place] - [address] [facility] [place] [address]
--- OUTSIDE RECORDS SUMMARY | 2023-06-22 03:41 | External Medical Summary ---
Author Name Unknown Address Unknown Organization K01:[facility] [place] [address] [place] [address] Laboratory Report Ordering Provider Test Date Status SEAN GAMBOA 01/03/2023 09:36:39 Final Deficient: <20 ng/mL
Ins ufficient: 20-29 ng/mL
Recommended/Optimum:30-50 ng/mL

Vitamin D intoxication is rare. If suspicious of Vitamin D toxicity, evaluation of serum Calcium and PTH is recommended. Observation Date Value Abnormality Reference (Units ) Status 25-OH Vitamin D total 01/03/2023 09:36:39 26 >19 (ng/mL) Final Performing Location LABORATORY [facility] - [address] [place] [address]
--- OUTSIDE RECORDS SUMMARY | 2023-06-22 03:41 | External Medical Summary ---
Author Name Unknown Address Unknown Organization K01:[place] [facility] [place] [address] [place] [address] Laboratory Report Ordering Provider Test Date Status SEAN GAMBOA 01/03/2023 09:36:39 Final Observation Date Value Abnormality Reference (Units ) Status CRP, low-sensitivity 01/03/2023 09:36:39 14 Above high normal <=5 (mg/L) Final Performing Location LABORATORY [facility] - [address] [place] [address]
--- OUTSIDE RECORDS SUMMARY | 2023-06-22 03:41 | External Medical Summary | Summary of Care ---
Author Name Unknown Organization [facility] Address [address] [facility] [place] [address] Phone [phone] Care Team Providers Care Continuous Wave Operator Name Role Phone Michael Oleary MD Primary Care Provider + [phone] Encounter Details Date Type Department Care Team Description 12/27/2022 Nurse Only Ancillary [address] [place] [address] [place], Nurse [address] [place] [address] Allergies Active Allergy Reactions Severity Noted Date [...] vitamin B12 deficiency anemia 1000 mcg IM [id number] 09/25/2022 11/18/2023 Active documented as of this [...] on file documented as of this encounter Nursing Notes * Matilde Raygoza LPN - 12/27/2022 10:08 AM EDT B 12 given. Pt here today & had bruises on her arms and legs, that were very large & she states that she believes it is from the Duloxetine she has been started on. She knows that she isnt bumping her body on anything. Pt told to make an appointment to have bruising checked & she scheduled for Sunday. documented in this encounter Plan of Treatment Upcoming Encounters Date Type Specialty Care Team Description 12/29/2022 Office Visit Family Medicine Amalia Baca PA-C [address] [place] [address] [place] [address] 01/01/2023 Office Visit Family Medicine Michael Oleary MD [address] [place] [address] [place] [address] 01/03/2023 Office Visit Gastroenterology Jennifer Cleaning CRNP [address] [place] [address] Health Maintenance Due Date Last Done Comments [...] (Cyanocobalamin) inj 1,000 mcg 1,000 mcg, Intramuscular, [id number], First dose on Sun09/25/22 at 0000, Last dose on Sun08/27/23 at 0000, For 5 doses Given 12/27/2022 9:41 AM EDT 1,000 mcg Deltoid Right Upper Given 09/26/2022 10:37 AM EDT 1,000 mcg D eltoid Left Upper documented in this encounter Care Teams Continuous Wave Operator Relationship Specialty Start Date End Date Michael Oleary MD [address] [place] [address] [place] [address] PCP - General Family Medicine 10/30/13 documented as of this encounter
--- OUTSIDE RECORDS SUMMARY | 2023-06-22 03:41 | External Medical Summary ---
Author Name Unknown Address Unknown Organization K01:[facility] [place] [address] [place] [address] Laboratory Report Ordering Provider Test Date Status COOPERSEAN 01/03/2023 09:36:39 Final Observation Date Value Abnormality Reference (Units ) Status Folic Acid 01/03/2023 09:36:39 9.8 >4.5 (ng/ mL) Final Performing Location LABORATORY [facility] - [address] [place] [address]
--- OUTSIDE RECORDS SUMMARY | 2023-06-22 03:41 | External Medical Summary ---
Author Name Unknown Address Unknown Organization K01:LABORATORY [facility] [place] - [address] [facility] [place] [address] Laboratory Report Ordering Provider Test Date Status DENICE NGUYỄN 12/29/2022 09:27:15 Final Observation Date Value Abnormality Reference (Units ) Status BUN 12/29/2022 09:27:15 9 6-20 (mg/dL) Final Creatinine 12/29/2022 09:27:15 0.6 0.5-1.0 (mg/dL) Final Glomerular filtration rate/1.73 sq M.predicted [Volume Rate/Area] in Serum, Plasma or Blood by Creatinine-based formula (CKD-EPI) 12/29/2022 09:27:15 >90 >=60 (mL/min) Final eGFR is calculated based on the CKD-EPI 2020 equation SODIUM 12/29/2022 09:27:15 144 135-146 (m mol/L) Final Potassium 12/29/2022 09:27:15 3.5 3.5-5.1 (m mol/L) Final Cl 12/29/2022 09:27:15 106 98-107 (mm ol/L) Final CO2 12/29/2022 09:27:15 27 22-32 (mmo l/L) Final Anion gap 12/29/2022 09:27:15 11 7-15 (mmol /L) Final Glucose 12/29/2022 09:27:15 112 70-120 (mg /dL) Final Albumin 12/29/2022 09:27:15 4.0 3.8-5.0 (g /dL) Final AST (Aspartate aminotransferase) 12/29/2022 09:27:15 18 10-35 (U/L) Final Alk Phos 12/29/2022 09:27:15 87 35-130 (U/ L) Final Bilirubin, Total 12/29/2022 09:27:15 0.2 <=1 .2 (mg/dL) Final Calcium 12/29/2022 09:27:15 9.1 8.4-10.2 ( mg/dL) Final Protein 12/29/2022 09:27:15 6.0 6.0-8.3 (g /dL) Final ALT (Alanine aminotransferase) 12/29/2022 09:27:15 22 10-35 (U/L) Final Performing Location LABORATORY [facility] [place] - [facility] [place] [place] [address]. [facility] [address]
--- OUTSIDE RECORDS SUMMARY | 2023-06-22 03:41 | External Medical Summary ---
Author Name Unknown Address Unknown Organization [id number]:[place] [facility] [place] [address] [facility] [address] Laboratory Report Ordering Provider Test Date Status DENICE NGUYỄN 12/29/2022 09:27:15 Final Observation Date Value Abnormality Reference (Units ) Status SYNC LEUKOCYTES IN BLOOD BY AUTOMATED COUNT 12/29/2022 09:27:15 16.70 Above high normal 4.00-10.80 (K/uL) Final Segs 12/29/2022 09:27:15 84.3 Above high normal 40.0-75.0 (%) Final Lymphs % 12/29/2022 09:27:15 10.2 Below low normal 18.0-42.0 (%) Final Monos 12/29/2022 09:27:15 3.9 1.0-11.0 (%) Final Eosinophils 12/29/2022 09:27:15 0.5 0.0-6.0 (%) Final Basos 12/29/2022 09:27:15 0.4 0.0-2.0 (%) Final Immature Granulocyte, Percent 12/29/2022 09:27:15 0.7 0.0-2.0 (%) Final Absolute Segs 12/29/2022 09:27:15 14.07 Above high normal 1.80-7.70 (K/uL) Final Lymphs, absolute 12/29/2022 09:27:15 1.70 1.00-4.80 (K/ul) Final Monos, Abs 12/29/2022 09:27:15 0.65 0.00-1.10 (K/uL) Final Eos, Abs 12/29/2022 09:27:15 0.09 0.00-0.70 (K/uL) Final Basos, Abs 12/29/2022 09:27:15 0.07 0.00-0.20 (K/uL) Final Immature Granulocytes, Number 12/29/2022 09:27:15 0.12 0.00-0.20 (K/uL) Final Performing Location [place] [facility] [place] [facility] [place] [address]. [facility] [address]
--- OUTSIDE RECORDS SUMMARY | 2023-06-22 03:41 | External Medical Summary | Summary of Care ---
Author Name Unknown Organization [facility] Address [address] [place] [address] Phone [phone] Care Team Providers Care Hvac Technician Residential Name Role Phone Michael Oleary MD Primary Care Provider + [phone] Reason for Visit * Reason Comments Outpatient Testing Encounter Details Date Type Department Care Team Description 01/03/2023 Laboratory Laboratory, [facility] [address] [facility] [address] [place] [address] Arrived Allergies Active Allergy Reactions Severity Noted Date [...] vitamin B12 deficiency anemia 1000 mcg IM [id number] 09/25/2022 11/18/2023 Active documented as of this [...] Hospital Encounter Endoscopy Elly Rosas DO [address] [place] [address] 05/11/2023 Surgery Endoscopy Elly Rosas, [address] [place] [address] COLONOSCOPY FLEXIBLE PROXIMAL DIAGNOSTIC Pending Results Name Type Priority Associated Diagnoses Date /Time URINALYSIS, REFLEX TO MICROSCOPIC Lab Routine 01/03/2023 9:39 AM EDT Scheduled Procedures Name Priority Associated Diagnoses Date/Ti [...] filedocumented as of this encounter Care Teams Hvac Technician Residential Relationship Specialty Start Date End Date Michael Oleary MD [address] [place] [address] [place] [address] PCP - General Family Medicine 10/30/13 documented as of this encounter
--- OUTSIDE RECORDS SUMMARY | 2023-06-22 03:41 | External Medical Summary | Summary of Care ---
Author Name Unknown Organization [facility] Address [address] [facility] [place] [address] Phone [phone] Care Team Providers Care Order Processing Manager Name Role Phone Michael Oleary MD Primary Care Provider + [phone] Reason for Visit * Reason Comments Acute Encounter Details Date Type Department Care Team Description 12/29/2022 Office Visit Family Medicine [address] [place] [address] Amalia Baca PA-C [address] [place] [address] [place] [address] Spontaneous ecchymoses*; Moderate episode of recurrent major depressive disorder (HCC); Dysuria Allergies Active Allergy Reactions Severity Noted Date [...] Active Famotidine 10 MG Oral Tablet (Pepcid AC)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 For heartburn. 60 Tablet 11/22/2022 Active Vitamin D 50 MCG (2000 UT) Oral Tablet Take 2,000 Units by mouth in the morning. 0 Active DULoxetine HCl 30 MG Oral Capsule Delayed Release Particles (Cymbalta)Indicati ons:Moderate episode of recurrent major depressive disorder (HCC) Take 1 Capsule by mouth in the morning. Do not cut, crush or chew. 30 Capsule 5 12/29/2022 Active DULoxetine HCl 20 MG Oral Capsule Delayed Release Particles (duloxetine)Indica tions:Moderate episode of recurrent major depressive disorder (HCC) Take 1 Capsule by mouth in the morning. Do not cut, crush or chew. 30 Capsule 5 11/27/2022 12/29/2022 Discontinued (Refill) Hospital, Clinic, or Other Facility Administered Medication Ordered Dose Route Frequency Start Date End Date Status vitamin b-12 (Cyanocobalamin) inj 1,000 mcgIndications:Other vitamin B12 deficiency anemia 1000 mcg IM [id number] 09/25/2022 11/18/2023 Active documented as of this [...] Sign Reading Time Taken Comments Blood Pressure 144/80 12/29/2022 8:57 AM EDT Pulse 83 12/29/2022 8:57 AM EDT Temperature 36.1 C (96.9 F) 12/29/2022 8:57 AM ED T Respiratory Rate - - Oxygen Saturation 99% 12/29/2022 8:57 AM EDT Inhaled Oxygen Concentration - - Weight 53.6 kg (118 lb 3.2 oz) 12/29/2022 8:57 A M EDT Height - - Body Mass Index 22.33 10/09/2022 3:50 PM EDT documented in this encounter Progress Notes * Amalia Baca PA-C - 12/29/2022 9:08 AM EDT Nursing Notes: Beatriz Gunn LPN 12/29/22 0900 Addendum Chief Complaint Patient presents with Acute Increase bruising on body No injuries at sites Duration - 4 wks States 2 days ago urine is a light green color 1-2 times a day. States having Lower pubic area pain States 1 wk ago had Hematuria Duloxetine started on 11/27/22 and wanted to increase the Medication. She states she is not noticing any changes in mood The patient has been properly identified by confirmation of name and date of . Pt here today for bruising on arms, legs. It started a few weeks ago. No injury at sites. Pt deniesfatigue, weakness, dizziness, lightheadedness, syncope, headache, chest pain, SOB, nosebleeds. Pt also with discolored urine. Pt does have some lower abdominal pressure. She thought she noticed some blood in urine last week. Pt denies burning/pain with uriation, frequency/urgency. She drinks pepsi and water. Pt denies flank pain, fever, chills. Pt also wants to increase cymbalta. She is taking 20 mg now. It seems to help some. She would like to try to increase. Review of patient's allergies indicates: Allergen Reactions [...] before bedtime. For heartburn. 60 Tablet 5 DULoxetine HCl 20 MG Oral Capsule Delayed Release Particles (duloxetine) Take 1 Capsule by mouth inthe morning. Do not cut, crush or chew. 30 Capsule 5 Vitamin D 50 MCG (2000 UT) Oral Tablet Take 2,000 Units by mouth in the morning. Current Facility-Administered Medications Medication Dose Route Frequency Provider Last Rate Last Admin vitamin b-12 (Cyanocobalamin) inj 1,000 mcg 1,000 mcg Intramuscular Q12 Weeks Michael Oleary MD 1,000 mcg at 12/27/22 0941 Past Medical History: [...] Housing Stability: Not on file O:Blood pressure 144/80, pulse 83, temperature 36.1 C (96.9 F), temperature source Tympanic, weight 53.6 kg (118 lb 3.2 oz), SpO2 99 %. GENERAL: alert, healthy, and no distress HEART: regular rate & rhythm, no murmur, and no gallops LUNGS: chest symmetric with normal AP diameter, no chest deformities noted, no chest wall tenderness, lungs clear to auscultation SKIN: areas of ecchymosis on arms and legs ABDOMEN: abdomen soft, non-tender, and no CVA tenderness A:UTI (urinary tract infection) (Primary) - CULTURE, URINE, QUANTITATIVE Spontaneous ecchymoses - CBC WITH WBC DIFFERENTIAL AND ANEMIA REFLEX WORKUP; Future; Expected date: 12/29/2022 - COMPREHENSIVE METABOLIC PANEL; Future; Expected date: 12/29/2022 Moderate episode of recurrent major depressive disorder (HCC) - DULoxetine HCl 30 MG Oral Capsule Delayed Release Particles (Cymbalta); Take 1 Capsule by mouth in the morning. Do not cut, crush or chew. Will have pt bring urine in since she can't give one in office. Will check some labs. Increase cymbalta to 30 mg daily. Any questions/problems, please call. If anything changes, worsens, develops newsx, please call [facility]. Follow Up: Return if symptoms worsen or fail to improve. Amalia Baca PA-C documented in this encounter Nursing Notes * Beatriz Gunn LPN - 12/29/2022 8:55 AM EDT Chief Complaint Patient presents with Acute Increase bruising on body No injuries at sites Duration - 4 wks States 2 days ago urine is a light green color 1-2 times a day. States having Lower pubic area pain States 1 wk ago had Hematuria Duloxetine started on 11/27/22 and wanted to increase the Medication. She states she is not noticing any changes in mood The patient has been properly identified by confirmation of name and date of . documented in this encounter Plan of Treatment Upcoming Encounters Date Type Specialty Care Team Description 01/03/2023 Office Visit Gastroenterology Jennifer Cleaning CRNP [address] [place] [address] Pending Results Name Type Priority Associated Diagnoses Date /Time CBC WITH WBC DIFFERENTIAL AND ANEMIA REFLEX WORKUP Lab Routine Spontaneous ecchymoses 12/29/2022 9:27 AM EDT COMPREHENSIVE METABOLIC PANEL Lab Routine Spontaneous ecchymoses 12/29/2022 9:27 AM EDT Scheduled Orders Name Type Priority Associated Diagnoses Orde r Schedule CBC WITH WBC DIFFERENTIAL AND ANEMIA REFLEX WORKUP Lab Routine Spontaneous ecchymoses Expected: 12/29/2022 (Approximate), Expires: 12/30/2023 COMPREHENSIVE METABOLIC PANEL Lab Routine Spontaneous ecchymoses Expected: 12/29/2022 (Approximate), Expires: 12/29/2023 CULTURE, URINE, QUANTITATIVE Lab Routine Ordered: 023 URINALYSIS, REFLEX TO MICROSCOPIC Lab Routine Expected: 2022, Expires: 12/30/2023 Health Maintenance Due Date Last Done Comments [...] of this encounter Visit Diagnoses Diagnosis Spontaneous ecchymoses- Primary Moderate episode of recurrent major depressive disorder (HCC) Dysuria documented in this encounter Care Teams Order Processing Manager Relationship Specialty Start Date End Date Michael Oleary MD [address] [place] [address] [place] [address] PCP - General Family Medicine 10/30/13 documented as of this encounter
--- OUTSIDE RECORDS SUMMARY | 2023-06-22 03:41 | External Medical Summary ---
Author Name Unknown Address Unknown Organization K01:LABORATORY [facility] [place] - [facility] [address] Laboratory Report Ordering Provider Test Date Status DENICE NGUYỄN 01/03/2023 09:39:58 Final Observation Date Value Abnormality Reference (Units ) Status Color of Urine by Auto 01/03/2023 09:39:58 Yellow Colorless, Light Yellow, Yellow, Dark Yellow Final Clarity, Urine 01/03/2023 09:39:58 Clear Clear Final Glucose [Mass/volume] in Urine by Automated test strip 01/03/2023 09:39:58 Negative Negative (mg/dL) Final Bilirubin.total [Presence] in Urine by Automated test strip 01/03/2023 09:39:58 Negative Negative Final Ketones [Mass/volume] in Urine by Automated test strip 01/03/2023 09:39:58 Negative Negative (mg/dL) Final Specific gravity, Urine 01/03/2023 09:39:58 1.020 1.003-1.030 Final Hemoglobin [Presence] in Urine by Automated test strip 01/03/2023 09:39:58 Trace Abnormal Negative Final pH, Urine 01/03/2023 09:39:58 6.0 5.0-7.5 (Units) Final Protein [Mass/volume] in Urine by Automated test strip 01/03/2023 09:39:58 Negative Negative (mg/dL) Final Urobilinogen [Mass/volume] in Urine by Automated test strip 01/03/2023 09:39:58 Normal Normal (mg/dL) Final Nitrite [Presence] in Urine by Automated test strip 01/03/2023 09:39:58 Negative Negative Final Leukocyte esterase [Presence] in Urine by Automated test strip 01/03/2023 09:39:58 Moderate Abnormal Negative Final RBC, Urine 01/03/2023 09:39:58 10-19 Abnormal 0-2 (/HPF) Final WBC, Urine 01/03/2023 09:39:58 6-9 Abnormal 0-2 (/HPF) Final Bacteria [#/area] in Urine sediment by Microscopy high power field 01/03/2023 09:39:58 26-50 Abnormal 0-25 (/HPF) Final Calcium oxalate crystals [#/area] in Urine sediment by Microscopy high power field 01/03/2023 09:39:58 20-29 Abnormal None (/HPF) Final Performing Location LABORATORY [facility] [place] - [facility] [address]. [facility] [address]
[2023-06-22 06:37] LABS: Hematocrit (blood only) 40.6 % (37.0-47.0); Hemoglobin 13.2 g/dl (12.0-16.0); Mean Corpuscular Hemoglobin 28.8 pg (25.0-34.0); Mean Corpuscular Hgb Conc 32.5 g/dL (32.0-36.0); Mean Corpuscular Volume 88.6 fL (80.0-100.0); Mean Platelet Volume 11.2 fL (9.4-12.4); Platelet Count 235 K/uL (130-400); RDW Coefficient of Variation 17.2 % (11.5-14.5); RDW Standard Deviation 55.4 fL (36.4-46.3); Red Blood Count 4.58 M/uL (4.20-5.40); White Blood Count 10.51 K/ul (4.8-10.8)
[2023-06-22 06:58] LABS: Albumin Globulin Ratio 1.3 (0.9-2); Albumin Level 3.3 gm/dl (3.4-5.0); BUN Creatinine Ratio 13.1 (10-20); Bilirubin,Total 1.3 mg/dl (0.2-1.0); Calcium 8.7 mg/dl (8.6-10.3); Creatinine Clr Calc Pharmacy 71.5 ml/min; Est GFR (Non-African American) 99.2 ml/min; Globulin 2.5 gm/dl (2.5-4.0); Potassium 3.5 mmol/L (3.5-5.1); Total Protein 5.8 gm/dl (6.0-8.3)
--- NOTE | 2023-06-22 10:09 | Gastrointestinal Consultation ---
Date of Consultation June 22, 2023 Assessment & Plan (1) Chest pain: (2) Gallstones: Plan Patient with sudden onset of chest pain that has now seemed to have resolved since admission. possible gallbladder etiology to this. possibly related to some reflux since she was having some reflux symptoms. Discussed case with Dr. Ruffin. - start protonix 40mg PO twice daily. - would follow with surgery for gallbladder evaluation. pt reports she was told this would be an outpatient work up. - she should continue to follow with her regular GI team at [facility] on her Crohn's disease. Do not suspect that her symptoms were related to Crohn's disease. she should also address with [facility] about possible need for ERCP as suggested on MRCP. Supervising Physician Co-Signing Physician Notes Agree with DENISE Torres as above Abd: Soft, NT, ND, +BS Continue current therapy and supportive care. F/U with [facility] as outpatient History of Present Illness Reason for Consultation: cholecystitis Requesting Physician: Nancy Navarro PA-C Attending Physician: Yuniel Omalley MD History of Present Illness Patient is a 57 year old female with a past medical history of Crohn's disease, history of enteritis, MDD, B12 deficiency anemia, tobacco use, who presented to outpatient sports medicine however did not make it to the visit as she had suspected cardiorespiratory event with acute development of chest pain, was given full dose aspirin, EKG was shown sinus bradycardia as well as T wave depressions in V5 and V6 and therefore was sent via EMS to the hospital here. She admits that she did have some heartburn recently. Since arrival she had CT A/P with nonspecific thickening of the rectum/anorectal junction, perianal fistulas, distended gallbladder with thickening. US 06/20 shown distended gallbladder equivical for cholecystitis. there was also intra and extra hepatic biliary ductal dilation with dilation of the pancreatic duct. [facility] was contacted for possible transfer but recommended MRCP. MRCP done 06/20 showing cholelithiasis without choledocholithiasis but a distended gallbladder. ERCP was recommended as occult neoplasm could not be excluded. Patient tells me that since her admission her chest pain has resolved and she is feeling better. She has a history of crohn's disease. diagnosed as a teenager. she follows with [facility] on this. typically moves her bowels once every few days and is predominantly constipated. she was on sulfasalazine for years for her Crohns but recently she was changed over to remicade and has recieved two loading doses of this. she tells me these symptoms she had prior to this admission do not seem typical for her crohns. She tells me that surgery has seen her and is recommending outpatient evaluation of gallbladder. Patient denies any current issues with nausea, vomiting, dysphagia, heartburn, abdominal pain, unintentional weight loss, change in bowels, melena, or bright red blood per rectum. Allergies Allergy/AdvReac Type Severity Reaction Status Date / Time No Known Allergies Allergy Unverified 06/21/23 17:04 Home Medications Medication Instructions Recorded Confirmed Type acetaminophen 500 mg tablet 500 mg PO Q6H PRN Pain 06/21/23 06/21/23 History albuterol sulfate 90 mcg/actuation 2 puff inhalation Q4H PRN Wheezing 06/21/23 06/21/23 History aerosol inhaler cholecalciferol (vitamin D3) 25 50 mcg PO DAILY 06/21/23 06/21/23 History mcg (1,000 unit) tablet (Vitamin D3) duloxetine 30 mg capsule,delayed 30 mg PO QAM 06/21/23 06/21/23 History release infliximab 100 mg intravenous 100 mg IV UD 06/21/23 06/21/23 History solution (Remicade) omega 3-gnr-wip-fish oil 1,000 mg 1 cap PO DAILY 06/21/23 06/21/23 History (120 mg-180 mg) capsule (Fish Oil) ondansetron HCl 4 mg tablet 4 mg PO Q6H PRN Nausea And Vomiting 06/21/23 06/21/23 History amoxicillin 875 mg tablet 875 mg PO BID 10 days #20 tabs 06/22/23 Rx pantoprazole 40 mg tablet,delayed 40 mg PO BID 30 days #60 tabs 06/22/23 Rx release Patient History Medical History Crohn disease No pertinent family history Anxiety Surgical History Hx of colonoscopy Hx of hysterectomy Family History Grandfather (Maternal) Stroke Grandfather (Paternal) Cancer brain cancer Grandmother (Maternal) Cancer stomach cancer Aunt Cancer breast cancer Other Diabetes Social History Smoking Status: Current every day smoker Tobacco Type: Cigarettes Cigarettes Per Day: 10; Do You Dip or Chew Tobacco: No; Hx Alcohol Use: No Hx Substance Use: No Preferred Language: Welsh Communication Ability: Effective Freight Car Loader Required: No Beliefs That Will Affect Care: None Current Living Situation: Spouse Other Information That Helps Us Care for You: No Feels Safe at Home: Yes Safety Concerns: Feels Safe At This Time Assistive Devices: None Review of Systems Review of Systems: All systems reviewed & are unremarkable except as noted in HPI & below Physical Exam Constitutional: WD/WN, vitals as above Respiratory: normal respiratory effort, lungs clear to auscultation Cardiovascular: RRR, no murmur, no edema Gastrointestinal (Abdomen): normal bowel sounds, soft, nontender, no hepatosplenomegaly Skin: no rashes, warm and dry Psychiatric: Orientation: alert and oriented x 3 Affect: euthymic affect Results & Data Vital Signs (Past 12 Hours) Vital Signs Temp Pulse Pulse Resp BP Pulse Ox O2 Del Method 06/22/23 09:10 62 06/22/23 08:22 98.1 F 71 16 125/8 L 06/22/23 03:01 98.8 F 72 18 112/71 93 Room Air 06/21/23 23:50 98.2 F 85 18 147/90 H 94 Room Air Coding Level of Care Code 47153 IN/OBS CONSULT LVL 4,60M Diagnoses Chest pain R07.9 Chest pain type: unspecified Gallstones K80.20 (1) Chest pain Chest pain type: unspecified Qualified Code(s): R07.9 - Chest pain, unspecified
[2023-06-22] MEDS: PANTOprazole 40 MG TAB PO SCH (10:53)
--- OUTSIDE RECORDS SUMMARY | 2023-06-22 12:17 | External Medical Summary | Summary of Care ---
Author Name Unknown Organization [facility] Address [address] [place] [address] Phone [phone] Care Team Providers Care Brim Rounder Name Role Phone Sari Perkins MD Primary Care Provide r Encounter Details Date Type Department Care Team (Late st Contact Info) Description 06/21/2023 Telephone Family Medicine [address] [address] Sari Perkins MD [address] [place] [address] [place] [address] Allergies Active Allergy Reactions Criticality Noted Date Comments Naproxen 06/26/2000 GI documented as of this encounter (statuses as of 06/21/2023) Medications Medication Sig Dispensed Refills Start Date [...] vitamin B12 deficiency anemia 1000 mcg IM [id number] 09/25/2022 11/18/2023 Active documented as of this encounter (statuses as of 06/21/2023) Active Problems Problem Noted Date Diagnosed Date [...] as of this encounter (statuses as of 06/21/2023) Resolved Problems Problem Noted Date Diagnosed Date Resolved Date Major depressive disorder, r ecurrent episode, moderate 12/22/2020 05/17/2022 documented as of this encounter (statuses as of 06/21/2023) Immunizations Name Administration Dates Next Due Hepatitis [...] Miscellaneous Notes * Telephone Encounter - Sari Pekrins MD - 06/21/2023 11:11 AM EDT Due to chest pain aspirin 325mg given EKG: sinus bradycardia, TWI on v5-6 (no prior EKG to compare) Pt did start to feel better with oxygen and laying down Sent the pt to ER for further eval * Telephone Encounter - Riya Cisse LPN - 06/21/2023 10:51 AM EDT Pt was in the radiology waiting room. PAR came over asking for help. Dr. Cheatham, Tal Rodas, and nursing responded and obtained vitals and EKG. Pt c/o burning in her chest. Pt was given 4 chewable aspirin 81 mg. BP: 118/60 HR: 50 BS: 102 SpO2: 97% room air 98% O2: 2L/min via mask. documented in this encounter Plan of Treatment Upcoming Encounters Date Type Department Care Team (Late st Contact Info) Description 07/10/2023 10:30 AM EDT Office Visit Gastroenterology, [facility] [address] [place] [address] Jennifer Cleaning CRNP [address] [address] 07/12/2023 9:00 AM EDT Hem/Onc Treatment Hematology/Oncology Treatment, [place] [address] [place] [phone] [place], Chair 3 Hem Onc Scenery [address] [place] [address] 08/08/2023 11:00 AM EDT Office Visit General Surgery, [facility] [address] [facility] [place] [address] Peg Johnson MD [address] [place] [address] 09/04/2023 10:30 AM EDT Imaging Radiology, [address] [place] [address] 10/03/2023 5:40 PM EDT Office Visit Family Medicine [address] [place] [phone] Sari Perkins MD [address] [place] [address] [place] [address] 11/13/2023 8:00 AM EDT Nurse Only Ancillary [address] [place] [address] [place], Nurse [address] [place] [address] 12/17/2023 10:00 AM EDT Imaging Radiology [place] [address] [address] [place] [address] 12/17/2023 10:30 AM EDT Imaging Radiology [address] [place] [address] Health Maintenance Due Date Last Done Comments [...] visit until score < 10) 10/25/2022 10/24/2022 Hepatitis B (3 of 3 - 19+ 3-dose series) 11/13/2023 06/13/2023, 05/15/2023 Influenza Vaccine (FLU shot) (Season Ended) 2023 Mammogram 06/11/2024 06/12/2023, 05/29/2023 Lipid Panel 05/03/2026 [...] filedocumented as of this encounter Care Teams Brim Rounder Relationship Specialty Start Date End Date Sari Perkins MD [address] [place] [address] [place] [phone] PCP - General Family Medicine 04/05/23 documented as of this encounter
--- OUTSIDE RECORDS SUMMARY | 2023-06-22 12:17 | External Medical Summary ---
Author Name Unknown Address Unknown Organization : Laboratory Report Ordering Provider Test Date Status KRISTIAN OTERO 06/21/2023 10:34:17 Final Observation Date Value Abnormality Reference (Units ) Status Glucose Point of Care 06/21/2023 10:34:17 102 70-120 (mg/dL) Final Performing Location
--- OUTSIDE RECORDS SUMMARY | 2023-06-22 12:17 | External Medical Summary | Summary of Care ---
Author Name Unknown Organization [facility] Address [address] [facility] [address] Phone [phone] Care Team Providers Care Electrolysis Operator Name Role Phone Sari Perkins MD Primary Care Provide r Reason for Visit * Reason Comments Pain Encounter Details Date Type Department Care Team (Latest Contact Info) Description 06/21/2023 10:30 AM EDT Office Visit Orthopaedics [address] [phone] Toan Rivera MD [address] [facility] [place] [address] Sacral insufficiency fracture, initial encounter*; Chronic thoracic spine pain Allergies Active Allergy Reactions Criticality Noted Date [...] vitamin B12 deficiency anemia 1000 mcg IM [id number] 09/25/2022 11/18/2023 Active documented as of this [...] Progress Notes * Toan Rivera MD - 06/21/2023 10:27 AM EDT Note: Patient not seen today. Had checked in and was waiting x-ray when she had an suspected cardiorespiratory event. She was evaluated through nursing and the primary care team. 911 was called and she was transferred for ER evaluation. I was informed of her event by nursing after primary care team was already evaluating her and 911 had already been called. I did not see or evaluate her today. No charge and no co-pay documented in this encounter Plan of Treatment Upcoming Encounters Date Type Department Care Team (Late st Contact Info) Description 07/10/2023 10:30 AM EDT Office Visit Gastroenterology, [facility] [address] [facility] [place] [address] Jennifer Cleaning CRNP [address] [facility] [place] [id number] 07/12/2023 9:00 AM EDT Hem/Onc Treatment Hematology/Oncology Treatment, [place] [address] [place] [phone] Ca, Chair 3 Hem Onc Scenery [address] [place] [address] 08/08/2023 11:00 AM EDT Office Visit General Surgery, [facility] [address] [facility] [place] [address] Peg Johnson MD [address] [place] [address] 09/04/2023 10:30 AM EDT Imaging Radiology, [place] [id number] [facility] [place] [address] 10/03/2023 5:40 PM EDT Office Visit Family Medicine [address] [place] [phone] Sari Perkins MD [address] [place] [address] [place] [address] 11/13/2023 8:00 AM EDT Nurse Only Ancillary [address] [place] [address] Ray[place], Nurse [address] [place] [address] 12/17/2023 10:00 AM EDT Imaging Radiology [facility] [address] [facility] [place] [address] 12/17/2023 10:30 AM EDT Imaging Radiology [address] [place] [address] Scheduled Orders Name Type Priority Associated Diagnoses Orde r Schedule XR HIP BILAT 3-4 VIEWS INCLUDING AP OF PELVIS Medical Imaging Routine Sacral insufficiency fracture, initial encounter Ordered: 06/21/2023 Health Maintenance Due Date Last Done Comments [...] as of this encounter Visit Diagnoses Diagnosis Sacral insufficiency fracture, initial encounter- Primary Chronic thoracic spine pain Pain in thoracic spine documented in this encounter Care Teams Electrolysis Operator Relationship Specialty Start Date End Date Sari Perkins MD [address] [place] [address] [place] [address] PCP - General Family Medicine 04/05/23 documented as of this encounter
--- NOTE | 2023-06-22 17:51 | Hospitalist Progress Note ---
Date of Service June 22, 2023 delayed entry date of service noted above Assessment & Plan (1) Gallstones: (2) Acute cholecystitis: Plan: Per admitting notes with addendum: -GI and general surgery consulted -ER physician reports they have spoke to GI at [facility] and he did not feel that patient needed transfer to their facility at this time, recommended an MRCP which has been ordered, await results -AST 105, ALT 26, total bili 1.6, alk phos 103 -Reviewed gallbladder ultrasound showing 1 large calcified gallstone, as well as CT abdomen pelvis showing gallbladder wall thickening -LR at 80 mL an hour, n.p.o. 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 Pulmonary emphysema without acute intrathoracic abnormality. No pulmonary emboli. 2. No bowel obstruction or pneumoperitoneum. 3. Nonspecific wall thickening of the rectum and anorectal junction should be correlated with colonoscopy. Differential considerations include proctitis versus a mucosal lesion. 4. Chronic appearing perianal fistulas. No abscess. 5. Distended gallbladder with borderline wall thickening. Correlation with ultrasound is needed. 6. Acute to subacute appearing T11 and T12 compression deformities with mild paravertebral edema and retropulsion. 7. Probable distal esophagitis. 8. Additional findings as above. 06/23 Evaluated by general surgery service: Recommend course of Augmentin and follow-up with general surgery clinic as an outpatient with Dr. Jay GI service consulted Possible reflux Recommend Protonix 40 mg p.o. twice daily Follow-up with [facility] GI clinic for further evaluation including evaluation for possible distal esophagitis and proctitis versus mucosal lesion (3) Chest pain: Plan: -EKG showing T wave depression in V5 V6, sinus bradycardia, negative troponin x 2 so far -Possible that this chest pain is truly related to acute cholecystitis as above, Unlikely acute ACS CT chest: No PE (4) Crohn disease: Plan: - Recently started remicade about 2 weeks, has gotten 2 injections and has less blood in stool. (5) Tobacco use: Plan: - Cessation encouraged (6) Compression fracture of thoracic vertebra: Plan: - Appears to be acute versus subacute on CT scan, T11, T12, pt is following with ortho as outpatient routinely, no need for consultation at this time - Pt uses tylenol at home for pain Disposition Discharge to home PCP follow-up in 1 week GI follow-up in 1 to 2 weeks Admission and Anticipated Discharge Date Admission Date: June 21, 2023 Subjective Follow-up for abdominal pain, etc. Seen resting in bed, comfortable, not in distress Sitting up Good spirits States she feels much better overall Abdominal pain resolved No nausea and vomiting, fevers or chills Tolerating diet well No other new symptoms Review of Systems Review of Systems: all noted and negative except for above Physical Exam Physical Exam: General- oriented x 3, not in distress, speaks in sentences with no effort or accessory muscle use Eyes- anicteric Neck- no JVD Lungs- clear breath sounds bilaterally, no crackles or wheeze Heart- normal rate, regular rhythm; no murmurs Abdomen- normal bowel sounds, nondistended, soft, nontender Extremities- no pretibial edema, no calf tenderness Neuro- alert, oriented x 3; no gross focal neurologic deficits Skin- warm & dry Results & Data Results & Data Vital Signs (Past 12 Hours) Vital Signs Temp Pulse Pulse Resp BP Pulse Ox O2 Del Method 06/22/23 13:39 36.8 C 71 16 144/80 H 95 06/22/23 12:01 36.8 C 71 16 144/80 H 95 Room Air 06/22/23 09:10 62 06/22/23 08:22 36.7 C 71 16 125/8 L all noted and reviewed including below (3) Chest pain Chest pain type: unspecified Qualified Code(s): R07.9 - Chest pain, unspecified (6) Compression fracture of thoracic vertebra Encounter type: initial encounter Thoracic vertebra fracture level: T11 Qualified Code(s): S22.080A - Wedge compression fracture of T11-T12 vertebra, initial encounter for closed fracture
--- NOTE | 2023-06-23 06:58 | Electrocardiogram Report ---
Test Reason : Blood Pressure : / mmHG Vent. Rate : 054 BPM Atrial Rate : 054 BPM P-R Int : 156 ms QRS Dur : 084 ms QT Int : 418 ms P-R-T Axes : 072 070 077 degrees QTc Int : 396 ms Sinus bradycardia with sinus arrhythmia Nonspecific T wave abnormality Abnormal ECG No previous ECGs available Confirmed by Jeremias Martin ([id number]) on 06/23/2023 6:58:01 AM Referred By: Confirmed By:Jeremias Martin
--- NOTE | 2023-06-24 16:42 | Discharge Summary ---
Discharge Summary Date of Service June 24, 2023 delayed entry date of service June 22, 2023 Notes For Next Care Provider Medication Changes From Visit Augmentin-antibiotic for possible gallbladder infection Increase your Protonix to twice a day for two weeks then resume daily dosing. Take a probiotic daily for at least 1 month. Drink plenty of fluids. Admission HPI Per Admitting Provider This is a 57-year-old female with PMHx of Crohns disease, hx enteritis, MDD, B12 deficiency anemia, tobacco use, who presented to outpatient sports medicine however did not make it to the visit as she had suspected cardiorespiratory event with acute development of chest pain, was given full dose aspirin, EKG was shown sinus bradycardia as well as T wave depressions in V5 and V6 and therefore was sent via EMS to the hospital here. Pt here underwent testing, EKG was similar compared to outpatient, negative troponin x 2, CT abdomen pelvis was completed showing possible gallbladder wall thickening, known acute to subacute T11-T12 compression deformities, concern for probable distal esophagitis, nonspecific wall thickening of the rectum and anorectal junction concerning for proctitis. T. bili is mildly elevated at 1.6, AST 105, ALT 26, alk phos 102. Gallbladder ultrasound showed that the gallbladder is distended and contains a calcified gallstone, trace. Cholecystic fluid, negative Christianson sign, findings were equivocal for acute cholecystitis. ER had discussion with GI at [facility] which recommended an MRCP, no need for acute transfer to their facility at this time. He will reach out to general surgery. Our team has been asked to admit the patient. Pt arrived for ortho follow up for compression fractures. She states that as she presented to the office she all of a sudden fot chest pain, this was at 10:15 am, and then was rushed here. She states it feels like a squeezing, does not radiate, it lasted all day, states its a 7/10 pain/discomfort and still present. Denies nausea or vomiting. Pt has not eaten or drank anything since early this morning around breakfast, she has had minimal appetite due to her Crohn's disease, and states that it has been like that for a long time, only recently slightly improved since starting Remicade in the last 2 weeks. Last time she moved her bowel was 2 days ago, she has hx of constipation. Reports last colonoscopy was on 05/24/23 at [facility]. She reports seeing less blood in her stools since starting Remicade. Patient also states that she has had increased urinary frequency, today has attempted to go to the bathroom and urinate 10 times but only a little bit comes out, she reports having burning x 1. Remarks that she has had history of colovesicular fistula and frequent UTIs., Not currently on any antibiotics, was on Bactrim about 1 month ago for UTI. Social Hx: Currently smokes 0.5-1 ppd, started at age 13, 43 years. Denies alcohol use, illicit drug, marijuana. Admission Exam Per Admitting Provider General: awake, alert, no apparent distress, thin white female, BMI 19.6 Head: Normocephalic, atraumatic ENT: PERRL, EOMI, no pharyngeal exudate, mucous membranes moist Chest: Clear to auscultation, on room air, no adventitious breath sounds Cardiac: Sinus bradycardia, no murmur, no JVD, normal peripheral pulses, good capillary refill Abdominal: NABS x 4 quadrants, soft, nondistended, nontender to palpation in the RUQ,, no rebound or guarding, negative Christianson sign Extremities: Normal inspection, no peripheral edema or erythema, calfs nontender to palpation Psych: Normal mood and affect Neuro: AAO x 3, strength intact bilaterally and rated 5/5, no motor deficits, speech is clear, no peripheral sensory deficits Principal Dx & Hospital Course #1 = Principal Diagnosis (1) Gallstones: (2) Acute cholecystitis: Per admitting notes with addendum: -GI and general surgery consulted -ER physician reports they have spoke to GI at [facility] and he did not feel that patient needed transfer to their facility at this time, recommended an MRCP which has been ordered, await results -AST 105, ALT 26, total bili 1.6, alk phos 103 -Reviewed gallbladder ultrasound showing 1 large calcified gallstone, as well as CT abdomen pelvis showing gallbladder wall thickening CT abdomen/pelvis: 1. Pulmonary emphysema without acute intrathoracic abnormality. No pulmonary emboli. 2. No bowel obstruction or pneumoperitoneum. 3. Nonspecific wall thickening of the rectum and anorectal junction should be correlated with colonoscopy. Differential considerations include proctitis versus a mucosal lesion. 4. Chronic appearing perianal fistulas. No abscess. 5. Distended gallbladder with borderline wall thickening. Correlation with ultrasound is needed. 6. Acute to subacute appearing T11 and T12 compression deformities with mild paravertebral edema and retropulsion. 7. Probable distal esophagitis. 8. Additional findings as above. 06/23 Evaluated by general surgery service: Recommend course of Augmentin and follow-up with general surgery clinic as an outpatient with Dr. Jay GI service consulted Possible reflux Recommend Protonix 40 mg p.o. twice daily Follow-up with [facility] GI clinic for further evaluation including evaluation for possible distal esophagitis and proctitis versus mucosal lesion (3) Pulmonary nodules/lesions, multiple: Seen on CT scan of the chest there are a few scattered low suspicion groundglass nodular foci at the lung apices measuring up to 4 mm. 7 mm ground glass nodule within the medial segment right middle lobe, image 97. Please refer to full report in the Ordered Studies section above Further work up, management, and ff up as outpatient (4) Chest pain: -EKG showing T wave depression in V5 V6, sinus bradycardia, negative troponin x 2 so far Acute coronary syndrome unlikely -Possible that this chest pain is truly related to cholelithiasis CT chest: No PE Atherosclerosis of the aorta without aneurysm or dissection. -Consider aspirin and statin Further evaluation and management as an outpatient (5) Crohn disease: - Recently started remicade about 2 weeks, has gotten 2 injections and has less blood in stool. (6) Tobacco use: - Cessation encouraged (7) Compression fracture of thoracic vertebra: - Appears to be acute versus subacute on CT scan, T11, T12, pt is following with ortho as outpatient routinely, no need for consultation at this time - Pt uses tylenol at home for pain Disposition Discharge to home PCP follow-up in 1 week GI follow-up in 1 to 2 weeks Discharge Exam General- oriented x 3, not in distress, speaks in sentences with no effort or accessory muscle use Eyes- anicteric Neck- no JVD Lungs- clear breath sounds bilaterally, no crackles or wheeze Heart- normal rate, regular rhythm; no murmurs Abdomen- normal bowel sounds, nondistended, soft, nontender Extremities- no pretibial edema, no calf tenderness Neuro- alert, oriented x 3; no gross focal neurologic deficits Skin- warm & dry Updated Medication List Medication Instructions Recorded Confirmed Type acetaminophen 500 mg tablet 500 mg PO Q6H PRN Pain 06/21/23 06/21/23 History albuterol sulfate 90 mcg/actuation 2 puff inhalation Q4H PRN Wheezing 06/21/23 06/21/23 History aerosol inhaler cholecalciferol (vitamin D3) 25 50 mcg PO DAILY 06/21/23 06/21/23 History mcg (1,000 unit) tablet (Vitamin D3) duloxetine 30 mg capsule,delayed 30 mg PO QAM 06/21/23 06/21/23 History release infliximab 100 mg intravenous 100 mg IV UD 06/21/23 06/21/23 History solution (Remicade) omega 3-ozn-qxp-fish oil 1,000 mg 1 cap PO DAILY 06/21/23 06/21/23 History (120 mg-180 mg) capsule (Fish Oil) ondansetron HCl 4 mg tablet 4 mg PO Q6H PRN Nausea And Vomiting 06/21/23 06/21/23 History amoxicillin 875 mg tablet 875 mg PO BID 10 days #20 tabs 06/22/23 Rx pantoprazole 40 mg tablet,delayed 40 mg PO BID 30 days #60 tabs 06/22/23 Rx release Hospital Stay Data Consultations 06/21/23 17:44 ED Decision to Admit Stat 06/21/23 18:02 Consult General Surgery Stat 06/21/23 20:58 Consult Gastroenterology Routine Consult General Surgery Routine Diagnostic Imagining Performed Laboratory Results WBC 10.51 K/ul (4.8-10.8) 06/22/23 05:59 RBC 4.58 M/uL (4.20-5.40) 06/22/23 05:59 Hgb 13.2 g/dl (12.0-16.0) 06/22/23 05:59 Hct 40.6 % (37.0-47.0) 06/22/23 05:59 MCV 88.6 fL (80.0-100.0) 06/22/23 05:59 MCH 28.8 pg (25.0-34.0) 06/22/23 05:59 MCHC 32.5 g/dL (32.0-36.0) 06/22/23 05:59 RDW Std Deviation 55.4 fL (36.4-46.3) H 06/22/23 05:59 RDW Coeff of Meliza 17.2 % (11.5-14.5) H 06/22/23 05:59 Plt Count 235 K/uL (130-400) 06/22/23 05:59 MPV 11.2 fL (9.4-12.4) 06/22/23 05:59 Immature Gran % (Auto) 0.5 % 06/21/23 11:44 Neut % (Auto) 78.5 % 06/21/23 11:44 Lymph % (Auto) 14.1 % 06/21/23 11:44 Anson % (Auto) 5.5 % 06/21/23 11:44 Eos % (Auto) 0.9 % 06/21/23 11:44 Baso % (Auto) 0.5 % 06/21/23 11:44 Neut # (Auto) 11.92 K/uL (1.40-6.50) H 06/21/23 11:44 Lymph # (Auto) 2.13 K/uL (1.20-3.40) 06/21/23 11:44 Anson # (Auto) 0.83 K/uL (0.11-0.59) H 06/21/23 11:44 Eos # (Auto) 0.13 K/uL (0.00-0.50) 06/21/23 11:44 Baso # (Auto) 0.07 K/uL (0.00-0.20) 06/21/23 11:44 Immature Gran # (Auto) 0.08 K/uL (0.01-0.20) 06/21/23 11:44 PT 10.9 Seconds (9.0-12.0) 06/21/23 11:44 INR 1.0 (0.9-1.1) 06/21/23 11:44 APTT 25 Seconds (21-31) 06/21/23 11:44 PTT Ratio 0.9 06/21/23 11:44 Sodium 140 mmol/L (136-145) 06/22/23 05:59 Potassium 3.5 mmol/L (3.5-5.1) 06/22/23 05:59 Chloride 108 mmol/L (98-107) H 06/22/23 05:59 Carbon Dioxide 26 mmol/L (21-32) 06/22/23 05:59 Anion Gap 6 (3-11) 06/22/23 05:59 BUN 8 mg/dl (6-23) 06/22/23 05:59 Creatinine 0.61 mg/dl (0.6-1.2) 06/22/23 05:59 Est Cr Clr Drug Dosing 71.5 ml/min 06/22/23 05:59 Est GFR ( Amer) 115.0 ml/min 06/22/23 05:59 Est GFR (Non-Af Amer) 99.2 ml/min 06/22/23 05:59 BUN/Creatinine Ratio 13.1 (10-20) 06/22/23 05:59 Glucose 83 mg/dl (70-99(Fasting)) 06/22/23 05:59 Calcium 8.7 mg/dl (8.6-10.3) 06/22/23 05:59 Total Bilirubin 1.3 mg/dl (0.2-1.0) H 06/22/23 05:59 Direct Bilirubin 0.7 mg/dl (0-0.2) H 06/21/23 11:44 AST 74 U/L (13-39) H 06/22/23 05:59 ALT 41 U/L (7-52) 06/22/23 05:59 Alkaline Phosphatase 109 U/L (34-104) H 06/22/23 05:59 Troponin I High Sens 3.7 pg/ml (0-14) 06/21/23 21:15 Total Protein 5.8 gm/dl (6.0-8.3) L 06/22/23 05:59 Albumin 3.3 gm/dl (3.4-5.0) L 06/22/23 05:59 Globulin 2.5 gm/dl (2.5-4.0) 06/22/23 05:59 Albumin/Globulin Ratio 1.3 (0.9-2) 06/22/23 05:59 Lipase 7 U/L (11-82) L 06/21/23 11:44 Urine Color Yellow 06/22/23 00:40 Urine Appearance Clear (Clear) 06/22/23 00:40 Urine pH 7.0 (4.5-7.5) 06/22/23 00:40 Ur Specific [place] 1.023 (1.000-1.030) 06/22/23 00:40 Urine Protein Negative (Negative) 06/22/23 00:40 Urine Glucose (UA) Negative (Negative) 06/22/23 00:40 Urine Ketones Negative (Negative) 06/22/23 00:40 Urine Blood Negative (Negative) 06/22/23 00:40 Urine Nitrite Negative (Negative) 06/22/23 00:40 Urine Bilirubin Negative (Negative) 06/22/23 00:40 Urine Urobilinogen Negative (Negative) 06/22/23 00:40 Ur Leukocyte Esterase Trace (Negative) H 06/22/23 00:40 Urine WBC (Auto) 5-10 /hpf (0-5) H 06/22/23 00:40 Urine RBC (Auto) 0-4 /hpf (0-4) 06/22/23 00:40 U Hyaline Cast (Auto) 0 /lpf (0-5) 06/22/23 00:40 U Epithel Cells (Auto) >30 /lpf (0-5) H 06/22/23 00:40 Urine Bacteria (Auto) Negative (Negative) 06/22/23 00:40 Impressions Chest X-Ray 06/21/23 11:37 XR chest 1V portable CLINICAL HISTORY: Chest pain, nonspecific COMPARISON STUDY: No previous studies for comparison. FINDINGS: Lung volumes are normal. There is a hazy 3.3 cm right lower lung. There is no pneumothorax or pleural effusion. Skin folds project of the right chest. Opacity along the left heart border favors epicardial fat pad. Cardiac size is normal. Mediastinal contours are normal. There is no evidence for pulmonary edema. IMPRESSION: Subtle hazy 3.3 cm right lower lung opacity. This may be artifactual. However, a small focus of developing pneumonia could appear similar. Radiographic follow-up to ensure resolution is recommended. ACT 112: Negative or not required by law. Electronically signed by: Kurt Rodriguez M.D. 06/21/2023 12:25 PM Abdomen/Pelvis CT 06/21/23 13:01 CT angio chest PE protocol, CT abd pelvis IV con only CT DOSE: 591.94 mGy.cm HISTORY: 57 years-old Female with PE. Acute shortness of breath with chest and abdominal pain TECHNIQUE: Multiple CTA images of the chest were obtained after the intravenous administration of 93 ml Optiray. Coronal and sagittal MIPS were obtained from the axial data set and were submitted for review. CT abdomen and pelvis with IV contrast also obtained. All measurements were obtained according to NASCET criteria. A dose lowering technique was utilized adhering to the principles of ALARA. COMPARISON: None. FINDINGS: CTA: Heart normal in size. No pericardial effusion. Atherosclerosis of the aorta without aneurysm or dissection. Unremarkable pulmonary artery. No pulmonary emboli identified. CT CHEST: No thyroid nodule or pathologically enlarged lymph nodes. Calcified subcarinal lymph nodes are present. No pneumothorax, pleural effusion or overt pulmonary edema. Moderate pulmonary emphysema.r there are a few scattered low suspicion groundglass nodular foci at the lung apices measuring up to 4 mm. 7 mm ground glass nodule within the medial segment right middle lobe, image 97. Central airw ays are patent. Moderate circumferential wall thickening of the distal esophagus with adjacent inflammatory stranding. Unremarkable soft tissues. Demineralized appearance of the bones. Mild paravertebral edema surrounding the T11 and T12 vertebral bodies were there are [id number] compression deformities with retropulsion measuring up to 5 mm. No high-grade central canal stenosis. CT ABDOMEN AND PELVIS: No free air. Unremarkable spleen, and adrenal glands. Distended gallbladder with borderline wall thickening. Intrahepatic and extrahepatic biliary ductal dilation. The common bile duct measures 12 mm. The pancreatic duct measures 5 mm. No obstructing biliary or pancreatic lesion identified. Unremarkable liver. Patency of the hepatic and portal veins. There are a few scattered cysts of the kidneys. No hydronephrosis. Decompressed urinary bladder with wall thickening. Pelvic floor relaxation. Atherosclerosis of the aorta without aneurysm. No small bowel obstruction. Nonspecific c ircumferential wall thickening of the anal rectal junction. Areas of linear soft tissue thickening noted within the perirenal tissues suggestive of chronic perianal fistulas. No significant acute inflammatory changes or fluid collections. Mild perirectal inflammatory stranding. There is a partial distention within the sigmoid and ascending colon. Moderate colonic fecal retention. Noninflamed appendix. Mild generalized body wall edema. Degenerative changes of the spine, pelvis and hips. IMPRESSION: 1. Pulmonary emphysema without acute intrathoracic abnormality. No pulmonary emboli. 2. No bowel obstruction or pneumoperitoneum. 3. Nonspecific wall thickening of the rectum and anorectal junction should be correlated with colonoscopy. Differential considerations include proctitis vers us a mucosal lesion. 4. Chronic appearing perianal fistulas. No abscess. 5. Distended gallbladder with borderline wall thickening. Correlation with ultrasound is needed. 6. Acute to subacute appearing T11 and T12 compression deformities with mild paravertebral edema and retropulsion. 7. Probable distal esophagitis. 8. Additional findings as above. ACT 112: Negative or not required by law. The above report was generated using voice recognition software. It may contain grammatical, syntax or spelling errors. Electronically signed by: Nnamdi Oakley M.D. 06/21/2023 2:25 PM Chest CTA 06/21/23 13:01 CT angio chest PE protocol, CT abd pelvis IV con only CT DOSE: 591.94 mGy.cm HISTORY: 57 years-old Female with PE. Acute shortness of breath with chest and abdominal pain TECHNIQUE: Multiple CTA images of the chest were obtained after the intravenous administration of 93 ml Optiray. Coronal and sagittal MIPS were obtained from t he axial data set and were submitted for review. CT abdomen and pelvis with IV contrast also obtained. All measurements were obtained according to NASCET criteria. A dose lowering technique was utilized adhering to the principles of ALARA. COMPARISON: None. FINDINGS: CTA: Heart normal in size. No pericardial effusion. Atherosclerosis of the aorta without aneurysm or dissection. Unremarkable pulmonary artery. No pulmonary emboli identified. CT CHEST: No thyroid nodule or pathologically enlarged lymph nodes. Calcified subcarinal lymph nodes are present. No pneumothorax, pleural effusion or overt pulmonary edema. Moderate pulmonary emphysema.r there are a few scattered low suspicion groundglass nodular foci at the lung apices measuring up to 4 mm. 7 mm ground glass nodule within the medial segment right middle lobe, image 97. Central airways are patent. Moderate circumferential wall thickening of the distal esophagus with adjacent inflammatory stranding. Unremarkable soft tissues. Demineralized appearance of the bones. Mild paravertebral edema surrounding the T11 and T12 vertebral bodies were there are [id number] compression deformities with retropulsion measuring up to 5 mm. No high-grade central canal stenosis. CT ABDOMEN AND PELVIS: No free air. Unremarkable spleen, and adrenal glands. Distended gallbladder with borderline wall thickening. Intrahepatic and extrahepatic biliary ductal dilation. The common bile duct measures 12 mm. The pancreatic duct measures 5 mm. No obstructing biliary or pancreatic lesion identified. Unremarkable liver. Patency of the hepatic and portal veins. There are a few scattered cysts of the kidneys. No hydronephrosis. Decompressed urinary bladder with wall thickening. Pelvic floor relaxation. Atherosclerosis of the aorta without aneurysm. No small bowel obstruction. Nonspecific circumferential wall thickening of the anal rectal junction. Areas of linear soft tissue thickening noted within the perirenal tissues suggestive of chronic perianal fistulas. No significant acute inflammatory changes or fluid collections. Mild perirectal inflammatory stranding. There is a partial distention within the sigmoid and ascending colon. Moderate colonic fecal retention. Noninflamed appendix. Mild generalized body wall edema. Degenerative changes of the spine, pelvis and hips. IMPRESSION: 1. Pulmonary emphysema without acute intrathoracic abnormality. No pulmonary emboli. 2. No bowel obstruction or pneumoperitoneum. 3. Nonspecific wall thickening of the rectum and anorectal junction should be correlated with colonoscopy. Differential considerations include proctitis versus a mucosal lesion. 4. Chronic appearing perianal fistulas. No abscess. 5. Distended gallbladder with borderline wall thickening. Correlation with ultrasound is needed. 6. Acute to subacute appearing T11 and T12 compression deformities with mild paravertebral edema and retropulsion. 7. Probable distal esophagitis. 8. Additional findings as above. ACT 112: Negative or not required by law. The above report was generated using voice recognition software. It may contain grammatical, syntax or spelling errors. Electronically signed by: Nnamdi Oakley M.D. 06/21/2023 2:25 PM Gallbladder Ultrasound 06/21/23 14:40 ULTRASOUND RIGHT UPPER QUADRANT ABDOMEN CLINICAL HISTORY: Right upper quadrant abdominal pain. COMPARISON STUDY: Abdominal CT dated 06/21/2023. TECHNIQUE: Real-time, grayscale, and color flow sonography of the right upper quadrant of the abdomen was performed. Images are reviewed in the transverse and longitudinal planes. FINDINGS: Liver: The liver is normal in size and echotexture. There is mild central intrahepatic biliary ductal dilatation. The main portal vein is patent. Gallbladder: The gallbladder is distended and contains a 1 cm shadowing mobile gallstone. The gallbladder wall is mildly thickened measuring up to 3 mm. Trace pericholecystic fluid is seen. A sonographic Christianson's sign is reportedly absent. The common bile duct measures up to 0.6 cm in diameter. Pancreas: Visualized portions of the pancreatic head and body are normal in jacquie ear[place]. There is mild dilatation of pancreatic duct which measures up to 3 mm. Right kidney: Survey images of the right kidney demonstrate normal size and echotexture. There is no hydronephrosis. A subcentimeter cyst is incidentally noted. Ascites: There is trace perihepatic ascites. Bladder: The bladder is normal as imaged. Both ureteral jets were identified. IMPRESSION: 1. The gallbladder is distended and contains a calcified gallstone. There is also trace pericholecystic fluid. A sonographic Christianson's sign is reportedly absent. Findings are equivocal for acute cholecystitis which is not excluded. Clinical and laboratory correlation will be required. If there is strong clinical concern for acute cholecystitis a nuclear hepatobiliary scan could be considered. 2. There is mild intra and extrahepatic biliary ductal dilatation, as well as mild dilatation of the pancreatic duct. This is unchanged from today's CT scan. 3. Trace perihepatic ascites. ACT 112: Negative or not required by law. Electronically signed by: Ricardo Manriquez M.D. 06/21/2023 3:53 PM Cholangiopancreatography MRI 06/21/23 17:33 Exam(s): MRI MRCP EXAM: MR Abdomen Without Intravenous Contrast, MRCP Protocol CLINICAL HISTORY: Reason for exam: abd pain. TECHNIQUE: Multiplanar magnetic resonance images of the abdomen without intravenous contrast using MRCP protocol. Mild breathing motion artifact. COMPARISON: Abdominal ultrasound and CT abdomen pelvis from earlier the same day. FINDINGS: Bile ducts: No stones. No ductal dilation. Gallbladder: At least 1, may be 2 small gallstones. Gallbladder remains moderately distended. Stable mild pericholecystic fluid. Liver: Minimal intrahepatic ductal dilatation, stable. Pancreas: Stable, minimal ductal dilation. Spleen: Unremarkable. No splenomegaly. Adrenals: Unremarkable. No mass. Kidneys and ureters: Small cortical cysts bilaterally, stable. No hydronephrosis. Stomach and bowel: Unremarkable. No obstruction. IMPRESSION: 1. Cholelithiasis without choledocholithiasis, or CBD dilatation. 2. Moderate distended gallbladder, with trace pericholecystic fluid and minimal intrahepatic and pancreatic ductal dilatation, stable. 3. Findings are nonspecific, may be on the basis of stasis or other chronic gallbladder condition. Acute cholecystitis not entirely excluded based on imaging alone, and nuclear medicine hepatobiliary scan may be considered for further evaluation. 4. In addition, ERCP may be necessary, as occult ampullary neoplasm not excluded. Electronically signed by: Dorina Keller M.D. 06/21/23 20:44 PM 06/21/23 13:01 CT abd pelvis IV con only Stat CT angio chest PE protocol Stat 06/21/23 14:40 US gallbladder Stat 06/21/23 17:33 MR MRCP Stat Pending Results Patient Have Any Pending Studies at Discharge: No Discharge Instructions Given to Patient (Per Discharging Provider) PLEASE REFER TO YOUR NEW MEDICATION LIST AND FOLLOW INSTRUCTIONS CAREFULLY. YOUR NEW MEDICATIONS INCLUDE: Augmentin-antibiotic for possible gallbladder infection Increase your Protonix to twice a day for two weeks then resume daily dosing. Take a probiotic daily for at least 1 month. Drink plenty of fluids. PLEASE CALL YOUR PRIMARY CARE PHYSICIAN OR RETURN TO THE ER IF WITH WORSENING OF SYMPTOMS, INCLUDING Abdominal pain, nausea vomiting, fevers or chills, weakness, etc. FOLLOW UP WITH PRIMARY CARE PHYSICIAN IN 1 WEEK. FOLLOW-UP WITH SURGEON DR. HALL OUTLINED ABOVE. FOLLOW-UP WITH YOUR NURSING DEPARTMENT CHAIRPERSON SCHEDULED. Total Time Total Time Spent Total Time Spent (In Minutes): >30 minutes
== END 2023-06-22 14:37 | disposition home or self-care (01) ==
LOC: ED 11:31 → INTOOBSV 18:04 → EDINP 18:04 → SUATTDRO 18:04 → 2N 21:07